=== PATIENT | female | born 1985 | race Caucasian/White ===

== ENCOUNTER → 2017-11-06 13:58 | Outpatient (CLI) | payer BC, MEDICAID, SELFPAY ==
[2017-11-06 15:58] LABS: Absolute Lymphocyte Count 1.76 X10^3/ul (0.83-4.51); Absolute Neutrophil Count 3.5 X10^3/uL (2.0-7.7); Basophil# 0.03 X10^3/uL; Basophil% 0.5 % (0-1); Eosinophil# 0.13 X10^3/uL; Eosinophils% 2.2 % (0-5); Hematocrit 41.2 % (37-47); Hemoglobin 13.6 g/dl (12.0-15.0); Lymphocyte # 1.76 X10^3/ul (4.0); Lymphocyte % 29.3 % (19-41); Mean Corpuscular Hgb 29.9 pg (27.0-32.0); Mean Corpuscular Volume 90.5 fL (81-99); Mean Platelet Vol. 10.9 fl (6.2-12.0); Monocyte# 0.58 X10^3/uL; Monocyte% 9.7 % (0-10); Neutrophil % 58.1 % (47-70); Platelet Count 212 K/mm3 (150-450); RBC Distribution Width CV 12.6 % (11.6-14.6); RBC Distribution Width SD 41.3 fl (35.1-43.9); Red Blood Count 4.55 M/mm3 (4.2-5.4)
[2017-11-06 15:59] LABS: POSITIVE COUNT NO; POSITIVE DIFFERENTIAL NO; POSITIVE MORPHOLOGY NO
[2017-11-06 16:35] LABS: Thyroid Stim Hormone (TSH) 4.53 uIU/mL (0.358-3.74)
== END ==
PROVIDERS: Family Provider Family Medicine; PCP Family Medicine; Visit Provider Nurse Practitioner Women's Health
DX: N92.0 Excessive and frequent menstruation with regular cycle (principal)
CPT/HCPCS: 36415; 84443; 85025

== ENCOUNTER → 2017-11-13 12:18 | Outpatient (CLI) | payer BC, MEDICAID, SELFPAY ==
--- NOTE | 2017-11-13 12:19 | US_ITS ---
STUDY: ULTRASOUND OF THE FEMALE PELVIS - COMPLETE REASON FOR EXAM: Female, 32 years old. Irregular bleeding LMP: 11/07/2017 TECHNIQUE: Transabdominal and Transvaginal TECHNICAL QUALITY: Adequate. COMPARISON: None. FINDINGS: The uterus is anteverted and is in a midline position. The uterus measures 10.4 x 6.9 x 5.6 cm. Normal uterine cervix. The endometrium measures 3 mm in thickness, and is hyperechoic. An indeterminate focus of increased echogenicity is noted in the lower uterine segment endometrium which could be related to some calcification or blood products. There is no demonstrated myometrial mass. I.U.D. - The patient does not have an I.U.D. The right ovary is visualized. The right ovary measures 2.7 x 2.7 x 1.8 cm. There is no right ovarian cyst or ovarian mass. There is no visualized right adnexal mass or complex lesion. There is normal arterial and normal venous vascularity. The left ovary is visualized. The left ovary measures 3.3 x 2.5 x 1.8 cm. There is no left ovarian cyst or ovarian mass. There is no visualized left adnexal mass or complex lesion. There is normal arterial and normal venous vascularity. There is no fluid in the cul-de-sac. The pre void volume of the bladder was 48.1 ml. The post void volume of the bladder was ml. Polycystic ovary disease: No. US/Transvaginal Non- IMPRESSION: Focus of indeterminate increased echogenicity is noted in the lower uterine segment endometrium which could represent some calcification or blood products. If there has been prior uterine surgery, suture material could also have this appearance. Otherwise, the uterus and ovaries have a normal ultrasound appearance. Electronically Signed: Joseph Nielsen MD at 8:25 EDT Tel , Service support ,
--- NOTE | 2017-11-13 12:19 | US_ITS ---
STUDY: ULTRASOUND OF THE FEMALE PELVIS - COMPLETE REASON FOR EXAM: Female, 32 years old. Irregular bleeding LMP: 11/07/2017 TECHNIQUE: Transabdominal and Transvaginal TECHNICAL QUALITY: Adequate. COMPARISON: None. FINDINGS: The uterus is anteverted and is in a midline position. The uterus measures 10.4 x 6.9 x 5.6 cm. Normal uterine cervix. The endometrium measures 3 mm in thickness, and is hyperechoic. An indeterminate focus of increased echogenicity is noted in the lower uterine segment endometrium which could be related to some calcification or blood products. There is no demonstrated myometrial mass. I.U.D. - The patient does not have an I.U.D. The right ovary is visualized. The right ovary measures 2.7 x 2.7 x 1.8 cm. There is no right ovarian cyst or ovarian mass. There is no visualized right adnexal mass or complex lesion. There is normal arterial and normal venous vascularity. The left ovary is visualized. The left ovary measures 3.3 x 2.5 x 1.8 cm. There is no left ovarian cyst or ovarian mass. There is no visualized left adnexal mass or complex lesion. There is normal arterial and normal venous vascularity. There is no fluid in the cul-de-sac. The pre void volume of the bladder was 48.1 ml. The post void volume of the bladder was ml. Polycystic ovary disease: No. US/Pelvic (Non ) IMPRESSION: Focus of indeterminate increased echogenicity is noted in the lower uterine segment endometrium which could represent some calcification or blood products. If there has been prior uterine surgery, suture material could also have this appearance. Otherwise, the uterus and ovaries have a normal ultrasound appearance. Electronically Signed: Joseph Nielsen MD at 8:25 EDT Tel , Service support ,
== END ==
PROVIDERS: Family Provider Family Medicine; PCP Family Medicine; Visit Provider Nurse Practitioner Women's Health
DX: N92.0 Excessive and frequent menstruation with regular cycle (principal)
CPT/HCPCS: 76830; 76856; 93976

== ENCOUNTER 2018-02-17 12:40 | Day surgery (SDC) | payer BC, SELFPAY ==
[2018-02-17] VITALS (7 sets, daily range): BP systolic 87–123; BP diastolic 51–100; PULSE 57–107; RESP 14–17; TEMP 36.3–36.9; O2SAT 96–100; BMI 22.8
--- NOTE | 2018-02-17 12:55 | CT_ITS ---
STUDY: CT ABDOMEN AND PELVIS WITHOUT CONTRAST REASON FOR EXAM: Female, 32 years old. Left flank pain. RADIATION DOSAGE (If Supplied By Facility): CTDIvol = ( 6.20 ) mGy, DLP = ( 309.67 ) mGycm TECHNIQUE: Transaxial images were obtained from the dome of the diaphragm to the symphysis pubis without oral contrast, and without intravenous contrast. Sagittal and coronal images were reconstructed. Individualized dose optimization techniques were used for this CT. COMPARISON: None. FINDINGS: The visualized lung bases are unremarkable. The visualized portions of the heart are within normal limits. Normal liver. Normal gallbladder and extrahepatic biliary system. Normal spleen. Normal pancreas. Normal bilateral adrenal glands. Multiple right nonobstructive intrarenal calculi. The largest measures 4 mm. Enlargement of the left kidney. Multiple small nonobstructive left intrarenal calculi. There is evidence of a 4.6 mm calculus at left ureteropelvic junction causing hydronephrosis. Normal visualized stomach. Normal small intestine. Normal colon. The appendix is visualized and appears normal. Normal abdominal aorta. Normal inferior vena cava. Normal retroperitoneum. Normal urinary bladder. Presents of bilateral tubal ligation. Normal abdominal wall. Normal osseous structures. CT/Abdomen/Pelvis without Cont IMPRESSION: 4.6 mm calculus at the left ureteropelvic junction causing obstruction. Nonobstructive bilateral intrarenal calculi. Electronically Signed: Jerrell Rangel MD at 13:38 EDT Tel [phone], Service support ,
[2018-02-17] MEDS: Ondansetron 4 MG/2 ML Vial IV ×2 (13:00→15:20)
[2018-02-17] MEDS: Ketorolac 30 MG/ML Syringe IV (13:00)
[2018-02-17] MEDS: 0.9% Normal Saline 1,000 ML 125 ML IV (13:00)
[2018-02-17 13:14] LABS: Absolute Lymphocyte Count 2.38 X10^3/ul (0.83-4.51); Absolute Neutrophil Count 3.9 X10^3/uL (2.0-7.7); Basophil# 0.04 X10^3/uL; Basophil% 0.6 % (0-1); Eosinophil# 0.18 X10^3/uL; Eosinophils% 2.6 % (0-5); Hematocrit 42.8 % (37-47); Hemoglobin 14.6 g/dl (12.0-15.0); Lymphocyte # 2.38 X10^3/ul (4.0); Mean Corp Hgb Conc 34.1 g/gl (32-36); Mean Corpuscular Volume 87.9 fL (81-99); Mean Platelet Vol. 10.4 fl (6.2-12.0); Monocyte# 0.54 X10^3/uL; Monocyte% 7.7 % (0-10); Neutrophil # 3.86 X10^3/uL (2.7-7.7); POSITIVE COUNT NO; POSITIVE DIFFERENTIAL NO; POSITIVE MORPHOLOGY NO; Platelet Count 211 K/mm3 (150-450); RBC Distribution Width CV 12.6 % (11.6-14.6); RBC Distribution Width SD 40.4 fl (35.1-43.9); Red Blood Count 4.87 M/mm3 (4.2-5.4)
[2018-02-17 13:25] LABS: Anion Gap 9 (5-15); BUN 16 mg/dL (7-18); BUN/Creat Ratio 16.9 RATIO (10-20); Calcium,Total 9.2 mg/dL (8.5-10.1); Chloride 106 mmol/L (98-107); Creatinine, Serum 0.95 mg/dL (0.55-1.02); EST Glomerular Filtration Rate 72 mL/min (>60); Est Glom Filt Rate - Afr Amer 87 mL/min (>60); Estimated Creatinine Clearance 81.14 ml/min; Glucose 86 mg/dL (74-106); Potassium 3.6 mmol/L (3.5-5.1); Sodium Level 138 mmol/L (136-145)
[2018-02-17 13:34] LABS: Pregnancy, Serum, hCG Quali. NEGATIVE Negative (0-9 Nonpreg)
--- NOTE | 2018-02-17 14:01 | ED.VISSUMM ---
- ER Visit Summary Date of Service: 02/17/18 Chief Complaint: [Left flank pain] History of Present Illness: The patient is a 32 F [presents to the emergency department complaint of left flank pain that started about an hour and a half ago. Patient states that she had some hematuria about 4 days ago. Patient describes the pain is severe and rates it an 8 out of 10. Patient's had nausea with it but no vomiting. She denies any fevers. Patient states that she dipped her own urine when she had a hematuria and there is no signs of infection. Patient is never had kidney stones. Patient has had a tubal ligation and does not believe she is .] Physical Examination: [HEENT-PERRLA, EOMI. Cranial nerves II through XII grossly intact. TMs clear. Mucous membranes moist. No adenopathy. Cardiovascular-regular rate and rhythm without murmur or ectopy Lungs-clear to auscultation, chest wall stable without crepitus or subcu emphysema Abdomen-normoactive bowel sounds, soft. Patient has some mild tenderness over left lower quadrant. Patient has CVA tenderness on the left. Extremities-intact ?4, normal range of motion, normal pulses, atraumatic] Test Results: [CBC with differential obtained was normal. Chemistries were normal. HCG was negative. CT flank showed a 4.6 mm left UVJ stone causing obstruction. Urinalysis ordered and pending] Emergency Department Course and Treatment: [Patient was medicated initially with Dilaudid, Zofran, and Toradol. Patient had good pain relief with that and is comfortable mostly pain-free at this time.] Treatment Plan: [Patient will be discharged home with urine strainers and referral to urology.] Disposition: [Discharged home in stable condition. Patient advised to return if worsening pain, fever, vomiting, or condition should worsen in any way.] Impression: [Kidney stone with colic] This note was generated with [employer] dictation software. It may contain incorrect words, spelling, and punctuation that were not noted in review of the chart prior to signing ED Disposition - Plan for ED Patient: Chief Complaint: Flank Pain Referrals: Milton Vargas III, MD [Primary Care Provider] -
[2018-02-17 14:18] LABS: Mucous, Urine 0 SEEN /hpf (<or=2+)
[2018-02-17 14:23] LABS: Color, Urine Yellow (Yellow); Glucose, Dipstick Normal (Normal); Ketone-Dipstick Negative (Negative); Leukocyte Esterase-Dipstick 100 /ul (Negative); Nitrite-Dipstick Negative (Negative); Occult Blood-Urine 250 /ul (Negative); Protein-Dipstick 30 mg/dl (Negative); Specific Gravity, Urine 1.015 (1.002-1.030); Urine Bilirubin Dipstick Negative (Negative); Urine Clarity Sl. Cloudy (Clear); Urine Urobilinogen Normal (Normal); Urine pH 6.5 (5.0 - 8.0)
[2018-02-17 14:38] LABS: Bacteria 1+ /hpf (None Seen); Red Blood Cells-Urine 25-50 SEEN /hpf (0-5); Squamous Epithelial Cells - UA 0-5 SEEN /hpf (5-10); White Blood Cells 10-25 SEEN /hpf (0-5)
--- NOTE | 2018-02-17 15:01 | ED.DCSUM_ITS ---
- ER Visit Summary Date of Service: 02/17/18 Chief Complaint: [Addendum to initial dictation] History of Present Illness: The patient is a 32 F [presented with left-sided flank pain and diagnosed with 4.6 mm kidney stone. Patient's pain initially had improved however prior to discharge it did return became significant once again. At this point I discussed case with who will admit patient] Physical Examination: [] Test Results: [] Emergency Department Course and Treatment: [] Treatment Plan: [] Disposition: [Admit] Impression: [Kidney stone with colic Intractable pain] This note was generated with [employer] dictation software. It may contain incorrect words, spelling, and punctuation that were not noted in review of the chart prior to signing ED Disposition - Plan for ED Patient: Chief Complaint: Flank Pain Referrals: Milton Vargas III, MD [Primary Care Provider] -
[2018-02-17] MEDS: Morphine 4 MG/ML Syringe IV (15:20)
[2018-02-17] MEDS: Ceftriaxone 1 GM/50 ML BAG IV (15:39)
--- NOTE | 2018-02-17 17:48 | HP.PCM_ITS ---
History of Present Illness Date of Admission: 02/17/18 Chief Complaint: 32-year-old female with a proximal left 4.6 mm stone with obstruction and severe pain The patient is a 32 year old female presented to the emergency room with a 5 mm stone in the proximal left ureter causing hydronephrosis and pain also some nonobstructing stone in the left kidney. She is admitted for pain control. Plan to take her surgery today for cystoscopy stent placement and then will plan for interval treatment of her stones this week. Past Medical History Medical History: Medical History (Last Updated 11/06/17 @ 13:35 by Lupe Meza) Anxiety and depression F41.9, F32.9 Allergies No Known Allergies Allergy (Verified 11/06/17 13:32) Home Medications: Ambulatory Orders Medication Instructions Recorded Escitalopram Oxalate [Lexapro] 20 mg PO DAILY 02/17/18 Levothyroxine Sodium [Synthroid] 25 mcg PO DAILY 02/17/18 Surgical History: Surgical History (Last Updated 11/06/17 @ 13:35 by Lupe Meza) H/O tubal ligation Z98.51 History of wisdom tooth extraction, class II edentulism K08.492 Surgical History: noncontributory Psychiatric History: No pertinent psych hx 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 Denies: Nausea, Vomiting Genitourinary: Reports: Hematuria. Denies: Dysuria Musculoskeletal: Denies: Joint Pain, Joint Tenderness Skin: Denies: Rash, Wounds Neurological: Denies: Numbness, Tingling, Focal weakness Psychiatric: Denies: Anxiety, Depression, Homicidal Ideations, Suicidal Ideations Hematologic/ Lymphatic: Denies: Easy Bruising, Easy Bleeding VTE Information - Inpt Only VTE Present on Admission: No VTE Mechan Device Prophylaxis: SCD's - Physical Exam General: Alert, Oriented x3, Cooperative HEENT: Atraumatic, PERRLA, EOMI, Normocephalic Neck: Supple, No JVD, Negative Carotid Bruits Lungs: Clear to auscultation, Normal air movement Cardiovascular: Regular rate, No murmurs Abdomen: Bowel Sounds Present, Soft, Non Tender Extremities: No edema, Capillary Refill Less than 3 Seconds Skin: No rashes, No breakdown Musculoskeletal: No Tenderness to Palpation of Joints or Extremities Neurological: Cranial nerves II-XII grossly intact Psych/Mental Status: Normal Affect, Appropriate Vital Signs Temp Pulse Resp BP Pulse Ox 97.6 F L 88 16 116/70 100 02/17/18 12:42 02/17/18 15:23 02/17/18 15:23 02/17/18 15:23 02/17/18 15:23 Oxygen Delivery Method Room Air Weight: 66.224 kg Body Mass Index (BMI) 22.8 Laboratory Tests Past 24 Hrs 02/17/18 02/17/18 02/17/18 13:05 13:05 13:05 WBC 7.0 RBC 4.87 Hgb 14.6 Hct 42.8 MCV 87.9 MCH 30.0 MCHC 34.1 RDW 12.6 RDW Differential 40.4 Plt Count 211 MPV 10.4 Immature Gran % (Auto) 0.100 Neut % (Auto) 55.0 Lymph % (Auto) 34.0 [place] % (Auto) 7.7 Eos % (Auto) 2.6 Baso % (Auto) 0.6 Absolute Neuts (auto) 3.9 Absolute Lymphs (auto) 2.38 Total Counted Not Reportable Sodium 138 Potassium 3.6 Chloride 106 Carbon Dioxide 23.0 Anion Gap 9 BUN 16 Creatinine 0.95 Estim Creat Clear Calc 81.14 Est GFR (MDRD) Af Amer 87 Est GFR (MDRD) Non-Af 72 BUN/Creatinine Ratio 16.9 Glucose 86 Calcium 9.2 Serum , Qual NEGATIVE Urine Color Urine Clarity Urine pH Ur Specific [place] Urine Protein Urine Glucose (UA) Urine Ketones Urine Occult Blood Urine Nitrite Urine Bilirubin Urine Urobilinogen Ur Leukocyte Esterase Urine RBC Urine WBC Ur Squamous Epith Cells Urine Bacteria Urine Mucus 02/17/18 14:10 WBC RBC Hgb Hct MCV MCH MCHC RDW RDW Differential Plt Count MPV Immature Gran % (Auto) Neut % (Auto) Lymph % (Auto) [place] % (Auto) Eos % (Auto) Baso % (Auto) Absolute Neuts (auto) Absolute Lymphs (auto) Total Counted Sodium Potassium Chloride Carbon Dioxide Anion Gap BUN Creatinine Estim Creat Clear Calc Est GFR (MDRD) Af Amer Est GFR (MDRD) Non-Af BUN/Creatinine Ratio Glucose Calcium Serum , Qual Urine Color Yellow Urine Clarity Sl. Cloudy Urine pH 6.5 Ur Specific [place] 1.015 Urine Protein 30 H Urine Glucose (UA) Normal Urine Ketones Negative Urine Occult Blood 250 H Urine Nitrite Negative Urine Bilirubin Negative Urine Urobilinogen Normal Ur Leukocyte Esterase 100 H Urine RBC 25-50 SEEN Urine WBC 10-25 SEEN Ur Squamous Epith Cells 0-5 SEEN Urine Bacteria 1+ Urine Mucus 0 SEEN Assessment/Plan 32-year-old female with a proximal left ureteral calculi plan for cystoscopy and stent placement today we will discharge home tonight with pain medicine and plan for interval treatment of her kidney stone this coming week.
--- NOTE | 2018-02-17 17:50 | PCM.DC.URO ---
Discharge Diet: Light diet - advance as tolerated Discharge Activity: Return to Normal Activity Call your doctor if you observe: Fever of 101 or Higher Allergies/Adverse Reactions: Allergies No Known Allergies Allergy (Verified 11/06/17 13:32) Medications to take at Discharge Escitalopram Oxalate [Lexapro] 20 mg PO DAILY 02/17/18 Hydrocodone/Acetaminophen [[place] 5-325 Tablet] 1 ea PO Q4H PRN PRN 7 Days #14 tab 02/17/18 Levothyroxine Sodium [Synthroid] 25 mcg PO DAILY 02/17/18 The following prescriptions were given: Hydrocodone/Acetaminophen [[place] 5-325 Tablet] 1 ea PO Q4H PRN PRN 7 Days #14 tab PRN Reason: Pain Primary Care Physician: Milton Vargas III, MD [Primary Care Provider] - Test Results: Please Follow Up With: Alexey Casper MD When: my office will call you to set up surgery this Saturday.
[2018-02-17] MEDS: Lidocaine Jelly 2% 20 ML Syringe (URO-JET) 20 APPLIC (18:13)
--- NOTE | 2018-02-17 18:25 | OP.PCM_ITS ---
Report of Operation Date of Procedure: 02/17/18 Pre-Operative Diagnosis: Left proximal ureteral calculi and multiple left renal calculi Post-Operative Diagnosis: Same Surgery/Procedure Performed:: Cystoscopy and left stent placement Description of Surgical Findings:: 32-year-old female came into the emergency room severe pain from a stone in the proximal left ureter patient was brought into the hospital today for pain control taken to surgery today to place a stent in the left side and then plan for shockwave lithotripsy in a few days. Patient was taken back to the operating room at the smooth induction of general anesthesia was placed supine on the table in the dorsolithotomy position. The urethra and vaginal area were prepped and draped in usual sterile fashion, the urethra is normal, the bladder was normal, I cannulated the left ureteral orifice with a Glidewire advanced a wire up into the kidney, and then over the wire a place a stent 6 [place] by 26 cm stent, left the string on the stent for easy extraction patient anesthesia was reversed and she is taken back to PACU in good condition plan to set her up in the near future for shockwave lithotripsy of the left kidney stones. Type of Anesthesia:: Local MAC Drains: stent left side, 6x26cm - Admit VTE Documentation VTE Present on Admission: No VTE Mechan Device Prophylaxis: SCD's
[2018-02-17] MEDS: Ketorolac 15 MG/ML Vial IV (18:43)
== END 2018-02-17 20:17 | disposition home or self-care (01) ==
LOC: ED 15:05 → SDC 15:08 → MS3 02-20 09:09
PROVIDERS: Emergency Provider Emergency Medicine; Family Provider Family Medicine; PCP Family Medicine; Visit Provider Urology
PROC: (CPT 52332; principal; 2018-02-17 17:15)
DX: N13.2 Hydronephrosis with renal and ureteral calculous obstruction (principal); F41.9 Anxiety disorder, unspecified; F32.9 Major depressive disorder, single episode, unspecified; Z79.899 Other long term (current) drug therapy
CPT/HCPCS: 00910; 52332; 74176; 76000; 80048; 81001; 84703; 85025; 99284; J7030; J7120; C1769; C2617; J2405

== ENCOUNTER → 2018-02-25 08:31 | Outpatient (CLI) | payer BC, SELFPAY ==
--- NOTE | 2018-02-25 08:39 | RAD_ITS ---
STUDY: X-RAY - ABDOMEN/PELVIS REASON FOR EXAM: Female, 32 years old. Kidney stones TECHNIQUE: Frontal view COMPARISON: None. FINDINGS: Normal visualized lung bases. There is an unremarkable bowel gas pattern. There is no demonstrated free abdominal air. There is a LEFT ureteral stent in proper position. NO stones are seen. There are bilateral tubal ligation clips. There are phleboliths in the pelvis. Normal soft tissue structures. Normal visualized osseous structures. RAD/Abdomen Single View IMPRESSION: There is an unremarkable bowel gas pattern. There is no demonstrated free abdominal air. There is a LEFT ureteral stent in proper position. NO stones are seen. Electronically Signed: Silas Webb MD at 1:55 EDT , Service support ,
== END ==
LOC: RAD 08:35
PROVIDERS: Family Provider Family Medicine; PCP Family Medicine; Visit Provider Urology
DX: N20.1 Calculus of ureter (principal)
CPT/HCPCS: 74018

== ENCOUNTER 2020-07-04 23:21 | Emergency (ER) | payer OTHER, BC, SELFPAY ==
[2020-07-04 23:22] VITALS: BP 152/72; PULSE 82; RESP 16; TEMP 36.3; O2SAT 100; BMI 21.2
--- NOTE | 2020-07-04 23:39 | ED.VIS.GEN ---
History of Present Illness Chief Complaint: Back Informant: Patient Onset: Today Current Severity: Moderate Maximum Severity: Moderate Narrative: Patient presents secondary to back pain. She was at work tonight. She states she picked up a box of parts and turned to sit down when she had sudden sharp pain through her back and toward her chest. She states she dropped to her knees and has had difficulty moving because of pain and spasm since that time. She does have a history of herniated disks in her lower back but states this is completely different. She denies pain radiating to her arms or legs. - Past Medical History (1) Anxiety and depression Status: Chronic (2) Hypothyroid Status: Chronic Past Medical History - Allergies and Home Meds Allergies/Adverse Reactions: Allergies hydrocodone [From Vicodin] Adverse Reaction (Verified 07/04/20 23:24) Nausea/Vom/Diarrhea Primary Care Physician: Manuel Pierre [GROUP OF PHYSICIANS] - 2 Days Surgical History: noncontributory Lives: With Family Smoking Status: Never smoker - Family History Maternal Family History: Family History (Last Updated 11/06/17 @ 13:35 by Lupe Meza) Grandfather Heart disease Family History: Reports: No pertinent history Review of Systems General: Denies: Chills, Fever Eyes: Denies: Visual changes - bilaterally ENT: Denies: Bilateral ear pain Cardiovascular: Denies: Chest pain Respiratory: Denies: Dyspnea, Cough Gastrointestinal: Denies: Abdominal pain Musculoskeletal: Reports: Back pain Skin: Denies: Rash Neurological: Denies: Headache, Weakness, Parasthesia Hematologic: Denies: Easy bruising, Easy bleeding Allergy: Denies: Uticaria Physical Exam Vital Signs/Narrative: Vital Signs Temp Pulse Resp BP Pulse Ox 07/04/20 23:22 97.3 F L 82 16 152/72 H 100 Inital Vital Signs reviewed: Yes General: Well nourished, Well developed Head: Normocephalic ENT: Moist mucous membranes Neck: Supple Cardiovascular: Regular rate, Regular rhythm Respiratory: No distress, CTA bilaterally Abdomen: Soft, Nontender Back: - - Tenderness in the lower thoracic midline and paraspinal regions. Extremities: Nontender Skin: Normal color Neurological: Alert, Oriented x3 Psychological: Normal affect Diagnostic/Tx/Re-eval - Medical Decision Making Patient will be given a Lidoderm patch along with Naprosyn, Tramadol, and Flexeril. With no direct trauma to her back I do not believe x-rays will be beneficial. [facility] ED Disposition - Plan for ED Patient: Disposition: Home or Assisted Living Diagnosis: Back pain Instructions: ED Back Pain Acute or Chronic, ED Spasm Back No Trauma Prescriptions: cycloBENZAPRine HCl [Flexeril] 10 mg PO TID PRN #20 tab PRN Reason: Muscle Spasm Transmission Status: Received by [id number] Lidocaine [Lidoderm Patch] 1 patch TOPICAL DAILY PRN #3 patch PRN Reason: Pain Score 4-10 Transmission Status: Sent to [id number] Naproxen [Naprosyn] 500 mg PO BID PRN PRN #20 tab PRN Reason: Pain Score 4-10 Transmission Status: Sent to [id number] traMADol [Ultram] 50 mg PO Q6H PRN PRN #10 tab PRN Reason: Pain Score 6-10 Transmission Status: Received by [id number] Referrals: [facility] [[facility]YSIC[facility]] - 2 Days
--- NOTE | 2020-07-04 23:41 | ED.RN ---
Rebecca from called in at 2340 regarding drug screen for pt.
[2020-07-04] MEDS: Naproxen 500 MG Tablet PO (23:43)
[2020-07-04] MEDS: cycloBENZAPRine HCl 10 MG Tablet PO (23:43)
[2020-07-04] MEDS: Lidocaine 5% Patch 1 PATCH TOPICAL (23:43)
[2020-07-05] MEDS: traMADol 50 MG Tablet PO (00:38)
[2020-07-05 00:39] VITALS: BP 133/75; PULSE 62; RESP 17; O2SAT 97
== END 2020-07-05 00:39 | disposition home or self-care (01) ==
PROVIDERS: Emergency Provider Emergency Medicine; PCP Family Medicine
DX: M54.9 Dorsalgia, unspecified (principal); E03.9 Hypothyroidism, unspecified; F41.9 Anxiety disorder, unspecified; F32.9 Major depressive disorder, single episode, unspecified; Z79.899 Other long term (current) drug therapy
CPT/HCPCS: 99283

== ENCOUNTER → 2020-07-20 17:02 | Outpatient (CLI) | payer BC, SELFPAY ==
[2020-07-06 17:37] VITALS: BMI 22.1
--- NOTE | 2020-07-20 17:05 | RAD_ITS ---
STUDY: X-RAY - THORACIC SPINE REASON FOR EXAM: Female, 34 years old. Neck pain TECHNIQUE: 3 view(s) of the thoracic spine were obtained. COMPARISON: None. FINDINGS: There is no evidence of fracture or dislocation in the thoracic spine. The vertebral body heights and disc spaces are well-maintained. There are no significant degenerative changes. RAD/Thoracic Spine 3 Views IMPRESSION: No fracture or dislocation in the thoracic spine. Electronically Signed: Obey Lou, at 17:52 EST Tel , Service support ,
--- NOTE | 2020-07-20 17:05 | RAD_ITS ---
STUDY: X-RAY - LUMBAR SPINE REASON FOR EXAM: Female, 34 years old. Back pain TECHNIQUE: 3 view(s) of the lumbar spine were obtained. COMPARISON: None FINDINGS: There is no evidence of fracture or dislocation in the lumbar spine. The vertebral body heights and disc spaces are well-maintained. There are no significant degenerative changes. RAD/Lumbar Spine 2 or 3 Views IMPRESSION: No fracture or dislocation in the lumbar spine. Electronically Signed: Obey Lou, at 17:52 EST Tel , Service support ,
== END ==
PROVIDERS: PCP Family Medicine; Referring Provider Physician Assistant; Visit Provider Physician Assistant
DX: M62.830 Muscle spasm of back (principal)
CPT/HCPCS: 72072; 72100

== ENCOUNTER 2020-09-26 17:00 | Outpatient (RCR) | payer OTHER, SELFPAY ==
[2020-07-06 17:37] VITALS: BMI 22.1
--- NOTE | 2020-08-25 13:04 | HP.PTEVAL_ITS ---
Patient's Visit Information VINCENT MATA is a 34 year old F referred to Physical Therapy by SAADIA Sifuentes with a diagnosis of Muscle spasm of back. Date of Evaluation: 08/24/20 Physical Therapist: Ish Smallwood DPT - Visit Plan Frequency: 2x /Week Duration: 5 weeks Plan: Start with slight progression of extension of lumbar spine. May use US to R SI region and Lumbar spine. Progress core stability exercise once tolerating. Progress back to work related exercises once symptoms have started to reduce. - Subjective Pt. is here today for her initial evaluation with diagnosis of muscle spasm of back. Pt. reports initial hurting her back when she was lifting some objects at work. Initial injury occured in the end of June. Pt. initially had a lot of mid back (thoracic pain) which is now significantly better, but is still having the lumbar spine pain mainly on the R side. Pt. does report pain that radiates into her R hip and leg to ~her knee. She denies weakness or sensation changes, but noticed increased pain with sitting, decreasred pain with standing/walking. Increased pain at the end of her work day. Mornings are okay. Pt. is hopeful to reduce symptoms in order to complete work day without limitations. - Pain lumbar spine Pain Intensity (Out of 10): 4 Pain Intensity Range: 2, 8 Comment: R side of Lumbar spine, SI region - Objective POSTURE: Pt. has decent posture in stance. Normal lumbar lordosis and normal thoracic kyphosis. pt. has slieght difference in appearant leg length R longer than L. PALPATION: Pt. has increased tenderness at L1-L3, increased soreness at L4-S1 and greatest pain at SI joint on the Rside. Hypomobility noted, but not severe. Pt. had no radicular symptoms. NEURO: normal DTR, normal sensation of B LEs. ROM: LUMBAR SPINE: flexion min loss mild increase NW, exten min loss increase NW, SB nil loss NE bilat, rotation min loss mild increase NW bilat. Normal HS length, normal IR motion without increase in symptoms. MMT: 5/5 throughout BLEs. Pt. has no marked myotomal loss. Core strength- fair. GAIT: Pt. has normal gait pattern without increase in symptoms. Slightly gaurded posture. - Special Tests L/S Slump test left side: Negative L/S Slump test right side: Positive L/S Left Straight Leg Raise: Negative L/S Right Straight Leg Raise: Negative Lumbar Standing: Flexion - Mechanical Response: No effect Lumbar Standing: Flexion - Symptoms During Testing: Increases Lumbar Standing: Flexion - Symptoms After Testing: No worse Comments:: slightly Lumbar Standing: Extension - Mechanical Response: No effect Lumbar Standing: Extension - Symptoms During Testing: Increases Lumbar Standing: Extension - Symptoms After Testing: No worse Lumbar Lying: Flexion - Mechanical Response: No effect Lumbar Lying: Flexion - Symptoms During Testing: No effect Lumbar Lying: Flexion - Symptoms After Testing: No effect Lumbar Lying: Extension - Mechanical Response: No effect Lumbar Lying: Extension - Symptoms During Testing: Increases Lumbar Lying: Extension - Symptoms After Testing: No worse Lumbar Static: Slouched Sit - Mechanical Response: No effect Lumbar Static: Slouched Sit - Symptoms During Testing: Increases Lumbar Static: Slouched Sit - Symptoms After Testing: Worse Comments:: Greatest increase in symptoms Lumbar Static: Sitting Erect - Mechanical Response: No effect Lumbar Static: Sitting Erect - Symptoms During Testing: Decreases Lumbar Static: Sitting Erect - Symptoms After Testing: Better Lumbar Static:Lying Prone in Extension - Mechanical Response: No effect Lumbar Static: Lying Prone in Extension - Sx During Testing: Increases Lumbar Static: Lying Prone in Extension - Sx After Testing: Worse Comments:: Better initially, worsened as she was in prone on elbows - Goals Goal 1:: LTG: Pt. to be I with HEP. Goal Time Frame: 4-6 Weeks Goal 2:: STG: Pt. to sleep throughout the night without increase in symptoms. Goal Time Frame: 2-4 Weeks Goal 3:: STG: Pt. to sit in a comfortable chair without increase in symptoms for 1 hour. Goal Time Frame: 2-4 Weeks Goal 4:: STG: pt. to walk unlimited distances without increase in symptoms Goal Time Frame: 2-4 Weeks Goal 5:: STG: pt. to have full lumbar ROM without increase insymptoms. Goal Time Frame: 2-4 Weeks Goal 6:: LTG: Pt. to resume all work related activities without increase in symptoms or restrictions. Goal Time Frame: 4-6 Weeks - Rehabilitation Potential Physical Therapy Diagnosis: Pt. has signs and symptoms consistent with muscle spasms of lumbar spine. Pt. does have some radicular symptoms into her R leg. with prolonged sitting. Pt. does have + slump test on the R side. Pt. had no myotomal weakness or sensation loss. Pt. would benefit from PT to work on extension ROM, progressing to core stability. Rehabilitation Potential: Excellent - Anticipated Interventions Patient/Client Instruction: Educate patient on: Condition, Plan of Care, Risk Factors, Benefits of Fitness Program For the Purpose of:: To facilitate caregiver knowledge, To improve self management, To prevent re-injury, To improve ability to perform tasks related to life management, To improve tolerance to ADL's Therapeutic Exercise to Include: Strength training, Coordination, Postural training, Flexibilty training, Passive ROM, Active ROM, Dynamic Lumbar Stabilization, [place] Exercises For the Purpose of:: To decrease pain, To increase ROM, To improve nutrient delivery to tissue, To increase oxygenation perfusion, To improve muscle performance and motor function, To improve ability to perform ADL's, To improve health of tissue, To decrease soft tissue restriction, To increase flexibility/ROM Manual Therapy Techniques to Include: Mobilization, Manipulation, Passive ROM, Functional dry needling, Soft tissue mobilization For the Purpose of:: To decrease pain, To decrease swelling/inflammation, To increase ROM, To improve nutrient delivery to tissue, To increase oxygenation perfusion, To improve muscle performance and motor function Ultrasound (thermal/non thermal): Yes For the Purpose of:: To decrease pain, To decrease swelling/inflammation, To increase ROM, To improve nutrient delivery to tissue Thank you for the opportunity to evaluate your patient. For Medicare and Medicare HMO plans, please review the plan of care and approve it. It will need to be FAXED BACK to us at [phone] for Medicare purposes. For Medicare only, by signing this I certify the plan of care. Please let me know if there are questions or concerns regarding this plan of care. Physician Signature: Date:
--- NOTE | 2020-10-06 11:46 | HP.PTDCNRP_ITS ---
VINCENT MATA was seen in my office for initial evaluation on 08/24/20. The following Plan of Care was established for this patient: Initial Frequency: 2x /Week Initial Duration: 5 weeks Patient/Client Instruction: Educate patient on: Condition, Plan of Care, Risk Factors, Benefits of Fitness Program For the Purpose of:: To facilitate caregiver knowledge, To improve self management, To prevent re-injury, To improve ability to perform tasks related to life management, To improve tolerance to ADL's Therapeutic Exercise to Include: Strength training, Coordination, Postural training, Flexibilty training, Passive ROM, Active ROM, Dynamic Lumbar Stabil ization, [place] Exercises For the Purpose of:: To decrease pain, To increase ROM, To improve nutrient delivery to tissue, To increase oxygenation perfusion, To improve muscle performance and motor function, To improve ability to perform ADL's, To improve health of tissue, To decrease soft tissue restriction, To increase flexibility/ROM Manual Therapy Techniques to Include: Mobilization, Manipulation, Passive ROM, Functional dry needling, Soft tissue mobilization For the Purpose of:: To decrease pain, To decrease swelling/inflammation, To increase ROM, To improve nutrient delivery to tissue, To increase oxygenation perfusion, To improve muscle performance and motor function Ultrasound (thermal/non thermal): Yes For the Purpose of:: To decrease pain, To decrease swelling/inflammation, To increase ROM, To improve nutrient delivery to tissue This patient was last seen in our office 09/26/20. Pertinent comments regarding their Physical therapy will appear below: Pt. will be DC from PT this date. At her last visit she was doing well and had no pain. She dropped on a letter from her physician saying she is asymptomatic and no longer is requiring PT. Pt. will be DC back to physician at this point in time. At this point I will be discontinuing this patient from physical therapy. I would be happy to see this patient again in the future if found appropriate by the physician. Thank you! Ish Smallwood, CALI
== END 2020-09-26 19:00 | disposition home or self-care (01) ==
LOC: PT 17:00
PROVIDERS: PCP Family Medicine; Referring Provider Physician Assistant; Visit Provider Physician Assistant
DX: M62.830 Muscle spasm of back (principal)
CPT/HCPCS: 97035; 97110; 97161

== ENCOUNTER 2021-04-17 10:13 | Emergency (ER) | payer BC, SELFPAY ==
[2021-04-17 10:14] VITALS: BP 117/59; PULSE 106; RESP 18; TEMP 36.9; O2SAT 100; BMI 22.2
--- NOTE | 2021-04-17 11:03 | EX.ED.DYSGE1 ---
HPI History of Present Illness Chief Complaint: Flank Pain Informant: patient Narrative Narrative: Patient is a 35-year-old female who presents to the emergency department for left-sided flank pain. She states that this started last night around 11:30 PM. She tried taking ibuprofen and using heating pad which only helped for 90 minutes. She does have a history of kidney stones. She has had this pain on and off for the past week or 2. She was seen as an outpatient and had an ultrasound done. She had basic lab work drawn. They did not find any acute abnormality to explain her current pain. She currently rates the pain as severe. No known aggravating or relieving factors. It does not radiate to her abdomen. She denies any urinary symptoms. No change in bowel movements. No nausea or vomiting. She denies any fevers or chills. [facility] Medical History (Updated 04/17/21 @ 13:[address] Doni Gloria DO) Anxiety and depression Home Medications escitalopram oxalate 20 mg PO DAILY 02/17/18 [History Last Taken 02/17/18 12:00] levothyroxine 25 mcg PO DAILY 02/17/18 [History Last Taken 02/17/18 08:30] cyclobenzaprine 10 mg PO TID PRN #20 tab 07/04/20 [Rx Last Taken Unknown] lidocaine 1 patch TOPICAL DAILY PRN #3 patch 07/04/20 [Rx Last Taken Unknown] naproxen 500 mg PO BID PRN PRN #20 tab 07/04/20 [Rx Last Taken Unknown] tramadol 50 mg PO Q6H PRN PRN #10 tab 07/04/20 [Rx Last Taken Unknown] prednisone 10 mg tablet 10 mg PO BID #14 tab 07/20/20 [Rx Last Taken Unknown] Allergy/AdvReac Type Severity Reaction Status Date / Time hydrocodone [From Vicodin] AdvReac Nausea/Vom/ Verified 04/17/21 10:14 Diarrhea Family History Grandfather Heart disease Surgical History H/O tubal ligation History of wisdom tooth extraction, class II edentulism Social History Smoking Status: Never smoker alcohol intake: never substance use type: does not use caffeine: No frequency: 3-4 times per week seatbelt use: always do you feel safe at home: Yes additional social history: 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 [employer] 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 unemployed ROS ROS ED Constitutional Constitutional ED: Denies chills or fever(s) Eyes Eyes: Denies change in vision ENT ENT ED: Denies epistaxis or rhinorrhea Cardiovascular Cardiovascular: Denies chest pain or palpitations Respiratory/Chest Respiratory/Chest: Denies cough, dyspnea or dyspnea on exertion Gastrointestinal Gastrointestinal: Denies abdominal pain, diarrhea, nausea or vomiting Genitourinary Genitourinary ED: Denies dysuria, hematuria or urinary frequency Musculoskeletal Musculoskeletal: Reports back pain; Denies neck pain Integumentary Denies rash Neurologic Neurologic: Denies dizziness, headache(s) or weakness EXAM Physical Exam Const Vital Signs: 04/17/21 10:14 04/17/21 13:04 04/17/21 13:55 Temperature 98.5 F Temperature Source Temporal Pulse Rate 106 H 91 88 Respiratory Rate 18 15 14 Blood Pressure 117/59 L 100/62 106/72 Blood Pressure Mean 78 74 Pulse Ox 100 99 99 Oxygen Delivery Method Room Air Room Air Positive well nourished and well developed General Appearance ED: well developed and NAD HEENT Reports normocephalic, head/scalp atraumatic and moist mucous membranes Eyes PERRL and EOMs intact bilaterally Neck supple Chest Wall inspection of chest normal Resp normal respiratory effort and clear to auscultation bilaterally Auscultation: Negative for rales, rhonchi or wheezes Cardio regular rate, regular rhythm and no murmurs GI normal to inspection, nondistended, normoactive bowel sounds and non-tender Palpation: soft; Negative for guarding or rebound tenderness present Back/Spine Back/Spine Narrative: CVA tenderness on the left. Extremity normal to inspection General Extremety ED: Negative for edema or tenderness General Extremity: Negative for edema Neuro Sensorium / Orientation: alert Motor Exam: strength 5/5 throughout Psych mental status grossly normal Skin no rashes or lesions noted MDM MDM MDM Narrative Medical decision making narrative: Patient presents to the emergency department for flank pain starting last night. She has had on and off pain over the past 2 weeks. On arrival to the emergency department patient is tearful and does appear in discomfort. We will treat her as a kidney stone with Toradol and check urinalysis and CT scan abdomen/pelvis. Patient's urine had 1+ bacteria but no white blood cells, leukocyte esterase or nitrites. We will send this for culture. There was [address] scan did show bilateral renal stones but no obvious obstructing pathology. There was a fibroid uterus which she was not aware of previously. She is denying any abdominal pain. I did offer basic lab work but she states that she just had this done so we decided against this. She is feeling better at this time. She is concerned that the pain will come back. If she develops any significant repeat pain she come back for evaluation at any time. She otherwise is to follow-up with her PCP. Return precautions are reviewed with her. All questions were answered. Lab Data Labs: Laboratory Results - last 24 hr 04/17/21 10:40 Urine Color Yellow Urine Clarity Clear Urine pH 6.0 Ur Specific [place] 1.025 Urine Protein 15 H Urine Glucose (UA) Normal Urine Ketones Negative Urine Occult Blood 150 H Urine Nitrite Negative Urine Bilirubin Negative Urine Urobilinogen Normal Ur Leukocyte Esterase Negative Urine RBC 0-5 SEEN Urine WBC 0 SEEN Ur Squamous Epith Cells 0-5 SEEN Urine Bacteria 1+ Urine Mucus 0 SEEN Urine Test Negative Radiography Diagnostic Testing: Radiology Impression Abdomen/Pelvis CT 04/17/21 12:02 IMPRESSION: Bilateral renal stones, no evidence of obstructive uropathy. Enlarged uterus suggests fibroid uterus demonstrates no change. Electronically Signed: Marcus Gibson MD at 12:41 EDT Tel , Service support , Discharge Plan Triage Chief Complaint: Flank Pain ED Provider: Doni Gloria Dx/Rx/DC Orders Clinical Impression: Acute flank pain Instructions: ED Flank Pain, Uncertain Cause Prescriptions: No Action prednisone 10 mg tablet 10 mg PO BID Qty: 14 RF: 0 levothyroxine 25 MCG tablet 25 mcg PO DAILY RF: 0 escitalopram oxalate 20 MG tablet 20 mg PO DAILY RF: 0 naproxen 500 MG tablet 500 mg PO BID PRN PRN (Reason: Pain Score 4-10) Qty: 20 RF: 0 cyclobenzaprine 10 MG tablet 10 mg PO TID PRN (Reason: Muscle Spasm) Qty: 20 RF: 0 lidocaine 1 PATCH patch 1 patch TOPICAL DAILY PRN (Reason: Pain Score 4-10) Qty: 3 RF: 0 tramadol 50 MG tablet 50 mg PO Q6H PRN PRN (Reason: Pain Score 6-10) Qty: 10 RF: 0 Primary Care Provider: Edith Pitts NP Referrals: Edith Pitts NP, CARRY OUT CLERK AND SHELF STOCKER[employer] [Primary Care Provider] - 2 Days Disposition Disposition: Home, Self Care Discharge Date/Time: 04/17/21 13:56
[2021-04-17] MEDS: Ketorolac 30 MG/ML Syringe IV (11:14)
[2021-04-17 11:32] LABS: Mucous, Urine 0 SEEN /hpf (<or=2+); White Blood Cells 0 SEEN /hpf (0-5)
[2021-04-17 11:33] LABS: Color, Urine Yellow (Yellow); Glucose, Dipstick Normal (Normal); Ketone-Dipstick Negative (Negative); Leukocyte Esterase-Dipstick Negative /ul (Negative); Nitrite-Dipstick Negative (Negative); Occult Blood-Urine 150 /ul (Negative); Protein-Dipstick 15 mg/dl (Negative); Specific Gravity, Urine 1.025 (1.002-1.030); Urine Bilirubin Dipstick Negative (Negative); Urine Clarity Clear (Clear); Urine Urobilinogen Normal (Normal)
[2021-04-17 11:35] LABS: Internal QC Validated? YES +Cl - CLEAR BKGD; Pregnancy, Urine Negative Negative
[2021-04-17 11:41] LABS: Red Blood Cells-Urine 0-5 SEEN /hpf (0-5); Squamous Epithelial Cells - UA 0-5 SEEN /hpf (5-10)
[2021-04-17 11:42] LABS: Bacteria 1+ /hpf (None Seen)
--- NOTE | 2021-04-17 12:02 | CT_ITS ---
INDICATION: Left flank pain, eval for stone EXAMINATION: CT ABDOMEN AND PELVIS WITHOUT CONTRAST - CT Abdomen And Pelvis W/O Contrast Injection TECHNIQUE: Helically acquired images were obtained of the abdomen and pelvis without oral or IV contrast. A radiation dose optimization technique was used for this scan. IV Contrast dosage and agent: None. Oral contrast: None. COMPARISON: 02/17/2018. FINDINGS: LOWER CHEST: Lung bases are clear. No cardiomegaly or pericardial effusion. LIVER: Homogeneous. No focal mass. GALLBLADDER AND BILIARY TREE: No calcified gallstones. No gallbladder distension or wall edema. No intra- or extrahepatic biliary ductal dilation. PANCREAS: No focal cystic or solid mass. SPLEEN: Normal size without focal cystic or solid mass. ADRENAL GLANDS: No nodules. KIDNEYS AND URETERS: Normal renal size and position. Bilateral renal calcifications visualized, the largest seen in the midpole the right kidney measuring 0.6 cm. No evidence of hydronephrosis or hydroureter. PERITONEUM: No ascites or free air. No other fluid collection. BOWEL: Abundance of stool in the large bowel. No evidence of acute appendicitis. No stomach or bowel distension. No focal inflammatory change. LYMPH NODES: No enlarged mesenteric or retroperitoneal lymph nodes. VESSELS: Aorta is non-dilated. URINARY BLADDER: Unremarkable. REPRODUCTIVE ORGANS: No radiopaque foreign bodies visualized along the lateral aspect of the uterus consistent with fallopian tube clips. Enlarged uterus demonstrating irregular contours and heterogeneous attenuation suggestive of fibroid uterus demonstrates no significant change in comparison to the prior study. ABDOMINAL WALL: No discrete abdominal or pelvic wall hernia. BONES: No lytic or blastic abnormality. CT/Abdomen/Pelvis without Cont IMPRESSION: Bilateral renal stones, no evidence of obstructive uropathy. Enlarged uterus suggests fibroid uterus demonstrates no change. Electronically Signed: Marcus Gibson MD at 12:41 EDT Tel , Service support ,
[2021-04-17] MEDS: Morphine 4 MG/ML Syringe IM (12:59)
[2021-04-17 13:04] VITALS: BP 100/62; PULSE 91; RESP 15; O2SAT 99
[2021-04-17 13:55] VITALS: BP 106/72; PULSE 88; RESP 14; O2SAT 99
== END 2021-04-17 13:56 | disposition home or self-care (01) ==
PROVIDERS: Emergency Provider Emergency Medicine; PCP Nurse Practitioner Family
DX: R10.9 Unspecified abdominal pain (principal); F32.9 Major depressive disorder, single episode, unspecified; F41.9 Anxiety disorder, unspecified; Z87.442 Personal history of urinary calculi; Z79.899 Other long term (current) drug therapy
CPT/HCPCS: 74176; 81001; 81025; 96372; 96374; 99283

== ENCOUNTER → 2022-04-03 | Outpatient (CLI) | payer BC, SELFPAY ==
[2022-04-03 09:53] LABS: Erythrocyte Sedimentation Rate 10 mm/hr (0-30)
[2022-04-03 10:21] LABS: International Normalized Ratio 0.9; Prothrombin Time (Protime)PT. 12.3 SECONDS (11.7-14.9)
[2022-04-03 12:16] LABS: CRP < 2.90 mg/L (0.0-3.0); Ferritin 10 ng/mL (8-252); Free T3 2.2 pg/mL (2.18-3.98); LDH 167 U/L (84-246); T4 Free Direct 0.99 ng/dL (0.76-1.46); Thyroid Stim Hormone (TSH) 3.08 uIU/mL (0.358-3.74)
[2022-04-04 13:08] LABS: Anti-Centromere B Ab <0.2 AI (0.0-0.9); Anti-Chromatin <0.2 AI (0.0-0.9); Anti-Jo <0.2 AI (0.0-0.9); Anti-Scleroderma-70 AB 1.6 AI (0.0-0.9); RNP Ab 0.2 AI (0.0-0.9); SJOGREN'S Anti-SS-A test < 0.2 AI (0.0-0.9); SJOGREN'S Anti-SS-B test < 0.2 AI (0.0-0.9); Smith Ab <0.2 AI (0.0-0.9)
[2022-04-04 13:19] LABS: Anti-dsDNA Ab <1 IU/mL (0-9)
[2022-04-04 14:09] LABS: Endomysial Antibody IgA Negative (Negative)
[2022-04-05 07:37] LABS: Immunoglobulin A 237 mg/dL (87-352); t-Transglutaminase IgA <2 U/mL (0-3)
[2022-04-09 10:07] LABS: Albumin 4.1 g/dL (2.9-4.4); Alpha-1-Globulins 0.2 g/dL (0.0-0.4); Alpha-2-Globulins 0.7 g/dL (0.4-1.0); Cytoplasmic Ab (C-ANCA) <1:20 titer (Neg:<1:20); Gamma Globulin 1.5 g/dL (0.4-1.8); Immunoglobulin A 239 mg/dL (87-352); Immunoglobulin G 1355 mg/dL (586-1602); Immunoglobulin M 124 mg/dL (26-217); PROEL- TOTAL PROTEIN 7.6 g/dL (6.0-8.5)
[2022-04-09 10:19] LABS: Immunoglobulin E 8 IU/mL (6-495); Perinuclear Ab (P-ANCA) <1:20 titer (Neg:<1:20)
== END | disposition home or self-care (01) ==
LOC: LAB 08:31
PROVIDERS: PCP Nurse Practitioner Family; Referring Provider Internal Medicine Gastroenterology; Visit Provider Internal Medicine Gastroenterology
DX: R10.13 Epigastric pain (principal)
CPT/HCPCS: 36415; 82728; 82784; 82785; 83516; 83615; 84165; 84439; 84443; 84481; 85610; 85652; 86140; 86225; 86235; 86255; 86256; 86334

== ENCOUNTER 2022-05-03 08:48 | Day surgery (SDC) | payer OTHER, SELFPAY ==
[2022-05-03 09:13] VITALS: BP 124/71; PULSE 81; RESP 16; TEMP 36.9; O2SAT 100; BMI 22.3
--- NOTE | 2022-05-03 09:34 | PCM.HP.BLA ---
History and Physical Date of Admission: 05/03/22 PATY MATA, is a 36 F who presents to the office today for Initial consult. Paty established with this clinic 04.03.22. Intermittent epigastric pain is an issue since 2019. Zantac and Mylanta ineffective; mild relief with omeprazole. Notes that prior to this onset she had increased stressed; symptoms spontaneously. Symptoms returned earlier this year with worse symptoms including nausea and periodic emesis and foul gas. She has been cycling between protonix and omeprazole each for two weeks. She does note that earlier this year she began having increased stress prior to symptoms onset. Menstrual cycles are very strong and painful; underwent ablation in August of this year. She is taking ibuprofen 600-800mg BID for the last couple years. She would like to discuss hysterectomy with her senior web applications developer in the future (one year after ablation). Denies cigarette use. PMH anemia during ; postpardum depression; anxiety; hypothyroid. EGD 08.31.2019 at [facility] with Dr. Chacon for epigastric pain with pathology reporting chronic gastritis. H.Pylori negative. ROS Const Constitutional: No other Exam Const General: cooperative and healthy appearing [facility] Head: normocephalic and atraumatic Ears: hearing grossly normal bilaterally Nose: external nose normal Face and sinus: face symmetric Resp Auscultation: Bilateral: Clear to Auscultation Skin Other: Periorbital dermatitis centered around the right inferior chin Neuro General: patient alert Psych Appearance: grossly normal Mental Status: mental status grossly normal Quality Reporting Tobacco Screening ([facility] 138) Smoking Status: Never smoker Assessment and Plan Assessment and Plan (1) Epigastric abdominal pain: ?Status:?Chronic ?Plan: The differential diagnosis for abdominal pain does include disease, gastritis, duodenitis, exocrine pancreatic insufficiency, gastroparesis, possible small bowel inflammation secondary to celiac disease less likely inflammatory bowel disease.? She will undergo stool testing for any inflammatory process, SANJEEV comprehensive, ANCA immunoglobulins, protein electrophoresis, pancreatic fecal elastase and gastric emptying study. ? ? ? Orders: Orders OP w/Giardia EIA [id number] Today R10.13 - Epigastric pain ? CRP Today R10.13 - Epigastric pain ? Ferritin Today R10.13 - Epigastric pain ? LDH Today R10.13 - Epigastric pain ? Prothrombin Time w/INR Today R10.13 - Epigastric pain ? Erythrocyte Sed Rate Today R10.13 - Epigastric pain ? SANJEEV Comprehensive Panel Today R10.13 - Epigastric pain ? Calprotectin, Stool Today R10.13 - Epigastric pain ? Stool Lactoferrin/WBC Today K58.9 - Irritable bowel syndrome without diarrhea, R10.13 - Epigastric pain ? ANCA Today R10.13 - Epigastric pain ? Celiac Disease Profile Today R10.13 - Epigastric pain ? Immunoglobulins G/A/M/E Today R10.13 - Epigastric pain ? Immunoglobulin A Today R10.13 - Epigastric pain ? Immunoglobulin E Today R10.13 - Epigastric pain ? BENY + Protein Elect, Serum Today R10.13 - Epigastric pain ? Immunoglobulin G Today R10.13 - Epigastric pain ? Immunoglobulin M Today R10.13 - Epigastric pain ? Ova and Parasites [id number] Today K58.9 - Irritable bowel syndrome without diarrhea, R10.13 - Epigastric pain ? ENTERIC PATHOGEN PANEL STOOL Today K58.9 - Irritable bowel syndrome without diarrhea, R10.13 - Epigastric pain ? Stool Occult Blood iFOB Today R10.13 - Epigastric pain ? Gastric Emptying Study Today R10.13 - Epigastric pain ? Pancreatic Elastase, Fecal Today R10.13 - Epigastric pain ? Free T3 Today R10.13 - Epigastric pain ? T4 Free Direct Today R10.13 - Epigastric pain ? Thyroid Stim Hormone (TSH) Today R10.13 - Epigastric pain ? I have re-examined the patient. There are no clinical changes since date of exam.
--- NOTE | 2022-05-03 10:00 | EGD_PTH ---
PATIENT: VINCENT MATA LOC: EN U#:[id number] AGE/SX: 36/F ROOM: RE05/03/[address]: Dr. Joel Millard DO : 1985 BED: DIS: 05/03/2022 SPEC #: [id number] RECD: 05/03/22 10:50 STATUS: VALENTINE NETO #: [id number] MYLENE: 05/03/22 10:[address]: Joel Millard DEPT: SURGICAL PATHOLOGY RECD BY: Ana Morgan ENTERED: 05/03/22 11:19 SP TYPE: EGD BIOPSY OT DR: Haroon Bird, COMPUTER HARDWARE DEVELOPER-C Tissues: A - Duodenum, NOS B - Esophagus, NOS Procedures: Special Stain Group II Surgery Specimen Level IV Alcian Blue/PAS (control) HEADER OPERATION: EGD ([facility] [place]), biopsy PRE-OP DIAGNOSIS: Epigastric abdominal pain TISSUE SUBMITTED: A ? Duodenum biopsy, B ? Distal esophagus biopsy MICROSCOPIC DIAGNOSIS A. Duodenum, biopsy: Fragments of duodenal mucosa, no pathologic diagnosis. B. Distal esophagus, biopsy: Gastroesophageal junctional mucosa with chronic inflammation. Intestinal metaplasia (goblet cell metaplasia) not identified. See comment. JOSE:mario 05/04/2022 COMMENT B. Alcian blue/PAS stain with matched control is used in the evaluation of the specimen. MICROSCOPIC DESCRIPTION Slides are reviewed. GROSS DESCRIPTION A - Received in fixative is one container labeled with the patient's name and designated duodenum biopsy. The specimen consists of multiple irregular fragments of light mackey soft tissue that in aggregate measure 1 x 0.3 x 0.1 cm. The specimen is totally submitted in one cassette. B - Received in fixative is one container labeled with the patient's name and designated distal esophagus biopsy. The specimen consists of two irregular fragments of light mackey soft tissue that in aggregate measure 0.7 x 0.3 x 0.1 cm. The specimen is totally submitted in one cassette. / JOSE:mario 05/03/2022 TC:3 CPT: 00652 x2, 68670
--- NOTE | 2022-05-03 10:44 | OP.CCLET_ITS ---
05/03/2022 Tammy Ramos Re : Upper GI endoscopy procedure for Paty Hopkins Dear Marge This procedure was performed on April. My impressions and recommendations are as follows: Impressions : - Z-line irregular, 38 cm from the incisors. Biopsied. - Small hiatal hernia. - Erythematous mucosa in the gastric body. Biopsied. - Erythematous duodenopathy. Biopsied. Recommendations : - Discharge patient to home. - Resume previous diet. - Continue present medications. - Await pathology results. My findings are described in the full procedure note, which is enclosed. If I can be of further assistance, please feel free to contact me at . Sincerely, Joel Millard, 05/03/2022 10:43:42 AM This report has been signed electronically.
--- NOTE | 2022-05-03 10:44 | OP.EGD_ITS ---
Patient Name: Paty Hopkins Procedure Date: 05/03/2022 10:26 AM Date of : 1985 Age: 36 Procedure: Upper GI endoscopy Indications: Epigastric abdominal pain, Functional Dyspepsia, Failure to respond to medical treatment Providers: Joel Millard DO Referring MD: Joel Millard DO Medicines: Monitored Anesthesia Care Patient Profile: This is a 36 year old female. Refer to note in patient chart for documentation of history and physical. Patient has symptoms of chronic abdominal cramping, chronic epigastric abdominal pain and chronic nausea. Complications: No immediate complications. Procedure: Pre-Anesthesia Assessment: - Prior to the procedure, a History and Physical was performed, and patient medications and allergies were reviewed. The risks and benefits of the procedure and the sedation options and risks were discussed with the patient. All questions were answered and informed consent was obtained. Patient identification and proposed procedure were verified by the physician in the pre-procedure area. Mental Status Examination: alert and oriented. Airway Examination: normal oropharyngeal airway and neck mobility. Respiratory Examination: clear to auscultation. CV Examination: normal. Prophylactic Antibiotics: The patient does not require prophylactic antibiotics. Prior Anticoagulants: The patient has taken no previous anticoagulant or antiplatelet agents. ASA Grade Assessment: II - A patient with mild systemic disease. After reviewing the risks and benefits, the patient was deemed in satisfactory condition to undergo the procedure. The anesthesia plan was to use monitored anesthesia care (MAC). Immediately prior to administration of medications, the patient was re-assessed for adequacy to receive sedatives. The heart rate, respiratory rate, oxygen saturations, blood pressure, adequacy of pulmonary ventilation, and response to care were monitored throughout the procedure. The physical status of the patient was re-assessed after the procedure. After obtaining informed consent, the endoscope was passed under direct vision. Throughout the procedure, the patient's blood pressure, pulse, and oxygen saturations were monitored continuously. The gastroscope was introduced through the mouth, and advanced to the second part of duodenum. The upper GI endoscopy was accomplished without difficulty. The patient tolerated the procedure well. Scope In: 10:30:51 AM Scope Out: 10:36:09 AM Total Procedure Duration Time 0 hours 5 minutes 18 seconds Findings: The Z-line was irregular and was found 38 cm from the incisors. Biopsies were taken with a cold forceps for histology. Verification of patient identification for the specimen was done. Estimated blood loss was minimal. A small hiatal hernia was present. Patchy mildly erythematous mucosa without bleeding was found in the gastric body. Biopsies were taken with a cold forceps for histology. Verification of patient identification for the specimen was done. Estimated blood loss was minimal. Patchy mildly erythematous mucosa without active bleeding and with no stigmata of bleeding was found in the second portion of the duodenum. Biopsies were taken with a cold forceps for histology. Verification of patient identification for the specimen was done. Estimated blood loss was minimal. Impression: - Z-line irregular, 38 cm from the incisors. Biopsied. - Small hiatal hernia. - Erythematous mucosa in the gastric body. Biopsied. - Erythematous duodenopathy. Biopsied. Recommendation: - Discharge patient to home. - Resume previous diet. - Continue present medications. - Await pathology results. Procedure Code(s): --- Professional --- 24322, Esophagogastroduodenoscopy, flexible, transoral; with biopsy, single or multiple CPT copyright 2017 [employer]. All rights reserved. The codes documented in this report are preliminary and upon sound designer review may be revised to meet current compliance requirements. Joel Millard DO 05/03/2022 10:43:42 AM This report has been signed electronically. Number of Addenda: 0 Note Initiated On: 05/03/2022 10:26 AM
[2022-05-03 10:45] VITALS: BP 103/66; BP 124/71; PULSE 76; RESP 16; TEMP 36.5; O2SAT 99
[2022-05-03 10:50] VITALS: BP 124/71; BP 98/61; PULSE 76; RESP 16; O2SAT 100
[2022-05-03 10:55] VITALS: BP 102/69; BP 124/71; PULSE 74; RESP 16; O2SAT 100
[2022-05-03 11:00] VITALS: BP 101/61; BP 124/71; PULSE 71; RESP 16; TEMP 36.6; O2SAT 100
== END 2022-05-03 11:40 | disposition home or self-care (01) ==
LOC: EN 08:51 → AC 08:52
PROVIDERS: PCP Nurse Practitioner Family; Referring Provider Nurse Practitioner Family; Visit Provider Internal Medicine Gastroenterology
PROC: 0DJ08ZZ Inspection of Upper Intestinal Tract, Via Natural or Artificial Opening Endoscopic (ICD-10-PCS; CPT 43235; principal; 2022-05-03 09:55)
DX: K21.00 Gastro-esophageal reflux disease with esophagitis, without bleeding (principal); K44.9 Diaphragmatic hernia without obstruction or gangrene; F32.A Depression, unspecified; F41.9 Anxiety disorder, unspecified; Z87.442 Personal history of urinary calculi; E03.9 Hypothyroidism, unspecified; Z79.899 Other long term (current) drug therapy
CPT/HCPCS: 43239; 88305; 88313; J7120; J2405

== ENCOUNTER → 2022-05-29 | Outpatient (CLI) | payer OTHER, SELFPAY ==
--- NOTE | 2022-05-29 10:59 | NM_ITS ---
CLINICAL: 36-year-old female with history of clinical gastroparesis. SEMI-SOLID PHASE 99m Tc SULFUR COLLOID GASTRIC EMPTYING STUDY COMPARISON: None available FINDINGS: The patient was administered 1.1 mCi of 99m Tc sulfur colloid mixed with oatmeal and consumed per os. Image acquisitions in the anterior-posterior projections were obtained for 60 minutes. There is prompt visualization of the stomach. There is no gastroesophageal reflux identified. The T ? emptying was calculated to be 42.11 minutes, (Normal: 12-56 minutes). NM/Gastric Emptying Study IMPRESSION: 1. NORMAL 99m Tc sulfur colloid semi-solid phase (oatmeal) gastric emptying imaging examination. A. There is normal and preserved semi-solid phase gastric emptying compared to normal controls.. (Mary et al, J Nucl Med Tech 38: 186, 2010). Electronically Signed: Lucius Tee, at 23:03 EDT ,
== END | disposition home or self-care (01) ==
PROVIDERS: PCP Nurse Practitioner Family; Referring Provider Internal Medicine Gastroenterology; Visit Provider Internal Medicine Gastroenterology
DX: R10.13 Epigastric pain (principal)
CPT/HCPCS: 78264; A9541

== ENCOUNTER → 2022-06-15 | Outpatient (CLI) | payer OTHER, SELFPAY ==
[2022-06-15 13:00] LABS: CPK Total, Creatine Kinase 185 U/L (26-192)
[2022-06-19 18:11] LABS: Aldolase 4.6 U/L (3.3-10.3)
== END | disposition home or self-care (01) ==
LOC: LAB 11:09
PROVIDERS: PCP Nurse Practitioner Family; Visit Provider Internal Medicine Gastroenterology
DX: M34.9 Systemic sclerosis, unspecified (principal)
CPT/HCPCS: 36415; 82085; 82550

== ENCOUNTER → 2023-09-02 | Outpatient (CLI) | payer OTHER, SELFPAY ==
--- OUTSIDE RECORDS SUMMARY | 2023-09-02 07:16 | XMS RPT_ITS | CCD ---
Author Name Unknown Address [facility] access hospital[facility] [address] [facility] [address] [place] [address] Organization [facility] Care Team Providers Care Land Law Examiner Name Role Phone Nancy Petersen MD Unavailable [phone] MITESH Matute RN, Veronika Strong Unavailable Unavaillizet e Marge COPY LATHE OPERATOR.QUALITY ASSURANCE QA LAB TECHNICIAN, DNP, Haroon Primary Care Provider Unavailable Primary Care Provider Unavailabl e SHREE PASTORRE Referring Unavail able FAWN PASTOR Attending Unavail able CEBUL III, MILTON A Primary Care Unavailable SHREE PASTORRE Attending Unavail able CEBUL III, MILTON A Primary Care Unavailable TONYA THOMASON Attending Unavailable CEBUL III, MILTON A Primary Care Unavailable ESDRAS WOODS Attending Unavailable CEBUL III, MILTON A Primary Care Unavailable HAROON BIRD Attending Unavailable HAROON BIRD Attending Unavailable CEBUL III, MILTON A Primary Care Unavailable Unavailable Primary Care Provider Unavailabl e Allergies Allergy Classification Reported Allergen(s) Allergy Type Date of Onset Reaction(s) Facility (5 sources) buPROPion; Translations: [BUPROPION HCL] Drug Allergy 0 Other: See Comments [facility] (5 sources) NITROFURANTOIN, MACROCRYSTALS / Nitrofurantoin, Monohydrate; Translations: [NITROFURANTOIN MONOHYD/M-CRYST] Drug Allergy 9 Other: See Comments [facility] Medications Current Medications Medication Drug Class(es) Dates Sig (Normalized) Sig (Original) DULoxetine 30 mg delayed release oral capsule (4 sources) Serotonin and Norepinephrine Reuptake Inhibitor Start: 09-07-2021 End: 09-07-2022 take 1 capsule by mouth once daily DULoxetine (CYMBALTA) 30 mg capsule Indications: Anxiety and depression Take 1 capsule by mouth once daily. 90 capsule 3 09/07/2021 09/07/2022 Active Completed/Discontinued Medications Medication Drug Class(es) Dates Sig (Normalized) Sig (Original) escitalopram 10 mg oral tablet (5 sources) Serotonin Reuptake Inhibitor Start: 05-19-2021 End: 06-20-2022 take 1 tablet by mouth once daily escitalopram oxalate (LEXAPRO) 10 mg tablet Indications: Anxiety and depression Take 1 tablet by mouth once daily. 30 tablet 0 05/21/2022 Active Problems Active Problems Problem Classification Problem Date Documented Date Episodic/Chronic Anxiety disorders (14 sources) Panic attack; Translations: [Panic disorder [episodic paroxysmal anxiety]] Onset: 09-07-2011 09-07-2011 Chronic Mood disorders (4 sources) Premenstrual dysphoric disorder; Translations: [Premenstrual dysphoric disorder] Onset: 01-12-2020 01-12-2020 Chronic Thyroid disorders (5 sources) Acquired hypothyroidism; Translations: [Hypothyroidism, unspecified] Onset: 01-23-2018 Chronic Unclassified (1 source) Sterilization procedure done; Translations: [Encounter for sterilization] Onset: 04-16-2017 04-16-2017 Past or Other Problems Problem Classification Problem Date Documented Da te Episodic/Chronic Contraceptive and procreative management (3 sources) Encounter for sterilization; Translations: [Encounter for sterilization] Onset: 04-16-2017 04-16-2017 Episodic Other gastrointestinal disorders (4 sources) Chronic constipation; Translations: [Other constipation] Onset: 10-31-2020 10-31-2020 Episodic Results Test Name Value Interpretation Reference Range Facil ity Vital Signs Date Time Vital Sign Value Performing Clinician Faci lity 04-16-2017 15:26-0400 BMI (Body Mass Index) 22.77 kg/m2 Nancy Petersen MD [facility] 04-16-2017 15:26-0400 Body Temperature 97.8 [degF] Nancy Petersen MD [facility] 04-16-2017 15:26-0400 Body Temperature 97.81 [degF] Nancy Petersen MD [facility] 04-16-2017 15:26-0400 BP Diastolic 66 mm[Hg] Nancy Petersen MD [facility] 04-16-2017 15:26-0400 BP Systolic 109 mm[Hg] Nancy Petersen MD [facility] 04-16-2017 15:-0400 Height 170.18 cm Nancy Petersen MD [facility] 04-16-2017 15:26-0400 Pulse (Heart Rate) 64 /min Nancy Petersen MD [facility] 04-16-2017 15:-040 Respiratory Rate 16 /min Nancy Petersen MD [facility] 04-16-2017 15:-0400 Weight 65.95 kg Nancy Petersen MD [facility] Encounters Encounter Date Encounter Type Care Provider Facility Start: 09-03-2022 Refill Haroon PETERS RN.JORGE, TU Work Phone: [facility] Plan of Treatment Date Care Activity Detail Author Start: 05-18-2026 HPV TESTING HPV TESTING [facility] Start: 05-18-2026 PAP TESTING PAP TESTING [facility] Start: 12-21-2025 Urine microalbumin profile DTAP,TDAP,TD (9 - Td or Tdap) [facility] Start: 09-29-2022 ANNUAL PCP TEAM CHRONIC DISEASE VISIT ANNUAL PCP TEAM CHRONIC DISEASE VISIT [facility] Start: 04-19-2022 Influenza vaccination INFLUENZA (#1) [facility] Start: 01-05-2022 COVID-19 VACCINE (3 - Booster for Pfizer series) COVID-19 VACCINE (3 - Booster for Pfizer series) [facility] Start: 10-02-2021 COVID-19 VACCINE (3 - Booster for Pfizer series) COVID-19 VACCINE (3 - Booster for Pfizer series) [facility] Start: 05-23-2017 End: 05-23-2017 Appointment Appointment [facility] Work Phone: Start: 04-16-2017 End: 04-16-2017 Appointment Appointment [facility] Start: 2001 HEPATITIS C SCREENING HEPATITIS C SCREENING [facility] Immunizations Immunization Date Immunization Notes Care Provider Fa cility 05-31-2021 influenza, seasonal, injectable, preservative free Haroon Bird APRN.JORGE, DNP Work Phone: [facility] Work Phone: 12-22-2015 tetanus toxoid, redu cristiane diphtheria toxoid, and acellular pertussis vaccine, adsorbed Haroon Bird APRN.[facility] Work Phone: [facility] Work Phone: 08-05-2015 influenza, injectabl e, quadrivalent, contains preservative Haroon Bird APRN.[facility] Work Phone: [facility] 05-29-2013 influenza virus vaccine, unspecified formulation Haroon Bird APRN.[facility] Work Phone: [facility] 05-19-2013 influenza, seasonal, injectable, preservative free Haroon Bird APRN.[facility] Work Phone: [facility] Work Phone: 05-08-2013 tetanus toxoid, redu cristiane diphtheria toxoid, and acellular pertussis vaccine, adsorbed aHroon Bird APRN.[facility] Work Phone: [facility] 09-10-2011 hepatitis B vaccine, adult dosage Haroon Blaarianne KILLIAN.[facility] Work Phone: [facility] 03-09-2011 hepatitis B vaccine, adult dosage Haroon Blaarianne KILLIAN.[facility] Work Phone: [facility] 04-17-2010 hepatitis B vaccine, adult dosage Haroon Blaarianne COPY LATHE OPERATOR.[facility] Work Phone: [facility] 08-19-2006 tetanus toxoid, redu cristiane diphtheria toxoid, and acellular pertussis vaccine, adsorbed Haroon Bird APRN.[facility] Work Phone: [facility] 04-13-1996 measles, mumps and rubella virus vaccine Haroon Bird APRN.[facility] Work Phone: [facility] Work Phone: 03-28-1989 DTP-Haemophilus influenzae type b conjugate vaccine Haroon Bird APRN.[facility] Work Phone: [facility] Work Phone: 03-28-1989 haemophilus influenz ae type b vaccine, PRP-T conjugate Haroon Bird APRN.[facility] Work Phone: [facility] Work Phone: 03-28-1989 poliovirus vaccine, inactivated Haroon Bird APRN.[facility] Work Phone: [facility] Work Phone: 05-30-1988 haemophilus influenz ae type b vaccine, PRP-D conjugate Haroon Bird APRN.[facility] Work Phone: [facility] Work Phone: 05-30-1988 hepatitis B vaccine, pediatric or pediatric/adolescent dosage Haroon Bird APRN.[facility] Work Phone: [facility] Work Phone: 03-13-1985 DTP-Haemophilus influenzae type b conjugate vaccine Haroon Bird APRN.[facility] Work Phone: [facility] Work Phone: 03-13-1985 haemophilus influenz ae type b vaccine, PRP-T conjugate Haroon Bird APRN.[facility] Work Phone: [facility] Work Phone: 12-17-1984 measles, mumps and rubella virus vaccine Haroon Bird APRN.[facility] Work Phone: [facility] Work Phone: 03-24-1984 DTP-Haemophilus influenzae type b conjugate vaccine Haroon Bird APRN.[facility] Work Phone: [facility] Work Phone: 03-24-1984 haemophilus influenz ae type b vaccine, PRP-T conjugate Haroon iBrd APRN.[facility] Work Phone: [facility] Work Phone: 03-24-1984 poliovirus vaccine, inactivated Haroon Bird APRN.[facility] Work Phone: [facility] Work Phone: 01-21-1984 DTP-Haemophilus influenzae type b conjugate vaccine Haroon Bird APRN.[facility] Work Phone: [facility] Work Phone: 01-21-1984 haemophilus influenz ae type b vaccine, PRP-T conjugate Haroon Marge KILLIAN.[facility] Work Phone: [facility] Work Phone: 01-21-1984 poliovirus vaccine, inactivated Haroon Blaarianne COPY LATHE OPERATOR.[facility] Work Phone: [facility] Work Phone: 1983 DTP-Haemophilus influenzae type b conjugate vaccine Haroon Marge KILLIAN.[facility] Work Phone: [facility] Work Phone: 1985 haemophilus influenz ae type b vaccine, PRP-T conjugate Haroon Bird APRN.[facility] Work Phone: [facility] Work Phone: 1985 poliovirus vaccine, inactivated Haroon Blaz COPY LATHE OPERATOR.[facility] Work Phone: [facility] Work Phone: Payers Date Payer Category Payer Unknown [employer] PPO OOS [id number] 2020-Present [phone] [id number] [place] [address] PPO [id number] 2020 Unknown [employer] CARD PPO OOS [id number] 2020-Present [phone] [address] [place] [address] PPO [id number] 2018 Unknown [id number] Social History Date Type Detail Facility Start: 11-02-2011 Tobacco smoking stat [facility] Never smoked tobacco [facility] Start: 09-29-2021 Alcohol intake Current non-dr biomedical service engineer of alcohol (finding) [facility] Start: 01-12-2020 History SDOH Alcohol Frequency 3 [facility] Start: 01-12-2020 History SDOH Alcohol Std Drinks 1 [facility] Start: 01-12-2020 History SDOH Social Connections Phone 4 [facility] Start: 01-12-2020 End: 09-03-2021 History SDOH Social Connections Get Together 2 [facility] Start: 01-12-2020 History SDOH Financial 5 [facility] Start: 01-11-2020 Education 15 [facility] Start: 1985 Sex Assigned At Female [facility] Start: 11-02-2011 Tobacco use and exposure Smoke less tobacco non-user [facility] Start: 05-11-2022 End: 05-21-2022 Exposure to SARS-CoV-2 (event) Not sure [facility] Clinical Notes 08-05-2015 to 09-03-2022 Telephone Encounter - Michi Thayer LPN - 09/03/2022 9:31 AM ESTTelephone Encounter - Nathaly Nolasco LPN - 06/04/2022 2:07 PM EDTTelephone Encounter - Nathaly Nolasco LPN - 06/01/2022 2:02 PM EDT Note Date & Type Note Facility 09-03-2022 Miscellaneous Notes Patient phones requesting refills as follows: Requested Prescriptions Pending Prescriptions Disp Refills DULoxetine (CYMBALTA) 30 mg capsule [Pharmacy Med Name: DULOXETINE HCL DR 30 MG CAP] 90 capsule 3 Sig: TAKE 1 CAPSULE BY MOUTH ONCE DAILY *PT CANCELLED LAST 4 APPT'S TO ESTABLISH CARE WITH [facility]. NO UPCOMING APPT. Pt needs to schedule appt to establish care in order to continue receiving medication refills. MC message to pt advising of the same. Please review and advise. Michi Thayer LPN documented in this encounter [facility] 06-04-2022 Miscellaneous Notes Appointment slot open after patients appointment now. Patients appointment changed to 40 minutes for 06/05/2022 appointment since an establish care visit. Nathaly Nolasco LPN Patient scheduled for an appointment to establish care on 06/05/22 with Melissa Lantigua. The appointment is currently scheduled as 20 minutes but needs to be 40 minutes. Patient telephoned and message left to call office back. Please help assist with rescheduling when she calls back. Nathaly Nolasco LPN documented in this encounter [facility] 05-21-2022 Miscellaneous Notes Pt notified, transferred to PSS to set up est care appt. Eli Haas Ma Team - Please see my note from Sep 2021: Please contact the patient and have her establish with a new provider. I did go ahead and provider her a 30 day courtesy refill of the Lexapro. Reports: Here to establish care with me as a provider. Presents for medication refill of her Cymbalta. Recently her GUARD LIEUTENANT added Lexapro to the Cymbalta regimen. She has a history of depression and anxiety. The addition of the Lexapro has helped with her anxiety. Depression is well controlled on Cymbalta. Denies side effects. Compliant with medication. Overall feeling well. The following approved medication requests have been transmitted electronically. Requested Prescriptions Signed Prescriptions Disp Refills escitalopram oxalate (LEXAPRO) 10 mg tablet 30 tablet 0 Sig: Take 1 tablet by mouth once daily. Authorizing Provider: HAROON BIRD Refused Prescriptions Disp Refills escitalopram oxalate (LEXAPRO) 10 mg tablet [Pharmacy Med Name: ESCITALOPRAM 10 MG TABLET] 90 tablet 0 Sig: TAKE 1 TABLET BY MOUTH EVERY DAY Refused By: ESDRAS WOODS Reason for Refusal: Patient should contact Prescriber first Haroon Bird APRN.TU PATEL Please send to her PCP. Our system has her on cymbalta as well. I would think PCP would manage this. Thanks. Esdras Woods MD PSS- Please contact patient and assist with scheduling annual exam. Thank you. Requested Prescriptions Pending Prescriptions Disp Refills escitalopram oxalate (LEXAPRO) 10 mg tablet [Pharmacy Med Name: ESCITALOPRAM 10 MG TABLET] 90 tablet 0 Sig: TAKE 1 TABLET BY MOUTH EVERY DAY Last annual exam: 05/18/21 Please approve the above prescription(s) to electronically send to pharmacy. Mary Perea RN documented in this encounter [facility] 02-20-2022 Miscellaneous Notes Last office visit: 09/29/21 F/u scheduled: none Eli Haas Ma documented in this encounter [facility] 09-29-2021 Note HNO ID: [id number] Author: Haroon Bird APRN.QUALITY ASSURANCE QA LAB TECHNICIAN, DNP Service: ? Author Type: Nurse Practitioner Type: Progress Notes Filed: 09/29/2021 1:49 PM Note Text: Chief Complaint Patient presents with: Establish Care DEBBIE Paty Hopkins is a 36 year old female who is contacted today for a follow up visit This is an established patient of Dr. Vargas who retired last year. Seen patient previously for virtual visit. Past medical history: Anxiety, depression, panic attacks Reports: Here to establish care with me as a provider. Presents for medication refill of her Cymbalta. Recently her GUARD LIEUTENANT added Lexapro to the Cymbalta regimen. She has a history of depression and anxiety. The addition of the Lexapro has helped with her anxiety. Depression is well controlled on Cymbalta. Denies side effects. Compliant with medication. Overall feeling well. Previous ER visit in March for an episode of Covid that she has recovered from. She sees a therapist once a month Feng Shetty for her anxiety and depression. Requesting a refill of Xanax. Typically will use for panic attacks. 21 tablets typically lasts the entire year. Past medical history, appointments, medications, allergies reviewed 09/29/2021 Previous Medical History PAST MEDICAL HISTORY Diagnosis Date - Anemia During - Complication of anesthesia BLOOD PRESSURE WENT LOW WITH EPIDURAL - Dysthymic disorder Depression (non-psychotic), - Generalized anxiety disorder - Genital herpes, unspecified - Panic attacks 09/07/2011 - Placental abruption - depression - Subclinical hypothyroidism 01/23/2018 Previous Surgical History PAST SURGICAL HISTORY Procedure Laterality Date - ESOPHAGOGASTRODUODENOSCOPY TRANSORAL DIAGNOSTIC 08/31/2019 EGD - LITHROTRIPSY 02/2018 - PAST SURGICAL HISTORY OF WISDOM TEETH EXTRACTION - PAST SURGICAL HISTORY OF 03/27/10 Paragard insertion AND REMOVAL - TUBAL LIGATION Bilateral 05/23/2017 Family History FAMILY HISTORY Problem Relation Age of Onset - other (Hypothyroidism) Mother - Arthritis Father - No Known Problems Brother - Chronic Kidney Disease Maternal Grandmother - COPD Maternal Grandfather - Coronary Artery Disease Maternal Grandfather - Alzheimer's Disease Paternal Grandmother - Heart Paternal Grandfather - No Known Problems Daughter - No Known Problems Son - No Known Problems Son - No Known Problems Son - No Known Problems Son Patient Allergies ALLERGIES Allergen Reactions - Macrobid [Nitrofura* Other: See Comments Nausea - Wellbutrin [Bupropi* Other: See Comments increase anxiety Current Medications Current Outpatient Medications on File Prior to Visit Medication Sig - DULoxetine (CYMBALTA) 30 mg capsule Take 1 capsule by mouth once daily. - levonorgestrel (MIRENA) 20 mcg/24 hours (7 yrs) 52 mg IUD 1 Each by INTRAUTERINE route as directed. (Patient not taking: Reported on 07/28/2021 ) - escitalopram oxalate (LEXAPRO) 10 mg tablet Take 1 tablet by mouth once daily. - miSOPROStol (CYTOTEC) 200 mcg tablet Use 2 tablets vaginally as directed. The night before the procedure and the morning of the procedure. (Patient not taking: Reported on 05/29/2021 ) - levothyroxine (LEVOXYL) 25 mcg tablet Take 1 tablet by mouth once daily. Take on empty stomach. For Thyroid No current facility-administered medications on file prior to visit. Social History Social History Tobacco Use - Smoking status: Never Smoker - Smokeless tobacco: Never Used Vaping Use - Vaping Use: Never used Substance Use Topics - Alcohol use: No - Drug use: No Review of Symptoms PAIN ASSESSMENT: CURRENTLY HAVING NO PAIN GENERAL: No weight loss, malaise or fevers HEENT: Negative for frequent or significant headaches No change in vision. No blurry vision, double vision or loss of vision. No nasal discharge or nose bleeds No sore throat No earaches NECK: Negative for lumps, pain and significant neck swelling RESPIRATORY: Negative for cough, wheezing, dyspnea or shortness of breath CARDIOVASCULAR: Negative for chest pain GI: No nausea, vomiting, or diarrhea MUSCULOSKELETAL: Negative for generalized joint pain, swelling, back pain or muscle aches SKIN: Negative for lesions HEMATOLOGY/LYMPHOLOGY: Negative for prolonged bleeding, bruising easily or swollen nodes EXAM: BP 110/68 Pulse 80 Resp 14 Wt 65.8 kg (145 lb) LMP 05/20/2021 SpO2 100% BMI 22.71 kg/m? General Appearance: Well appearing, alert, in no acute distress, well-hydrated, well nourished. Skin: Skin color, texture, turgor normal Head: Normocephalic, no masses, lesions Eyes: Anicteric sclera. No redness or drainage. Ears: External ears normal, TM's clear bilaterally, adequate light reflex Nose/Sinuses: Nares normal, septum midline, mucosa normal, no drainage or sinus tenderness. Oropharynx: Lips, mucosa, and tongue normal, teeth and gums normal, (more content not included)... [facility] 09-07-2021 Note HNO ID: [id number] Author: Haroon Bird APRN.QUALITY ASSURANCE QA LAB TECHNICIAN, DNP Service: ? Author Type: Nurse Practitioner Type: Progress Notes Filed: 09/07/2021 6:55 AM Note Text: Chief Complaint Patient presents with: Refill Request This Team Access Model encounter involved medical decision making outside of a scheduled office visit. Patient was offered a virtual/telemedicine appointment in lieu of an office visit due to recommendations to reduce patient exposure to COVID-19. Patient agrees to the visit: Yes Patient Location: [facility] Paty Hopkins is a 35 year old female who is contacted today for a virtual visit This is an established patient of Dr. Vargas who retired last year. New patient to me. Reports: Presents for medication refill of her Cymbalta. Recently her GUARD LIEUTENANT added Lexapro to the Cymbalta regimen. She has a history of depression and anxiety. The addition of the Lexapro has helped with her anxiety. Depression is well controlled on Cymbalta. Denies side effects. Compliant with medication. Overall feeling well. Past medical history, appointments, medications, allergies reviewed 09/07/2021 Previous Medical History PAST MEDICAL HISTORY Diagnosis Date - Anemia During - Complication of anesthesia BLOOD PRESSURE WENT LOW WITH EPIDURAL - Dysthymic disorder Depression (non-psychotic), - Generalized anxiety disorder - Genital herpes, unspecified - Panic attacks 09/07/2011 - Placental abruption - depression - Subclinical hypothyroidism 01/23/2018 Previous Surgical History PAST SURGICAL HISTORY Procedure Laterality Date - ESOPHAGOGASTRODUODENOSCOPY TRANSORAL DIAGNOSTIC 08/31/2019 EGD - LITHROTRIPSY 02/2018 - PAST SURGICAL HISTORY OF WISDOM TEETH EXTRACTION - PAST SURGICAL HISTORY OF 03/27/10 Paragard insertion AND REMOVAL - TUBAL LIGATION Bilateral 05/23/2017 Family History FAMILY HISTORY Problem Relation Age of Onset - other (Hypothyroidism) Mother - Arthritis Father - COPD Maternal Grandfather - Heart Paternal Grandfather Patient Allergies ALLERGIES Allergen Reactions - Macrobid [Nitrofura* Other: See Comments Nausea - Wellbutrin [Bupropi* Other: See Comments increase anxiety Current Medications Current Outpatient Medications on File Prior to Visit Medication Sig - DULoxetine (CYMBALTA) 30 mg capsule Take 1 capsule by mouth once daily. - levonorgestrel (MIRENA) 20 mcg/24 hours (7 yrs) 52 mg IUD 1 Each by INTRAUTERINE route as directed. (Patient not taking: Reported on 07/28/2021 ) - escitalopram oxalate (LEXAPRO) 10 mg tablet Take 1 tablet by mouth once daily. - miSOPROStol (CYTOTEC) 200 mcg tablet Use 2 tablets vaginally as directed. The night before the procedure and the morning of the procedure. (Patient not taking: Reported on 05/29/2021 ) - levothyroxine (LEVOXYL) 25 mcg tablet Take 1 tablet by mouth once daily. Take on empty stomach. For Thyroid No current facility-administered medications on file prior to visit. Social History Social History Tobacco Use - Smoking status: Never Smoker - Smokeless tobacco: Never Used Vaping Use - Vaping Use: Never used Substance Use Topics - Alcohol use: No - Drug use: No Review of Symptoms GENERAL: No malaise or fatigue. No fevers. CARDIOVASCULAR: Negative for chest pain EXAM: LMP 05/20/2021 Virtual visit completed using video, limited exam completed. Patient sounds or appears ill: Yes General Appearance: Well appearing, alert, in no acute distress, well-hydrated, well nourished. Skin: Skin color normal Head: Normocephalic. No facial swelling or redness. EENT: Eyes nonreddened. No discharge. Neck: No mass or lesions. No swelling. FROM Patient is not able to speak in complete sentences: Yes Patient has labored breathing: Yes. Patient is audibly coughing: Yes Psych: Attitude - cooperative, easily engaged in conversation Affect - Euthymic, normal mood Mental status: Alert. Speech is clear and fluent with good repetition, comprehension Appearance - Normal hygiene and grooming appropriate Coordination: No abnormal or extraneous movements. Gait/Stance: Posture is normal. Health Maintenance List ANNUAL PCP TEAM CHRONIC DISEASE VISIT Never done HEPATITIS C SCREENING Never done COVID-19 VACCINE(3 - Booster for Pfizer series) due on 01/05/2022 DTAP,TDAP,TD(9 - Td or Tdap) due on 12/21/2025 PAP TESTING due on 05/18/2026 HPV TESTING due on 05/18/2026 INFLUENZA Completed HIV SCREENING Completed MENINGOCOCCAL CONJUGATE Aged Out Data reviewed Last 5 Encounter BP Readings: Date: BP: 08/25/2021 112/68 08/04/2021 110/62 07/28/2021 104/64 07/07/2021 110/60 05/29/2021 90/60 BMI Readings from Last 5 Encounters: 08/25/21 : 22.87 kg/m? 08/04/21 : 23.65 kg/m? 07/28/21 : 23.65 kg/m? 07/07/21 : 24.09 kg/m? 05/29/21 : 22.77 kg/m? Last 5 Encounter Wt Readings: Date: Wt: 08/25/2021 66.2 kg (146 lb) 08/04 (more content not included)... [facility] 08-25-2021 Note HNO ID: [id number] Author: Esdras Woods MD Service: ? Author Type: Physician Type: Progress Notes Filed: 08/25/2021 1:15 PM Note Text: DATE OF SERVICE: 08/25/2021 PROCEDURE: In-Office Ablation DIAGNOSIS: Menorrhagia PRE-EVALUATION: Ultrasound done on 05/18/21 EMB done on 08/04/21. Pathology: secretory endometrium INFORMED CONSENT Procedure: In-Office Ablation Service: GUARD LIEUTENANT The risks, benefits and anticipated outcomes of the procedure, the risks and benefits of the alternatives to the procedure and the roles and tasks of the personnel to be involved were discussed with the patient who consents to the procedure and agrees to proceed. I verify that I personally obtained the consent. Esdras Woods MD UNIVERSAL PROTOCOL / SAFETY CHECKLIST Procedure to be performed: In-office ablation Sign in Communication: Completed Time Out: Team Confirms the Correct Patient, Correct Procedure, Correct Site and Site Marking, Correct Position (if applicable). Time: 1219 Affirmation of Time Out: YES Sign Out Discussion: Completed Physician: Esdras Woods MD Instrument And Controls Technician: none We provide toradol: Yes Permit signed prior to medication administered: Yes PRE-MEDS:Toradol 60 mg IM at 1050 Xanax 0.5 mg PO VITAL SIGNS: 112/68 Urine HCG: Negative PROCEDURE: Betadine applied to cervix. Hurricaine spray applied Uterine sound measurement: 8 cm, cervix 3.5 cm. Local to cervix done with 1% lidocaine 1:100,000 epi. Amount given 10 mL. Uterus dilated to 5 without difficulty. Hysteroscopy done: Yes- normal endocervix, normal uterine cavity without focal abnormalities. both tubal ostia identified. Frida ablation done. Endometrial cavity length set to 4.5 cm. The device seated in the uterus in the usual sterile fashion. The safety tests were passed, the device readied and the ablation cycle completed without interruption. The device was removed. The vaginal instruments were removed. A vaginal sweep was completed by me. Sponge and needle counts were correct. Patient tolerated procedure well. FINDINGS:normal endometrial cavity POST PROCEDURE VITALS: Time: 1230 VS: 114/78 Pain rate 1-2 Time: 1243 VS: 116/74 Pain rate none Tolerated sitting: Driven home by designated school bus driver/teacher assistant: Yes, Discharge date: 08/25/2021 Discharge time: 1255 Nurse: Mary Perea RN FOLLOW UP PLAN: 1) Post-procedure instructions reviewed and written information given to patient. 2) Follow up in 3-4 weeks. Call sooner if any problems or questions. [facility] 08-04-2021 Note HNO ID: [id number] Author: Fawn Grajeda MD Service: ? Author Type: Physician Type: Progress Notes Filed: 08/04/2021 2:30 PM Note Text: Paty is a 35 year old who presents today for an endometrial biopsy for abnormal uterine bleeding. test: negative UNIVERSAL PROTOCOL / SAFETY CHECKLIST Procedure to be Performed: EMB Sign In: A Moment of CARE was completed. Personnel directly involved with the procedure wore the appropriate PPE (Personal Protective Equipment). Patient/Surrogate Stated/Verified: PATIENT VERIFIED(optional for EMERGENT procedures): Patient name, Date of , Relevant allergies and The intended procedure Time Out Communication: Intended patient and procedure match the source documents. Consent documented and matches the intended procedure. Sign Out: SIGN OUT (optional for EMERGENT procedures): All specimen containers correctly labeled. PROCEDURE: EXTERNAL GENITALIA: Normal in appearance without lesions VAGINA: Normal in appearance without lesions BIOPSY: Speculum placed into the vagina with excellent visualization of the cervix. Cervix cleaned with betadine.Uterus sounded to 8 cm. Pipelle inserted into the uterus without difficulty and endometrial biopsy obtained. Specimen labeled and sent to pathology. Hemostasis achieved. Procedure Summary: Patient tolerated procedure well. ASSESSMENT: abnormal uterine bleeding PLAN: Specimens labeled and sent to Pathology. Will notify patient of results in 1-2 weeks. PRE OP CONSENT OBTAINED FOR IN OFFICE HYSTEROSCOPY, FRIDA ABLATION. Fawn Jackson MD [facility] 07-28-2021 Note HNO ID: [id number] Author: Fawn Grajeda MD Service: ? Author Type: Physician Type: Progress Notes Filed: 07/28/2021 12:03 PM Note Text: Paty Hopkins is a 35 year old female who presents for discussion regarding heavy menses. Pt reports tried MIRENA IUD - but did not do well with hormones and mood. Pt is interested in endometrial ablation. Patient had a pelvic ultrasound which showed likely adenomyosis. But no well distinguished fibroids. Patient uses tubal occlusion for control method. Patient states that menses are regular every 28 to 30 days with 2 to 3 days of heavy bleeding where she passes golf ball size clots. Patient states she uses ultra tampons and pads and bleeds through that during those days. Patient states that she changes her protection approximately every hour during those heavy days. Patient states that the pain is so severe that Motrin does not even help anymore. Patient would like to stay conservative possible. Patient declines any further hormonal therapies at this time. OB History T5 L5 SAB1 IAB0 Ectopic0 Multiple0 Live Births5 Neckties Painter History LMP: 05/20/2021, Having periods Age at Menarche: Age at First : Age at Menopause: Neckties Painter History Comments: Sexual Activity: Yes; Male Contraception: None PAST MEDICAL HISTORY Diagnosis Date - Anemia During - Complication of anesthesia BLOOD PRESSURE WENT LOW WITH EPIDURAL - Dysthymic disorder Depression (non-psychotic), - Generalized anxiety disorder - Genital herpes, unspecified - Panic attacks 09/07/2011 - Placental abruption - depression - Subclinical hypothyroidism 01/23/2018 PAST SURGICAL HISTORY Procedure Laterality Date - EGD W/O OR W/BRUSH/WASH 08/31/2019 EGD - LITHROTRIPSY 02/2018 - PAST SURGICAL HISTORY OF WISDOM TEETH EXTRACTION - PAST SURGICAL HISTORY OF 03/27/10 Paragard insertion AND REMOVAL - TUBAL LIGATION Bilateral 05/23/2017 FAMILY HISTORY Problem Relation Age of Onset - other (Hypothyroidism) Mother - Arthritis Father - COPD Maternal Grandfather - Heart Paternal Grandfather Social History Tobacco Use - Smoking status: Never Smoker - Smokeless tobacco: Never Used Vaping Use - Vaping Use: Never used Substance Use Topics - Alcohol use: No - Drug use: No Current Outpatient Medications Medication Sig - levonorgestrel (MIRENA) 20 mcg/24 hours (7 yrs) 52 mg IUD 1 Each by INTRAUTERINE route as directed. - escitalopram oxalate (LEXAPRO) 10 mg tablet Take 1 tablet by mouth once daily. - miSOPROStol (CYTOTEC) 200 mcg tablet Use 2 tablets vaginally as directed. The night before the procedure and the morning of the procedure. (Patient not taking: Reported on 05/29/2021 ) - levothyroxine (LEVOXYL) 25 mcg tablet Take 1 tablet by mouth once daily. Take on empty stomach. For Thyroid - DULoxetine (CYMBALTA) 30 mg capsule Take 1 capsule by mouth once daily. No current facility-administered medications for this visit. Allergies As of Date: 07/28/2021 Allergen Noted Reaction MACROBID [NITROFURANTOIN MONOHYD/*07/23/2019 Other: See Comments WELLBUTRIN [BUPROPION HCL] 01/27/2020 Other: See Comments Fully Assessed 07/07/2021 REVIEW OF SYSTEMS Expanded ROS: GENERAL: Negative for fever Allergies and current medication updated:Yes EXAM: BP 104/64 Wt 151 lb (68.5kg) LMP 05/20/2021 GENERAL: pleasant, female in no apparent distress HEENT: Normocephalic and atraumatic NECK: full range of motion DERMATOLOGY: without lesions NEURO: alert and oriented x3,exam grossly non-focal ASSESSMENT AND PLAN: Encounter Diagnosis ICD-10-CM 1. Abnormal uterine bleeding (AUB) N93.9 ENDOMETRIAL BIOPSY 2. Dysmenorrhea N94.6 ENDOMETRIAL BIOPSY 3. Discussed Frida ablation in office versus hospital under anesthesia. Patient would like to proceed in the office at next available Saturday if possible. Patient understands she will need an endometrial biopsy prior to proceeding. Patient understands that patients with adenomyosis have a higher failure rate with the ablation at that point she may need a hysterectomy. Patient verbalized understanding and still wishes to proceed at this time. OR booking sheet was filled out we will call her with preoperative visit and at that time will perform endometrial biopsy. 4. Previous Ultrasound , CBC, TSH results reviewed I spent a total of 20 minutes on the date of the service which included preparing to see the patient, [id number] patient care, completing clinical documentation, obtaining and/or reviewing separately obtained history, performing a medically appropriate examination, counseling and educating the patient/family/caregiver and ordering medications, tests, or procedures Fawn Jackson MD [facility] 07-27-2021 Note Patient Outreach (DILAN CANCINOAV) ---- PATY HOPKINS ([id number]) 1985 F Date Time Provider Department 07/27/21 SUSANNA SCHERERNAV During your visit today, we recorded the following information about you: Susanna Scherer Population Health Navigator 07/27/2021 11:44 AM Signed POPULATION HEALTH NAVIGATION OUTREACH Action/FYI I left a voice message and a my chart message re: pcp No care everywhere Contact made with patient or family member? NO Pt identified by name and : NO Outreach Outcome/Action Unable to reach patient: Left message Ebook Gluehart message sent Reason for Outreach Attribution: Provider Off-boarding Payer: Payor: ANTHEM / Plan: BLUE CARD PPO OOS / Product Type: PPO / Care Gap Reviewed:: Reminder: Reminder note to check Health Maintenance for items below Health Maintenance items due: COVID-19 VACCINE(1) Never done HEPATITIS C SCREENING Never done INFLUENZA(1) due on 04/19/2021 Advanced Directives Completed: Have you ever planned for future healthcare decisions with a power of email designer, living will, or advance directives? No. Please bring a copy to your next appointment or email to [email or web address] Referrals: N/A Message Sent to Practice: NO Navigation Signature: Susanna Santamarialli Population Health Navigator July 27, 2021 11:43 AM Allergies As of Date: 07/27/2021 Noted Allergy Reaction MACROBID (NITROFURANTOIN MONOHYD/*07/23/2019 14 - Other: See Comments Comments: Nausea WELLBUTRIN (BUPROPION HCL) 01/27/2020 14 - Other: See Comments Comments: increase anxiety Date Reviewed: 07/07/2021 Reviewed by: Debra Mustafa LPN - Fully Assessed Reason for Visit: Population Health Navigation Outreach [3910] Cmt: offboarding Prescriptions as of 07/27/2021 - levonorgestrel (MIRENA) 20 mcg/24 hours (7 yrs) 52 mg IUD 1 Each by INTRAUTERINE route as directed. - escitalopram oxalate (LEXAPRO) 10 mg tablet Take 1 tablet by mouth once daily. - miSOPROStol (CYTOTEC) 200 mcg tablet Use 2 tablets vaginally as directed. The night before the procedure and the morning of the procedure. - levothyroxine (LEVOXYL) 25 mcg tablet Take 1 tablet by mouth once daily. Take on empty stomach. For Thyroid - DULoxetine (CYMBALTA) 30 mg capsule Take 1 capsule by mouth once daily. Meds Comments as of 07/25/2009: Problem List As Of Date 07/27/2021 Noted Resolved Generalized anxiety disorder [F41.1] 09/17/2013 SUPERVIS OTHER NORMAL PREG [Z34.80] 09/18/2007 01/23/2008 Surveillance of previously prescribed contracep*03/05/2008 12/23/2012 Supervision of other high-risk [O09.8*11/24/2009 11/02/2011 Threatened premature labor, antepartum [O47.00] 11/24/2009 11/02/2011 Breech presentation without mention of version,*11/30/2009 11/02/2011 Panic attacks [F41.0] 09/07/2011 Genital herpes, unspecified [A60.00] 09/17/2013 Threatened [O20.0] 12/23/2012 05/08/2013 First trimester bleeding [O20.9] 01/08/2013 07/17/2013 History of labor [Z87.51] 01/08/2013 09/17/2013 History of anesthesia complications [Z87.898] 01/08/2013 09/17/2013 Abnormal glucose complicating [O99.81*05/11/2013 09/17/2013 Lumbar disc herniation with radiculopathy [M51.*08/27/2014 03/25/2018 Herpes simplex virus (HSV) infection [B00.9] 08/05/2015 04/18/2016 Encounter for supervision of normal i*08/05/2015 04/18/2016 Anxiety [F41.9] 01/21/2018 Subclinical hypothyroidism [E03.8] 01/23/2018 PMDD (premenstrual dysphoric disorder) [F32.81] 01/12/2020 Anxiety and depression [F41.9, F32.A] 09/16/2020 Chronic constipation [K59.09] 10/31/2020 Encounter Status:Closed by [facility] SUSANNA PHILLIPS on 07/27/21 [facility] 07-27-2021 Note HNO ID: [id number] Author: Susanna [facility] Service: ? Author Type: ? Type: Progress Notes Filed: 07/27/2021 11:44 AM Note Text: POPULATION HEALTH NAVIGATION OUTREACH Action/FYI I left a voice message and a my chart message re: pcp No care everywhere Contact made with patient or family member? NO Pt identified by name and : NO Outreach Outcome/Action Unable to reach patient: Left message Ebook Gluehart message sent Reason for Outreach Attribution: Provider Off-boarding Payer: Payor: ANTHEM / Plan: BLUE CARD PPO OOS / Product Type: PPO / Care Gap Reviewed:: Reminder: Reminder note to check Health Maintenance for items below Health Maintenance items due: COVID-19 VACCINE(1) Never done HEPATITIS C SCREENING Never done INFLUENZA(1) due on 04/19/2021 Advanced Directives Completed: Have you ever planned for future healthcare decisions with a power of email designer, living will, or advance directives? No. Please bring a copy to your next appointment or email to [email or web address] Referrals: N/A Message Sent to Practice: NO Navigation Signature: Susanna Scherer Population Health Navigator July 27, 2021 11:43 AM [facility] 07-07-2021 Note HNO ID: [id number] Author: Tonya Thomason APRN.QUALITY ASSURANCE QA LAB TECHNICIAN Service: ? Author Type: Nurse Practitioner Type: Progress Notes Filed: 07/07/2021 4:33 PM Note Text: Paty Hopkins presents today for IUD check. She had a Mirena placed on 05/29/21. She has had breast pain, increase depression, anger, H/A and breast tenderness since placement. Pt would like the Mirena remove today. Paty presents for removal of IUD due to other complication depression, anger, H/A, breast tenderness. UNIVERSAL PROTOCOL / SAFETY CHECKLIST Procedure to be Performed: Mirena removal Sign In: A Moment of CARE was completed. Personnel directly involved with the procedure wore the appropriate PPE (Personal Protective Equipment). Patient/Surrogate Stated/Verified: PATIENT VERIFIED(optional for EMERGENT procedures): Patient name, Date of , Relevant allergies and The intended procedure Time Out Communication: Intended patient and procedure match the source documents. Consent documented and matches the intended procedure. Sign Out: SIGN OUT (optional for EMERGENT procedures): No specimen collected. All instruments, equipment, possible retained foreign bodies accounted for. Tonya Thomason APRN.JORGE PROCEDURE: Speculum placed in vagina, IUD string visualized and grasped with ring forceps. ASSESSMENT/PLAN: IUD removed without difficulty, intact, and patient tolerated procedure well. Contraception plans: none Pt is to see Dr Grajeda to discuss ablation Tonya Thomason APRN.QUALITY ASSURANCE QA LAB TECHNICIAN [facility] documented as of this encounter (statuses as of 02/20/2022) [facility]12-18-2015 History of Past illness Narrative* Problem Noted Date Resolved Date Herpes simplex virus (HSV) infection 08/05/2015 04/18/2016 Overview: Will need acyclovir at 36 wks Encounter for supervision of normal in multigravida in third trimester 08/05/2015 04/18/2016 Lumbar disc herniation with radiculopathy 201403/25/2018 Abnormal glucose complicating 05/11/20 13 09/17/2013 Overview: 3 hr GTT normal. First trimester bleeding 01/08/2013 013 Overview: 01/08/2013She saw Dr. Gerber on December 23 for vaginal spotting. An ultrasound was done that revealed an intrauterine at 9 weeks with positive cardiac activity. Patient denies any bleeding since then. Gerda MOLINA RN History of labor 01/08/2013 014 Overview: 01/08/2013 Pt has a history of labor that she was hospitalized in [place] for 4 days at 33 weeks with her last . She denies any labor with her other pregnancies. Signs and symptoms of PTL discussed and the importance of going to the hospital at onset of PTL should it occur. Gerda MOLINA RN History of anesthesia complications 01/08/2013 09/17/2013 Overview: 01/08/2013Patient states I had problems with my blood pressure getting too low because of my Epidural with my last delivery Gerda MOLINA RN May 08, 2013 Plans natural labor and to go without epidural. Esdras Woods MD Threatened 12/23/2012 05/08/2013 Breech presentation without mention of version, antepartum 11/30/2009 11/02/2011 Supervision of other high-risk (V23.89) 11/24/2009 11/02/2011 Threatened premature labor, antepartum(644.03) 0 11/24/2009 11/02/2011 Surveillance of previously prescribed contracept vicente pill 03/05/2008 12/23/2012 Supervision of other normal 09/18/2007 01/23/2008 Generalized anxiety disorder Overview: 01/08/2013She has a history of anxiety/depression treated by Dr. Milton Vargas with Zoloft. Pt has a history of depression with her first only. She feels she is doing well on medication. Discussed increased risks of depression during and and importance of reporting the development or worsening of symptoms should they occur. Pt denies ever having any suicidal thoughts or tendencies or thoughts of hurting others. Gerda MOLINA RN Genital herpes, unspecified 08/21 Overview: 01/08/2013Pt has a history of genital herpes. Discussed with pt. importance of reporting any outbreaks during should they occur.Gerda MOLINA RN documented as of this encounter (statuses as of 05/21/2022) [facility]12-18-2015 History of Past illness Narrative* Problem Noted Date Resolved Date Herpes simplex virus (HSV) infection 08/05/2015 04/18/2016 Overview: Will need acyclovir at 36 wks Encounter for supervision of normal in multigravida in third trimester 08/05/2015 04/18/2016 Lumbar disc herniation with radiculopathy 201403/25/2018 Abnormal glucose complicating 05/11/20 13 09/17/2013 Overview: 3 hr GTT normal. First trimester bleeding 01/08/2013 013 Overview: 01/08/2013Joan saw Dr. Gerber on December 23 for vaginal spotting. An ultrasound was done that revealed an intrauterine at 9 weeks with positive cardiac activity. Patient denies any bleeding since then. Gerda MOLINA RN History of labor 01/08/2013 014 Overview: 01/08/2013 Pt has a history of labor that she was hospitalized in [place] for 4 days at 33 weeks with her last . She denies any labor with her other pregnancies. Signs and symptoms of PTL discussed and the importance of going to the hospital at onset of PTL should it occur. Gerda MOLINA RN History of anesthesia complications 01/08/2013 09/17/2013 Overview: 01/08/2013Patient states I had problems with my blood pressure getting too low because of my Epidural with my last delivery Gerda MOLINA RN May 08, 2013 Plans natural labor and to go without epidural. Esdras Woods MD Threatened 12/23/2012 05/08/2013 Breech presentation without mention of version, antepartum 11/30/2009 11/02/2011 Supervision of other high-risk (V23.89) 11/24/2009 11/02/2011 Threatened premature labor, antepartum(644.03) 0 11/24/2009 11/02/2011 Surveillance of previously prescribed contracept vicente pill 03/05/2008 12/23/2012 Supervision of other normal 09/18/2007 01/23/2008 Generalized anxiety disorder Overview: 01/08/2013She has a history of anxiety/depression treated by Dr. Milton Vargas with Zoloft. Pt has a history of depression with her first only. She feels she is doing well on medication. Discussed increased risks of depression during and and importance of reporting the development or worsening of symptoms should they occur. Pt denies ever having any suicidal thoughts or tendencies or thoughts of hurting others. Gerda MOLINA RN Genital herpes, unspecified 08/21 Overview: 01/08/2013Pt has a history of genital herpes. Discussed with pt. importance of reporting any outbreaks during should they occur.Gerda MOLINA RN documented as of this encounter (statuses as of 06/04/2022) [facility]12-18-2015 History of Past illness Narrative* Problem Noted Date Resolved Date Herpes simplex virus (HSV) infection 08/05/2015 04/18/2016 Overview: Will need acyclovir at 36 wks Encounter for supervision of normal in multigravida in third trimester 08/05/2015 04/18/2016 Lumbar disc herniation with radiculopathy 201403/25/2018 Abnormal glucose complicating 05/11/20 13 09/17/2013 Overview: 3 hr GTT normal. First trimester bleeding 01/08/2013 013 Overview: 01/08/2013She saw Dr. Gerber on December 23 for vaginal spotting. An ultrasound was done that revealed an intrauterine at 9 weeks with positive cardiac activity. Patient denies any bleeding since then. Gerda MOLINA RN History of labor 01/08/2013 014 Overview: 01/08/2013 Pt has a history of labor that she was hospitalized in [place] for 4 days at 33 weeks with her last . She denies any labor with her other pregnancies. Signs and symptoms of PTL discussed and the importance of going to the hospital at onset of PTL should it occur. Gerda MOLINA RN History of anesthesia complications 01/08/2013 09/17/2013 Overview: 01/08/2013Patient states I had problems with my blood pressure getting too low because of my Epidural with my last delivery Gerda MOLINA RN May 08, 2013 Plans natural labor and to go without epidural. Esdras Woods MD Threatened 12/23/2012 05/08/2013 Breech presentation without mention of version, antepartum 11/30/2009 11/02/2011 Supervision of other high-risk (V23.89) 11/24/2009 11/02/2011 Threatened premature labor, antepartum(644.03) 0 11/24/2009 11/02/2011 Surveillance of previously prescribed contracept vicente pill 03/05/2008 12/23/2012 Supervision of other normal 09/18/2007 01/23/2008 Generalized anxiety disorder Overview: 01/08/2013She has a history of anxiety/depression treated by Dr. Milton Vargas with Zoloft. Pt has a history of depression with her first only. She feels she is doing well on medication. Discussed increased risks of depression during and and importance of reporting the development or worsening of symptoms should they occur. Pt denies ever having any suicidal thoughts or tendencies or thoughts of hurting others. Gerda MOLINA RN Genital herpes, unspecified 08/21 Overview: 01/08/2013Pt has a history of genital herpes. Discussed with pt. importance of reporting any outbreaks during should they occur.Gerda MOLINA RN documented as of this encounter (statuses as of 09/03/2022) [facility] Diagnosis Hypothyroidism, acquired Unspecified hypothyroidism [facility]* Diagnosis Anxiety and depression- Primary Dysthymic disorder [facility] Diagnosis Anxiety and depression Dysthymic disorder documented in this encounter [facility] Advance Directives Documents on File Type Date Recorded Patient Saw Cleaner Expl anation Advance Directive(s) 08/31/2019 1:56 PM Advance Directive(s) 08/24/2019 1:15 PM Summary Purpose Family History No Family History Records Found Additional Source Comments Source Comments (unrecognize d section and content) In the event this informatio n is protected by the Federal Confidentiality of Alcohol and Drug Abuse Patient Records regulations: The Federal rules restrict any use of the information to criminally investigate or prosecute any alcohol or drug abuse patient.[facility] the event this information is protected by the Federal Confidentiality of Alcohol and Drug Abuse Patient Records regulations: The Federal rules restrict any use of the information to criminally investigate or prosecute any alcohol or drug abuse patient.[facility] the event this information is protected by the Federal Confidentiality of Alcohol and Drug Abuse Patient Records regulations: The Federal rules restrict any use of the information to criminally investigate or prosecute any alcohol or drug abuse patient.[facility] the event this information is protected by the Federal Confidentiality of Alcohol and Drug Abuse Patient Records regulations: The Federal rules restrict any use of the information to criminally investigate or prosecute any alcohol or drug abuse patient.[facility] Reason for Visit (unrecogniz ed section and content) Reason Comments Appointment Care Teams (unrecognized sec tion and content) INFORMATION SOURCE (unrecogn ized section and content) FOR RECORDS PERTAINING TO PATIENTS WHO ARE OR HAVE BEEN ENROLLED IN A CHEMICAL DEPENDENCY/SUBSTANCEABUSE PROGRAM, SOME INFORMATION MAY BE OMITTED. This clinical summary was aggregated from multiple sources. Caution should be exercised in using it in the provision of clinical care. This summary normalizes information from multiple sources, and as a consequence, information in this document may materially change the coding, format and clinical context of patient data. In addition, data may be omitted in some cases. CLINICAL DECISIONS SHOULD BE BASED ON THE PRIMARY CLINICAL RECORDS. [facility] Center[facility], [employer] [facility]. provides no warranty or guarantee of the accuracy or completeness of information in this document.
[2023-09-02 09:50] LABS: Absolute Lymphocyte Count 1.45 X10^3/uL (0.83-4.51); Absolute Neutrophil Count 2.7 X10^3/uL (2.0-7.7); Basophil# 0.04 X10^3/uL; Basophil% 0.9 % (0-1); Eosinophil# 0.02 X10^3/uL; Eosinophils% 0.4 % (0-5); Hematocrit 41.1 % (37-47); Hemoglobin 13.2 g/dL (12.0-15.0); Lymphocyte # 1.45 X10^3/ul (0.83-4.51); Lymphocyte % 31.5 % (19-41); Mean Corp Hgb Conc 32.1 g/dL (32-36); Mean Corpuscular Hgb 27.8 pg (27.0-32.0); Mean Corpuscular Volume 86.7 fL (81-99); Mean Platelet Vol. 11.2 fl (6.2-12.0); Monocyte# 0.43 X10^3/uL; Monocyte% 9.3 % (0-10); NRBC Flagged by Analyzer 0 % (0-5); Neutrophil # 2.66 X10^3/uL (2.7-7.7); Neutrophil % 57.7 % (47-70); Platelet Count 207 K/mm3 (150-450); RBC Distribution Width CV 12.8 % (11.6-14.6); RBC Distribution Width SD 40.4 fl (35.1-43.9); Red Blood Count 4.74 M/mm3 (4.2-5.4); White Blood Count 4.6 K/mm3 (4.4-11.0)
[2023-09-02 10:11] LABS: Vitamin B12 512 pg/mL (211-911); Vitamin D,25 Hydroxy 33.5 ng/mL
[2023-09-02 10:19] LABS: AST(SGOT) 23 U/L (15-37); Alanine Aminotransfer ALT/SGPT 20 U/L (13-56); Albumin, Serum 4.3 g/dL (3.2-5.0); Alkaline Phosphatase 69 U/L (45-117); Anion Gap 7 (5-15); BUN 24 mg/dL (7-18); BUN/Creat Ratio 37.2 RATIO (10-20); Calcium,Total 8.8 mg/dL (8.5-10.1); Chloride 104 mmol/L (98-107); Cholesterol 180 mg/dL (200); Creatinine, Serum 0.65 mg/dL (0.55-1.02); EST Glomerular Filtration Rate 108 mL/min (>60); Est Glom Filt Rate - Afr Amer 131 mL/min (>60); Globulin 4.1 g/dL (2.2-4.2); Glucose 93 mg/dL (74-106); High Density Lipoprotein 54 mg/dL; Potassium 3.7 mmol/L (3.5-5.1); Protein, Total 8.4 g/dL (6.4-8.2); Sodium Level 136 mmol/L (136-145); T4 Free Direct 0.95 ng/dL (0.76-1.46); Thyroid Stim Hormone (TSH) 3.84 uIU/mL (0.358-3.74); Triglycerides 79 mg/dL; Very Low Density Lipoprotein 16 mg/dL (5-40)
[2023-09-04 20:09] LABS: T3 Reverse 17.4 ng/dL (9.2-24.1)
== END | disposition home or self-care (01) ==
PROVIDERS: PCP Nurse Practitioner; Referring Provider Nurse Practitioner; Visit Provider Nurse Practitioner
DX: Z00.00 Encounter for general adult medical examination without abnormal findings (principal); E03.9 Hypothyroidism, unspecified; R53.83 Other fatigue
CPT/HCPCS: 36415; 80053; 80061; 82306; 82607; 83036; 84439; 84443; 84482; 85025

== ENCOUNTER → 2023-09-25 | Outpatient (CLI) | payer OTHER, SELFPAY | END | disposition home or self-care (01) | LOC: LABSPEC 15:45 | PROVIDERS: PCP Nurse Practitioner; Referring Provider Nurse Practitioner Women's Health; Visit Provider Nurse Practitioner Women's Health | DX: N89.8 Other specified noninflammatory disorders of vagina (principal) | CPT/HCPCS: 87070; 87205 ==

== ENCOUNTER → 2023-10-09 | Outpatient (CLI) | payer OTHER, SELFPAY ==
--- NOTE | 2023-10-09 09:28 | US_ITS ---
STUDY: ULTRASOUND OF THE FEMALE PELVIS - COMPLETE REASON FOR EXAM: Female, 38 years old. Pain LMP: September 12, 2023. TECHNIQUE: Transabdominal and Transvaginal TECHNICAL QUALITY: Adequate. COMPARISON: Comparison is made with prior study dated November 13, 2017. FINDINGS: The uterus is anteverted and is in a midline position. The uterus measures 11.1 cm x 8.2 cm x 6 cm. There is a Nabothian cyst of the cervix. The endometrium measures 6 mm in thickness, and is hyperechoic. Small cystic changes seen in the endocervical canal. This measures 8.9 mm x 3.4 mm. There is no demonstrated endometrial mass. There is no demonstrated myometrial mass. Heterogeneous echotexture of the myometrium with no focal fibroids seen. I.U.D. - The patient does not have an I.U.D. The right ovary is visualized. The right ovary measures 4.2 cm x 2.1 cm x 2.5 cm. There is no right ovarian cyst or ovarian mass. There is no visualized right adnexal mass or complex lesion. There is normal arterial and normal venous vascularity. The left ovary is visualized. The left ovary measures 3.4 cm x 2.3 cm x 2.3 cm. There is no left ovarian cyst or ovarian mass. There is no visualized left adnexal mass or complex lesion. There is normal arterial and normal venous vascularity. There is no fluid in the cul-de-sac. The pre void volume of the bladder was 73 ml. US/Pelvic (Non ) IMPRESSION: Heterogeneous appearance of the myometrium although no focal fibroid is seen. 3.4 mm x 8.9 mm cyst seen in the endocervical canal. Electronically Signed: Jerrell Rangel MD at 13:42 EST ,
--- NOTE | 2023-10-09 09:28 | BI_ITS ---
MAMMOGRAPHY - BILATERAL DIAGNOSTIC REASON FOR EXAM: Female, 38 years old. Right axillary breast pain. PERTINENT HISTORY: Non-contributory. TECHNIQUE: Digital bilateral breast luca (3D mammographic acquisition) in the CC and MLO projections. 2-D mediolateral oblique (MLO) and craniocaudad (CC) views of both breasts were obtained. CAD: Full Field Digital Mammography with Computer Added Detection was performed. COMPARISON: None. Baseline examination. FINDINGS: Breast Composition: The breasts are heterogeneously dense, which may obscure small masses. There are no dominant masses or suspicious calcifications. No other significant abnormalities are identified. BI/DIAG MAMM W/CAD, BILAT IMPRESSION: Negative diagnostic mammogram. With the patient''s history of right axillary breast pain, targeted ultrasound correlation recommended. ASSESSMENT CATEGORY: BIRADS Category 0: Incomplete. Need additional imaging evaluation. A letter regarding these results will be sent to the patient by the facility within 30 days. Approximately 10% of breast cancers are not detected by mammography. A normal mammogram should not delay biopsy of a clinically suspicious abnormality. Electronically Signed: Jerrell Rangel MD at 10:21 EST ,
--- NOTE | 2023-10-09 09:28 | US_ITS ---
STUDY: ULTRASOUND BREAST - RIGHT REASON FOR EXAM: Female, 38 years old. Right axillary pain. TECHNIQUE: Axial and longitudinal images of the RIGHT breast were performed with a high resolution ultrasound transducer. # OF IMAGES: 19 COMPARISON: Comparison is made with prior mammogram done earlier in the day. FINDINGS: RIGHT Breast: The right axillary region was examined with ultrasound. There is a 5 mm x 2 mm x 4 mm benign-appearing lymph node at the 10:00 position of the breast at 5 cm from the nipple. US/Breast Limited Unilateral IMPRESSION: 5 mm x 3 mm x 4 mm benign-appearing lymph node at the 10:00 position of the breast at 5 cm from the nipple. ASSESSMENT CATEGORY: BIRADS Category 2: Benign. A letter regarding these results will be sent to the patient by the facility within 30 days. Electronically Signed: Jerrell Rangel MD at 11:20 EST ,
--- OUTSIDE RECORDS SUMMARY | 2023-10-09 10:09 | XMS RPT_ITS | CCD ---
Author Name Unknown Address [facility] [employer] - Recur[employer] Backoffice [facility] [address] [place] [address] Organization [facility] Care Team Providers Care Campus Recruiter Name Role Phone Nancy Petersen MD Unavailable [phone] MITESH Matute RN, Veronika Strong Unavailable Unavaillizet e Marge DIGITAL PUBLISHING SPECIALIST.REGIONAL ENGINEER, DNP, Haroon Primary Care Provider Unavailable Primary [...] HCL] Drug Allergy 0 Other: See Comments [facility] (5 sources) NITROFURANTOIN, MACROCRYSTALS / Nitrofurantoin, Monohydrate; Translations: [NITROFURANTOIN MONOHYD/M-CRYST] Drug Allergy 9 Other: See Comments [facility] Medications Current Medications Medication Drug Class(es) Dates [...] Mass Index) 22.77 kg/m2 Nancy Petersen MD [facility] 04-16-2017 15:26-0400 Body Temperature 97.8 [degF] Nancy Petersen MD [facility] 04-16-2017 15:26-0400 Body Temperature 97.81 [degF] Nancy Petersen MD [facility] 04-16-2017 15:26-0400 BP Diastolic 66 mm[Hg] Nancy Petersen MD [facility] 04-16-2017 15:26-0400 BP Systolic 109 mm[Hg] Nancy Petersen MD [facility] 04-16-2017 15:-0400 Height 170.18 cm Nancy Petersen MD [facility] 04-16-2017 15:26-0400 Pulse (Heart Rate) 64 /min Nancy Petersen MD [facility] 04-16-2017 15:-040 Respiratory Rate 16 /min Nancy Petersen MD [facility] 04-16-2017 15:-0400 Weight 65.95 kg Nancy Petersen MD [facility] Encounters Encounter Date Encounter Type Care Provider Facility Start: 09-03-2022 Refill Haroon PETERS RN.JORGE, TU Work Phone: [facility] Plan of Treatment Date Care Activity Detail Author Start: 05-18-2026 HPV TESTING HPV TESTING [facility] Start: 05-18-2026 PAP TESTING PAP TESTING [facility] Start: 12-21-2025 Urine microalbumin profile DTAP,TDAP,TD (9 - Td or Tdap) [facility] Start: 09-29-2022 ANNUAL PCP TEAM CHRONIC DISEASE VISIT ANNUAL PCP TEAM CHRONIC DISEASE VISIT [facility] Start: 04-19-2022 Influenza vaccination INFLUENZA (#1) [facility] Start: 01-05-2022 COVID-19 VACCINE (3 - Booster for Pfizer series) COVID-19 VACCINE (3 - Booster for Pfizer series) [facility] Start: 10-02-2021 COVID-19 VACCINE (3 - Booster for Pfizer series) COVID-19 VACCINE (3 - Booster for Pfizer series) [facility] Start: 05-23-2017 End: 05-23-2017 Appointment Appointment [facility] Work Phone: Start: 04-16-2017 End: 04-16-[address] [facility] Start: 2001 HEPATITIS C SCREENING HEPATITIS C SCREENING [facility] Immunizations Immunization Date Immunization Notes Care Provider Fa cility 05-31-2021 influenza, seasonal, injectable, preservative free Haroon Bird APRN.JORGE, DNP Work Phone: [facility] Work Phone: 12-22-2015 tetanus toxoid, redu cristiane diphtheria toxoid, and acellular pertussis vaccine, adsorbed Haroon Bird APRN.[facility] Work Phone: [facility] Work Phone: 08-05-2015 influenza, injectabl e, quadrivalent, contains preservative Haroon Bird APRN.JORGE [facility] Work Phone: [facility] 05-29-2013 influenza virus vaccine, unspecified formulation Haroon Bird APRN.[facility] Work Phone: [facility] 05-19-2013 influenza, seasonal, injectable, preservative free Haroon Bird APRN.[facility] Work Phone: [facility] Work Phone: 05-08-2013 tetanus toxoid, redu cristiane diphtheria toxoid, and acellular pertussis vaccine, adsorbed Haroon Bird APRN.JORGE [facility] Work Phone: [facility] 09-10-2011 hepatitis B vaccine, adult dosage Haroon Blaarianne KILLIAN.[facility] Work Phone: [facility] 03-09-2011 hepatitis B vaccine, adult dosage Haroon Blaarianne KILLIAN.[facility] Work Phone: [facility] 04-17-2010 hepatitis B vaccine, adult dosage Haroon Blaarianne DIGITAL PUBLISHING SPECIALIST.[facility] Work Phone: [facility] 08-19-2006 tetanus toxoid, redu cristiane diphtheria toxoid, and acellular pertussis vaccine, adsorbed Haroon Bird APRN.JORGE [facility] Work Phone: [facility] 04-13-1996 measles, mumps and rubella virus vaccine Haroon Bird APRN.[facility] Work Phone: [facility] Work Phone: 03-28-1989 DTP-Haemophilus influenzae type b conjugate vaccine Haroon Bird APRN.[facility] Work Phone: [facility] Work Phone: 03-28-1989 haemophilus influenz ae type b vaccine, PRP-T conjugate Haroon Bird APRN.[facility] Work Phone: [facility] Work Phone: 03-28-1989 poliovirus vaccine, inactivated Haroon Bird APRN.[facility] Work Phone: [facility] Work Phone: 05-30-1988 haemophilus influenz ae type b vaccine, PRP-D conjugate Haroon Bird APRN.[facility] Work Phone: [facility] Work Phone: 05-30-1988 hepatitis B vaccine, pediatric or pediatric/adolescent dosage Haroon Bird APRN.[facility] Work Phone: [facility] Work Phone: 03-13-1985 DTP-Haemophilus influenzae type b conjugate vaccine Haroon Bird APRN.[facility] Work Phone: [facility] Work Phone: 03-13-1985 haemophilus influenz ae type b vaccine, PRP-T conjugate Haroon Bird APRN.[facility] Work Phone: [facility] Work Phone: 12-17-1984 measles, mumps and rubella virus vaccine Haroon Bird APRN.[facility] Work Phone: [facility] Work Phone: 03-24-1984 DTP-Haemophilus influenzae type b conjugate vaccine Haroon Bird APRN.[facility] Work Phone: [facility] Work Phone: 03-24-1984 haemophilus influenz ae type b vaccine, PRP-T conjugate Haroon Bird APRN.[facility] Work Phone: [facility] Work Phone: 03-24-1984 poliovirus vaccine, inactivated Haroon Bird APRN.[facility] Work Phone: [facility] Work Phone: 01-21-1984 DTP-Haemophilus influenzae type b conjugate vaccine Haroon Bird APRN.[facility] Work Phone: [facility] Work Phone: 01-21-1984 haemophilus influenz ae type b vaccine, PRP-T conjugate Haroon Marge KILLIAN.[facility] Work Phone: [facility] Work Phone: 01-21-1984 poliovirus vaccine, inactivated Haroon Blaarianne DIGITAL PUBLISHING SPECIALIST.[facility] Work Phone: [facility] Work Phone: 1985 DTP-Haemophilus influenzae type b conjugate vaccine Haroon Marge KILLIAN.[facility] Work Phone: [facility] Work Phone: 1985 haemophilus influenz ae type b vaccine, PRP-T conjugate Haroon Bird APRN.[facility] Work Phone: [facility] Work Phone: 1985 poliovirus vaccine, inactivated Haroon Blaz DIGITAL PUBLISHING SPECIALIST.[facility] Work Phone: [facility] Work Phone: Payers Date Payer Category Payer Unknown [employer] PPO OOS [id number] 2020-Present [phone] [address] [place] [address] PPO [id number] 2020 Unknown [employer] PPO OOS [id number] 2020-Present [phone] [address] [place] [address] PPO [id number] 2018 Unknown [id number] Social History Date Type Detail Facility Start: 11-02-2011 Tobacco smoking stat [facility] Never smoked tobacco [facility] Start: 09-29-2021 Alcohol intake Current non-dr linker up of alcohol (finding) [facility] Start: 01-12-2020 History SDOH Alcohol Frequency 3 [facility] Start: 01-12-2020 History SDOH Alcohol Std Drinks 1 [facility] Start: 01-12-2020 History SDOH Social Connections Phone 4 [facility] Start: 01-12-2020 End: 09-03-2021 History SDOH Social Connections Get Together 2 [facility] Start: 01-12-2020 History SDOH Financial 5 [facility] Start: 01-11-2020 Education 15 [facility] Start: 1985 Sex Assigned At Female C [facility] Start: 11-02-2011 Tobacco use and exposure Smoke less tobacco non-user [facility] Start: 05-11-2022 End: 05-21-2022 Exposure to SARS-CoV-2 (event) Not sure [facility] Clinical Notes 08-05-2015 to 09-03-2022 Telephone Encounter [...] LAST 4 APPT'S TO ESTABLISH CARE WITH FURNACE PROCESS PLANT OPERATOR. NO UPCOMING APPT. Pt needs to schedule appt to establish care in order to continue receiving medication refills. MC message to pt advising of the same. Please review and advise. Michi Thayer LPN documented in this encounter [facility] 06-04-2022 Miscellaneous Notes Appointment slot open after [...] Nathaly Nolasco LPN documented in this encounter [facility] 05-21-2022 Miscellaneous Notes Pt notified, transferred to [...] medication refill of her Cymbalta. Recently her DICE MAKER added Lexapro to the Cymbalta regimen. She [...] Mary Perea RN documented in this encounter [facility] 02-20-2022 Miscellaneous Notes Last office visit: 09/29/21 F/u scheduled: none Eli Haas Ma documented in this encounter [facility] 09-29-2021 Note HNO ID: [id number] Author: Haroon Bird APRN.REGIONAL ENGINEER, DNP Service: ? Author Type: Nurse Practitioner [...] medication refill of her Cymbalta. Recently her DICE MAKER added Lexapro to the Cymbalta regimen. She [...] and gums normal, (more content not included)... [facility] 09-07-2021 Note HNO ID: [id number] Author: Haroon Bird APRN.REGIONAL ENGINEER, DNP Service: ? Author Type: Nurse Practitioner [...] agrees to the visit: Yes Patient Location: [facility] Paty Hopkins is a 35 year old female who is contacted today for a virtual visit This is an established patient of Dr. Vargas who retired last year. New patient to me. Reports: Presents for medication refill of her Cymbalta. Recently her DICE MAKER added Lexapro to the Cymbalta regimen. She [...] (146 lb) 08/04 (more content not included)... [facility] 08-25-2021 Note HNO ID: [id number] Author: Esdras Woods MD Service: ? Author Type: Physician Type: Progress Notes Filed: 08/25/2021 1:15 PM Note Text: DATE OF SERVICE: 08/25/2021 PROCEDURE: In-Office Ablation DIAGNOSIS: Menorrhagia PRE-EVALUATION: Ultrasound done on 05/18/21 EMB done on 08/04/21. Pathology: secretory endometrium INFORMED CONSENT Procedure: In-Office Ablation Service: DICE MAKER The risks, benefits and anticipated outcomes of [...] Out Discussion: Completed Physician: Esdras Woods MD Director Of Solutions Architecture: none We provide toradol: Yes Permit signed [...] none Tolerated sitting: Driven home by designated sweeper driver: Yes, Discharge date: 08/25/2021 Discharge time: 1255 Nurse: Mary Perea RN FOLLOW UP PLAN: 1) Post-procedure instructions reviewed and written information given to patient. 2) Follow up in 3-4 weeks. Call sooner if any problems or questions. [facility] 08-04-2021 Note HNO ID: [id number] Author: Fawn Grajeda MD Service: ? Author [...] OFFICE HYSTEROSCOPY, FRIDA ABLATION. Fawn Jackson MD [facility] 07-28-2021 Note HNO ID: [id number] Author: Fawn Grajeda MD Service: ? Author [...] L5 SAB1 IAB0 Ectopic0 Multiple0 Live Births5 Sericulture Teacher History LMP: 05/20/2021, Having periods Age at Menarche: Age at First : Age at Menopause: Sericulture Teacher History Comments: Sexual Activity: Yes; Male Contraception: [...] which included preparing to see the patient, [id number] patient care, completing clinical documentation, obtaining and/or reviewing separately obtained history, performing a medically appropriate examination, counseling and educating the patient/family/caregiver and ordering medications, tests, or procedures Fawn Jackson MD [facility] 07-27-2021 Note Patient Outreach (DILAN CANCINOAV) ---- PATY HOPKINS ([id number]) 1985 F Date Time Provider Department 07/27/21 [...] Outcome/Action Unable to reach patient: Left message [employer] message sent Reason for Outreach Attribution: Provider [...] future healthcare decisions with a power of regulatory attorney, living will, or advance directives? No. Please bring a copy to your next appointment or email to [email or web address] Referrals: N/A Message Sent to Practice: [...] [facility] on 07/27/21 [facility] 07-27-2021 Note HNO ID: [id number] Author: Susanna [facility] Service: ? Author Type: ? Type: Progress Notes Filed: 07/27/2021 11:44 AM Note Text: POPULATION HEALTH NAVIGATION OUTREACH Action/FYI I left a voice message and a my chart message re: pcp No care everywhere Contact made with patient or family member? NO Pt identified by name and : NO Outreach Outcome/Action Unable to reach patient: Left message [employer] message sent Reason for Outreach Attribution: Provider [...] future healthcare decisions with a power of regulatory attorney, living will, or advance directives? No. Please bring a copy to your next appointment or email to [email or web address] Referrals: N/A Message Sent to Practice: NO Navigation Signature: Susanna Scherer Population Health Navigator July 27, 2021 11:43 AM [facility] 07-07-2021 Note HNO ID: [id number] Author: Tonya Thomason APRN.REGIONAL ENGINEER Service: ? Author Type: Nurse Practitioner Type: [...] Dr Grajeda to discuss ablation Tonya Thomason APRN.REGIONAL ENGINEER [facility] documented as of this encounter (statuses as of 02/20/2022) [facility]12-18-2015 History of Past illness Narrative* Problem Noted [...] of labor that she was hospitalized in [place] for 4 days at 33 weeks with [...] of this encounter (statuses as of 05/21/2022) [facility]12-18-2015 History of Past illness Narrative* Problem Noted [...] of labor that she was hospitalized in [place] for 4 days at 33 weeks with [...] of this encounter (statuses as of 06/04/2022) [facility]12-18-[facility] History of Past illness Narrative* Problem Noted [...] of labor that she was hospitalized in [place] for 4 days at 33 weeks with [...] of this encounter (statuses as of 09/03/2022) [facility] Diagnosis Hypothyroidism, acquired Unspecified hypothyroidism documented [facility] this [facility] Diagnosis Anxiety and depression- Primary Dysthymic disorder documented in [facility] encounter [facility] Diagnosis Anxiety and depression Dysthymic disorder documented in this encounter [facility] Advance Directives Documents on File Type Date Recorded 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 Advance Directive(s) 08/31/2019 1:56 PM [...] or prosecute any alcohol or drug abuse patient.[facility] the event this information is protected by the Federal Confidentiality of Alcohol and Drug Abuse Patient Records regulations: The Federal rules restrict any use of the information to criminally investigate or prosecute any alcohol or drug abuse patient.[facility] the event this information is protected by the Federal Confidentiality of Alcohol and Drug Abuse Patient Records regulations: The Federal rules restrict any use of the information to criminally investigate or prosecute any alcohol or drug abuse patient.[facility] the event this information is protected by the Federal Confidentiality of Alcohol and Drug Abuse Patient Records regulations: The Federal rules restrict any use of the information to criminally investigate or prosecute any alcohol or drug abuse patient.[facility] Reason for Visit (unrecogniz ed section and [...] BE BASED ON THE PRIMARY CLINICAL RECORDS. [facility]. provides no warranty or guarantee of the accuracy or completeness of information in this document.
== END | disposition home or self-care (01) ==
LOC: OPBI 09:26
PROVIDERS: PCP Nurse Practitioner; Referring Provider Nurse Practitioner Women's Health; Visit Provider Nurse Practitioner Women's Health
DX: R10.2 Pelvic and perineal pain (principal); N94.6 Dysmenorrhea, unspecified; N64.4 Mastodynia
CPT/HCPCS: 76642; 76830; 76856; 77062; 77066; G0279

== ENCOUNTER → 2024-01-20 | Outpatient (CLI) | payer OTHER, SELFPAY ==
--- NOTE | 2024-01-20 12:15 | EMB_PTH ---
PATIENT: VINCENT MATA LOC: [facility] U#:[id number] AGE/SX: 38/F ROOM: RE01/20/[address]: Dr. Mary Avitia DO : 1985 BED: DIS: 01/20/2024 SPEC #: [id number] RECD: 01/20/24 13:40 STATUS: VALENTINE NETO #: [id number] MYLENE: 01/20/24 12:[address]: Mary Avitia DEPT: SURGICAL PATHOLOGY RECD BY: Ana Morgan ENTERED: 01/21/24 07:44 SP TYPE: ENDOM BX/C BOGDAN DR: ANNMARIE ArguetaC Tissues: Endometrium, NOS Procedures: Surgery Specimen Level IV HEADER OPERATION: Endometrial biopsy PRE-OP DIAGNOSIS: Menorrhagia TISSUE SUBMITTED: Endometrial lining MICROSCOPIC DIAGNOSIS Endometrium, biopsy: Secretory endometrium. AM/mr 01/22/2024 MICROSCOPIC DESCRIPTION Slides are reviewed. GROSS DESCRIPTION Received is one container labeled with the patient's name and not further designated. The specimen consists of multiple irregular fragments of pink soft tissue that in aggregate measure 2.5 x 1.0 x 0.1 cm. The specimen is totally submitted in one cassette. JOSE/ 01/21/2024 TC:5 CPT:17655
== END | disposition home or self-care (01) ==
LOC: LABSPEC 13:49
PROVIDERS: PCP Nurse Practitioner; Referring Provider Obstetrics & Gynecology; Visit Provider Obstetrics & Gynecology
DX: N92.0 Excessive and frequent menstruation with regular cycle (principal)
CPT/HCPCS: 88305

== ENCOUNTER 2024-03-13 05:27 | Day surgery (SDC) | payer OTHER, SELFPAY ==
[2024-03-05 16:21] LABS: Hematocrit 41.5 % (37-47); Mean Corp Hgb Conc 33.7 g/dL (32-36); Mean Corpuscular Hgb 30.4 pg (27.0-32.0); Mean Corpuscular Volume 90.2 fL (81-99); Platelet Count 227 K/mm3 (150-450); RBC Distribution Width CV 11.9 % (11.6-14.6); RBC Distribution Width SD 38.9 fl (35.1-43.9); White Blood Count 7.1 K/mm3 (4.4-11.0)
[2024-03-05 17:08] LABS: Thyroid Stim Hormone (TSH) 1.62 uIU/mL (0.358-3.74)
[2024-03-06 08:41] LABS: Magnesium 2.1 mg/dL (1.6-2.6)
[2024-03-13] VITALS (15 sets, daily range): BP systolic 104–121; BP diastolic 57–81; PULSE 71–97; RESP 12–18; TEMP 36–37.1; O2SAT 96–100; BMI 22.4
[2024-03-13 06:06] LABS: Internal QC Validated? YES +Cl - CLEAR BKGD; Pregnancy, Urine Negative Negative
[2024-03-13] MEDS: Lactated Ringers 1,000 ML 40 ML IV (06:11)
[2024-03-13] MEDS: Phenazopyridine 95 MG Tablet 190 MG PO (06:13)
[2024-03-13] MEDS: Celecoxib 200 MG Capsule 400 MG PO (06:13)
[2024-03-13] MEDS: Acetaminophen 500 MG Tablet 1000 MG PO (06:13)
[2024-03-13] MEDS: Magnesium 1 GM over 15 mins IV (06:13)
[2024-03-13] MEDS: Gabapentin 600 MG Tablet PO (06:13)
[2024-03-13] MEDS: dexAMETHasone 4 MG/ML Vial 8 MG IV (06:14)
[2024-03-13 06:43] LABS: Bedside Glucose 82 mg/dL (74-106)
--- NOTE | 2024-03-13 07:09 | PCM.HP.BLA ---
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 Is patient in pain?: No Allergies hydrocodone (From Vicodin) Adverse Reaction (Verified 03/05/24 15:00) Nausea/Vom/Diarrhea Medications ?Medication ?Instructions ?Recorded ?Confirmed ?Type alprazolam 0.5 mg tablet (Xanax) 0.5 mg PO DAILY PRN anxiety #15 08/28/23 03/05/24 Rx tabs omeprazole 20 mg capsule,delayed 20 mg PO QHS 08/30/23 03/05/24 History release levothyroxine 25 mcg tablet 25 mcg PO DAILY thyroid #90 tabs 12/31/23 03/05/24 Rx duloxetine 60 mg capsule,delayed 60 mg PO QHS 02/28/24 03/05/24 History release Post menopausal: No Patient : No : No PFSH Medical History Anxiety History of hiatal hernia Dysmenorrhea Specific phobia Depression Thyroid disease Kidney stones Back pain Gastric reflux Non-smoker Anxiety and depression Surgical History History of esophagogastroduodenoscopy (EGD) History of cystoscopy History of wisdom tooth extraction, class II edentulism H/O tubal ligation Family History Grandfather Heart diseaseGrandfather COPD (chronic obstructive pulmonary disease) Emphysema lungGrandmother Kidney disease Social History number of children: 5 current occupational status: employed current occupation: [employer] Smoking Status: Never smoker alcohol intake: current alcohol intake frequency: holidays/special occasions only substance use type: does not use caffeine: No frequency: 3-4 times per week seatbelt use: always do you feel safe at home: Yes 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 She is a 38 year old (vaginal deliveries) who presents for surgical consult. She tried and failed an ablation procedure at [facility] 4 years ago. she is now using ocps despite a prior tubal ligation. Ultrasound shows an 11 cm uterus. She c/o persistent pain on her left side. us does not indicate a problem there however. STUDY: ULTRASOUND OF THE FEMALE PELVIS - COMPLETE REASON FOR EXAM: Female, 38 years old. Pain LMP: September 12, 2023. TECHNIQUE: Transabdominal and Transvaginal TECHNICAL QUALITY: Adequate. COMPARISON: Comparison is made with prior study dated November 13, 2017. FINDINGS: The uterus is anteverted and is in a midline position. The uterus measures 11.1 cm x 8.2 cm x 6 cm. There is a Nabothian cyst of the cervix. The endometrium measures 6 mm in thickness, and is hyperechoic. Small cystic changes seen in the endocervical canal. This measures 8.9 mm x 3.4 mm. There is no demonstrated endometrial mass. There is no demonstrated myometrial mass. Heterogeneous echotexture of the myometrium with no focal fibroids seen. I.U.D. - The patient does not have an I.U.D. The right ovary is visualized. The right ovary measures 4.2 cm x 2.1 cm x 2.5 cm. There is no right ovarian cyst or ovarian mass. There is no visualized right adnexal mass or complex lesion. There is normal arterial and normal venous vascularity. The left ovary is visualized. The left ovary measures 3.4 cm x 2.3 cm x 2.3 cm. There is no left ovarian cyst or ovarian mass. There is no visualized left adnexal mass or complex lesion. There is normal arterial and normal venous vascularity. There is no fluid in the cul-de-sac. The pre void volume of the bladder was 73 ml. US/Pelvic (Non ) IMPRESSION: Heterogeneous appearance of the myometrium although no focal fibroid is seen. 3.4 mm x 8.9 mm cyst seen in the endocervical canal. History 7 Elective abortions Hx Para 5 Spontaneous abortions Hx # Term Pregnancies Ectopic pregnancies Hx # Pregnancies Multiple births # of living children Past Pregnancies Del. Date Name GA/Weeks Outcome Route Bth Weight Infant Gen Labor Lgth Anesthesia Del Locatn Provider FOB Unknown 2005 Douglas Unknown 2007 John Unknown 2009 Saba Unknown 2012 Osvaldo Unknown 2015 Heladio ROS Const ROS Unobtainable: All systems reviewed & are unremarkable except as noted in H Resp Resp: Reports system reviewed and no additional complaints, except as documented; Denies cough GI GI: Reports as per HPI Psych Psych: Reports system reviewed and no additional complaints, except as documented Exam Const General: cooperative, healthy appearing, comfortable and no acute distress Resp Effort & Inspection: normal respiratory effort Skin General: no rashes or lesions noted Psych Appearance: grossly normal Speech and Movement: speech and movement normal Coding Level of Care Code Off vis,est,level 4 Diagnoses Menorrhagia with regular cycle N92.0 Pelvic pain R10.2 Assessment and Plan Assessment and Plan (1) Menorrhagia with regular cycle: Status: Acute (2) Pelvic pain: Status: Acute Comment: LLQ Plan: After discussing the patient's diagnosis and treatment plan options, patient wishes to proceed with surgical management. I have discussed with the patient the risks, benefits, and alternatives of the procedure which include but are not limited to risks of anesthesia, bleeding, infection, possible damage to bowel, bladder, or surrounding vasculature which could lead to additional surgery to evaluate any complications. Patient agrees to procedure and wishes to proceed. ACOG/uptodate references given for additional information regarding procedure. plan is for total robotic hysterectomy, bs, possible LSO, cystoscopy.
--- NOTE | 2024-03-13 07:11 | PCM.DC ---
Discharge Instructions Diet Discharge Diet: No restrictions Activity May resume sexual activity in: 6 weeks Weight Bearing Status: Full weight bearing Dressing / Incision Call your doctor if your incision/area has: Continuous Slow Oozing, Sudden Increased Bleeding, Increased Pain/ Swelling, Increased Redness and Foul Smelling Discharge Call your doctor if you observe: Fever of 101 or Higher, Using more than 1 pad per hour, Shortness of breath, Chest pain and Uncontrolled pain Suture Line Care: Avoid Pulling/Pushing and Avoid Pinching/Bending Remove Dressing in: 1 week (if present) Cleanse incision/area with: Soap & Water and Keep Dressing Clean & Dry Follow Up Care Please Follow Up With: Mary Avitia DO When: Call to make an appointment with your doctor for a postop visit in 2 and 6 weeks Test Results: Test results from this visit will be discussed in further detail at your follow-up appointment, if applicable. Discharge Plan Admission Primary Reason for Your Visit: hysterectomy Attending Provider: Mary Avitia Primary Care Provider: Veronika Alexandre Instructions Print Language: Mauritanian Discharge Orders/Prescriptions Prescriptions: New ibuprofen 800 mg tablet 800 mg PO Q8H PRN (Reason: pain) Qty: 30 0RF oxycodone-acetaminophen [Percocet] 5-325 mg tablet 1 tab PO Q4H PRN (Reason: pain) 7 Days Qty: 20 0RF Rx Instructions: 1-2 tabs q 4 hrs as needed for pain Continued omeprazole 20 mg capsule,delayed release(DR/EC) 20 mg PO QHS duloxetine 60 mg capsule,delayed release(DR/EC) 60 mg PO QHS levothyroxine 25 mcg tablet 25 mcg PO DAILY Qty: 90 2RF alprazolam [Xanax] 0.5 mg tablet 0.5 mg PO DAILY PRN (Reason: anxiety) Qty: 15 0RF Referrals / Follow Up: Veronika Alexandre, SUSANNE-C [Primary Care Provider] - Disposition Disposition (needs filled in before D/C Order can be placed): Home, Self Care
--- NOTE | 2024-03-13 07:14 | PRE.ANES_ITS ---
ASA Classification* ASA Classification ASA Classification: 2 Assessment & Plan Anesthesia* Anesthesia Assessment Anesthesia Assessment: Discussed sedation and/or anesthesia options, risks, benefits, and alternatives with patient/parents/legal guardian/POA. Questions invited. The patient/parents/legal guardian/POA seems to understand and agrees to proceed with anesthesia plan. Reviewed the physical assessment, medical history, allergy history and patient home medications list prior to surgery/procedure/anesthetic and documented any changes. Performed airway and anesthesia risk assessments. Anesthesia Type Anesthesia Type: General Anesthesia Focused Assessment* Temperature: 98.8 F Pulse Rate: 97 Blood Pressure: 116/81 Respiratory Rate: 16 Pulse Ox: 100 Airway Assessment Mouth opens: >3 cm Mallampati Score: II Focused Labs Anesthesia Preop lab: CBC WBC 7.1 K/mm3 (4.4-11.0) 03/05/24 15:54 RBC 4.60 M/mm3 (4.2-5.4) 03/05/24 15:54 Hgb 14.0 g/dL (12.0-15.0) 03/05/24 15:54 Hct 41.5 % (37-47) 03/05/24 15:54 Plt Count 227 K/mm3 (150-450) 03/05/24 15:54 CHEMISTRY Potassium 3.7 mmol/L (3.5-5.1) 09/02/23 07:11 Sodium 136 mmol/L (136-145) 09/02/23 07:11 Magnesium 2.1 mg/dL (1.6-2.6) 03/05/24 15:54 BUN 24 mg/dL (7-18) H 09/02/23 07:11 Creatinine 0.65 mg/dL (0.55-1.02) 09/02/23 07:11 Glucose 93 mg/dL (74-106) 09/02/23 07:11 POC Glucose 82 mg/dL (74-106) 03/13/24 05:56 TSH 1.62 uIU/mL (0.358-3.74) 03/05/24 15:54 COAG PT 12.3 SECONDS (11.7-14.9) 04/03/22 08:34 HCG, Quant 00225 mIU/mL (<9 non-preg) H 12/23/12 11:36 Urine Test Negative Negative 03/13/24 05:37 Pre-Assessment Diagnosis/Proposed Procedure Planned Operative Procedure(s): Lap Robotic Hysterectomy Andrew Salping, possible Left Salpingo-oophorectomy Anesthesia History 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 When Was Last Pacemaker Check QUESTION #4 FULL TEXT: You/Your Family Experience fever (hyperthermia) with Anesthesia Last Oral Intake Last Oral intake: Last Oral Intake NPO since 02:30 03/13/24 06:06 Meds taken in AM with sips of Yes 03/13/24 06:06 water? 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 Female Yes 02/28/24 13:18 HX of Motion Sickness Yes 02/28/24 13:18 HX of N/V After Surgery No 02/28/24 13:18 Non-Smoker Yes 02/28/24 13:18 Duration of Surgery greater Yes 02/28/24 13:18 than 60 minutes Number of Risk Factors 4 02/28/24 13:18 PONV Score Severe Risk 02/28/24 13:18 Height & Weight Height & Weight: Anesthesia: Height & Weight Height 5 ft 7 in 03/13/24 06:06 Weight: 65 kg 03/13/24 06:06 Body Mass Index (BMI) 22.4 03/13/24 06:06 Respiratory Assessment Respiratory Assessment - plant operator: Respiratory Tract Infection Hx - plant operator Hx Respiratory Tract Infection No 02/28/24 13:18 STOP Sleep Apnea STOP Sleep Apnea - plant operator: STOP Sleep Apnea - plant operator Hx Hypertension No 02/28/24 13:18 Hx Sleep Apnea No 02/28/24 13:18 CPAP No 08/02/23 15:43 BIPAP Do you snore loudly (louder No 02/28/24 13:18 than talking or can be heard Do you often feel tired/ No 02/28/24 13:18 fatigued/ sleepy during daytime? Has anyone observed you stop No 02/28/24 13:18 breathing during sleep? STOP Results Negative 02/28/24 13:18 QUESTION #5 FULL TEXT : Do you snore loudly (louder than talking or can be heard through closed doors)? 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 Specify any problems Hx of Preganancy in last 3 No 02/28/24 13:18 Months Nurse Filling Out Transfusion SFRANTZ 02/28/24 13:18 & Questions: Date: 02/28/24 02/28/24 13:18 Time: 13:19 02/28/24 13:18 Patient unable to answer at this time (ie. confused, unrespo /Reproduction History /Reproductive History - plant operator: /Reproductive Hx- plant operator Hx Now No 02/28/24 13:18 Gestational Age (in weeks): EDC: Hx Hx Para Hx Section SAB No 03/05/24 15:03 Active Medications Active Medications: Current Medications Generic Name Dose Route Start Last Admin Trade Name Freq PRN Reason Stop Dose Admin Acetaminophen 1,000 mg 03/13/24 07:30 03/13/24 06:13 Acetaminophen 500 Mg Tablet PO 03/13/24 07:31 1,000 mg PREOP ONE Administration Celecoxib 400 mg 03/13/24 07:30 03/13/24 06:13 Celecoxib 200 Mg Capsule PO 03/13/24 07:31 400 mg X1 ONE Administration Dexamethasone Sodium Phosphate 8 mg 03/13/24 07:30 03/13/24 06:14 Dexamethasone 4 Mg/Ml Vial IV 03/13/24 07:31 8 mg X1 ONE Administration Gabapentin 600 mg 03/13/24 07:30 03/13/24 06:13 Gabapentin 600 Mg Tablet PO 03/13/24 07:31 600 mg PREOP ONE Administration Lactated Ringer's 1,000 mls @ 40 mls/hr 03/13/24 07:30 03/13/24 06:11 IV 40 mls/hr .Q25H BRY Administration Cefazolin Sodium 2 gm/ Sodium 110 mls @ 150 mls/hr 03/13/24 07:30 Chloride IV 03/13/24 08:13 PREOP ONE Lactated Ringer's 1,000 mls @ 70 mls/hr 03/13/24 07:30 IV .[id number] BRY Magnesium Sulfate 1 gm/ 102 mls @ 408 mls/hr 03/13/24 07:30 03/13/24 06:13 Dextrose IV 03/13/24 07:44 408 mls/hr X1 ONE Administration Insulin Human Lispro 0 unit 03/13/24 07:30 Insulin Lispro 100 Unit/Ml Insuln.Pen SC 03/13/24 18:00 Q4H PRN PRN BG >/= 180, SEE PROTOCOL Protocol Ondansetron HCl 4 mg 03/13/24 07:30 Ondansetron 4 Mg/2 Ml Vial IV 03/13/24 07:31 X1 ONE Phenazopyridine HCl 190 mg 03/13/24 07:30 03/13/24 06:13 Phenazopyridine 95 Mg Tablet PO 03/13/24 07:31 190 mg X1 ONE Administration PFSH Medical History Anxiety History of hiatal hernia Dysmenorrhea Specific phobia Depression Thyroid disease Kidney stones Back pain Gastric reflux Non-smoker Anxiety and depression Home Medications ?Medication ?Instructions ?Recorded ?Last Taken ?Type omeprazole 20 mg capsule,delayed 20 mg PO QHS 08/30/23 03/12/24 History release levothyroxine 25 mcg tablet 25 mcg PO DAILY thyroid #90 tabs 12/31/23 03/13/24 Rx duloxetine 60 mg capsule,delayed 60 mg PO QHS 02/28/24 Unknown History release alprazolam 0.5 mg tablet (Xanax) 0.5 mg PO DAILY PRN anxiety #15 03/10/24 Unknown Rx tabs ibuprofen 800 mg tablet 800 mg PO Q8H PRN pain #30 tabs 03/13/24 Unknown Rx oxycodone-acetaminophen 5 mg-325 1 tab PO Q4H PRN pain 7 days #20 03/13/24 Unknown Rx mg tablet (Percocet) tabs Allergy/AdvReac Type Severity Reaction Status Date / Time hydrocodone (From Vicodin) AdvReac Nausea/Vom/ Verified 03/13/24 06:06 Diarrhea Family History Grandfather Heart disease Grandfather COPD (chronic obstructive pulmonary disease) Emphysema lung Grandmother Kidney disease Surgical History History of esophagogastroduodenoscopy (EGD) History of cystoscopy History of wisdom tooth extraction, class II edentulism H/O tubal ligation Social History number of children: 5 current occupational status: employed current occupation: [employer] [facility] Smoking Status: Never smoker alcohol intake: current alcohol intake frequency: holidays/special occasions only substance use type: does not use caffeine: No frequency: 3-4 times per week seatbelt use: always do you feel safe at home: Yes 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
[2024-03-13] MEDS: Cefazolin 2 GM in 0.9% Normal Saline (100mL Bag) 100 ML IV (07:29)
--- NOTE | 2024-03-13 07:30 | HYST_PTH ---
PATIENT: VINCENT MATA LOC: [facility] U#:[id number] AGE/SX: 38/F ROOM: RE03/13/[address]: Dr. Mary Avitia DO : 1985 BED: DIS: 03/13/2024 SPEC #: [id number] RECD: 03/13/24 10:50 STATUS: VALENTINE LONGORIAMaury #: [id number] MYLENE: 03/13/24 07:[address]: Mary Avitia DEPT: SURGICAL PATHOLOGY RECD BY: Uriah Olsen ENTERED: 03/13/24 11:16 SP TYPE: HYSTERECT OTHR DR: Veronika Alexandre, [employer] Tissues: Uterus, NOS Procedures: Surgery Specimen Level V HEADER OPERATION: Laparoscopic robotic hysterectomy bilateral salpingectomy, left oopherectomy PRE-OP DIAGNOSIS: Menorrhagia with regular cycle, pelvic pain TISSUE SUBMITTED: Uterus, bilateral fallopian tubes, left ovary MICROSCOPIC DIAGNOSIS Uterus, bilateral fallopian tubes, left ovary, hysterectomy, bilateral salpingectomy, and left oophorectomy: Cervix - Chronic cystic cervicitis Endometrium - Secretory endometrium. Myometrium - Intramural leiomyoma (1.5cm in greatest dimension). - Focal adenomyosis. Right fallopian tube- Focal endometriosis. Left fallopian tube- no pathologic diagnosis. Left ovary- Physiologic follicular cysts. JOSE/ 03/16/2024 MICROSCOPIC DESCRIPTION Slides are reviewed. GROSS DESCRIPTION Received in fixative is one container labeled with the patient's name and designated uterus, cervix, bilateral fallopian tubes. The specimen consists of a hysterectomy specimen consisting of uterus with cervix and attached bilateral fallopian tubes and left ovary. The uterus with cervix weighs 208 gm and measures 10.0 x 9.0 x 6.5 cm. The serosal surface is mackey glistening. The ectocervical mucosa is unremarkable. The external os is circular in contour. The endocervical canal measures 3.5 cm in length and the endocervical mucosa is mackey glistening and unremarkable. The triangular endometrial cavity measures 5.5 cm in length and 3.0 cm in width. The endometrium is mackey glistening without any mass lesion and measures 0.2 cm in thickness. Sections of this uterine wall reveal a nodular mass measuring 1.5cm in greatest dimension. Sections of this mass reveal mackey whorled cut surfaces without areas of hemorrhage, necrosis or cystic degeneration. The uterine wall measures up to 3.0cm in thickness. The right fallopian tube measures 8.0cm in length and up to 1.0cm in diameter. A filshie clip is noted which appears to be intact. Proximal portion of the fallopian tube shows solid nodular cut surfaces. Left fallopian tube measures 8.0cm in length and up to 1.0cm in diameter. A filshie clip is noted in the proximal portion of the fallopian tube. Fimbrial end is identified. Sections reveal unremarkable cut surfaces. Soft to cystic left ovary measures 4.0 x 2.0 x 1.0cm. Sections reveal multiple cysts filled with clear to hemorrhagic fluid. The largest cyst measures 0.6cm in greatest dimension. Loss Prevention Coordinator sections are submitted in twelve cassettes as follows: 1 - anterior cervix, 2 - posterior cervix, 3 & 4 - anterior uterine wall, 5 & 6 - posterior uterine wall, 7- nodular mass, entirely submitted, 8- right fallopian tube, 9- proximal portion of the right fallopian tube with solid nodular cut surfaces, 10- left fallopian tube, 11 and 12- left ovary JOSE: 03/13/2024 TC:1 CPT: 63171
[2024-03-13] MEDS: Bupivacaine 0.25% 30 ML Vial (09:10)
--- NOTE | 2024-03-13 09:34 | PCM.OPRPT ---
Problems Associated Problem List Diagnoses (1) Menorrhagia with regular cycle: (2) Pelvic pain: Report of Operation Date of Procedure: 03/13/24 Pre-Operative Diagnosis: pelvic pain, enlarged uterus, menorrhagia Post-Operative Diagnosis: pelvic pain, enlarged uterus, menorrhagia Surgery/Procedure Performed:: total robotic hysterectomy, left oophorectomy, bilateral salpingectomy, cystoscopy Description of Surgical Findings:: Findings: 11cm size uterus, normal appearing ovaries and tubes. On exploration of the abdominal cavity the uterus, adnexa, bowel, and liver were found to be normal. With the exception of powder burn mendoza of endometriosis on the left adnexa and adhesions of the left adnexa to the left side wall. There are bilateral filshie clips in place. Cystoscopy showed no evidence of leaking at approximately 250 cc of normal saline, positive ureteral orifices and jet flow are seen and no suture material was appreciated in the bladder. Specimens removed: Uterus and cervix, Bilateral tubes and left ovary Reason for surgery: This is a 38-year-old G5, P5 who presented to my office with history of left sided pelvic pain and heavy periods. the planned procedure is for a robotic hysterectomy the risks benefits and alternatives were discussed with the patient the patient had a clear understanding of the procedure and a consent form was signed. Surgeon: Mary Avitia clerical coordinator: Rafa Ambrose Type of Anesthesia: General Specimen's removed: uterus, cervix, fallopian tubes, left ovary Estimated Blood Loss (mL): 100cc Fluids Replaced: 1500cc Description of Procedure: Procedure: The patient was placed in the dorsal low lithotomy position and prepped and draped in the normal sterile fashion both abdominally and in the perineum. Her legs were placed in stirrups a Meyers catheter was inserted into the urethra without difficulty. A weighted speculum was placed in the vagina and a single-tooth tenaculum was used to grasp the anterior lip of the cervix. An advincula uterine manipulator was inserted through the cervix without complication. It was then tied into place at the 2 and 10:00 locations on the cervix. Gloves were changed and attention was turned towards the abdomen. Approximately 23 cm above the pubic symphysis in the midline, and after Marcaine injection, a 8 mm incision was made. An 8 mm trocar was inserted through the laparoscope, then inserted into the abdomen under direct visualization using the laparoscope. Good abdominal placement was noted and no complications were appreciated. An air seal device was utilized to create pneumoperitoneum. At 12 cm lateral to the midline on the left and right sides 8 mm accessory ports were placed. Next a left upper quadrant 8 mm assistant professor of communication port site was placed. The patient was placed in steep Trendelenburg position. The robot was docked. The hysterectomy was initiated first by taking down the round ligament on each side using the vessel sealer device. The peritoneum between the left round ligament and the IP ligament was opened using electrocautery and extended the length of the IP ligament. The IP ligament was then taken down using the vessel sealer device. These areas were freed without complication the broad ligament was then and taken down using the vessel sealer device. Next the bladder flap was taken down without complication. This was done using monopolar cautery to the level of the cervical vaginal junction. After the bladder flap was created, uterine vessels were then isolated and cauterized using the vessel sealer device and EndoShears. At this point the uterine vessels were taken down further starting from the ascending branch, dissecting along the edges of the cervix to the level of the cervical vaginal junction with hemostasis appreciated. The cervical vaginal junction was then using monopolar cautery in a circumferential pattern across the superior aspect of the cervix. The specimen was delivered through the vagina and sent to pathology. The remaining vaginal cuff was then closed using a V lock suture. This was performed in a running technique. Excellent hemostasis was obtained and good closure was noted. Irrigation was then performed. All operative sites were noted to be hemostatic. A cystoscopy was performed with a 70 degree cystoscope through the urethra into the bladder without complication. The bladder was instilled with approximately 250 cc of normal saline. Intraoperative images were made. Ureteral orifices and jets were identified. No suture material was appreciated in the bladder. The bladder was then drained and cystoscope was removed. The abdominal cavity was again examined using the laparoscope after the robot was undocked. All operative sites were noted to be hemostatic. The trochars were removed under direct visualization without complication and pneumoperitoneum was reduced. At this point the skin was then closed using 4-0 Monocryl subcuticular stitch and sealed with surgical glue. The patient tolerated the procedure well sponge lap and needle counts were correct x2 the patient was taken to the recovery room in stable condition. Complications none Admit VTE Documentation VTE Present on Admission: Yes VTE Mechan Device Prophylaxis: SCD's VTE Pharm Prophylaxis ordered?: No Multi Select Codes Urinary/Genital Urinary/Genital CPT Codes: 95565 TLH+BS/O <250gr uterus
--- NOTE | 2024-03-13 09:48 | PCM.POST.ANE ---
Anesthesia: Postop Eval I Current Vital Signs Temperature: 96.8 F Pulse Rate: 81 Blood Pressure: 104/57 Respiratory Rate: 14 Pulse Ox: 98 Oxygen Delivery Method: Room Air Assessment Airway patent: Yes Spontaneous unlabored respirations: Yes Mental status: Awake and Calm nausea: No Vomiting: No Anesthesia Complication: No Fluid Hydration Crystalloid volume administer (ml): 1,500 Total IV fluid infused: 1,500 Progress Note Anesthesia document: Postop Eval 1 completed: Yes
[2024-03-13] MEDS: Lactated Ringers @ 70 MLS/HR 70 ML IV (10:17)
--- NOTE | 2024-03-13 13:02 | POSTOPAN2_ITS ---
Anesthesia Postop Eval I Sum Postop Eval Completion status Anesthesia document: Postop Eval 1 completed: Yes Anesthesia Postop Eval I Summary Anesthesia Postop Eval I Summary: Anesthesia Postop Eval I: Assessment Summary Airway patent Yes 03/13/24 09:49 APPLIED BIOLOGY [email or web address] Spontaneous unlabored Yes 03/13/24 09:49 APPLIED BIOLOGY [email or web address] respirations Mental status Awake,Calm 03/13/24 09:49 APPLIED BIOLOGY [email or web address] nausea No 03/13/24 09:49 APPLIED [email or web address] [email or web address] Vomiting No 03/13/24 09:49 APPLIED BIOLOGY [email or web address] Anesthesia Postop Eval I: Fluid Summary Crystalloid volume administer 1,500 03/13/24 09:49 APPLIED [email or web address] [email or web address] (ml) Colloids volume administered ( ml) Blood Product volume administered (ml) Total IV fluid infused 1,500 03/13/24 09:49 APPLIED BIOLOGY [email or web address] Anesthesia Postop Eval I: Summary Notes Anesthesia Complication No 03/13/24 09:49 APPLIED BIOLOGY [email or web address] Anesthesia Complication Comment: Post-operative progress note Anesthesia: Postop Eval II Evaluation Mental status: Awake and Calm Pain Level: 1 nausea: No Vomiting: No Complications Anesthesia Complication: No
--- NOTE | 2024-03-13 13:02 | PCM.POSTANE2 ---
Anesthesia Postop Eval I Sum Postop Eval Completion status Anesthesia document: Postop Eval 1 completed: Yes Anesthesia Postop Eval I Summary Anesthesia Postop Eval I Summary: Anesthesia Postop Eval I: Assessment Summary Airway patent Yes 03/13/24 09:49 ELECTRICAL ACCESSORIES I [email or web address] Spontaneous unlabored Yes 03/13/24 09:49 ELECTRICAL ACCESSORIES I [email or web address] respirations Mental status Awake,Calm 03/13/24 09:49 ELECTRICAL ACCESSORIES I [email or web address] nausea No 03/13/24 09:49 ELECTRICAL ACCESSORIES I [email or web address] Vomiting No 03/13/24 09:49 ELECTRICAL ACCESSORIES I [email or web address] Anesthesia Postop Eval I: Fluid Summary Crystalloid volume administer 1,500 03/13/24 09:49 ELECTRICAL ACCESSORIES I [email or web address] (ml) Colloids volume administered ( ml) Blood Product volume administered (ml) Total IV fluid infused 1,500 03/13/24 09:49 ELECTRICAL ACCESSORIES I [email or web address] Anesthesia Postop Eval I: Summary Notes Anesthesia Complication No 03/13/24 09:49 ELECTRICAL ACCESSORIES I [email or web address] Anesthesia Complication Comment: Post-operative progress note Anesthesia: Postop Eval II Evaluation Mental status: Awake and Calm Pain Level: 1 nausea: No Vomiting: No Complications Anesthesia Complication: No
== END 2024-03-13 14:34 | disposition home or self-care (01) ==
LOC: SDC 05:27 → AC 05:27
PROVIDERS: Anesthesiology; PCP Nurse Practitioner; Referring Provider Obstetrics & Gynecology; Visit Provider Obstetrics & Gynecology
PROC: 0UT90ZZ Resection of Uterus, Open Approach (ICD-10-PCS; CPT 58571; principal; 2024-03-13 07:10)
DX: N92.0 Excessive and frequent menstruation with regular cycle (principal); D25.1 Intramural leiomyoma of uterus; N83.02 Follicular cyst of left ovary; N72 Inflammatory disease of cervix uteri; E07.9 Disorder of thyroid, unspecified; K21.9 Gastro-esophageal reflux disease without esophagitis; F41.9 Anxiety disorder, unspecified; F32.A Depression, unspecified; Z79.899 Other long term (current) drug therapy
CPT/HCPCS: 58571; S2900; 00840; 36415; 81025; 82962; 83735; 84443; 85027; 86850; 86900; 86901; 88307; J7120; J2405; J3475

== ENCOUNTER 2025-02-05 22:19 | Inpatient (IN) | payer SELFPAY ==
[2025-02-05 22:20] VITALS: BP 125/48; PULSE 126; RESP 29; TEMP 36.2; O2SAT 100
[2025-02-05 22:34] VITALS: BMI 24.5
--- NOTE | 2025-02-05 22:53 | CT_ITS ---
EXAM: CT Abdomen and Pelvis Without Intravenous Contrast CLINICAL INDICATION: LEFT FLANK PAIN TECHNIQUE: Axial computed tomography images of the abdomen and pelvis without intravenous contrast. This CT exam was performed using one or more of the following dose reduction techniques: automated exposure control, adjustment of the mA and/or kV according to patient size, and/or use of iterative reconstruction technique. COMPARISON: CT Abdomen Pelvis dated 03/21/2021 FINDINGS: LUNG BASES: Unremarkable. No mass. No consolidation. ABDOMEN: LIVER: Hepatomegaly with fatty infiltration. GALLBLADDER AND BILE DUCTS: Unremarkable. No calcified stones. No ductal dilation. PANCREAS: Unremarkable. No ductal dilation. SPLEEN: Unremarkable. No splenomegaly. ADRENALS: Unremarkable. No mass. KIDNEYS AND URETERS: Bilateral punctate renal calculi, largest on the right measuring up to for mm without obstruction. STOMACH AND BOWEL: Fecal retention in the colon consistent with constipation. No obstruction. No mucosal thickening. PELVIS: APPENDIX: No findings to suggest acute appendicitis. BLADDER: Unremarkable. No stones. REPRODUCTIVE: Unremarkable as visualized. ABDOMEN and PELVIS: INTRAPERITONEAL SPACE: Unremarkable. No free air. No significant fluid collection. BONES/JOINTS: No acute fracture. No dislocation. SOFT TISSUES: Umbilical hernia containing fat. VASCULATURE: Unremarkable. No abdominal aortic aneurysm. LYMPH NODES: Unremarkable. No enlarged lymph nodes. CT/Abdomen/Pelvis without Cont IMPRESSION: 1. Bilateral nephrolithiasis without hydronephrosis. 2. Hepatomegaly with fatty infiltration. 3. Fecal retention in the colon consistent with constipation. 4. Umbilical hernia containing fat. Reading Location: [id number]
--- OUTSIDE RECORDS SUMMARY | 2025-02-05 22:59 | XMS RPT_ITS | CCD ---
Author Organization [facility] Care Team Providers Care Alemite Operator Name Role Phone Nicola HURST, Nancy Shelby Unavailable MITESH Matute RN, Veronika Strong Unavailable Unavaillizet Ugarte INCOME TAX ADVISOR.BATTERY CHECKER, DNP, Haroon Primary Care Provider Gisselle TRAFFIC AND TRANSPORT PLANNER, TRAFFIC AND TRANSPORT PLANNER-C Edith Primary Care Provider [facility] [employer] AND TRANSPORT PLANNER, TRAFFIC AND TRANSPORT PLANNER-C Edith Referring Provider SAADIA Cody Attending Provider Friend, Dr. Maldonado Attending Provider [phone] Marge TRAFF[employer] AND TRANSPORT PLANNER, TRAFFIC AND TRANSPORT PLANNER-C Haroon Primary Care Provider Marge TRAFFIC AND TRANSPORT PLANNER, TRAFFIC AND TRANSPORT PLANNER-C Haroon Referring Provider SAADIA Farrar Attending Provider Friend, Dr. Maldonado Other Provider Unavailable Primary Care Provider Unavailabl e FRANCESCA PASTOR Referring Unavail able FRANCESCA PASTOR Attending Unavail able CEBUL III, AMANDA A Primary Care Unavailable NEDIANET FRANCESCA MCFADDEN Attending Unavail able CEBUL III, AMANDA A Primary Care Unavailable TONYA DELUNA Attending Unavailable CEBUL III, AMANDA A Primary Care Unavailable ESDRAS WOODS Attending Unavailable CEBUL III, AMANDA A Primary Care Unavailable HAROON UGARTE Attending Unavailable HAROON UGARTE Attending Unavailable CEBUL III, AMANDA A Primary Care Unavailable Unavailable Primary Care Provider UnavailVeronika Veliz Referring Unavailable Obey Farrar Attending Unavailable Ferullo, Veronika Primary Care Unavailable Ferullo, Veronika Primary Care Unavailable Ferullo, Veronika Referring Unavailable Vande Velde, Mary Attending Unavailabl e Ferullo, Veronika Primary Care Unavailable Obey Wang Attending Unavailable Ferullo, Veronika Primary Care Unavailable Obey Wang Attending Unavailable Ferullo, Veronika Primary Care Unavailable Ferullo, Veronika Referring Unavailable Elvira Ramey NP Attending Unavailable Ferullo, Veronika Primary Care Unavailable Vande Velde, Mary Referring Unavailabl e Vande Velde, Mary Attending Unavailabl e Ferullo, Veronika Primary Care Unavailable Vande Velde, Mary Referring Unavailabl e Vande Velde, Mary Attending Unavailabl e Ferullo, Veronika Primary Care Unavailable Ferullo, Veronika Referring Unavailable Vande Velde, Mary Attending Unavailabl e Ferullo, Veronika Attending Unavailable Ferullo, Veronika Primary Care Unavailable Haroon Ugarte NP Referring Unavailable Ferullo, Veronika Primary Care Unavailable Obey Wang Attending Unavailable Ferullo, Veronika Primary Care Unavailable Vande Velde, Mary Attending Unavailabl e Vande Velde, Mary Consulting Unavailabl e Vande Velde, Mary Referring Unavailabl e Ferullo, Veronika Primary Care Unavailable Ferullo, Veronika Referring Unavailable Vande Velde, Mary Attending Unavailabl e Ed Cody Attending Unavailable Ferullo, Veronika Primary Care Unavailable Ferullo, Veronika Referring Unavailable Obey Wang Attending Unavailable Ferullo, Veronika Primary Care Unavailable Ferullo, Veronika Referring Unavailable Vande Velde, Mary Attending Unavailabl e Ferullo, Veronika Referring Unavailable Ferullo, Veronika Primary Care Unavailable Obey Farrar Attending Unavailable Allergies Allergy Classification Reported Allergen(s) Allergy Type Date of Onset Reaction(s) Facility (5 sources) buPROPion; Translations: [BUPROPION HCL] Drug Allergy 0 Other: See Comments [facility] (5 sources) NITROFURANTOIN, MACROCRYSTALS / Nitrofurantoin, Monohydrate; Translations: [NITROFURANTOIN MONOHYD/M-CRYST] Drug Allergy 9 Other: See Comments [facility] (1 source) HYDROcodone Drug Allergy 2 Nausea/Vom/Diar chaitanya [facility] Work Phone: (1 source) HYDROcodone Drug Allergy 5 [facility] Repository Medications Current Medications Medication Drug Class(es) Dates Sig (Normalized) Sig (Original) DULoxetine 30 mg delayed release oral capsule (5 sources) Serotonin and Norepinephrine Reuptake Inhibitor Start: 09-07-2021 End: 09-07-2022 take 1 capsule by mouth once daily DULoxetine (CYMBALTA) 30 mg capsule Indications: Anxiety and depression Take 1 capsule by mouth once daily. 90 capsule 3 09/07/2021 09/07/2022 Active Comment on above: Take 1 capsule by [facility] once daily. mupirocin 0.02 mg/mg topical ointment (2 sources) RNA Synthetase Inhibitor Antibacterial Start: 04-30-2022 Mupirocin Active 1 APPLIC TOPICAL NEEDED April 30, 2022 2:29pm Start: 04-02-2022 End: 04-30-2022 Mupirocin Discontinued 1 REZA LIC TOPICAL TWICE A DAY April 02, 2022 12:00am April 30, 2022 2:29pm omeprazole 20 mg delayed release oral capsule (1 source) Proton Pump Inhibitor Start: 04-30-2022 take 1 capsule by mouth twice daily Omeprazole (Prilosec) 20 mg Capsule,Delayed Release(Dr/Ec) Active 20 MG PO TWICE A DAY April 30, 2022 12:00am Completed/Discontinued Medications Medication Drug Class(es) Dates Sig (Normalized) Sig (Original) cyclobenzaprine hydrochloride 10 mg oral tablet (1 source) Muscle Relaxant Start: 07-04-2020 End: 10-30-2021 take 10 mg by mouth three times daily Cyclobenzaprine Discontinued 10 MG PO THREE TIMES A DAY July 04, 2020 1:00am October 30, 2021 10:04am doxycycline hyclate 50 mg oral capsule (2 sources) Tetracycline-cl ass Drug Start: 04-02-2022 End: 05-02-2022 take 50 mg by mouth twice daily Doxycycline Hyclate Discontinued 50 MG PO TWICE A DAY 60 April 02, 2022 12:00am May 02, 2022 12:03am Start: 10-30-2021 End: 04-02-2022 take 100 mg by mouth twice daily Doxycycline Monohydrate Discontinued 100 MG PO TWICE A DAY October 30, 2021 12:00am April 02, 2022 6:20am escitalopram 10 mg oral tablet (6 sources) Serotonin Reuptake Inhibitor Start: 05-19-2021 End: 06-20-2022 take 1 tablet by mouth once daily escitalopram oxalate (LEXAPRO) 10 mg tablet Indications: Anxiety and depression Take 1 tablet by mouth once daily. 30 tablet 0 05/21/2022 Active Start: 02-17-2018 take 10 mg by mouth once daily Escitalopram Oxalate (Lexapro) 20 MG tablet Active 10 MG PO DAILY February 17, 2018 12:00am Comment on above: Take 1 tablet by chandana once daily. ibuprofen 600 mg oral tablet (1 source) Nonsteroidal Anti-inflammatory Drug Start: End: take 600 mg by mouth every six hours as needed Ibuprofen Discontinued 600 MG PO EVERY 6 HOURS NEEDED May 23, 2017 12:00am November 06, 2017 1:32pm levothyroxine sodium 0.025 mg oral tablet (6 sources) l-Thyroxine Start: End: take 1 tablet by mouth once daily for thyroid dysfunction levothyroxine (SYNTHROID) 25 mcg tablet Indications: Hypothyroidism, acquired TAKE 1 TABLET BY MOUTH ONCE DAILY. TAKE ON EMPTY STOMACH. FOR THYROID 90 tablet 3 02/20/2022 Active Comment on above: TAKE 1 TABLET BY CHANDANA ONCE DAILY. TAKE ON EMPTY STOMACH. FOR THYROID lidocaine 0.05 mg/mg medicated patch (1 source) Antiarrhythmic, Amide Local Anesthetic Start: End: apply 1 dose topically once daily Lidocaine Discontinued 1 PATCH TOPICAL DAILY July 05, 2020 12:43am October 30, 2021 10:04am naproxen 500 mg oral tablet (1 source) Nonsteroidal Anti-inflammatory Drug Start: End: take 500 mg by mouth twice daily as needed Naproxen Discontinued 500 MG PO TWICE DAILY NEEDED July 05, 2020 12:42am October 30, 2021 10:04am predniSONE 10 mg oral tablet (1 source) Start: End: take 10 mg by mouth twice daily Prednisone Discontinued 10 MG PO TWICE A DAY July 20, 2020 1:00am October 30, 2021 10:04am sertraline 100 mg oral tablet (6 sources) Serotonin Reuptake Inhibitor Start: ZOLOFT 100 MG TABS SERTRALINE HCL [id number] Nancy Petersen MD traMADol hydrochloride 50 mg oral tablet (1 source) Opioid Agonist Start: End: take 50 mg by mouth every six hours as needed Tramadol Discontinued 50 MG PO EVERY 6 HOURS NEEDED July 04, 2020 1:00am October 30, 2021 10:04am Problems Active Problems Problem Classification Problem Date Documented Date Episodic/Chronic Acute bronchitis (1 source) Acute bronchitis; Translations: [Acute bronchitis, unspecified] Episodic Allergic reactions (2 sources) Inflammatory dermatosis; Translations: [Dermatitis, unspecified] Episodic Anxiety disorders (16 sources) Panic attack; Translations: [Panic disorder [episodic paroxysmal anxiety]] Onset: 09-07-2011 09-07-2011 Chronic Menstrual disorders (2 sources) Excessive and frequent menstruation with regular cycle; Translations: [Dysmenorrhea, unspecified] Onset: 01-20-2024 Chronic Mood disorders (5 sources) Premenstrual dysphoric disorder; Translations: [Premenstrual dysphoric disorder] Onset: 01-12-2020 01-12-2020 Chronic Mycoses (2 sources) Candidiasis of vagina; Translations: [Candidiasis of vulva and vagina] Episodic Other upper respiratory infections (1 source) Acute frontal sinusitis; Translations: [Acute frontal sinusitis, unspecified] Episodic Residual codes; unclassified (1 source) Insomnia, unspecified; Translations: [Insomnia, unspecified] Onset: 10-07-2024 Episodic Spondylosis; intervertebral disc disorders; other back problems (3 sources) Spasm of back muscles; Translations: [Muscle spasm of back] Episodic Thyroid disorders (7 sources) Acquired hypothyroidism; Translations: [Hypothyroidism, unspecified] Onset: 01-23-2018 Chronic Unclassified (1 source) Sterilization procedure done; Translations: [Encounter for sterilization] Onset: 04-16-2017 04-16-2017 Past or Other Problems Problem Classification Problem Date Documented Da te Episodic/Chronic Abdominal pain (4 sources) Flank pain; Translations: [Unspecified abdominal pain] Onset: 03-06-2024 Episodic Administrative/social admission (1 source) Encounter for pre-employment examination; Translations: [Encounter for pre-employment examination] Onset: 05-11-2024 Episodic Contraceptive and procreative management (3 sources) Encounter for sterilization; Translations: [Encounter for sterilization] Onset: 04-16-2017 04-16-2017 Episodic Other gastrointestinal disorders (4 sources) Chronic constipation; Translations: [Other constipation] Onset: 10-31-2020 10-31-2020 Episodic Residual codes; unclassified (1 source) Acquired absence of both cervix and uterus; Translations: [Acquired absence of both cervix and uterus] Onset: 03-26-2024 Episodic Residual codes; unclassified (1 source) Acquired absence of ovaries, unilateral; Translations: [Acquired absence of ovaries, unilateral] Onset: 03-26-2024 Episodic Results Test Name Value Interpretation Reference Range Facility MR/BMS. 10-07-2024 [place] [address] OFFICE VISIT Date of Service: 10/07/24 MR#: [id number] Acct: [id number] Name: PATY HOPKINS Rep #: [id number] : 1985 Provider: Dr. Obey Pascual se, DO Age/Sex: 39/F Location: [facility] Status: Signed Intake Vital Signs 05/14/24 11:12 10/07/24 16:03 Height 5 ft 7 in 5 ft 7 in Weight: 149 lb BMI 23.3 BP 112/75 Blood Pressure Location Lt brachial Position Sitting Respiration 16 Pulse 88 Pulse Source Monitor BP Intake Visit Reasons: follow up Accompanied by: Self Allergies hydrocodone (From Vicodin) Adverse Reaction (Verified 10/07/24 16:06) Nausea/Vom/Diarrhea Medications ???Medication ???Instructions ???Recorded ???Confirmed ???Type omeprazole 20 mg capsule,delayed 20 mg PO QHS 08/30/23 10/07/24 His tory release levothyroxine 25 mcg tablet 25 mcg PO DAILY thyroid #90 tabs 0 12/31/23 10/07/24 Rx alprazolam 0.5 mg tablet (Xanax) 0.5 mg PO DAILY PRN anxiety #15 10/07/24 Rx tabs doxepin 10 mg capsule 10 mg PO QHS #30 caps 10/07/24 Rx duloxetine 60 mg capsule,delayed 60 mg PO QHS #90 caps 10/07/24 Rx release PFSH Medical History (Updated 10/07/24 @ 16:[address] 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 Patient reports that she was fired from the [employer]. Is currently working 3rd shift at [employer], but does enjoy but the shift is tough. 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 has been struggling with alcohol and PTSD again. Has been sleeping very poorly secondary to work schedule.Does find that she is much more irritable in recent and her fuse has been much shorter. Denies SI/HI or AVH. Review of Systems Constitutional Denies: fever(s), chills, change in weight or fatigue Eyes Denies: change in vision or blurry vision Ears, Nose, Mouth, Throat Denies: throat pain, neck pain or change in hearing Cardiovascular Denies: chest pain, palpitations or dyspnea Respiratory Denies: dyspnea, cough or wheezing Gastrointestinal Denies: abdominal pain, nausea, vomiting, diarrhea or constipation Genitourinary Denies: dysuria or urinary frequency Musculoskeletal Denies: back pain, neck pain, joint pain or muscle weakness Integumentary/Breast Denies: rash or new lesions Neurological Denies: headache(s), dizziness or confusion Endocrine Denies: fatigue or excessive sweating Hematologic/Lymphatic Denies: easy bruising or easy bleeding Allergic/Immunologic Denies: wheezing Exam Mental Status Exam - Psych Appearance casually dressed and no apparent distress Attitude cooperative Activity/Motor Behavior MSE activity/motor behavior finding no adventitious movements Speech regular rate, regular volume and regular prosody Mood other (Irritable) Affect congruent Thought Process linear, logical and coherent Thought Content no delusions and no hallucinations Suicidal Ideation none Homicidal Ideation none Attention intact Concentration intact Sensorium/Orientation awake, alert and oriented x3 Memory/Cognition other (appropriate for stated age) Insight good Judgement good Assessment Plan Assessment Plan (1) Major depressive disorder: Qualifiers: Major depression recurrence: recurrent Active/Remission status: in partial remission Qualified Code(s): F33.41 - Major depressive disorder, recurrent, in partial remission Plan: - Continue cymbalta at 60 mg every day - things are largely stable despite ongoing life stressors -We will (more content not included)... Normal [facility] Urgent Care Visit Reporton 1 09-29-2023 Ur[address] Report [facility] [address], [address] [place] [address] OFFICE VISIT Date of Service: 07/29/24 MR#: [id number] Acct: [id number] Name: PATY HOPKINS Rep #: [id number] : 1985 Provider: SAADIA Sifuentes Age/Sex: 38/F Location: [facility] Status: Signed Intake Vital Signs 05/14/24 11:12 Height 5 ft 7 in Intake Visit Reasons: PRE EMP/NON DOT/PHYSICAL/[place] Chief Complaint: 2w incision check Allergies hydrocodone (From Vicodin) Adverse Reaction (Verified 05/06/24 15:58) Nausea/Vom/Diarrhea PFS Medical History (Updated 05/11/24 @ 12:13 by SAADIA Mccrary) Physical exam, pre-employment Anxiety History of hiatal hernia Dysmenorrhea Specific phobia Depression Thyroid disease Kidney stones Back pain Gastric reflux Non-smoker Anxiety and depression Surgical History History of esophagogastroduodenoscopy (EGD) History of cystoscopy History of wisdom tooth extraction, class II edentulism H/O tubal ligation Family History Grandfather Heart disease Grandfather COPD (chronic obstructive pulmonary disease) Emphysema lung Grandmother Kidney disease Social History number of children: 5 current occupational status: employed 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[employer] Smoking Status: Never smoker alcohol intake: current alcohol intake frequency: holidays/special occasions only substance use type: does not use caffeine: No frequency: 3-4 times per week seatbelt use: always do you feel safe at home: Yes additional social history: [employer]ainer at [employer] Chief Complaint: 2w incision check Details: PATY HOPKINS, is a 38 F who presents to the office today for Office Procedures Physical Exam Coding PE Coding Pre-employment PE: Yes Coding Level of Care Code No Charge Diagnoses Physical exam, pre-employment Z02.1 Assessment and Plan Assessment and Plan (1) Physical exam, pre-employment: Status: Acute 07/29/24 1412 Date Obey Trent Signature: Date (if applicable) CC: Normal [facility] Office Visit Reporton 2023 Office Visit Report [facility] [address] [place] [address] OFFICE VISIT Date of Service: 05/11/24 MR#: [id number] Acct: [id number] Patient: PATY HOPKINS Rep #: [id number] : 1985 Provider: SAADIA Sifuentes Age/Sex: 38/F Location: [facility] Status: Signed Intake Vital Signs 05/06/24 16:00 Height 5 ft 7 in Intake Visit Reasons: TB TEST/SELF PAY Chief Complaint: 2w incision check Allergies hydrocodone (From Vicodin) Adverse Reaction (Verified 05/06/24 15:58) Nausea/Vom/Diarrhea Office Procedures [facility] Billing Sheet Testing TB Test: Yes 07/22/24 1345 Date Obey ZEE Cosignclaritza Signature: Date (if applicable) CC: Normal [facility] Office Visit Report [facility] [address] [address] OFFICE VISIT Date of Service: 05/14/24 MR#: [id number] Acct: [id number] Patient: PATY HOPKINS Rep #: [id number] : 1985 Provider: SAADIA Woods Age/Sex: 38/F Location: [facility] Status: Signed Intake Vital Signs 05/06/24 16:00 05/14/24 11:12 Height 5 ft 7 in 5 ft 7 in Intake Visit Reasons: TB READ Chief Complaint: 2w incision check Allergies hydrocodone (From Vicodin) Adverse Reaction (Verified 05/06/24 15:58) Nausea/Vom/Diarrhea 07/23/24 0645 Date Ed ZEE Cosigner Signature: Date (if applicable) CC: Normal [facility] Urgent Care Visit Reporton 0 05-11-2024 Urgent Care Visit Report [facility] [address], [address] [place] [address] OFFICE VISIT Date of Service: 05/11/24 MR#: [id number] Acct: [id number] Name: PATY HOPKINS Rep #: [id number] : 1985 Provider: SAADIA Sifuentes Age/Sex: 38/F Location: [facility] Status: Signed Intake Vital Signs 05/06/24 16:00 Height 5 ft 7 in Intake Visit Reasons: PHYSICAL/SELF PAY Chief Complaint: 2w incision check Allergies hydrocodone (From Vicodin) Adverse Reaction (Verified 05/06/24 15:58) Nausea/Vom/Diarrhea [facility] Medical History (Updated 05/11/24 @ 12:13 by Obey ZEE, PA) Physical exam, pre-employment Anxiety History of hiatal hernia Dysmenorrhea Specific phobia Depression Thyroid disease Kidney stones Back pain Gastric reflux Non-smoker Anxiety and depression Surgical History History of esophagogastroduodenoscopy (EGD) History of cystoscopy History of wisdom tooth extraction, class II edentulism H/O tubal ligation Family History Grandfather Heart disease Grandfather COPD (chronic obstructive pulmonary disease) Emphysema lung Grandmother Kidney disease Social History number of children: 5 current occupational status: employed 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[employer] Smoking Status: Never smoker alcohol intake: current alcohol intake frequency: holidays/special occasions only substance use type: does not use caffeine: No frequency: 3-4 times per week seatbelt use: always do you feel safe at home: Yes additional social history: G[employer]ainer at [employer] HPI Chief Complaint: 2w incision check Details: PATY HOPKINS, is a 38 F who presents to the office today for Office Procedures Physical Exam Coding PE Coding Pre-employment PE: Yes Coding Level of Care Code No Charge Diagnoses Physical exam, pre-employment Z02.1 Assessment and Plan Assessment and Plan (1) Physical exam, pre-employment: Status: Acute 05/11/24 1213 Date Obey Trent Signature: Date (if applicable) CC: Normal [facility] MR/BMS.BPon 05-06-2024 MR/BMS.BP [address], [address] [place] [address] OFFICE VISIT Date of Service: 05/06/24 MR#: [id number] Acct: [id number] Name: PATY HOPKINS Rep #: [id number] : 1985 Provider: Dr. Obey Pascual se, Age/Sex: 38/F Location: [facility] Status: Signed Intake Vital Signs 02/26/24 14:25 03/26/24 13:47 04/24/24 13:17 05/06/24 15:59 05/06/24 16:00 Height 5 ft 7 in 5 ft 7 in 5 ft 7 in 5 ft 7 in 5 ft 7 in Weight: 147 lb BMI 23.0 BP 111/75 Pulse 75 Pulse Oximetry (%) 98 BP Intake Visit Reasons: 2 M FU Accompanied by: Self Allergies hydrocodone (From Vicodin) Adverse Reaction (Verified 05/06/24 15:58) Nausea/Vom/Diarrhea Medications ???Medication ???Instructions ???Recorded ???Confirmed ???Type omeprazole 20 mg capsule,delayed 20 mg PO QHS 08/30/23 05/06/24 History release levothyroxine 25 mcg tablet 25 mcg PO DAILY thyroid #90 tabs 12/31/23 05/06/24 Rx alprazolam 0.5 mg tablet (Xanax) 0.5 mg PO DAILY PRN anxiety #15 03/10/24 05/06/24 Rx tabs duloxetine 60 mg capsule,delayed 60 mg PO QHS #90 caps 05/06/24 05/06/24 Rx release PFSH Medical History Anxiety History of hiatal hernia Dysmenorrhea Specific phobia Depression Thyroid disease Kidney stones Back pain Gastric reflux Non-smoker Anxiety and depression Surgical History History of esophagogastroduodenoscopy (EGD) History of cystoscopy History of wisdom tooth extraction, class II edentulism H/O tubal ligation Family History Grandfather Heart disease Grandfather COPD (chronic obstructive pulmonary disease) Emphysema lung Grandmother Kidney disease Social History number of children: 5 current occupational status: employed 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 Patient reports that surgery went largely well. Has been working at [employer] but has had way less stress there. Also has been picking up some shifts at [facility] living [facility]. Home life has remained very stressful. Sleep has been largely good. Medications are largely working well. Relationship with mother is doing largely well. 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 Denies SI/HI or AVH. Review of Systems Constitutional Denies: fever(s), chills, change in weight or fatigue Eyes Denies: change in vision or blurry vision Ears, Nose, Mouth, Throat Denies: throat pain, neck pain or change in hearing Cardiovascular Denies: chest pain, palpitations or dyspnea Respiratory Denies: dyspnea, cough or wheezing Gastrointestinal Denies: abdominal pain, nausea, vomiting, diarrhea or constipation Genitourinary Denies: dysuria or urinary frequency Musculoskeletal Denies: back pain, neck pain, joint pain or muscle weakness Integumentary/Breast Denies: rash or new lesions Neurological Denies: headache(s), dizziness or confusion Endocrine Denies: fatigue or excessive sweating Hematologic/Lymphatic Denies: easy bruising or easy bleeding Allergic/Immunologic Denies: wheezing Exam Mental Status Exam - Psych Appearance casually dressed and no apparent distress Attitude cooperative Activity/Motor Behavior MSE activity/motor behavior finding no adventitious movements Speech regular rate, regular volume and regular prosody Mood anxious Affect congruent Thought Process linear, logical and coherent Thought Content no delusions and no hallucinations Suicidal Ideation none Homicidal Ideation none Attention intact Concentration intact Sensorium/Orientation awake, alert and oriented x3 Memory/Cognition other (appropriate for stated age) Insight good Judgement good Assessment Plan Assessment Plan (1) Major depressive disorder: Qualifiers: Active/Remission status: in partial remission Major depression recurrence: recurrent Qualified Code(s): F33.41 - Major depressive disorder, recurrent, in partial remission Plan: - Continue cymbalta at 60 mg every day - things are largely stable despite ongoing life stressors (2) Specific phobia: Plan: - Utilized small amount of xanax for situational anxiety, however again karuna (more content not included)... Normal [facility] Brake Shoe Rebuilder Office Visit Reporton 04-24-2024 Brake Shoe Rebuilder Office Visit Report [facility]'s [address], [address] [place] [address] OFFICE VISIT Date of Service: 04/24/24 MR#: [id number] Acct: [id number] Name: PATY HOPKINS Rep #: [id number] : 1985 Provider: Dr. Mary Boucher DO Age/Sex: 38/F Location[place] [facility] [place] Status: Signed Intake Vital Signs 01/20/24 11:50 03/26/24 13:47 04/24/24 13:16 04/24/24 13:17 Height 5 ft 7 in 5 ft 7 in 5 ft 7 in 5 ft 7 in Weight: 143 lb 4 oz BMI 22.4 BP 106/68 Intake Visit Reasons: 6 wk 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 Room Operator Required: No Is patient in pain?: No Allergies hydrocodone (From Vicodin) Adverse Reaction (Verified 04/24/24 13:15) Nausea/Vom/Diarrhea Medications ???Medication ???Instructions ???Recorded ???Confirmed ???Type omeprazole 20 mg capsule,delayed 20 mg PO QHS 08/30/23 04/24/24 History release levothyroxine 25 mcg tablet 25 mcg PO DAILY thyroid #90 tabs 12/31/23 04/24/24 Rx duloxetine 60 mg capsule,delayed 60 mg PO QHS 02/28/24 04/24/24 History release alprazolam 0.5 mg tablet (Xanax) 0.5 mg PO DAILY PRN anxiety #15 03/10/24 04/24/24 Rx tabs Post menopausal: No Patient : No : No PFSH Medical History Anxiety History of hiatal hernia Dysmenorrhea Specific phobia Depression Thyroid disease Kidney stones Back pain Gastric reflux Non-smoker Anxiety and depression Surgical History History of esophagogastroduodenoscopy (EGD) History of cystoscopy History of wisdom tooth extraction, class II edentulism H/O tubal ligation Family History Grandfather Heart disease Grandfather COPD (chronic obstructive pulmonary disease) Emphysema lung Grandmother Kidney disease Social History number of children: 5 current occupational status: employed 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 She is status post robotic hysterectomy without complaints. She wants to start exercising. History 7 Elective abortions Hx Para 5 Spontaneous abortions Hx # Term Pregnancies Ectopic pregnancies Hx # Pregnancies Multiple births # of living children Past Pregnancies Del. Date Name GA/Weeks Outcome Route Bth Weight Infant Gen Labor Lgth Anesthesia Del Locatn Provider FOB Unknown 2005 Douglas Unknown 2007 John Unknown 2009 Saba Unknown 2012 Osvaldo Unknown 2015 Heladio ROS ENT ENT: Reports system reviewed and no additional complaints, except as documented Cardio Card: Reports system reviewed and no additional complaints, except as documented Resp Resp: Denies cough, dyspnea or dyspnea on exertion GI GI: Denies abdominal pain, bloating or change in bowel habits : Denies vaginal odor or vaginal pruritus Details: lochia is mild Musc Musc: Reports system reviewed and no additional complaints, except as documented Exam Const General: cooperative, healthy appearing and comfortable Resp Effort Inspection: normal respiratory effort GI Palpation: soft and nontender Rectal Exam: other Other: cuff is intact and suture is dissolving. no bleeding or signs of infection Extrem General: no edema Coding Level of Care Code No Charge Diagnoses Status post hysterectomy with oophorectomy Z90.710; Z90.721 Assessment and Plan Assessment and Plan (1) Status post hysterectomy with oophorectomy: Status: Acute Plan: plan to start re-introducing exercise and intercourse return to office in one year. 04/24/24 1337 Date Mary Ruggiero Signature: Date (if applicable) CC: Normal [facility] Brake Shoe Rebuilder Office Visit Reporton 03-26-2024 Brake Shoe Rebuilder Office Visit Report [facility] [address] [place] [address] OFFICE VISIT Date of Service: 03/26/24 MR#: [id number] Acct: [id number] Name: PATY HOPKINS Rep #: [id number] : 1985 Provider: Dr. Mary Boucher DO Age/Sex: 38/F Location: [facility] Status: Signed Intake Vital Signs 01/20/24 11:50 03/13/24 06:06 03/26/24 13:46 03/26/24 13:47 Height 5 ft 7 in 5 ft 7 in 5 ft 7 in 5 ft 7 in Weight: 141 lb 6 oz BMI 22.1 BP 106/69 Intake Visit Reasons: 2 wk TRH BS possible LSO Chief Complaint: 2w incision check Cistern Room Operator Required: No Is patient in pain?: No Allergies hydrocodone (From Vicodin) Adverse Reaction (Verified 03/26/24 13:45) Nausea/Vom/Diarrhea Medications ???Medication ???Instructions ???Recorded ???Confirmed ???Type omeprazole 20 mg capsule,delayed 20 mg PO QHS 08/30/23 03/26/24 History release levothyroxine 25 mcg tablet 25 mcg PO DAILY thyroid #90 tabs 12/31/23 03/26/24 Rx duloxetine 60 mg capsule,delayed 60 mg PO QHS 02/28/24 03/26/24 History release alprazolam 0.5 mg tablet (Xanax) 0.5 mg PO DAILY PRN anxiety #15 03/10/24 03/26/24 Rx tabs Post menopausal: No Patient : No : No PFSH Medical History Anxiety History of hiatal hernia Dysmenorrhea Specific phobia Depression Thyroid disease Kidney stones Back pain Gastric reflux Non-smoker Anxiety and depression Surgical History History of esophagogastroduodenoscopy (EGD) History of cystoscopy History of wisdom tooth extraction, class II edentulism H/O tubal ligation Family History Grandfather Heart disease Grandfather COPD (chronic obstructive pulmonary disease) Emphysema lung Grandmother Kidney disease Social History number of children: 5 current occupational status: employed 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 She is status post total robotic hyst with rSO. She states that she is feeling well and has no complaints. pathology reviewed. History 7 Elective abortions Hx Para 5 Spontaneous abortions Hx # Term Pregnancies Ectopic pregnancies Hx # Pregnancies Multiple births # of living children Past Pregnancies Del. Date Name GA/Weeks Outcome Route Bth Weight Gen Labor Lgth Anesthesia Del Locatn Provider FOB Unknown 2005 Douglas Unknown 2007 John Unknown 2009 Saba Unknown 2012 Osvaldo Unknown 2015 Heladio VAZQUEZ ENT ENT: Reports system reviewed and no additional complaints, except as documented Cardio Card: Reports system reviewed and no additional complaints, except as documented Resp Resp: Denies cough, dyspnea or dyspnea on exertion GI GI: Denies abdominal pain, bloating or change in bowel habits : Denies vaginal odor or vaginal pruritus Musc Musc: Reports system reviewed and no additional complaints, except as documented Exam Const General: cooperative, healthy appearing and comfortable Resp Effort Inspection: normal respiratory effort GI Palpation: soft and nontender Rectal Exam: other Extrem General: no edema Coding Level of Care Code No Charge Diagnoses Status post hysterectomy with oophorectomy Z90.710; Z90.721 Assessment and Plan Assessment and Plan (1) Status post hysterectomy with oophorectomy: Status: Acute Plan: recovering well without complications. rto in 4 weeks for vaginal exam. 03/26/24 1419 Date Mary Ruggiero Signature: Date (if applicable) CC: Normal [facility] Bedside Glucoseon 03-13-2024 FINGERSTICK GLU 82 mg/dL Normal 74-106 [facility] Comment on above: Result Comment: FLAVIO QUACH OF PATIENT CARE PER NURSING PROTOCOL Performed By: #### L 501.080 #### [facility] [address] [place], [address] Discharge Instructionon 02-[address] [facility] Medical Records Department [address] [place] [address] Instructions for Home/Discharge Instructions 03/13/24 0711 MR#: [id number] Acct: [id number] Name: PATY HOPKINS Rep #: [id number] : 1985 38 From: Mary Avitia DO PCP: JASE Argueta Status:REG [facility] Discharge Instructions Diet Discharge Diet: No restrictions Activity May resume sexual activity in: 6 weeks Weight Bearing Status: Full weight bearing Dressing / Incision Call your doctor if your incision/area has: Continuous Slow Oozing, Sudden Increased Bleeding, Increased Pain/ Swelling, Increased Redness and Foul Smelling Discharge Call your doctor if you observe: Fever of 101 or Higher, Using more than 1 pad per hour, Shortness of breath, Chest pain and Uncontrolled pain Suture Line Care: Avoid Pulling/Pushing and Avoid Pinching/Bending Remove Dressing in: 1 week (if present) Cleanse incision/area with: Soap Water and Keep Dressing Clean Dry Follow Up Care Please Follow Up With: Mary Avitia DO When: Call to make an appointment with your doctor for a postop visit in 2 and 6 weeks Test Results: Test results from this visit will be discussed in further detail at your follow-up appointment, if applicable. Discharge Plan Admission Primary Reason for Your Visit: hysterectomy Attending Provider: Mary Avitia Primary Care Provider: Veronika Alexandre Print Language: Citizen Of [place] Discharge Orders/Prescriptions Prescriptions: New ibuprofen 800 mg tablet 800 mg PO Q8H PRN (Reason: pain) Qty: 30 0RF oxycodone-acetaminophen [Percocet] 5-325 mg tablet 1 tab PO Q4H PRN (Reason: pain) 7 Days Qty: 20 0RF Rx Instructions: 1-2 tabs q 4 hrs as needed for pain Continued omeprazole 20 mg capsule,delayed release(DR/EC) 20 mg PO QHS duloxetine 60 mg capsule,delayed release(DR/EC) 60 mg PO QHS levothyroxine 25 mcg tablet 25 mcg PO DAILY Qty: 90 2RF alprazolam [Xanax] 0.5 mg tablet 0.5 mg PO DAILY PRN (Reason: anxiety) Qty: 15 0RF Referrals / Follow Up: Veronika Alexandre NP-C [Primary Care Provider] - Disposition Disposition (needs filled in before D/C Order can be placed): Home, Self Care 03/13/24 0716 Mary Bill Cuello DO CC: TRAFFIC AND TRANSPORT PLANNER-C Veronika Alexandre Signed [facility] MR/POSTOP.[facility] 03-13-2024 MR/POSTOP.[facility] Medical Records Department [address] [place] [address] Anesthesia Postop Eval I 03/13/24 0948 MR#: [id number] Acct: [id number] Name: PATY HOPKINS Rep #: [id number] : 1985 38 From: Devon Wilson CRNA PCP: JASE Argueta Status:REG SDC Y Race: C Location: [place] [address] Anesthesia: Postop Eval I Current Vital Signs Temperature: 96.8 F Pulse Rate: 81 Blood Pressure: 104/57 Respiratory Rate: 14 Pulse Ox: 98 Oxygen Delivery Method: Room Air Assessment Airway patent: Yes Spontaneous unlabored respirations: Yes Mental status: Awake and Calm nausea: No Vomiting: No Anesthesia Complication: No Fluid Hydration Crystalloid volume administer (ml): 1,500 Total IV fluid infused: 1,500 Progress Note Anesthesia document: Postop Eval 1 completed: Yes 03/13/24 0949 Date Devon Wilson CRNA Cosigner Signature: Date CC: Signed Normal [facility] MR/[id number] 03-13-2024 MR/POSTOPAN2 [facility] Medical Records Department [address] [place] [address] Anesthesia Postop Eval II 03/13/24 1302 MR#: [id number] Acct: [id number] Name: PATY HOPKINS Rep #: [id number] : 1985 38 From: Willis Briseno MD PCP: Veronika Alexandre TRAFFIC AND TRANSPORT PLANNER-C Status:REG SDC Y Race: C Location: [place] [address]- Anesthesia Postop Eval I Sum Postop Eval Completion status Anesthesia document: Postop Eval 1 completed: Yes Anesthesia Postop Eval I Summary Anesthesia Postop Eval I Summary: Anesthesia Postop Eval I: Assessment Summary Airway patent Yes 03/13/24 09:49 [email or web address] [email or web address] Spontaneous unlabored Yes 03/13/24 09:49 VEHICLE [email or web address] respirations Mental status Awake,Calm 03/13/24 09:49 VEHICLE [email or web address] nausea No 03/13/24 09:49 VEHICLE [email or web address] Vomiting No 03/13/24 09:49 VEHICLE [email or web address] Anesthesia Postop Eval I: Fluid Summary Crystalloid volume administer 1,500 03/13/24 09:49 [email or web address] [email or web address] (ml) Colloids volume administered ( ml) Blood Product volume administered (ml) Total IV fluid infused 1,500 03/13/24 09:49 [email or web address] [email or web address] Anesthesia Postop Eval I: Summary Notes Anesthesia Complication No 03/13/24 09:49 VEHICLE [email or web address] Anesthesia Complication Comment: Post-operative progress note Anesthesia: Postop Eval II Evaluation Mental status: Awake and Calm Pain Level: 1 nausea: No Vomiting: No Complications Anesthesia Complication: No 03/13/24 1302 Date Willis Briseno MD Cosigner Signature: Date CC: Signed Normal [facility] Operative Reporton 4 Operative Report [facility] Medical Records Department [address] [place] [address] Operative Report 03/13/24 0934 MR#: [id number] Acct: [id number] Name: PATY HOPKINS Rep #: [id number] : 1985 38 From: Mary Avitia DO PCP: ANNMARIE ArguetaC Status:REG [facility] Location: [place] [address] Problems Associated Problem List Diagnoses (1) Menorrhagia with regular cycle: (2) Pelvic pain: Report of Operation Date of Procedure: 03/13/24 Pre-Operative Diagnosis: pelvic pain, enlarged uterus, menorrhagia Post-Operative Diagnosis: pelvic pain, enlarged uterus, menorrhagia Surgery/Procedure Performed:: total robotic hysterectomy, left oophorectomy, bilateral salpingectomy, cystoscopy Description of Surgical Findings:: Findings: 11cm size uterus, normal appearing ovaries and tubes. On exploration of the abdominal cavity the uterus, adnexa, bowel, and liver were found to be normal. With the exception of powder burn mendoza of endometriosis on the left adnexa and adhesions of the left adnexa to the left side wall. There are bilateral filshie clips in place. Cystoscopy showed no evidence of leaking at approximately 250 cc of normal saline, positive ureteral orifices and jet flow are seen and no suture material was appreciated in the bladder. Specimens removed: Uterus and cervix, Bilateral tubes and left ovary Reason for surgery: This is a 38-year-old G5, P5 who presented to my office with history of left sided pelvic pain and heavy periods. the planned procedure is for a robotic hysterectomy the risks benefits and alternatives were discussed with the patient the patient had a clear understanding of the procedure and a consent form was signed. Surgeon: Mary Avitia terminal computer operator: Rafa Ambrose Type of Anesthesia: General Specimen's removed: uterus, cervix, fallopian tubes, left ovary Estimated Blood Loss (mL): 100cc Fluids Replaced: 1500cc Description of Procedure: Procedure: The patient was placed in the dorsal low lithotomy position and prepped and draped in the normal sterile fashion both abdominally and in the perineum. Her legs were placed in stirrups a Meyers catheter was inserted into the urethra without difficulty. A weighted speculum was placed in the vagina and a single-tooth tenaculum was used to grasp the anterior lip of the cervix. An advincula uterine manipulator was inserted through the cervix without complication. It was then tied into place at the 2 and 10:00 locations on the cervix. Gloves were changed and attention was turned towards the abdomen. Approximately 23 cm above the pubic symphysis in the midline, and after Marcaine injection, a 8 mm incision was made. An 8 mm trocar was inserted through the laparoscope, then inserted into the abdomen under direct visualization using the laparoscope. Good abdominal placement was noted and no complications were appreciated. An air seal device was utilized to create pneumoperitoneum. At 12 cm lateral to the midline on the left and right sides 8 mm accessory ports were placed. Next a left upper quadrant 8 mm staff physical therapy assistant port site was placed. The patient was placed in steep Trendelenburg position. The robot was docked. The hysterectomy was initiated first by taking down the round ligament on each side using the vessel sealer device. The peritoneum between the left round ligament and the IP ligament was opened using electrocautery and extended the length of the IP ligament. The IP ligament was then taken down using the vessel sealer device. These areas were freed without complication the broad ligament was then and taken down using the vessel sealer device. Next the bladder flap was taken down without complication. This was done using monopolar cautery to the level of the cervical vaginal junction. After the bladder flap was created, uterine vessels were then isolated and cauterized using the vessel sealer device and EndoShears. At this point the uterine vessels were taken down further starting from the ascending branch, dissecting along the edges of the cervix to the level of the cervical vaginal junction with hemostasis appreciated. The cervical vaginal junction was then using monopolar cautery in a circumferential pattern across the superior aspect of the cervix. The specimen was delivered through the vagina and sent to pathology. The remaining vaginal cuff was then closed using a V lock suture. This was performed in a running technique. Excellent hemostasis was obtained and good closure was noted. Irrigation was then performed. All operative sites were noted to be hemostatic. A cystoscopy was performed with a 70 degree cystoscope through the urethra into the bladder without complication. The bladder was instilled with approximately 250 cc of normal saline. Intraoperative images were made. Ureteral orifices and jets were identified. No sutu (more content not included)... Normal [facility] ,Urineon 03-13-2024 Beta HCG ( test) Ql (U) Negative Normal [facility] Comment on above: Result Comment: Very dilute urine specimens, as indicated by a low specific gravity, may not contain representative phlebotomy services levels of hCG. If is still suspected, a first morning urine specimen should be collected 48 hours later and tested. Performed By: #### L 400.7600 ####[facility] [id number] [place], [address] Surgery Specimen Level Von 0 03-13-2024 Surgery Specimen Level V Patient Age/Sex Location Account Attending Physician PATY HOPKINS 38/F [facility] [id number] Maikel Fowler Specimen: [id number] Received: 03/13/24 Status: VALENTINE Antoine Num: [id number] Spec Type: HYSTERECT Subm Dr: Dr. Mary Avitia DO HEADER OPERATION: Laparoscopic robotic hysterectomy bilateral salpingectomy, left oopherectomy PRE-OP DIAGNOSIS: Menorrhagia with regular cycle, pelvic pain TISSUE SUBMITTED: Uterus, bilateral fallopian tubes, left ovary MICROSCOPIC DIAGNOSIS Uterus, bilateral fallopian tubes, left ovary, hysterectomy, bilateral salpingectomy, and left oophorectomy: Cervix - Chronic cystic cervicitis Endometrium - Secretory endometrium. Myometrium - Intramural leiomyoma (1.5cm in greatest dimension). - Focal adenomyosis. Right fallopian tube- Focal endometriosis. Left fallopian tube- no pathologic diagnosis. Left ovary- Physiologic follicular cysts. / 03/16/2024 MICROSCOPIC DESCRIPTION Slides are reviewed. GROSS DESCRIPTION Received in fixative is one container labeled with the patient's name and designated uterus, cervix, bilateral fallopian tubes. The specimen consists of a hysterectomy specimen consisting of uterus with cervix and attached bilateral fallopian tubes and left ovary. The uterus with cervix weighs 208 gm and measures 10.0 x 9.0 x 6.5 cm. The serosal surface is mackey glistening. The ectocervical mucosa is unremarkable. The external os is circular in contour. The endocervical canal measures 3.5 cm in length and the endocervical mucosa is mackey glistening and unremarkable. The triangular endometrial cavity measures 5.5 cm in length and 3.0 cm in width. The endometrium is mackey glistening without any mass lesion and measures 0.2 cm in thickness. Sections of this uterine wall reveal a nodular mass measuring 1.5cm in greatest dimension. Sections of this mass reveal mackey whorled cut surfaces without areas of hemorrhage, necrosis or cystic degeneration. The uterine wall measures up to 3.0cm in thickness. The right fallopian tube measures 8.0cm in length and up to 1.0cm in diameter. A filshie clip is noted which appears to be intact. Proximal portion of the fallopian tube shows solid nodular cut surfaces. Left fallopian tube measures 8.0cm in length and up to 1.0cm in diameter. A filshie clip is noted in the proximal portion of the fallopian tube. Fimbrial end is identified. Sections reveal unremarkable cut surfaces. Soft to cystic left ovary measures 4.0 x 2.0 x 1.0cm. Sections reveal multiple cysts filled with clear to hemorrhagic fluid. The largest cyst measures 0.6cm in greatest dimension. Scene Painter sections are submitted in twelve cassettes as follows: 1 - anterior cervix, 2 - posterior cervix, 3 4 - anterior uterine wall, 5 6 - posterior uterine wall, 7- nodular mass, entirely submitted, 8- right fallopian tube, 9- proximal portion of the right Patient Age/Sex Location Account Attending Physician PATY HOPKINS 38/F [facility] [id number] Maikel Fowler fallopian tube with solid nodular cut surfaces, 10- left fallopian tube, 11 and 12- left ovary SJ: 03/13/2024 TC:1 CPT: 61392 Patient Age/Sex Location Account Attending Physician PATY HOPKINS 38/F [facility] [id number] Maikel Fowler Signed (signature on file) Dr. Eyad Henson MD 03/16/24 1052 Normal [facility] Comment on above: Performed By: #### P SUV #### [facility] [place], [address] Internal Medicine Office Vis iton 03-06-2024 Internal Medicine Office Visit [facility] [address] [place] [place] [address] OFFICE VISIT Date of Service: 03/06/24 MR#: [id number] Acct: [id number] Name: PATY HOPKINS Rep #: [id number] : 1985 Provider: JASE bain Age/Sex: 38/F Location: [facility] Status: Signed Intake Vital Signs 08/30/23 10:58 03/05/24 15:03 03/06/24 13:02 Height 5 ft 7 in 5 ft 7 in 5 ft 7 in Weight: 142 lb BMI 22.2 BP 118/72 Blood Pressure Location Lt brachial Position Sitting Respiration 16 Pulse 66 Pulse Source Monitor Temp 98.0 F Temp Source Temporal Pulse Oximetry (%) 99 Oxygen Delivery Method room air Intake Visit Reasons: 6 M FU Chief Complaint: 6 M FU Is patient in pain?: Yes (UTERINE) Pain scale (1-10): 2 Allergies hydrocodone (From Vicodin) Adverse Reaction (Verified 03/06/24 13:02) Nausea/Vom/Diarrhea Medications ???Medication ???Instructions ???Recorded ???Confirmed ???Type alprazolam 0.5 mg tablet (Xanax) 0.5 mg PO DAILY PRN anxiety #15 08/28/23 03/06/24 Rx tabs omeprazole 20 mg capsule,delayed 20 mg PO QHS 08/30/23 03/06/24 History release levothyroxine 25 mcg tablet 25 mcg PO DAILY thyroid #90 tabs 12/31/23 03/06/24 Rx duloxetine 60 mg capsule,delayed 60 mg PO QHS 02/28/24 03/06/24 History release PFSH Medical History Anxiety History of hiatal hernia Dysmenorrhea Specific phobia Depression Thyroid disease Kidney stones Back pain Gastric reflux Non-smoker Anxiety and depression Surgical History History of esophagogastroduodenoscopy (EGD) History of cystoscopy History of wisdom tooth extraction, class II edentulism H/O tubal ligation Family History Grandfather Heart disease Grandfather COPD (chronic obstructive pulmonary disease) Emphysema lung Grandmother Kidney disease Social History number of children: 5 current occupational status: employed 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 She has not had any hospitalizations or ER visits during the interim. GERD: Recent increase in sx occuring 1x/per week despite omeprazole 20 mg. Not related to meals, has had increased stress recently with third shift work. Does respond to TUMS/OTC pepcid. Patient had previously Reported right breast pain. She was evaluated by [employer] services and underwent mammogram and ultrasound. Right breast ultrasound demonstrated a 5 mm x 3 mm x 4 mm benign-appearing lymph node at 10 o'clock position. Patient reports right breast pain has resolved. No additional findings noted. She has a past medical history of hypothyroidism, currently on Synthroid 25 mcg/day. Recent TSH demonstrates euthyroid. No signs or symptoms of hyper or hypothyroidism. Patient is scheduled to undergo laparoscopic hysterectomy by Dr. Cr next week for menorrhagia. She is very hopeful that this will help with ongoing pelvic pain. She follows with Dr. Wang with psychiatry and remains on cymbalta 60 mg daily. She states it does help with depression/anxiety however she has had increased amount of stress and is working third s hift. She denies SI/HI. ROS Const Constitutional: No body ache, chills, excessive sweating, fatigue, fever(s), frequent falls, headache(s), snoring, weakness, sleep problems or change in appetite Eyes Eyes: No blurry vision, change in vision or Light sensitivity ENT ENT: No abnormal hearing, ear or mastoid pain, tinnitus, nasal congestion, nasal discharge, headache(s), neck pain or sore throat Resp Respiratory: No cough, shortness of breath, snoring or wheezing Cardio Cardiology: No chest pain at rest, chest pain with exertion, excessive sweating, shortness of breath, dyspnea on exertion, lightheadedness, orthopnea or palpitations Gastro GI: No abdominal pain, change in bowel habits, constipation, cramping, diarrhea or nausea/dyspepsia Genitourinary-Female: No burning urination, painful urination, urinary incontinence or urinary frequency Musc Musculoskeletal: No abnormal gait, joint pain, back pain, limited range of motion, muscle weakness, neck pain or numbness Skin Skin: No dry skin, redness, lesions, itchy eyes, rash or wounds Neuro Neurology: No abnormal gait, abnor (more content not included)... Normal [facility] Magnesiumon 03-06-2024 Magnesium [Mass/Vol] 2.1 mg/dL Normal 1.6-2.6 [facility] Comment on above: Performed By: #### L 501.5200 ####[facility] [address] [place], [address] CBC-Complete Blood Cnt No Di ffon 03-05-2024 Erythrocyte distribution width (RBC) [Ratio] 11.9 % Normal 11.6-14.6 [facility] Comment on above: Performed By: #### L 501.9520, L100.0500 #### [facility] [address] [place], [address] Hematocrit (Bld) [Volume fraction] 41.5 % Normal 37-47 [facility] Comment on above: Performed By: #### L 501.9520, L100.0500 #### [facility] [address] [place], [address] Hemoglobin (Bld) [Mass/Vol] 14.0 g/dL Normal 12.0-15.0 [facility] Comment on above: Performed By: #### L 501.9520, L100.0500 #### [facility] [address] [place], [address] MCH (RBC) [Entitic mass] 30.4 pg Normal 27.0-32.0 [facility] Comment on above: Performed By: #### L 501.9520, L100.0500 #### [facility] [address] [place], [address] MCHC (RBC) [Mass/Vol] 33.7 g/dL Normal 32-36 [facility] Comment on above: Performed By: #### L 501.9520, L100.0500 #### [facility] [address] [place], [address] MCV (RBC) [Entitic vol] 90.2 fL Normal 81-99 [facility] Comment on above: Performed By: #### L 501.9520, L100.0500 #### [facility] [address] [place], [address] Platelet mean volume (Bld) [Entitic vol] 10.0 fL Normal 6.2-12.0 [facility] Comment on above: Performed By: #### L 501.9520, L100.0500 #### [facility] [address] [place], [address] Platelets (Bld) [#/Vol] 227 10*3/uL Normal 150-450 [facility] Comment on above: Performed By: #### L 501.9520, L100.0500 #### [facility] [address] [place], [address] RBC (Bld) [#/Vol] 4.60 10*6/uL Normal 4.2-5.4 [facility] Comment on above: Performed By: #### L 501.9520, L100.0500 #### [facility] [address] [place], [address] RDW SD 38.9 fl Normal 35.1-43.9 [facility] Comment on above: Performed By: #### L 501.9520, L100.0500 #### [facility] [address] [place], [address] WBC (Bld) [#/Vol] 7.1 10*3/uL Normal 4.4-11.0 [facility] Comment on above: Performed By: #### L 501.9520, L100.0500 #### [facility] [address] [place], [address] [employer] Office Visit Reporton 03-05-2024 [employer] Office Visit Report [facility] [address] [place] [address] OFFICE VISIT Date of Service: 03/05/24 MR#: [id number] Acct: [id number] Name: PATY HOPKINS Tae Rep #: [id number] : 1985 Provider: Dr. Mary Boucher DO Age/Sex: 38/F [place] [facility] [place]: Signed Intake Vital Signs 01/20/24 11:50 02/26/24 14:25 03/05/24 15:01 03/05/24 15:03 Height 5 ft 7 in 5 ft 7 in 5 ft 7 in 5 ft 7 in Weight: 141 lb 6 oz BMI 22.1 BP 116/74 107/69 Blood Pressure Location Rt brachial Position Sitting Pulse 80 Pulse Source Monitor Intake Visit Reasons: 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 Room Operator Required: No Is patient in pain?: No Allergies hydrocodone (From Vicodin) Adverse Reaction (Verified 03/05/24 15:00) Nausea/Vom/Diarrhea Medications ???Medication ???Instructions ???Recorded ???Confirmed ???Type alprazolam 0.5 mg tablet (Xanax) 0.5 mg PO DAILY PRN anxiety #15 08/28/23 03/05/24 Rx tabs omeprazole 20 mg capsule,delayed 20 mg PO QHS 08/30/23 03/05/24 History release levothyroxine 25 mcg tablet 25 mcg PO DAILY thyroid #90 tabs 12/31/23 03/05/24 Rx duloxetine 60 mg capsule,delayed 60 mg PO QHS 02/28/24 03/05/24 History release Post menopausal: No Patient : No : [facility] History Anxiety History of hiatal hernia Dysmenorrhea Specific phobia Depression Thyroid disease Kidney stones Back pain Gastric reflux Non-smoker Anxiety and depression Surgical History History of esophagogastroduodenoscopy (EGD) History of cystoscopy History of wisdom tooth extraction, class II edentulism H/O tubal ligation Family History Grandfather Heart disease Grandfather COPD (chronic obstructive pulmonary disease) Emphysema lung Grandmother Kidney disease Social History number of children: 5 current occupational status: employed 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 She is a 38 year old (vaginal deliveries) who presents for surgical consult. She tried and failed an ablation procedure at [facility] 4 years ago. she is now using ocps despite a prior tubal ligation. Ultrasound shows an 11 cm uterus. She c/o persistent pain on her left side. us does not indicate a problem there however. [id number] STUDY: ULTRASOUND OF THE FEMALE PELVIS - COMPLETE REASON FOR EXAM: Female, 38 years old. Pain LMP: September 12, 2023. TECHNIQUE: Transabdominal and Transvaginal TECHNICAL QUALITY: Adequate. COMPARISON: Comparison is made with prior study dated November 13, 2017. FINDINGS: The uterus is anteverted and is in a midline position. The uterus measures 11.1 cm x 8.2 cm x 6 cm. There is a Nabothian cyst of the cervix. The endometrium measures 6 mm in thickness, and is hyperechoic. Small cystic changes seen in the endocervical canal. This measures 8.9 mm x 3.4 mm. There is no demonstrated endometrial mass. There is no demonstrated myometrial mass. Heterogeneous echotexture of the myometrium with no focal fibroids seen. I.U.D. - The patient does not have an I.U.D. The right ovary is visualized. The right ovary measures 4.2 cm x 2.1 cm x 2.5 cm. There is no right ovarian cyst or ovarian mass. There is no visualized right adnexal mass or complex lesion. There is normal arterial and normal venous vascularity. The left ovary is visualized. The left ovary measures 3.4 cm x 2.3 cm x 2.3 cm. There is no left ovarian cyst or ovarian mass. There is no visualized left adnexal mass or complex lesion. There is normal arterial and normal venous vascularity. There is no fluid in the cul-de-sac. The pre void volume of the bladder was 73 ml. US/Pelvic (Non ) IMPRESSION: Heterogeneous appearance of the myometrium although no focal fibroid is seen. 3.4 mm x 8.9 mm cyst seen in the endocervical canal. History 7 Elective abortions Hx Para 5 Spontaneous abortions Hx # Term Pregnancies Ectopic pregnancies Hx # Pregnancies Multiple births # of l (more content not included)... Normal [facility] Thyroid Stim Hormone (TSH)on 03-05-2024 TSH 1.62 uIU/mL Normal 0.358-3.74 [facility] Comment on above: Performed By: #### L 294.8059, L100.0500 #### [facility] [place], [address] Type AND Screen - PAT ONLYon 03-05-2024 ABO and Rh group Nom (Bld) Blood group O Rh(D) positive Normal [facility] Comment on above: Order Comment: Surge ry Date: 03/13/24Reason for Laboratory Test [id number] Performed By: #### B TSPAT ####[facility] [address] [place], [place], [id number] MR/BMS.BPon 02-26-2024 MR/BMS.BP [facility] ry [address], [address] [place], [place] [address] OFFICE VISIT Date of Service: 02/26/24 MR#: [id number] Acct: [id number] Name: PATY HOPKINS Rep #: [id number] : 1985 Provider: Dr. Obey Pascual se, DO Age/Sex: 38/F Location: [facility] Status: Signed Intake Vital Signs 11/27/23 14:22 01/20/24 11:50 02/26/24 14:06 02/26/24 14:25 Height 5 ft 7 in 5 ft 7 in 5 ft 7 in 5 ft 7 in BP 116/74 Blood Pressure Location Rt brachial Position Sitting Pulse 80 Pulse Source Monitor BP Intake Visit Reasons: 3 M FU Cistern Room Operator Required: No Accompanied by: Self Is patient in pain?: No Allergies hydrocodone (From Vicodin) Adverse Reaction (Verified 02/26/24 14:25) Nausea/Vom/Diarrhea Medications ???Medication ???Instructions ???Recorded ???Confirmed ???Type alprazolam 0.5 mg tablet (Xanax) 0.5 mg PO DAILY PRN anxiety #15 08/28/23 02/26/24 Rx tabs omeprazole 20 mg capsule,delayed 20 mg PO DAILY 08/30/23 02/26/24 History release levothyroxine 25 mcg tablet 25 mcg PO DAILY thyroid #90 tabs 12/31/23 02/26/24 Rx duloxetine 60 mg capsule,delayed 60 mg PO DAILY 90 days #90 caps 02/26/24 02/26/24 Rx release Current gender identity: female Nurse's Note: Presents to the office today for follow up. PFSH Medical History Dysmenorrhea Specific phobia Depression Thyroid disease Kidney stones Back pain Gastric reflux Non-smoker Anxiety and depression Surgical History History of esophagogastroduodenoscopy (EGD) History of cystoscopy History of wisdom tooth extraction, class II edentulism H/O tubal ligation Family History Grandfather Heart disease Grandfather COPD (chronic obstructive pulmonary disease) Emphysema lung Grandmother Kidney disease Social History number of children: 5 current occupational status: employed current occupation: [employer] Smoking Status: Never smoker alcohol intake: current alcohol intake frequency: holidays/special occasions only substance use type: does not use caffeine: No frequency: 3-4 times per week seatbelt use: always do you feel safe at home: Yes additional social history: Garth- Chainer at [employer] HPI History of Present Illness History provided by: patient HPI: Paty Hopkins is a 38 year old female who presents today for follow up evaluation. Patient reports that she has been a mess. Relationship remains somewhat difficult secondary to significant others drinking. Has been working 3rd shift which has been very difficult. Also has upcoming surgery to have a hysterectomy. Will have to take likely 6 weeks off of work or work very PRN at the [employer]. Has been very anxious secondary to these multiple stressors. Has not been sleeping well. Has gotten about 10 hours in the last 2 days. Denies SI/HI or AVH. Review of Systems Constitutional Denies: fever(s), chills, change in weight or fatigue Eyes Denies: change in vision or blurry vision Ears, Nose, Mouth, Throat Denies: throat pain, neck pain or change in hearing Cardiovascular Denies: chest pain, palpitations or dyspnea Respiratory Denies: dyspnea, cough or wheezing Gastrointestinal Denies: abdominal pain, nausea, vomiting, diarrhea or constipation Genitourinary Denies: dysuria or urinary frequency Musculoskeletal Denies: back pain, neck pain, joint pain or muscle weakness Integumentary/Breast Denies: rash or new lesions Neurological Denies: headache(s), dizziness or confusion Endocrine Denies: fatigue or excessive sweating Hematologic/Lymphatic Denies: easy bruising or easy bleeding Allergic/Immunologic Denies: wheezing Exam Mental Status Exam - Psych Appearance casually dressed and no apparent distress Attitude cooperative Activity/Motor Behavior MSE activity/motor behavior finding no adventitious movements Speech regular rate, regular volume and regular prosody Mood anxious and other (fluctuates depending on life stress) Affect congruent Thought Process linear, logical and coherent Thought Content no delusions and no hallucinations Suicidal Ideation none Homicidal Ideation none Attention intact Concentration intact Sensorium/Orientation awake, alert and oriented x3 Memory/Cognition other (appropriate for stated age) Insight good Judgement good Assessment Plan Assessment Plan (1) Major depressive disorder: Qualifiers: Major depression recurrence: recurrent Active/Remission status: in partial remission Qualified Code(s): F33.41 - Major depressive disorder, recurrent, in partial remission Plan: - Continue cymbalt (more content not included)... 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 Mary Boucher DO Age/Sex: 38/F [place] [facility] [place]: Signed Intake Vital Signs 12/18/23 13:10 01/20/24 11:49 01/20/24 11:50 Height 5 ft 7 in 5 ft 7 in 5 ft 7 in Weight: 141 lb 6 oz BMI 22.1 BP 113/67 Intake Visit Reasons: SURGICAL CONSULT Cistern Room Operator Required: No Is patient in pain?: No Allergies hydrocodone (From Vicodin) Adverse Reaction (Verified 01/20/24 11:48) Nausea/Vom/Diarrhea Medications ???Medication ???Instructions ???Recorded ???Confirmed ???Type alprazolam 0.5 mg tablet (Xanax) 0.5 mg PO DAILY PRN anxiety #15 08/28/23 01/20/24 Rx tabs omeprazole 20 mg capsule,delayed 20 mg PO DAILY 08/30/23 01/20/24 History release duloxetine 60 mg capsule,delayed 60 mg PO DAILY 90 days #90 caps 10/14/23 01/20/24 Rx release levothyroxine 25 mcg tablet 25 mcg PO DAILY thyroid #90 tabs 12/31/23 01/20/24 Rx Post menopausal: No Patient : No : No PFSH Medical History Dysmenorrhea Specific phobia Depression Thyroid disease Kidney stones Back pain Gastric reflux Non-smoker Anxiety and depression Surgical History History of esophagogastroduodenoscopy (EGD) History of cystoscopy History of wisdom tooth extraction, class II edentulism H/O tubal ligation Family History Grandfather Heart disease Grandfather COPD (chronic obstructive pulmonary disease) Emphysema lung Grandmother Kidney disease Social History number of children: 5 current occupational status: employed 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 She tried and failed an ablation procedure at [facility] 4 years ago. she is now using ocps despite a prior tubal ligation. Ultrasound shows an 11 cm uterus. She c/o persistent pain on her left side. us does not indicate a problem there however. History 7 Elective abortions Hx Para 5 Spontaneous abortions Hx # Term Pregnancies Ectopic pregnancies Hx # Pregnancies Multiple births # of living children Past Pregnancies Del. Date Name GA/Weeks Outcome Route Bth Weight Infant Gen Labor Lgth Anesthesia Del Locatn Provider FOB Unknown 2005 Douglas Unknown 2007 John Unknown 2009 Saba Unknown 2012 Osvaldo Unknown 2015 Heladio ROS Const ROS Unobtainable: All systems reviewed are unremarkable except as noted in H Resp Resp: Reports system reviewed and no additional complaints, except as documented; Denies cough GI GI: Reports as per HPI Psych Psych: Reports system reviewed and no additional complaints, except as documented Exam Const General: cooperative, healthy appearing, comfortable and no acute distress Resp Effort Inspection: normal respiratory effort General: bimanual renal exam normal bilaterally External Female Exam: normal appearance of the urethra Urethra: normal appearance of the urethra Speculum Exam - Vagina: normal appearance of the vagina Speculum Exam - Cervix: normal appearance of the cervix Bimanual Exam- Adnexa, other: normal adnexae and normal Pelvic Support: normal Skin General: no rashes or lesions noted Psych Appearance: grossly normal Speech and Movement: speech and movement normal Office Procedures Endometrial Biopsy Endometrial Biopsy Test: Yes declined tenaculum used: Yes dilator used: No Details: Cervix prepped with betadine and pipelle inserted into uterus without complication. Specimen obtained and sent to lab for analysis. All instruments removed from vagina without complications. Excellent hemostasis noted. Coding Level of Care Code Off vis,new,level 4 Diagnoses Menorrhagia with regular cycle N92.0 Dysmenorrhea N94.6 Pelvic pain R10.2 Hypothyroidism, unspecified type E03.9 Hypothyroidism type: unspecified CPT Codes Endometrial Biopsy (09816) Assessment and Plan Assessment and Plan (1) Menorrhagia with regular cycle: Status: Acute (2) Dysmenorrhea: Status: (more content not included)... Normal [facility] Surgery Specimen Level Rojelio 01-20-2024 Surgery Specimen Level IV Patient Age/Sex Location Account Attending Phys[facility] 38[id number] Mary Avitia, D Specimen: [id number] Received: 01/20/24 Status: VALENTINE Antoine Num: [id number] Spec Type: ENDOM BX/C Subm Dr: Dr. Mary Avitia, DO HEAD OPERATION: Endometrial biopsy PRE-OP DIAGNOSIS: Menorrhagia TISSUE SUBMITTED: Endometrial lining MICROSCOPIC DIAGNOSIS Endometrium, biopsy: Secretory endometrium. [facility] 01/22/2024 MICROSCOPIC DESCRIPTION Slides are reviewed. GROSS DESCRIPTION Received is one container labeled with the patient's name and not further designated. The specimen consists of multiple irregular fragments of pink soft tissue that in aggregate measure 2.5 x 1.0 x 0.1 cm. The specimen is totally submitted in one cassette. [facility] 01/21/2024 TC:5 CPT:56944 Patient Age/Sex Location Account Attending Physician PATY HOPKINS 38/F [facility] [id number] Maikel Fowler Signed (signature on file) Dr. Hector Chau, 01/22/24 1047 Normal [facility] Comment on above: Performed By: #### P SUIV ####[facility] [address] [place], [place], [id number] Brake Shoe Rebuilder Office Visit Reporton 12-18-2023 Brake Shoe Rebuilder Office Visit Report [facility] [address] [place] [address] OFFICE VISIT Date of Service: 12/18/23 MR#: [id number] Acct: [id number] Name: PATY HOPKINS Rep #: [id number] : 1985 Provider: JASE aggarwal Age/Sex: 38/F [place] [facility] [place]: Signed Intake Vital Signs 09/25/23 11:33 11/27/23 14:22 12/18/23 13:05 12/18/23 13:10 Height 5 ft 7 in 5 ft 7 in 5 ft 7 in 5 ft 7 in Weight: 142 lb BMI 22.2 BP 110/72 126/72 H Blood Pressure Location Rt brachial Position Sitting Pulse 77 Pulse Source Monitor Intake Visit Reasons: 3 M FU Chief Complaint: 3 mo f/u Cistern Room Operator Required: No Is patient in pain?: No Allergies hydrocodone [From Vicodin] Adverse Reaction (Verified 12/18/23 13:04) Nausea/Vom/Diarrhea Medications alprazolam 0.5 mg tablet (Xanax) 0.5 mg PO DAILY PRN anxiety #15 tabs 08/28/23 [Rx Confirmed 12/18/23] omeprazole 20 mg capsule,delayed release 20 mg PO DAILY 08/30/23 [History Confirmed 12/18/23] levothyroxine 25 mcg tablet 25 mcg PO DAILY thyroid #60 tabs 09/03/23 [Rx Confirmed 12/18/23] duloxetine 60 mg capsule,delayed release 60 mg PO DAILY 90 days #90 caps 10/14/23 [Rx Confirmed 12/18/23] tranexamic acid 650 mg tablet 1,300 mg (2 x 650 mg) PO TID #60 tabs 12/18/23 [Rx Confirmed 12/18/23] Is last menstrual period known: Yes Last Menstrual Period: 11/28/23 Post menopausal: No Patient : No : No PFSH Medical History Anxiety and depression Back pain Depression Dysmenorrhea Gastric reflux Kidney stones Non-smoker Specific phobia Thyroid disease Surgical History H/O tubal ligation History of cystoscopy History of esophagogastroduodenoscopy (EGD) History of wisdom tooth extraction, class II edentulism Family History Grandfather Heart disease Grandfather COPD (chronic obstructive pulmonary disease) Emphysema lung Grandmother Kidney disease Social History number of children: 5 current occupational status: employed 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 States she has not had any improvement in symptoms and feels more sad on these oral contraceptives. She has had an ablation at [facility] 2021. She is wanting to proceed with definitive surgical intervention. Female Reproductive History Last Menstrual Period: 11/28/23 Bleeding Duration: 5 History 7 Elective abortions Hx Para 5 Spontaneous abortions Hx # Term Pregnancies Ectopic pregnancies Hx # Pregnancies Multiple births # of living children Past Pregnancies Del. Date Name GA/Weeks Outcome Route Bth Weight Gen Labor Lgth Anesthesia Del Locatn Provider FOB Unknown 2006 Douglas Unknown 2007 John Unknown 2009 Saba Unknown 2012 Osvaldo Unknown 2016 Heladio ROS Const Constitutional: Reports system reviewed and no additional complaints, except as documented Eyes Eyes: Reports system reviewed and no additional complaints, except as documented GI GI: Denies abdominal pain or change in bowel habits : Reports as per HPI Exam Const General: cooperative and no acute distress Orientation: oriented x3 HENMT Head: normal to inspection and normocephalic Eyes General: appearance normal, both eyes and all related structures Neck Neck: normal visual inspection Resp Effort Inspection: normal respiratory effort Neuro Cognition: normal cognition Speech: speech normal Psych Appearance: grossly normal Mood: congruent mood Affect: normal affect Speech and Movement: speech and movement normal Attitude: cooperative Judgment: judgment good Coding Level of Care Code Off vis,est,level 3 Diagnoses Dysmenorrhea N94.6 Pelvic pain R10.2 Menorrhagia with regular cycle N92.0 Assessment and Plan Assessment and Plan (1) Dysmenorrhea: Status: Acute Comment: Hx adenomyosis, uterine ablation (2) Pelvic pain: Status: Acute Comment: LLQ (3) Menorrhagia with regular cycle: Status: Acute Medications: New tranexamic acid 1,300 mg (2 x 650 mg) PO TID 60 tabs 2RF Discontinued (more content not included)... Normal [facility] MR/BMS.BPon 11-27-2023 MR/BMS.BP [facility] [address], [address] [place] [address] OFFICE VISIT Date of Service: 11/27/23 MR#: [id number] Acct: [id number] Name: PATY HOPKINS Rep #: [id number] : 1985 Provider: Dr. Obey Pascual se, DO Age/Sex: 38/F Location: [facility].BP Status: Signed Intake Vital Signs 08/28/23 14:38 09/25/23 11:33 11/27/23 14:10 11/27/23 14:22 Height 5 ft 7 in 5 ft 7 in 5 ft 7 in 5 ft 7 in BP 110/72 Blood Pressure Location Rt brachial Position Sitting Pulse 77 Pulse Source Monitor BP Intake Visit Reasons: 3 M FU Cistern Room Operator Required: No Accompanied by: Self Is patient in pain?: No Allergies hydrocodone [From Vicodin] Adverse Reaction (Verified 11/27/23 14:22) Nausea/Vom/Diarrhea Medications alprazolam 0.5 mg tablet (Xanax) 0.5 mg PO DAILY PRN anxiety #15 tabs 08/28/23 [Rx Confirmed 11/27/23] omeprazole 20 mg capsule,delayed release 20 mg PO DAILY 08/30/23 [History Confirmed 11/27/23] levothyroxine 25 mcg tablet 25 mcg PO DAILY thyroid #60 tabs 09/03/23 [Rx Confirmed 11/27/23] levonorgestrel-ethinyl estradiol 0.1 mg-20 mcg tablet (Aviane) 1 tab PO QDAY #28 tabs 09/25/23 [Rx Confirmed 11/27/23] duloxetine 60 mg capsule,delayed release 60 mg PO DAILY 90 days #90 caps 10/14/23 [Rx Confirmed 11/27/23] Current gender identity: female Nurse's Note: Presents to the office today for follow up. 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 Patient reports that there has been a hiccup with relationship. had been drinking much more frequently and had been hiding how much he was drinking. Had first couples counseling appointment last night and it went very well. Next appointment will be in 3 weeks. Feeling somewhat optimistic about the future. 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 Still has for the most part cut mom out of life. Has recently started a low dose estrogen containing birthday control. Does feel like her premenstrual symptoms might be improving to some degree. Has not taken much xanax, maybe only utilizing about 2 times since last appointment. Has been taking levothyroxine in recent past after being started by her primary care doctor.. Sleep have been going well. Denies any SI HI or AVH. Review of Systems Constitutional Denies: fever(s), chills, change in weight or fatigue Eyes Denies: change in vision or blurry vision Ears, Nose, Mouth, Throat Denies: throat pain, neck pain or change in hearing Cardiovascular Denies: chest pain, palpitations or dyspnea Respiratory Denies: dyspnea, cough or wheezing Gastrointestinal Denies: abdominal pain, nausea, vomiting, diarrhea or constipation Genitourinary Denies: dysuria or urinary frequency Musculoskeletal Denies: back pain, neck pain, joint pain or muscle weakness Integumentary/Breast Denies: rash or new lesions Neurological Denies: headache(s), dizziness or confusion Endocrine Denies: fatigue or excessive sweating Hematologic/Lymphatic Denies: easy bruising or easy bleeding Allergic/Immunologic Denies: wheezing Exam Mental Status Exam - Psych Appearance casually dressed and no apparent distress Attitude cooperative Activity/Motor Behavior MSE activity/motor behavior finding no adventitious movements Speech regular rate, regular volume and regular prosody Mood anxious and other (Had been down prior to recent but now optimistic) Affect full range Thought Process linear, logical and coherent Thought Content no delusions and no hallucinations Suicidal Ideation none Homicidal Ideation none Attention intact (more content not included)... [facility] 06-01-2022 PRABHAKAR Telephone (CHELSEY) -- PATY HOPKINS ([id number]) 1985 F Date Time Provider Department 06/01/22 MELISSA LANTIGUA During your visit today, we recorded the following information about you: Kelly Nolasco LPN 06/01/2022 2:04 PM Signed Patient scheduled for an appointment to establish care on 06/05/22 with Melissa Lantigua. The appointment is currently scheduled as 20 minutes but needs to be 40 minutes. Patient telephoned and message left to call office back. Please help assist with rescheduling when she calls back. YIN Licea LPN 06/04/2022 2:08 PM Signed Appointment slot open after patients appointment now. Patients appointment changed to 40 minutes for 06/05/2022 appointment since an establish care visit. Kelly Nolasco LPN Allergies As of Date: 06/01/2022 Noted Allergy Reaction MACROBID (NITROFURANTOIN MONOHYD/*07/23/2019 14 - Other: See Comments Comments: Nausea WELLBUTRIN (BUPROPION HCL) 01/27/2020 14 - Other: See Comments Comments: increase anxiety Date Reviewed: 09/29/2021 Reviewed by: Brianna Saeed Used Car Manager - Fully Assessed Reason for Visit: Appointment [186] Prescriptions as of 06/04/2022 - escitalopram oxalate (LEXAPRO) 10 mg tablet Take 1 tablet by mouth once daily. - levothyroxine (SYNTHROID) 25 mcg tablet TAKE 1 TABLET BY MOUTH ONCE DAILY. TAKE ON EMPTY STOMACH. FOR THYROID - DULoxetine (CYMBALTA) 30 mg capsule Take 1 capsule by mouth once daily. Meds Comments as of 07/25/2009: Problem List As Of Date 06/01/2022 Noted Resolved Generalized anxiety disorder [F41.1] 09/17/2013 [...] Chronic constipation [K59.09] 10/31/2020 Encounter Status:Closed by NOLASCOKELLY on 06/04/22 [facility] Barbara 05-21-2022 JORGEN Telephone (OBGYWM) -- PATY HOPKINS ([id number]) 1985 F Date Time Provider Department 05/21/22 TONYA DELUNA OBGYWM During your visit today, we recorded the following information about you: Mary Perea RN 05/21/2022 8:23 AM Signed PSS- Please contact patient and assist with scheduling annual exam. Thank you. Requested Prescriptions Pending Prescriptions Disp Refills escitalopram oxalate (LEXAPRO) 10 mg tablet [Pharmacy Med Name: ESCITALOPRAM 10 MG TABLET] 90 tablet 0 Sig: TAKE 1 TABLET BY MOUTH EVERY DAY Last annual exam: 05/18/21 Please approve the above prescription(s) to electronically send to pharmacy. Mary Woods MD 05/21/2022 11:17 AM Signed Please send to her PCP. Our system has her on cymbalta as well. I would think PCP would manage this. Thanks. MD Haroon Adler, MARIA D.JORGE, TU 05/21/2022 12:40 PM Signed Team - Please see my note from Sep 2021: Please contact the patient and have her establish with a new provider. I did go ahead and provider her a 30 day courtesy refill of the Lexapro. Reports: Here to establish care with me as a provider. Presents for medication refill of her Cymbalta. 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 She [...] by mouth once daily. Authorizing Provider: HAROON UGARTE Refused Prescriptions Disp Refills escitalopram oxalate (LEXAPRO) 10 mg tablet [Pharmacy Med Name: ESCITALOPRAM 10 MG TABLET] 90 tablet 0 Sig: TAKE 1 TABLET BY MOUTH EVERY DAY Refused By: ESDRAS WOODS Reason for Refusal: Patient should contact Prescriber first Harono Ugarte APRN.BATTERY CHECKER, DNP Eli Haas Ma 05/21/2022 3:06 PM Signed Pt notified, transferred to [facility] to set up [facility] care appt. Eli Haas Ma Allergies As of Date: 05/21/2022 Noted Allergy Reaction MACROBID (NITROFURANTOIN MONOHYD/*07/23/2019 14 - Other: See Comments Comments: Nausea WELLBUTRIN (BUPROPION HCL) 01/27/2020 14 - Other: See Comments Comments: increase anxiety Date Reviewed: 09/29/2021 Reviewed by: Brianna Saeed Used Car Manager - Fully Assessed Reason for Visit: Refill Request [94] Primary Visit Diagnosis:Anxiety and depression [F41.9, F32.A] Order(s):escitalopram oxalate (LEXAPRO) 10 mg tabletTake 1 tablet by mouth once daily.Disp: 30 tabletRfl: 0 Prescriptions as of 05/21/2022 - escitalopram oxalate (LEXAPRO) 10 mg tablet Take 1 tablet by mouth once daily. - levothyroxine (SYNTHROID) 25 mcg tablet TAKE 1 TABLET BY MOUTH ONCE DAILY. TAKE ON EMPTY STOMACH. FOR THYROID - DULoxetine (CYMBALTA) 30 mg capsule Take 1 capsule by mouth once daily. Meds Comments as of 07/25/2009: Problem List As Of Date 05/21/2022 Noted Resolved Generalized anxiety disorder [F41.1] 09/17/2013 [...] [F41.9, F32.A] 09/16/2020 Chronic constipation [K59.09] 10/31/2020 Prescriptions ordered this encounter Disp Refills Start End ESCITALOPRAM 10 MG TABLET 30 t* 0 05/21/2022 06/20/2022 Route: ORAL Sig: Take 1 tablet by mouth once daily. Medications Discontinued During This Encounter Prescriptions - escitalopram oxalate (LEXAPRO) 10 mg tablet (Discontinued) Take 1 tablet by mouth once daily. Encounter Status:Closed by ELI HAAS MA on 05/21/22 Normal [facility] Albumin Elph [Mass/Vol]on Albumin [Mass/Vol] 4.1 g/dL 2.9-4.4 [facility] Work Phone: Atypical perinuclear antineu trophil cytoplasmic antibodies measurementon 04-03-2022 Neutrophil cytoplasmic Ab.perinuclear.atypica l IF (S) [Titer] <1:20 titer Neg:<1:20 [facility] Work Phone: Comment on above: The atypical pANCA p attern has been observed in asignificant percentage of patients with ulcerative colitis,primary sclerosing cholangitis and autoimmune hepatitis. Basophil percentageon 2021 Basophil percentage < 0.2 AI 0.0-0.9 [facility] Work Phone: [phone] Erythrocyte sedimentation ra neno 04-03-2022 ESR (Bld) [Velocity] 10 mm/h 0-30 [facility] Work Phone: [phone] INR in Blood by Coagulation assayon 04-03-2022 INR Coag (Bld) [Relative time] 0.9 {INR} [facility] Work Phone: [phone] Interpretation of serum or p lasma protein pattern by immunofixation (narrative resulton 04-03-2022 Protein Fractions Immunofixation Pavel [Interp] See comment [facility] Work Phone: [phone] Comment on above: Not Observed Laboratory - Chemistry and C hemistry - challengeon 04-03-2022 Free T4 [Mass/Vol] 0.99 ng/dL 0.76-1.46 [facility] Work Phone: Laboratory - Coagulationon 0 04-03-2022 PT Coag (PPP) [Time] 12.3 s 11.7-14.9 [facility] Work Phone: No Panel Informationon 04-03 Addendum Document Comment . [facility] Work Phone: [phone] Comment on above: Protein electrophore sis scan will follow via computer,mail, or commanding officer garage delivery. Centromere B Antibody <0.2 AI 0.0-0.9 [facility] Work Phone: [phone] Endomysial IgA Antibody Negative Negative [facility] Work Phone: [phone] Free Triiodothyronine (T3) pg/dL 2.2 pg/mL 2.18-3.98 [facility] Work Phone: [phone] Immunoglobulin E 8 IU/mL 6-495 [facility] Work Phone: Comment on above: Performed at: - [facility] [address] [id number] Director: Kirk Foster PhD, Phone: [phone] at: - [facility] [address] [id number] Director: Clay Epps MD, Phone: [phone] SLUDGE CONTROL ATTENDANT Antibody 0.2 AI 0.0-0.9 [facility] Work Phone: [phone] Thyroid Stimulating Hormone (TSH) 3.08 uIU/mL 0.358-3.74 [facility] Work Phone: [phone] Serum DNA double strand anti body assay (units/volume)on 04-03-2022 DNA double strand Ab Qn (S) [IU]/mL 0-9 [facility] Work Phone: Comment on above: Negative <5 Equivoca l 5 - 9 Positive >9 Serum Lorie-1 antibody assay (u nits/volume)on 04-03-2022 Lorie-1 extractable nuclear Ab Qn (S) <0.2 AI 0.0-0.9 [facility] Work Phone: [phone] Serum Scl-70 extractable nuc lear antibody assay (units/volume)on 04-03-2022 SCL-70 extractable nuclear Ab Qn (S) 1.6 AI 0.0-0.9 [facility] Work Phone: [phone] Serum Cabrera extractable nucl ear antibody detectionon 04-03-2022 Cabrera extractable nuclear Ab Ql (S) <0.2 AI 0.0-0.9 [facility] Work Phone: [phone] Serum azcdh-5-jagnmbcc measu rement by electrophoresison 04-03-2022 Alpha 1 globulin Elph [Mass/Vol] 0.2 g/dL 0.0-0.4 [facility] Work Phone: [phone] Alpha 1 globulin Elph [Mass/Vol] 0.7 g/dL 0.4-1.0 [facility] Work Phone: [phone] Serum classic neutrophil cyt oplasmic antibody assay (units/volume)on 04-03-2022 Neutrophil cytoplasmic Ab.classic Qn (S) <1:20 titer Neg:<1:20 [facility] Work Phone: [phone] Serum globulin measurement ( mass/volume)on 04-03-2022 Globulin (S) [Mass/Vol] 3.5 g/dL 2.2-3.9 [facility] Work Phone: [phone] Serum or plasma C reactive p rotein measurement (mass/volume)on 04-03-2022 CRP [Mass/Vol] mg/L 0.0-3.0 [facility] Work Phone: [phone] Comment on above: C-Reactive Protein ( CRP) provides useful information for thediagnosis, therapy and monitoring of inflammatory processesand associated diseases. For the evaluation of Relative Riskfor Cardiovascular Disease, a High Sensitivity CRP (HSCRP)should be ordered. Serum or plasma IgA measurem ent (mass/volume)on 04-03-2022 IgA [Mass/Vol] 239 mg/dL 87-352 [facility] Work Phone: [phone] Serum or plasma IgG measurem ent (mass/volume)on 04-03-2022 IgG [Mass/Vol] 1355 mg/dL [phone] [facility] Work Phone: [phone] Serum or plasma IgM measurem ent (mass/volume)on 04-03-2022 IgM [Mass/Vol] 124 mg/dL 26-217 [facility] Work Phone: [phone] Serum or plasma beta globuli n measurement by electrophoresis (mass/volume)on 04-03-2022 Beta globulin Elph [Mass/Vol] 1.1 g/dL 0.7-1.3 [facility] Work Phone: [phone] Serum or plasma ferritin makayla surement (mass/volume)on 04-03-2022 Ferritin [Mass/Vol] 10 ng/mL 8-252 [facility] Work Phone: [phone] Serum or plasma gamma globul in measurement by electrophoresis (mass/volume)on 04-03-2022 Gamma globulin Elph [Mass/Vol] 1.5 g/dL 0.4-1.8 [facility] Work Phone: Serum or plasma immunoelectr ophoresis interpretation (nominal result)on 04-03-2022 Interpretation IEP [Interp] Comment . [facility] Work Phone: Comment on above: No monoclonality det ected. Serum perinuclear neutrophil cytoplasmic antibody titer by immunofluorescenceon 04-03-2022 Neutrophil cytoplasmic Ab.perinuclear IF (S) [Titer] <1:20 titer Neg:<1:20 [facility] Work Phone: Comment on above: The presence of posi tive fluorescence exhibiting P-ANCA orC-ANCA patterns alone is not specific for the diagnosis ofWegener's Granulomatosis (WG) or microscopic polyangiitis.Decisions about treatment should not be based solely onANCA IFA results. The International ANCA Group Consensusrecommends follow up testing of positive sera with both VA-3 and MPO-ANCA enzyme immunoassays. As many as 5% serumsamples are positive only by EIA. Ref. AM J Clin Cbdirt5670;111:507-513. Serum tissue transglutaminas e IgA antibody assay (units/volume)on 04-03-2022 tTG IgA Qn (S) <2 U/mL 0-3 [facility] Work Phone: Comment on above: Negative 0 - 3 Weak Positive 4 - 10 Positive >10 Tissue Transglutaminase (tTG) has been identified as the endomysial antigen. Studies have demonstr- ated that endomysial IgA antibodies have over 99% specificity for gluten sensitive enteropathy. Thin prep Papanicolaou smear with manual screeningon 04-03-2022 Thin prep Papanicolaou smear with manual screening 167 U/L 84-246 [facility] Work Phone: Thin prep Papanicolaou smear with manual screening 1.2 0.7-1.7 [facility] Work Phone: Total protein bloodon 2021 Protein [Mass/Vol] 7.6 g/dL 6.0-8.5 [facility] Work Phone: [phone] CNOVon 09-29-2021 CNOV Office Visit (FAMPWS ) -- PATY HOPKINS ([id number]) 1985 F Date Time Provider Department 09/29/21 1:00 PM HAROON UGARTE During your visit today, we recorded the following information about you: Pulse Respiration Blood pressure Weight 80/minute 14/minute 110/68 65.8 kg Haroon Ugarte APRN.JORGE, TU 09/29/2021 1:49 PM Signed Chief Complaint Patient presents with: Establish Care HPI Paty Hopkins is a 36 year old female who is contacted today for a follow up visit This is an established patient of Dr. Izquierdo who retired last year. Seen patient previously for virtual visit. Past medical history: Anxiety, depression, panic attacks Reports: Here to establish care with me as a provider. Presents for medication refill of her Cymbalta. 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 She [...] masses, lesions Eyes: Anicteric sclera. No redness o (more content not included)... [facility] -- PATY HOPKINS ([id number]) 1985 F Date Time Provider Department 09/05/21 AMANDA IZQUIERDO III [facility] During your visit today, we recorded the following information about you: Craig See Pss 09/05/2021 11:02 AM Signed Pt called in to cancel med refill appt for today w/Haroon Ugarte. I told her what the options were and she didn't like those, I searched other providers and still she declined all offers. Pt stated she will run out of Via6 soon, and is upset that we cannot help her. Her last OV in [facility] was 10/31/20. Pt still has not established with any provider since Dr. Izquierdo retired. She asked to speak with a nurse, so I got a nurse and before we could connect to the pt, she either hung up or was disconnected. Craig See Patient Outreach Allergies As of Date: 09/05/2021 Noted Allergy Reaction MACROBID (NITROFURANTOIN MONOHYD/*07/23/2019 14 - Other: See Comments Comments: Nausea WELLBUTRIN (BUPROPION HCL) 01/27/2020 14 - Other: See Comments Comments: increase anxiety Date Reviewed: 08/25/2021 Reviewed by: Mary Perea RN - Fully Assessed Reason for Visit: Patient Question [7318] Prescriptions as of 09/05/2021 - DULoxetine (CYMBALTA) 30 mg capsule Take [...] daily. Take on empty stomach. For Thyroid Meds Comments as of 07/25/2009: Problem List As Of Date 09/05/2021 Noted Resolved Generalized anxiety disorder [F41.1] 09/17/2013 [...] Chronic constipation [K59.09] 10/31/2020 Encounter Status:Closed by CRAIG SAUER on 09/05/21 [facility] CNOVon 08-25-2021 CNOV Office Visit (OBGYWM ) -- PATY HOPKINS ([id number]) 1985 F Date Time Provider Department 08/25/21 10:20 AM ESDRAS WOODS OBGIOVANAWEnrique During your visit today, we recorded the following information about you: Blood pressure Weight 112/68 66.2 kg Esdras Woods MD 08/25/2021 1:15 PM Signed DATE OF SERVICE: 08/25/2021 PROCEDURE: In-Office Ablation DIAGNOSIS: Menorrhagia PRE-EVALUATION: Ultrasound done on 05/18/21 EMB done on 08/04/21. Pathology: secretory endometrium INFORMED CONSENT Procedure: In-Office Ablation Service: AIRCRAFT ENGINE ASSEMBLER The risks, benefits and anticipated outcomes of [...] Out Discussion: Completed Physician: Esdras Woods MD Product Support Representative: none We provide toradol: Yes Permit signed [...] none Tolerated sitting: Driven home by designated tower truck driver: Yes, Discharge date: 08/25/2021 Discharge time: 1255 Nurse: Mary Perea RN FOLLOW UP PLAN: 1) Post-procedure instructions reviewed and written information given to patient. 2) Follow up in 3-4 weeks. Call sooner if any problems or questions. Mary Perea RN 08/25/2021 11:13 AM Addendum POST OP ABLATION INSTRUCTIONS 1. Please take the Ibuprofen, Motrin or Advil 800mg every 6-8 hrs. with food for the first 24 -48 hours after the ablation. Take the pain medication such as Vicodin or Darvocet if you feel the Ibuprofen is not completely covering your discomfort. Yes, you may mix these two medications but just make sure to keep track of how often you are taking them. Please remember that pain medication may make you drowsy so do not drive while taking this medication. Please use your heating pad as needed. 2. It is common to have a watery, bloody vaginal discharge for two to six weeks after the procedure. Use pads, not tampons, until your follow-up appointment. It can take up to three months before your periods get volleyball commentator. Don't panic if your first few periods are still heavy. 3. You may resume all normal activities the next day . Please refrain from intercourse until your post-op visit. Most patients feel fine and return to work the following day . 4. Make a post-op appointment 3-4 weeks after the procedure date or as instructed by your physician. 5. Call the office immediately if you have: - excessive bleeding or heavy bleeding longer than two days - foul smelling drainage from the vagina - chills or fever greater than 100.5 - severe abdominal cramping even after taking your medication - if you have any other concerns or questions REMEMBER THAT THE ABLATION DOES NOT PREVENT . IT IS VERY IMPORTANT TO USE EFFECTIVE CONTROL AFTER AN ENDOMETRIAL ABLATION PROCEDURE. Referring Provider: SELF [200] Allergies As of Date: 08/25/2021 Noted Allergy Reaction MACROBID (NITROFURANTOIN MONOHYD/*07/23/2019 14 - Other: See Comments Comments: Nausea WELLBUTRIN (BUPROPION HCL) 01/27/2020 14 - Other: See Comments Comments: increase anxiety Date Reviewed: 08/25/2021 Reviewed by: Mary Perea RN - Fully Assessed Primary Visit Diagnosis:Abnormal uterine bleeding (AUB) [N93.9] Order(s):HCG QUAL UR B/O [6060190] Order #: [id number] [] keTORolac 60 mg injection (TORADOL)Disp: Rfl: [] NaCl 0.9% irrigation solutionDisp: (more content not included)... Normal [facility] -- PATY HOPKINS ([id number]) 1985 F Date Time Provider Department 08/23/21 [facility]ES[facility] PASTOR OBGYWM During your visit today, we recorded the following information about you: Mary Perea RN 08/23/2021 12:05 PM Signed Left message for patient to call office. Patient is scheduled for an in office Frida with DM on Saturday. Provider out this week. RR is willing to do the procedure that day if patient would like or we can reschedule with DM. Mary Ariza RN 08/23/2021 1:34 PM Signed Patient is fine with RR doing procedure. Appointment changed to RR. Anum Ariza RN Allergies As of Date: 08/23/2021 Noted Allergy Reaction MACROBID (NITROFURANTOIN MONOHYD/*07/23/2019 14 - Other: See Comments Comments: Nausea WELLBUTRIN (BUPROPION HCL) 01/27/2020 14 - Other: See Comments Comments: increase anxiety Date Reviewed: 08/04/2021 Reviewed by: Janie Lopez Ma - Fully Assessed Reason for Visit: Appointment [186] Prescriptions as of 08/23/2021 - DULoxetine (CYMBALTA) 30 mg capsule Take [...] daily. Take on empty stomach. For Thyroid Meds Comments as of 07/25/2009: Problem List As Of Date 08/23/2021 Noted Resolved Generalized anxiety disorder [F41.1] 09/17/2013 [...] Chronic constipation [K59.09] 10/31/2020 Encounter Status:Closed by ANUM ARIZA RN on 08/23/21 [facility] 08-08-2021 CNPN Telephone (OBGYWM) -- PATY HOPKINS ([id number]) 1985 F Date Time Provider Department 08/08/21 FRANCESCA PASTOR OBGIOVANAWEnrique During your visit today, we recorded the following information about you: Anum Ariza RN 08/08/2021 8:31 AM Signed ----- Message from Francesca Mcfadden MD sent at 08/08/2021 8:10 AM EST ----- Notify patient of negative EMB- will continue with planned surgical intervention. Anum Ariza RN 08/08/2021 8:34 AM Signed Left message for patient to call office or check mychart. Mychart result note sent. Anum Ariza RN 08/08/2021 4:45 PM Signed Patient viewed on [facility] Anum Ariza RN Allergies As of Date: 08/08/2021 Noted Allergy Reaction MACROBID (NITROFURANTOIN MONOHYD/*07/23/2019 14 - Other: See Comments Comments: Nausea WELLBUTRIN (BUPROPION HCL) 01/27/2020 14 - Other: See Comments Comments: increase anxiety Date Reviewed: 08/04/2021 Reviewed by: Janie Lopez Ma - Fully Assessed Reason for Visit: Results [95] Prescriptions as of 08/08/2021 - levonorgestrel (MIRENA) 20 mcg/24 hours (7 [...] of 07/25/2009: Problem List As Of Date 08/08/2021 Noted Resolved Generalized anxiety disorder [F41.1] 09/17/2013 [...] Chronic constipation [K59.09] 10/31/2020 Encounter Status:Closed by ANUM ARIZA RN on 08/08/21 [facility] CNOVon 08-04-2021 CNOV Office Visit (OBGYWM ) -- PATY HOPKINS ([id number]) 1985 F Date Time Provider Department 08/04/21 2:00 PM FRANCESCA PASTOR During your visit today, we recorded the following information about you: Blood pressure Weight 110/62 68.5 kg Francesca Gayle MD 08/04/2021 2:30 PM Signed Paty is a 35 year old who [...] OBTAINED FOR IN OFFICE HYSTEROSCOPY, FRIDA ABLATION. MD Janie King Ma 08/04/2021 2:02 PM Signed YOUR RECOVERY After your biopsy you may have: ? Vaginal bleeding (less than a normal menstrual period) ? Mild cramping Do NOT put anything in the vagina for 1 week after your endometrial biopsy. This includes: ? tampons ? douches ? and refraining from having sexual intercourse If you have any discomfort, you may take an over the counter pain medication (motrin, advil, ibuprofen, tylenol, etc). If this does not relieve your discomfort, contact the office. It is okay to wear a sanitary pad until the discharge and spotting stops. RISKS Although problems seldom occur with endometrial biopsies, there can be some complications. You may feel faint during and shortly after the procedure as well as have some bleeding after the procedure. There is also a risk of infection after the procedure. These complications are rare and can be easily treated. You should contact you doctor is you have any of the following: ? Heavy bleeding (more than your normal period) ? Bleeding with clots ? Severe abdominal pain ? Fever (more than 100.4F) ? Foul smelling vaginal discharge RESULTS We will have the results of your biopsy in 1-2 weeks. If you do not hear the results of your biopsy after 2 weeks, please contact the office for the results. If you have any additional questions or concerns please do not hesitate to contact the office. Francesca Gayle MD 08/04/2021 2:30 PM Signed Pre-Op History and Physical HPI: The patient is a 35 year old female presenting for pre-operative visit. She is scheduled for Hysteroscopy, Frida ablation, for AUB on 08/25/21. Procedure discussed along with risks, benefits and complications. Other alternatives discussed for management. Consent form signed? Yes. PAST MEDICAL HISTORY Diagnosis Date - Anemia [...] AND REMOVAL - TUBAL LIGATION Bilateral 05/23/2017 Current Outpatient Medications Medication Sig Dispense Refill - ALPRAZolam (XANAX) 0.5 mg tablet Take 1 tablet by mouth one time only for 1 dose. 1 tablet 0 - oxyCODONE-acetaminophen (PERCOCET) 5-325 mg tablet Take 1 tablet by mouth one time only for 1 dose. FOR PAIN. 2 tablet 0 - levonorgestrel (MIRENA) 20 mcg/24 hours (7 yrs) 52 mg IUD 1 Each by INTRAUTERINE route as directed. (Patient not taking: Reported on 07/28/2021 ) 1 Each 0 - escitalopram oxalate (LEXAPRO) 10 mg tablet Take 1 tablet by mouth once daily. 90 tablet 3 - miSOPROStol (CYTOTEC) 200 mcg tablet Use 2 tablets vaginally (more content not included)... Normal [facility] HISTORY PHYSICALon 1 HISTORY PHYSICAL HNO ID: [id number] Author: Francesca Mcfadden MD Service: ? Author Type: Physician Type: HANDP Filed: 08/04/2021 2:30 PM Note Text: Pre-Op History and Physical HPI: The patient is a 35 year old female presenting for pre-operative visit. She is scheduled for Hysteroscopy, Frida ablation, for AUB on 08/25/21. Procedure discussed along with risks, benefits and complications. Other alternatives discussed for management. Consent form signed? Yes. PAST MEDICAL HISTORY Diagnosis Date - Anemia [...] AND REMOVAL - TUBAL LIGATION Bilateral 05/23/2017 Current Outpatient Medications Medication Sig Dispense Refill - ALPRAZolam (XANAX) 0.5 mg tablet Take 1 tablet by mouth one time only for 1 dose. 1 tablet 0 - oxyCODONE-acetaminophen (PERCOCET) 5-325 mg tablet Take 1 tablet by mouth one time only for 1 dose. FOR PAIN. 2 tablet 0 - levonorgestrel (MIRENA) 20 mcg/24 hours (7 yrs) 52 mg IUD 1 Each by INTRAUTERINE route as directed. (Patient not taking: Reported on 07/28/2021 ) 1 Each 0 - escitalopram oxalate (LEXAPRO) 10 mg tablet Take 1 tablet by mouth once daily. 90 tablet 3 - miSOPROStol (CYTOTEC) 200 mcg tablet Use 2 tablets vaginally as directed. The night before the procedure and the morning of the procedure. (Patient not taking: Reported on 05/29/2021 ) 4 tablet 0 - levothyroxine (LEVOXYL) 25 mcg tablet Take 1 tablet by mouth once daily. Take on empty stomach. For Thyroid 90 tablet 3 - DULoxetine (CYMBALTA) 30 mg capsule Take 1 capsule by mouth once daily. 30 capsule 11 No current facility-administered medications for this visit. ALLERGIES: Macrobid [Nitrofurantoin Monohyd/M-Cryst] and Wellbutrin [Bupropion Hcl] PERSONAL HISTORY: Social History Tobacco Use - Smoking status: Never Smoker - Smokeless tobacco: Never Used Vaping Use - Vaping Use: Never used Substance Use Topics - Alcohol use: No - Drug use: No FAMILY HISTORY: FAMILY HISTORY Problem Relation Age of Onset - other (Hypothyroidism) Mother - Arthritis Father - COPD Maternal Grandfather - Heart Paternal Grandfather REVIEW OF SYMPTOMS: PHYSICAL EXAMINATION: VITALS: Blood pressure 110/62, weight 151 lb (68.5 kg), last menstrual period 05/20/2021. GENERAL: The patient is well nourished, well hydrated in no acute distress. , The patient is oriented to time, place, and person. NECK: full range of motion GENITALIA: Normal external genitalia, Urethral meatus normal, Bladder nontender, normal vagina and normal vaginal tone, normal cervix, normal IMPRESSION: AUB PLAN: Hysteroscopy, Frida Ablation Pt has been counseled on risks/benefits and alternatives of surgery including but not limited to anesthesia, bleeding, infection, uterine perforation with subsequent injury to pelvic structures including bowel, bladder, ureters and vessels. Pt wishes to proceed with surgery at this time. Pt understands could fail Ablation - would need hormonal treatment or further surgical intervention may be warranted. Pre op reviewed- meds given. I have reviewed and updated past medical and surgical history, medications and allergies Francesca Mcfadden MD [facility] SURGICAL PATHOLOGYon 021 SURGICAL PATHOLOGY Specimen originated from [facility] Specimen #: [id number] Submitting Physician: FRANCESCA GAYLE MD FINAL DIAGNOSIS Endometrium, biopsy: - Secretory endometrium. Joe Bruno M.D. (Electronic Signature) SPECIMEN SUBMITTED A: ENDOMETRIAL, BIOPSY CLINICAL DATA ABNORMAL UTERINE BLEEDING GROSS DESCRIPTION A. Received in formalin are multiple mackey-pink, soft segments of tissue aggregating to 2.7 x 2.1 x 0.2 cm. Totally submitted in one cassette. Gross examination performed at [facility], [address] [place] [address] J 08/05/2021 12:14:42 AM Date of Report: 08/07/2021 Date of Procedure: 08/04/2021 Date of Receipt: 08/04/2021 Submitted by: FRANCESCA GAYLE MD Location: [facility] Diagnostic interpretation performed at [facility], [address] [place] [address]. CLIA Number: [id number] Normal [facility] CNOVon 07-28-2021 CNOV Office Visit (OBGYWM ) -- PATY HOPKINS ([id number]) 1985 F Date Time Provider Department 07/28/21 11:40 AM FRANCESCA PASTOR OBGYWM During your visit today, we recorded the following information about you: Blood pressure Weight Last Period 104/64 68.5 kg 05/20/21 Francesca Gayle MD 07/28/2021 12:03 PM Signed Paty Hopkins is a 35 year old [...] L5 SAB1 IAB0 Ectopic0 Multiple0 Live Births5 Pca History LMP: 05/20/2021, Having periods Age at Menarche: Age at First : Age at Menopause: Pca History Comments: Sexual Activity: Yes; Male Contraception: [...] which included preparing to see the patient, tyag-sz-[id number] patient care, completing clinical documentation, obtaining and/or reviewing separately obtained history, performing a medically appropriate examination, counse (more content not included)... Normal [facility] Barbara 07-28-2021 CNPN Telephone (OBGYWM) -- PATY HOPKINS ([id number]) 1985 F Date Time Provider Department 07/28/21 FRANCESCA PASTOR OBGYWM During your visit today, we recorded the following information about you: Emperatriz Mendez LPN 07/28/2021 2:22 PM Signed Left message to call office. Patient is scheduled for an in-office frida on 08/25/21-arrival time 10:20 am. Patient needs to schedule a pre-op/EMB at least a week before the procedure. Yris Cramer RN 07/28/2021 4:13 PM Signed Patient notified and voiced understanding. Pre Op/EMB appointment scheduled. Yris Cramer RN Allergies As of Date: 07/28/2021 Noted Allergy Reaction MACROBID (NITROFURANTOIN MONOHYD/*07/23/2019 14 - Other: See Comments Comments: Nausea WELLBUTRIN (BUPROPION HCL) 01/27/2020 14 - Other: See Comments Comments: increase anxiety Date Reviewed: 07/28/2021 Reviewed by: Janie Lopez Ma - Fully Assessed Reason for Visit: Schedule Surgery [1330] Prescriptions as of 07/28/2021 - levonorgestrel (MIRENA) 20 mcg/24 hours (7 [...] of 07/25/2009: Problem List As Of Date 07/28/2021 Noted Resolved Generalized anxiety disorder [F41.1] 09/17/2013 [...] Chronic constipation [K59.09] 10/31/2020 Encounter Status:Closed by YRIS CRAMER RN on 07/28/21 [facility] CNOVon 07-07-2021 CNOV Office Visit (OBGYWM ) -- PATY HOPKINS ([id number]) 1985 F Date Time Provider Department 07/07/21 4:00 PM TONYA DELUNA OBGYWM During your visit today, we recorded the following information about you: Blood pressure Weight 110/60 69.8 kg Tonya Deluna APRN.CNP 07/07/2021 4:33 PM Signed Paty Hopkins presents today for IUD check. [...] possible retained foreign bodies accounted for. Tonya Deluna APRN.JORGE PROCEDURE: Speculum placed in vagina, IUD string visualized and grasped with ring forceps. ASSESSMENT/PLAN: IUD removed without difficulty, intact, and patient tolerated procedure well. Contraception plans: none Pt is to see Dr Mcfadden to discuss ablation Tonya Deluna APRN.BATTERY CHECKER Referring Provider: SELF [200] Allergies As of Date: 07/07/2021 Noted Allergy Reaction MACROBID (NITROFURANTOIN MONOHYD/*07/23/2019 14 - Other: See Comments Comments: Nausea WELLBUTRIN (BUPROPION HCL) 01/27/2020 14 - Other: See Comments Comments: increase anxiety Date Reviewed: 07/07/2021 Reviewed by: Debra Mustafa LPN - Fully Assessed Reason for Visit: IUD follow up [Other] Primary Visit Diagnosis:IUD check up [Z30.431] Other Visit Diagnosis:Encounter for IUD removal [Z30.432] Order(s):REMOVE INTRAUTERINE DEVICE [2502281] Order #: [id number] Prescriptions as of 07/07/2021 - levonorgestrel (MIRENA) 20 mcg/24 hours (7 [...] of 07/25/2009: Problem List As Of Date 07/07/2021 Noted Resolved Generalized anxiety disorder [F41.1] 09/17/2013 [...] Chronic constipation [K59.09] 10/31/2020 Encounter Status:Closed by TONYA DELUNA on 07/07/21 Normal [facility] Lab Report: ,Urineo n 05-23-2017 HCG.beta subunit ( test) Ql (U) Negative Invalid Interpretation Code [facility] Office Visit: Tubal Ligation Consulton 04-16-2017 Documentation of current medications (procedure) Done Invalid Interpretation Code [facility] Fall risk assessment No Invalid Interpretation Code [facility] Protein mass conc Done Invalid Interpretation Code [facility] Tobacco smoking status NHIS Never Invalid Interpretation Code [facility] Tobacco smoking status IDIS Never smoker Invalid Interpretation Code [facility] Tobacco use HS Never smoker Invalid Interpretation Code [facility] Vital Signs Date Time Vital Sign Value Performing Clinician Shayy tellez 05-03-2022 11:00-0400 Body temperature 97.9 [degF] [employer]NER-C Edith Anguloman [employer] AND [employer] PL[employer]NER Work Phone: [facility] Work Phone: 05-03-2022 11:00-0400 Diastolic blood pressure 61 mm[Hg] [employer] AND [employer]SPORT PLANNER-C Edith Gisselle [employer] AND [employer]SPORT PLANNER Work Phone: [facility] Work Phone: 05-03-2022 11:00-0400 Heart rate 71 /min [employer]NER-C Edith Gisselle [employer]FF[employer] AND [employer]SPORT PLANNER Work Phone: [facility] Work Phone: 05-03-2022 11:00-0400 Respiratory rate 16 /min [employer] PL[employer]NER-C Edith Gisselle [employer]FF[employer] AND [employer]SPORT PLANNER Work Phone: [facility] Work Phone: 05-03-2022 11:00-0400 SaO2% (BldA) [Mass fraction] 100 % [employer]SP[employer] PLANNER-C Edith Anguloman [employer]FF[employer] AND [employer]SPORT PLANNER Work Phone: [facility] Work Phone: 05-03-2022 11:00-0400 Systolic blood pressure 101 mm[Hg] [employer] AND [employer]SPORT PLANNER-C Edith Anguloman [employer]FF[employer] AND [employer]SPORT PLANNER Work Phone: [facility] Work Phone: 05-03-2022 09:13-0400 Body height 170.18 cm [employer] PL[employer]NER-C Edith Gisselle [employer]FF[employer] AND [employer]SPORT PLANNER Work Phone: [facility] Work Phone: 05-03-2022 09:13-0400 Body mass index (BMI) [Ratio] 22.3 kg/m2 [employer]SP[employer] PL[employer]NER-C Edith Gisselle [employer] AND [employer]SPORT PLANNER Work Phone: [facility] Work Phone: 05-03-2022 09:13-0400 Body weight 64.6 kg [employer]SP[employer] PLANNER-C Edith Gisselle [employer]FF[employer] AND [employer]SPORT PLANNER Work Phone: [facility] Work Phone: 04-11-2022 07:00-0400 Body temperature 98 [degF] [employer] AND [employer]SP[employer] PLANNER-C Edith Anguloman [employer]FF[employer] AND [employer]SPORT PLANNER Work Phone: [facility] Work Phone: 04-11-2022 07:00-0400 Diastolic blood pressure 60 mm[Hg] [employer] AND [employer]SPORT PLANNER-C Edith Zunigautzman [employer] AND [employer]SPORT PLANNER Work Phone: [facility] Work Phone: 04-11-2022 07:00-0400 Heart rate 64 /min [employer] PLANNER-C Edith Zunigautzman TRAFF[employer] AND [employer]SPORT PLANNER Work Phone: [facility] Work Phone: 04-11-2022 07:00-0400 Respiratory rate 14 /min [employer]SP[employer] PLANNER-C Edith Zunigautzman [employer]FF[employer] AND [employer]SPORT PLANNER Work Phone: [facility] Work Phone: 04-11-2022 07:00-0400 Systolic blood pressure 104 mm[Hg] [employer] AND [employer]SPORT PLANNER-C Edith Anguloman [employer]FF[employer] AND [employer]SPORT PLANNER Work Phone: [facility] Work Phone: 04-16-2017 15:26-0400 BMI (Body Mass Index) 22.77 kg/m2 Nancy Petersen MD [facility] 04-16-2017 15:0400 Body Temperature 97.8 [degF] Nancy Petersen MD [facility] 04-16-2017 15:26-0400 Body Temperature 97.81 [degF] Nancy Petersen MD [facility] 04-16-2017 15:26-0400 BP Diastolic 66 mm[Hg] Nancy Petersen MD [facility] 04-16-2017 15:26-0400 BP Systolic 109 mm[Hg] Nancy Petersen MD [facility] 04-16-2017 15:26-0400 Height 170.18 cm Nancy Petersen MD [facility] 04-16-2017 15:26-0400 Pulse (Heart Rate) 64 /min Nancy Petersen MD [facility] 04-16-2017 15: Respiratory Rate 16 /min Nancy Petersen MD [facility] 04-16-2017 15: Weight 65.95 kg Nancy Petersen MD [facility] Encounters Encounter Date Encounter Type Care Provider Facility Start: 10-07-2024 End: 10-07-2024 ambulatory Obey Deric Pascual Facility:[facility] Start: 07-29-2024 End: 07-29-2024 ambulatory Veronika Ferullo Facility:[facility] Start: 05-14-2024 End: 05-14-2024 ambulatory Ed ZEE Facility:[facility] Start: 05-11-2024 End: 05-11-2024 ambulatory Veronika Ferullo Facility:[facility] Start: 05-06-2024 End: 05-06-2024 ambulatory Veronika Ferullo Facility[facility] Start: 04-24-2024 End: 04-24-2024 ambulatory Veronika Ferullo Facility:[facility] Start: 04-03-2024 Encounter for other preprocedural examination Mary Avitia [facility] Start: 03-26-2024 End: 03-26-2024 ambulatory Veronika Ferullo Facility[facility] Start: 03-13-2024 ambulatory Veronika Ferullo Facility: [facility] Start: 03-13-2024 End: 03-13-2024 ambulatory Veronika Ferullo Facility:[facility] Start: 03-06-2024 End: 03-06-2024 ambulatory Veronika Ferullo Facility:[facility] Start: 03-05-2024 End: 03-05-2024 ambulatory Veronika Ferullo Facility:[facility] Start: 02-26-2024 End: 02-26-2024 ambulatory Veronika Ferullo Facility:[facility] Start: 01-20-2024 End: 01-20-2024 ambulatory Veronika Ferullo Facility:[facility] Start: 01-20-2024 End: 01-20-2024 ambulatory Veronika Ferullo Facility:[facility] Start: 12-18-2023 End: 12-18-2023 ambulatory Veronika Ferullo Facility:[facility] Start: 11-27-2023 End: 11-27-2023 ambulatory Veronika Ferullo Facility:[facility] Start: 09-03-2022 Refill Haroon Ugarte INCOME TAX ADVISOR.BATTERY CHECKER, DNP Work Phone: [facility] Comment on above: Refill Request Start: 06-01-2022 Telephone encounter Melissa Crespo denise INCOME TAX ADVISOR.BATTERY CHECKER Work Phone: [facility] Comment on above: Appointment Start: 05-21-2022 Telephone encounter Tonya estrada INCOME TAX ADVISOR.BATTERY CHECKER Work Phone: OB/Gynecology Comment on above: Refill Request Start: 05-03-2022 Non-patient / Non-visit [employer]SP[employer] PLANNER-C Igor Pitts TRAFFIC AND TRANSPORT PLANNER Work Phone: [facility] Start: 05-03-2022 End: 05-03-2022 Admission to same day surgery center TRAFFIC AND TRANSPORT PLANNER-C Edith Pitts TRAFFIC AND TRANSPORT PLANNER Work Phone: [facility] Start: 05-03-2022 End: 05-03-2022 ambulatory TRAFF[employer] AND TRANSPORT PLANNER-C Edith Pitts TRAFFIC AND TRANSPORT PLANNER Work Phone: [facility] Work Phone: Start: 04-11-2022 End: 04-11-2022 Patient encounter procedure TRAFFIC AND TRANSPORT PLANNER-C Edith Pitts TRAFFIC AND TRANSPORT PLANNER Work Phone: [facility] Start: 04-03-2022 End: 04-03-2022 Patient encounter procedure TRAFFIC AND TRANSPORT PLANNER-C Edith Pitts TRAFFIC AND TRANSPORT PLANNER Work Phone: [facility] Start: 04-02-2022 End: 04-02-2022 Patient encounter procedure TRAFFIC AND TRANSPORT PLANNER-C Edith Pitts TRAFFIC AND TRANSPORT PLANNER Work Phone: [facility] Start: 02-18-2022 Refill Haroon Ugarte INCOME TAX ADVISOR.BATTERY CHECKER, DNP Work Phone: [facility] Comment on above: Refill Request Start: 09-29-2021 End: 09-29-2021 ambulatory HAROON UGARTE Facility:[facility] Start: 09-07-2021 End: 09-07-2021 ambulatory HAROON UGARTE Facility:[facility] Start: 08-25-2021 End: 08-25-2021 ambulatory ESDRAS Deric WOODS [facility] Start: 08-04-2021 End: 08-04-2021 ambulatory FRANCESCA MCFADDEN [facility] Start: 07-28-2021 End: 07-28-2021 ambulatory FRANCESCA DILANHUMBLE CARNESNTOSH [facility] Start: 07-07-2021 End: 07-07-2021 ambulatory TONYA DELUNA [facility] Procedures Date Procedure Procedure Detail Performing Clinician Start: 05-03-2022 Esophagogastroduodenoscopy [employer] AND [employer]SPORT PLANNER-C Edith Pitts NP Work Phone: Plan of Treatment Date Care Activity Detail Author Start: 05-18-2026 HPV TESTING HPV TESTING [facility] Start: 05-18-2026 PAP TESTING PAP TESTING [facility] Start: 12-21-2025 Urine microalbumin profile DTAP,TDAP,TD (9 - Td or Tdap) [facility] Start: 09-29-2022 ANNUAL PCP TEAM CHRONIC DISEASE VISIT ANNUAL PCP TEAM CHRONIC DISEASE VISIT [facility] Start: 05-03-2022 Patient discharge [facility] Work Phone: Start: 04-19-2022 Influenza vaccination INFLUENZA (#1) [facility] Start: 01-05-2022 COVID-19 VACCINE (3 - Booster for Pfizer series) COVID-19 VACCINE (3 - Booster for Pfizer series) [facility] Start: 10-02-2021 COVID-19 VACCINE (3 - Booster for Pfizer series) COVID-19 VACCINE (3 - Booster for Pfizer series) [facility] Start: 05-23-2017 End: 05-23-2017 Appointment [facility] Work Phone: Start: 04-16-2017 End: 04-16-[address] [facility] Start: 2001 HEPATITIS C SCREENING HEPATITIS C SCREENING [facility] Elastase, pancreatic (el-1), fecal; quantitative [facility] Work Phone: Gastrointestinal pat hogens panel - Stool by VALE with probe detection [facility] Work Phone: Lactoferrin [Presenc e] in Stool by Immunoassay [facility] Work Phone: Measurement of occul t blood in stool specimen using immunoassay [facility] Work Phone: Ova and parasites identified in Unspecified specimen by Light microscopy [facility] Work Phone: Patient referral [facility] Work Phone: Protein measurement [facility] Work Phone: Radionuclide gastric emptying study [facility] Work Phone: [facility] Immunizations Immunization Date Immunization Notes Care Provider Fa richar 08-07-2021 Covid (Pfizer) TRAFF[employer] AND TRANSPORT PLANNER-C Edith Pitts TRAFFIC AND TRANSPORT PLANNER Work Phone: [facility] Work Phone: 07-17-2021 Covid (Pfizer) TRAFFIC AND TRANSPORT PLANNER-C Edith Pitts TRAFFIC AND TRANSPORT PLANNER Work Phone: [facility] Work Phone: 05-31-2021 influenza, seasonal, injectable [employer] AND TRANSPORT PLANNER-C Edith Pitts TRAFFIC AND TRANSPORT PLANNER Work Phone: [facility] Work Phone: 05-31-2021 influenza, seasonal, injectable, preservative free Haroon Ugarte APRN.[facility] Work Phone: [facility] Work Phone: 12-22-2015 tetanus toxoid, redu cristiane diphtheria toxoid, and acellular pertussis vaccine, adsorbed Haroon Ugarte APRN.[facility] Work Phone: [facility] Work Phone: 08-05-2015 influenza, injectabl e, quadrivalent, contains preservative Haroon Ugarte APRN.TU PATEL Work Phone: [facility] 05-29-2013 influenza virus vaccine, unspecified formulation Haroon Ugarte APRN.TU PATEL Work Phone: [facility] 05-19-2013 Influenza virus vaccine TRAFFIC AND TRANSPORT PLANNER-C Edith Pitts TRAFFIC AND TRANSPORT PLANNER Work Phone: [facility] Work Phone: 05-19-2013 influenza, seasonal, injectable, preservative free Haroon Ugarte APRN.[facility] Work Phone: [facility] Work Phone: 05-19-2013 tetanus toxoid, redu cristiane diphtheria toxoid, and acellular pertussis vaccine, adsorbed TRAFFIC AND TRANSPORT PLANNER-C Edith Pitts TRAFFIC AND TRANSPORT PLANNER Work Phone: [facility] Work Phone: 05-08-2013 tetanus toxoid, redu cristiane diphtheria toxoid, and acellular pertussis vaccine, adsorbed Haroon Ugarte APRN.[facility] Work Phone: [facility] 09-10-2011 hepatitis B vaccine, adult dosage Haroon Ugarte APRN.[facility] Work Phone: [facility] 03-09-2011 hepatitis B vaccine, adult dosage Haroon Ugarte APRN.[facility] Work Phone: [facility] 04-17-2010 hepatitis B vaccine, adult dosage Haroon Ugarte APRN.[facility] Work Phone: [facility] 08-19-2006 tetanus toxoid, redu cristiane diphtheria toxoid, and acellular pertussis vaccine, adsorbed Haroon Ugarte APRN.[facility] Work Phone: [facility] 04-13-1996 measles, mumps and rubella virus vaccine Haroon Ugarte APRN.[facility] Work Phone: [facility] Work Phone: 03-28-1989 DTP-Haemophilus influenzae type b conjugate vaccine Haroon Ugarte APRN.[facility] Work Phone: [facility] Work Phone: 03-28-1989 haemophilus influenz ae type b vaccine, PRP-T conjugate Haroon Ugarte APRN.[facility] Work Phone: [facility] Work Phone: 03-28-1989 poliovirus vaccine, inactivated Haroon Ugarte APRN.[facility] Work Phone: [facility] Work Phone: 05-30-1988 haemophilus influenz ae type b vaccine, PRP-D conjugate Haroon Ugarte APRN.[facility] Work Phone: [facility] Work Phone: 05-30-1988 hepatitis B vaccine, pediatric or pediatric/adolescent dosage Haroon Ugarte APRN.[facility] Work Phone: [facility] Work Phone: 03-13-1985 DTP-Haemophilus influenzae type b conjugate vaccine Haroon Ugarte APRN.[facility] Work Phone: [facility] Work Phone: 03-13-1985 haemophilus influenz ae type b vaccine, PRP-T conjugate Haroon Ugarte APRN.[facility] Work Phone: [facility] Work Phone: 12-17-1984 measles, mumps and rubella virus vaccine Haroon Ugarte APRN.[facility] Work Phone: [facility] Work Phone: 03-24-1984 DTP-Haemophilus influenzae type b conjugate vaccine Haroon Ugarte APRN.[facility] Work Phone: [facility] Work Phone: 03-24-1984 haemophilus influenz ae type b vaccine, PRP-T conjugate Haroon Ugarte APRN.[facility] Work Phone: [facility] Work Phone: 03-24-1984 poliovirus vaccine, inactivated Haroon Ugarte APRN.[facility] Work Phone: [facility] Work Phone: 01-21-1984 DTP-Haemophilus influenzae type b conjugate vaccine Haroon Ugarte APRN.[facility] Work Phone: [facility] Work Phone: 01-21-1984 haemophilus influenz ae type b vaccine, PRP-T conjugate Haroon Marge KILLIAN.[facility] Work Phone: [facility] Work Phone: 01-21-1984 poliovirus vaccine, inactivated Haroon Blaz INCOME TAX ADVISOR.[facility] Work Phone: [facility] Work Phone: 1985 DTP-Haemophilus influenzae type b conjugate vaccine Haroon Rodriguezarianne KILLIAN.[facility], [facility] Work Phone: [facility] Work Phone: 1985 haemophilus influenz ae type b vaccine, PRP-T conjugate Haroon Marge KILLIAN.[facility], [facility] Work Phone: [facility] Work Phone: 1985 poliovirus vaccine, inactivated Haroon Blaz INCOME TAX ADVISOR.[facility] Work Phone: [facility] Work Phone: Payers Date Payer Category Payer Self-pay [id number] 2023 Unknown [id number] 2020 Unknown [employer] BLUE CARD PPO OOS [id number] 2020-Present [phone] [address] [place] [address] PPO [id number] 2020 Unknown [employer] BLUE CARD PPO OOS [id number] 2020-Present [phone] [address] [place] [address] PPO [id number] 2018 Unknown [id number] 2016 Unknown [facility] [id number] Private Health Insurance [employer] [id number] Unknown [facility] [id number] Unknown [id number] Unknown [id number]. 462 Unknown [id number] 2.16.840.1.151621.3.579.2. 462 Unknown [id number] 2.16.840.1.015003.3.579.2. 462 Unknown [id number] 2.16.840.1.100199.3.579.2. 462 Unknown [id number] 2.16.840.1.960232.3.579.2. 462 Unknown [id number] 2.16.840.1.028193.3.579.2. 462 Unknown [id number] 2.16.840.1.669864.3.579.2. 462 Unknown [id number] 2.16.840.1.285824.3.579.2. 462 Unknown [id number] 2.16.840.1.512292.3.579.2. 462 Unknown [id number] 2.16.840.1.402541.3.579.2. 462 Unknown [id number] 2.16.840.1.571582.3.579.2. 462 Unknown [id number] 2.16.840.1.398110.3.579.2. 462 Unknown [id number] 2.16.840.1.253382.3.579.2. 462 Unknown [id number] 2.16.840.1.354069.3.579.2. 462 Unknown [id number] 2.16.840.1.856824.3.579.2. 462 Unknown [id number] 2.16.840.1.170665.3.579.2. 462 Unknown [id number] 2.16.840.1.052737.3.579.2. 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 Start: 04-30-2022 [facility] if ever smoked [facility] Work Phone: Start: 02-17-2018 None [facility] Work Phone: Start: 07-04-2020 With Family [facility] Work Phone: Start: 02-17-2018 Non-smoker [facility] Work Phone: Start: 11-02-2011 Tobacco use and exposure Smoke less tobacco non-user [facility] Start: 05-11-2022 End: 05-21-2022 Exposure to SARS-CoV-2 (event) Not sure [facility] Medical Equipment Procedure Code Equipment Code Equipment Origin al Text Equipment Identifier Dates STENT,URETERAL 6 FR PIG [id number] FDA Start: 02-17-2018 Goals Date Patient Goal Desired Activity /State Mental Status Date Assessment Result Facility 05-03-2022 Cognitive function Level Of Cons ciousness Awake;Alert;Appropriate [facility] Work Phone: 05-03-2022 Cognitive function Voice/Name [facility] Work Phone: Clinical Notes 08-05-2015 to 03-13-2024 Telephone Encounter - Michi Thayer LPN - 09/03/2022 9:31 AM ESTTelephone Encounter - Kelly Nolasco LPN - 06/04/2022 2:07 PM EDTTelephone Encounter - Kelly Nolasco LPN - 06/01/2022 2:02 PM EDT Note Date & Type Note Facility 03-13-2024 Note [facility] Medical Records Department [address] [place] [address] History Physical Exam 03/13/24 0709 MR#: [id number] Acct: [id number] Name: PATY HOPKINS Rep #: [id number] : 1985 38 From: Mary Avitia DO PCP: JASE Argueta Status:[facility] Location: [place] [address] History and Physical Date of Admission: 03/13/24 Intake Vital Signs 01/19/2411:50 02/25/2414:25 03/05/2415:01 03/05/2415:03 Height 5 ft 7 in 5 ft 7 in 5 ft 7 in 5 ft 7 in Weight: 141 lb 6 oz BMI 22.1 BP 116/74 107/69 Blood Pressure Location Rt brachial Position Sitting Pulse 80 Pulse Source Monitor Intake Visit Reasons: 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 Room Operator Required: No Is patient in pain?: No Allergies hydrocodone (From Vicodin) Adverse Reaction (Verified 03/05/24 15:00) Nausea/Vom/Diarrhea Medications ???Medication ???Instructions ???Recorded ???Confirmed ???Type alprazolam 0.5 mg tablet (Xanax) 0.5 mg PO DAILY PRN anxiety #15 08/28/23 03/05/24 Rx tabs omeprazole 20 mg capsule,delayed 20 mg PO QHS 08/30/23 03/05/24 History release levothyroxine 25 mcg tablet 25 mcg PO DAILY thyroid #90 tabs 12/31/23 03/05/24 Rx duloxetine 60 mg capsule,delayed 60 mg PO QHS 02/28/24 03/05/24 History release Post menopausal: No Patient : No : No PFSH Medical History Anxiety History of hiatal hernia Dysmenorrhea Specific phobia Depression Thyroid disease Kidney stones Back pain Gastric reflux Non-smoker Anxiety and depression Surgical History History of esophagogastroduodenoscopy (EGD) History of cystoscopy History of wisdom tooth extraction, class II edentulism H/O tubal ligation Family History Grandfather Heart diseaseGrandfather COPD (chronic obstructive pulmonary disease) Emphysema lungGrandmother Kidney disease Social History number of children: 5 current occupational status: employed 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 She is a 38 year old (vaginal deliveries) who presents for surgical consult. She tried and failed an ablation procedure at [facility] 4 years ago. she is now using ocps despite a prior tubal ligation. Ultrasound shows an 11 cm uterus. She c/o persistent pain on her left side. us does not indicate a problem there however. 7 STUDY: ULTRASOUND OF THE FEMALE PELVIS - COMPLETE REASON FOR EXAM: Female, 38 years old. Pain LMP: September 12, 2023. TECHNIQUE: Transabdominal and Transvaginal TECHNICAL QUALITY: Adequate. COMPARISON: Comparison is made with prior study dated November 13, 2017. FINDINGS: The uterus is anteverted and is in a midline position. The uterus measures 11.1 cm x 8.2 cm x 6 cm. There is a Nabothian cyst of the cervix. The endometrium measures 6 mm in thickness, and is hyperechoic. Small cystic changes seen in the endocervical canal. This measures 8.9 mm x 3.4 mm. There is no demonstrated endometrial mass. There is no demonstrated myometrial mass. Heterogeneous echotexture of the myometrium with no focal fibroids seen. I.U.D. - The patient does not have an I.U.D. The right ovary is visualized. The right ovary measures 4.2 cm x 2.1 cm x 2.5 cm. There is no right ovarian cyst or ovarian mass. There is no visualized right adnexal mass or complex lesion. There is normal arterial and normal venous vascularity. The left ovary is visualized. The left ovary measures 3.4 cm x 2.3 cm x 2.3 cm. There is no left ovarian cyst or ovarian mass. There is no visualized left adnexal mass or complex lesion. There is normal arterial and normal venous vascularity. There is no fluid in the cul-de-sac. The pre void volume of the bladder was 73 ml. US/Pelvic (Non ) IMPRESSION: Heterogeneous appearance of the myometrium although no focal fibroid is seen. 3.4 mm x 8.9 mm cyst seen in the endocervical canal. History 7 Elective abortions Hx Para 5 Spontaneous abortions Hx # Term Pregnancies Ectopic pregnancies Hx # Pregnancies Multiple (more content not included)... [facility] 09-03-2022 Miscellaneous Notes Patient phones requesting refills as follows: Requested Prescriptions Pending Prescriptions Disp Refills DULoxetine (CYMBALTA) 30 mg capsule [Pharmacy Med Name: DULOXETINE HCL DR 30 MG CAP] 90 capsule 3 Sig: TAKE 1 CAPSULE BY MOUTH ONCE DAILY *PT CANCELLED LAST 4 APPT'S TO ESTABLISH CARE WITH TRAFFIC AND TRANSPORT PLANNER. NO UPCOMING APPT. Pt needs to schedule appt to establish care in order to continue receiving medication refills. message to pt advising of the same. Please review and advise. Michi Thayer LPN documented in this encounter [facility] 06-04-2022 Miscellaneous Notes Appointment slot open after patients appointment now. Patients appointment changed to 40 minutes for 06/05/2022 appointment since an establish care visit. Kelly Nolasco LPN Patient scheduled for an appointment to establish care on 06/05/22 with Melissa Lantigua. The appointment is currently scheduled as 20 minutes but needs to be 40 minutes. Patient telephoned and message left to call office back. Please help assist with rescheduling when she calls back. Kelly Nolasco LPN documented in this encounter [facility] 05-21-2022 Miscellaneous Notes Pt notified, transferred to [...] medication refill of her Cymbalta. 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 She [...] by mouth once daily. Authorizing Provider: HAROON UGARTE Refused Prescriptions Disp Refills escitalopram oxalate (LEXAPRO) 10 mg tablet [Pharmacy Med Name: ESCITALOPRAM 10 MG TABLET] 90 tablet 0 Sig: TAKE 1 TABLET BY MOUTH EVERY DAY Refused By: ESDRAS WOODS Reason for Refusal: Patient should contact Prescriber first Haroon Ugarte APRN.TU PATEL Please send to her PCP. [...] Mary Perea RN documented in this encounter [facility] 02-20-2022 Miscellaneous Notes Last office visit: 09/29/21 F/u scheduled: none Eli Haas Ma documented in this encounter [facility] 09-29-2021 Note HNO ID: [id number] Author: Haroon Ugarte APRN.TU PATEL Service: ? Author Type: Nurse Practitioner Type: Progress Notes Filed: 09/29/2021 1:49 PM Note Text: Chief Complaint Patient presents with: Establish Care HPI Paty Hopkins is a 36 year old female who is contacted today for a follow up visit This is an established patient of Dr. Izquierdo who retired last year. Seen patient previously for virtual visit. Past medical history: Anxiety, depression, panic attacks Reports: Here to establish care with me as a provider. Presents for medication refill of her Cymbalta. 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 She [...] and gums normal, (more content not included)... [facility] 09-07-2021 Note HNO ID: [id number] Author: Haroon Ugarte APRN.BATTERY CHECKER, DNP Service: ? Author Type: Nurse Practitioner [...] agrees to the visit: Yes Patient Location: [facility] Paty Hopkins is a 35 year old female who is contacted today for a virtual visit This is an established patient of Dr. Izquierdo who retired last year. New patient to me. Reports: Presents for medication refill of her Cymbalta. 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 She [...] (146 lb) 08/04 (more content not included)... [facility] 08-25-2021 Note HNO ID: [id number] Author: Esdras Woods MD Service: ? Author Type: Physician Type: Progress Notes Filed: 08/25/2021 1:15 PM Note Text: DATE OF SERVICE: 08/25/2021 PROCEDURE: In-Office Ablation DIAGNOSIS: Menorrhagia PRE-EVALUATION: Ultrasound done on 05/18/21 EMB done on 08/04/21. Pathology: secretory endometrium INFORMED CONSENT Procedure: In-Office Ablation Service: AIRCRAFT ENGINE ASSEMBLER The risks, benefits and anticipated outcomes of [...] Out Discussion: Completed Physician: Esdras Woods MD Product Support Representative: none We provide toradol: Yes Permit signed [...] none Tolerated sitting: Driven home by designated tower truck driver: Yes, Discharge date: 08/25/2021 Discharge time: 1255 Nurse: Mary Perea RN FOLLOW UP PLAN: 1) Post-procedure instructions reviewed and written information given to patient. 2) Follow up in 3-4 weeks. Call sooner if any problems or questions. [facility] 08-04-2021 Note HNO ID: [id number] Author: Francesca Mcfadden MD Service: ? Author Type: Physician Type: [...] OBTAINED FOR IN OFFICE HYSTEROSCOPY, FRIDA ABLATION. Francesca Gayle MD [facility] 07-28-2021 Note HNO ID: [id number] Author: Francesca Mcfadden MD Service: ? Author Type: Physician Type: [...] L5 SAB1 IAB0 Ectopic0 Multiple0 Live Births5 Pca History LMP: 05/20/2021, Having periods Age at Menarche: Age at First : Age at Menopause: Pca History Comments: Sexual Activity: Yes; Male Contraception: [...] which included preparing to see the patient, taxg-es-uvau patient care, completing clinical documentation, obtaining and/or reviewing separately obtained history, performing a medically appropriate examination, counseling and educating the patient/family/caregiver and ordering medications, tests, or procedures Francesca Gayle MD [facility] 07-27-2021 Note Patient Outreach (NE TNAV) ---- ESPERANZAPATY ([id number]) 1985 F Date Time Provider Department 07/27/21 SUSANNA RODRÍGUEZ During your visit today, we recorded the following information about you: Susanna Rodríguez Population Health Navigator 07/27/2021 11:44 AM Signed POPULATION HEALTH NAVIGATION OUTREACH Action/FYI I left a voice message and a my chart message re: pcp No care everywhere Contact made with patient or family member? NO Pt identified by name and : NO Outreach Outcome/Action Unable to reach patient: Left message [employer] message sent Reason for Outreach Attribution: Provider Off-boarding Payer: Payor: JATINDER / Plan: BLUE CARD PPO OOS / Product Type: PPO / Care Gap Reviewed:: Reminder: Reminder note to check Health Maintenance for items below Health Maintenance items due: COVID-19 VACCINE(1) Never done HEPATITIS C SCREENING Never done INFLUENZA(1) due on 04/19/2021 Advanced Directives Completed: Have you ever planned for future healthcare decisions with a power of deputy commonwealth's attorney, living will, or advance directives? No. Please bring a copy to your next appointment or email to [email or web address] Referrals: N/A Message Sent to Practice: NO Navigation Signature: Susanna Rodríguez Population Health Navigator July 27, 2021 11:43 [...] constipation [K59.09] 10/31/2020 Encounter Status:Closed by [facility] EMERGENCY DEPARTMENT HEALTH NAVIGATOR, SUSANNA Leos on 07/27/21 [facility] 07-27-2021 Note HNO ID: [id number] Author: Susanna [facility] Navigdebra Service: ? Author Type: ? Type: Progress Notes Filed: 07/27/2021 11:44 AM Note Text: POPULATION HEALTH NAVIGATION OUTREACH Action/FYI I left a voice message and a my chart message re: pcp No care everywhere Contact made with patient or family member? NO Pt identified by name and : NO Outreach Outcome/Action Unable to reach patient: Left message [employer] message sent Reason for Outreach Attribution: Provider Off-boarding Payer: Payor: JATINDER / Plan: BLUE CARD PPO OOS / Product Type: PPO / Care Gap Reviewed:: Reminder: Reminder note to check Health Maintenance for items below Health Maintenance items due: COVID-19 VACCINE(1) Never done HEPATITIS C SCREENING Never done INFLUENZA(1) due on 04/19/2021 Advanced Directives Completed: Have you ever planned for future healthcare decisions with a power of deputy commonwealth's attorney, living will, or advance directives? No. Please bring a copy to your next appointment or email to Referrals: N/A Message Sent to Practice: NO Navigation Signature: Susanna Rodríguez [facility] Health Navigator July 27, 2021 11:43 AM [facility] 07-07-2021 Note HNO ID: [id number] Author: Tonya Deluna APRN.CNP Service: ? Author Type: Nurse Practitioner Type: [...] possible retained foreign bodies accounted for. Tonya Deluna APRN.BATTERY CHECKER PROCEDURE: Speculum placed in vagina, IUD string visualized and grasped with ring forceps. ASSESSMENT/PLAN: IUD removed without difficulty, intact, and patient tolerated procedure well. Contraception plans: none Pt is to see Dr Mcfadden to discuss ablation Tonya Deluna APRN.BATTERY CHECKER [facility] 08-05-2015 History of Past i llness Narrative Problem Noted Date Resolved Date Herpes simplex [...] of labor that she was hospitalized in [place] for 4 days at 33 weeks with her last . She denies any labor with her other pregnancies. Signs and symptoms of PTL discussed and the importance of going to the hospital at onset of PTL should it occur. Gerda Holman BSN RN History of anesthesia complications 01/08/2013 09/17/2013 [...] a history of anxiety/depression treated by Dr. Amanda Izquierdo with Zoloft. Pt has a history of [...] of this encounter (statuses as of 02/20/2022) [facility]12-[facility]2015 History of Past illness Narrative* Problem Noted [...] of labor that she was hospitalized in [place] for 4 days at 33 weeks with [...] a history of anxiety/depression treated by Dr. Aamnda Izquierdo with Zoloft. Pt has a history of [...] of this encounter (statuses as of 05/21/2022) [facility] History of Past illness Narrative* Problem Noted [...] of labor that she was hospitalized in [place] for 4 days at 33 weeks with [...] a history of anxiety/depression treated by Dr. Amanda Izquierdo with Zoloft. Pt has a history of [...] of this encounter (statuses as of 06/04/2022) [facility] History of Past illness Narrative* Problem Noted Date Resolved Date Herpes simplex virus (HSV) infection 08/05/2015 04/18/2016 Overview: Will need acyclovir at 36 wks Encounter for supervision of normal in multigravida in third trimester 08/05/2015 04/18/2016 Lumbar disc herniation with radiculopathy 201403/25/2018 Abnormal glucose complicating 05/11/20 13 09/17/2013 Overview: 3 hr GTT normal. First trimester bleeding 01/08/201307/17/ 013 Overview: 01/08/2013Joan saw Dr. Gerber on December 23 for vaginal spotting. An ultrasound was done that revealed an intrauterine at 9 weeks with positive cardiac activity. Patient denies any bleeding since then. Gerda MOLINA RN History of labor 01/08/2013 014 Overview: 01/08/2013 Pt has a history of labor that she was hospitalized in [place] for 4 days at 33 weeks with [...] a history of anxiety/depression treated by Dr. Amanda Izquierdo with Zoloft. Pt has a history of [...] of this encounter (statuses as of 09/03/2022) [facility] Diagnosis Hypothyroidism, acquired Unspecified hypothyroidism documented in this encounter [facility] note* Diagnosis Onset Date Resolution Status Periorbital dermatitis acute Epigastric abdominal pain ch ronic Vaginal christian acute [facility] Work Phone: Evaluation note* Diagnosis Anxiety and depression- Primary Dysthymic disorder documented in this encounter [facility] note* Diagnosis Anxiety and depression Dysthymic disorder documented in this encounter [facility] Advance Directives No Advanced Directives Records FoundDocuments on File Type Date Recorded Patient Scene Painter Expl anation Advance Directive(s) 08/31/2019 1:56 PM Advance Directive(s) 08/24/2019 1:15 PM Advance Directive Response Recorded Date/ Time Living Will No April 30, 2022 2:35pm Power of Technology Officer No April 2:35pm Chief Complaint and Reason for Visit Chief Complaint rash on chin Consult INT LABS CONCERN FOR YEAST INFECTION Reason for Visit Periorbital dermatit is Epigastric abdominal pain Vaginal christian Summary Purpose Family History No Family History Records Found Additional Source Comments Source Comments (unrecognize d section and content) In the event this informatio n is protected by the Federal Confidentiality of Alcohol and Drug Abuse Patient Records regulations: The Federal rules restrict any use of the information to criminally investigate or prosecute any alcohol or drug abuse patient.[facility] the event this information is protected by the Federal Confidentiality of Alcohol and Drug Abuse Patient Records regulations: The Federal rules restrict any use of the information to criminally investigate or prosecute any alcohol or drug abuse patient.[facility] the event this information is protected by the Federal Confidentiality of Alcohol and Drug Abuse Patient Records regulations: The Federal rules restrict any use of the information to criminally investigate or prosecute any alcohol or drug abuse patient.[facility] the event this information is protected by the Federal Confidentiality of Alcohol and Drug Abuse Patient Records regulations: The Federal rules restrict any use of the information to criminally investigate or prosecute any alcohol or drug abuse patient.[facility] Reason for Visit (unrecogniz ed section and content) Reason Comments Refill Request Reason Comments Appointment Care Teams (unrecognized sec tion and content) Alemite Operator Relationship Specialty Start Date End Date Haroon Ugarte APRN.BATTERY CHECKER, DNP [address] [place] [address] PCP - General Family Practice 09/29/21 INFORMATION SOURCE (unrecogn ized section and content) DATE CREATED AUTHOR 06/09/2022 [facility] DATE CREATED AUTHOR AUTHOR'S ORGANIZ ATION 10/12/2024 [facility] FOR RECORDS PERTAINING TO PATIENTS WHO ARE [...] BE BASED ON THE PRIMARY CLINICAL RECORDS. [facility] [employer] [facility]. provides no warranty or guarantee of the accuracy or completeness of information in this document.
[2025-02-05 23:00] VITALS: BP 115/61; PULSE 112; RESP 20; O2SAT 99
[2025-02-05 23:08] LABS: Mucous, Urine 0 SEEN /hpf (<or=2+)
[2025-02-05] MEDS: Ondansetron 4 MG/2 ML Vial IV (23:10)
[2025-02-05] MEDS: Morphine 4 MG/ML Syringe IV (23:10)
[2025-02-05] MEDS: Lorazepam 2 MG/ML WCH Syringe 0.5 MG IV (23:10)
[2025-02-05] MEDS: 0.9% Normal Saline (1000mL) 1,000 ML 999 ML IV (23:10)
[2025-02-05 23:12] LABS: Absolute Lymphocyte Count 0.15 X10^3/uL (0.83-4.51); Basophil# 0.02 X10^3/uL; Basophil% 0.4 % (0-1); Color, Urine Yellow (Yellow); Glucose, Dipstick Normal (Normal); Hematocrit 37.5 % (37-47); Hemoglobin 13.1 g/dL (12.0-15.0); Ketone-Dipstick Negative (Negative); Leukocyte Esterase-Dipstick 25 /ul (Negative); Lymphocyte # 0.15 X10^3/ul (0.83-4.51); Lymphocyte % 2.9 % (19-41); Mean Corp Hgb Conc 34.9 g/dL (32-36); Mean Corpuscular Hgb 30.6 pg (27.0-32.0); Mean Corpuscular Volume 87.6 fL (81-99); Mean Platelet Vol. 10.1 fl (6.2-12.0); Monocyte# 0.05 X10^3/uL; NRBC Flagged by Analyzer 0 % (0-5); Neutrophil # 5.01 X10^3/uL (2.7-7.7); Neutrophil % 95.3 % (47-70); Nitrite-Dipstick Negative (Negative); Occult Blood-Urine 25 /ul (Negative); POSITIVE DIFFERENTIAL YES; POSITIVE MORPHOLOGY YES; Platelet Count 126 K/mm3 (150-450); Protein-Dipstick 30 mg/dl (Negative); RBC Distribution Width CV 11.9 % (11.6-14.6); RBC Distribution Width SD 37.9 fl (35.1-43.9); Red Blood Count 4.28 M/mm3 (4.2-5.4); Urine Bilirubin Dipstick Negative (Negative); Urine Clarity Clear (Clear); Urine Urobilinogen 1 mg/dl (Normal); White Blood Count 5.3 K/mm3 (4.4-11.0)
[2025-02-05 23:17] LABS: Differential Indicated SCAN CRITERIA MET
[2025-02-05 23:23] LABS: D-Dimer Quantitative (DVT/PE) 2.07 FEU/ug/m (0.27-0.49)
--- NOTE | 2025-02-05 23:33 | CT_ITS ---
PROCEDURE: CTA CHEST W/WO CONTRAST 02/05/2025 REASON FOR EXAM: ELEVATED D-DIMER TECHNIQUE: CTA CHEST W/WO CONTRAST Multiplanar Sagittal and Coronal images were obtained. CONTRAST: Isovue-370 VOLUME: 75 mL One or more dose reduction techniques were used (e.g., Automated exposure control, adjustment of the mA and/or kV according to patient size, use of iterative reconstruction technique). RADIATION DOSE SUMMARY: CTDlvol: 8.99 mGy DLP: 253.64 mGycm COMPARISON: None FINDINGS: Normal enhancement of the main pulmonary artery and right and left pulmonary arteries. Normal enhancement of the bilateral peripheral pulmonary arteries. There is no demonstrated pulmonary embolism. Normal thoracic aorta and visualized great vessels. There is no demonstrated aortic dissection. Normal heart and pericardium. Normal mediastinum. Normal hilar regions. Normal visualized trachea and bronchi. The lungs are well expanded. Normal pulmonary parenchyma. Normal pleura. Normal chest wall structures. Normal osseous structures. Normal visualized upper abdomen. CT/CTA Chest W/WO Contrast IMPRESSION: Normal CTA chest examination, without a demonstrated pulmonary embolism or dwaine rial dissection. Reading Location: [place] [address]
[2025-02-05 23:42] LABS: Anion Gap 15 (5-15); BUN 16 mg/dL (4-19); Calcium,Total 9.2 mg/dL (7.6-11.0); Carbon Dioxide 17.8 mmol/L (21.0-32.0); Chloride 102 mmol/L (98-108); Creatinine, Serum 0.89 mg/dL (0.70-1.20); EST Glomerular Filtration Rate 83 (>60); Estimated Creatinine Clearance 80.89 ml/min (50-250); Glucose 146 mg/dL (70-99); Magnesium 1.9 mg/dL (1.5-2.2); Potassium 3.5 mmol/L (3.3-5.1); Sodium Level 135 mmol/L (133-145)
[2025-02-05 23:44] LABS: Lactic Acid 2.7 mmol/L (0.0-2.0)
[2025-02-05 23:45] LABS: Bacteria 3+ /hpf (None Seen); Red Blood Cells-Urine 25-50 SEEN /hpf (0-5); Squamous Epithelial Cells - UA 50-100 SEEN /hpf (5-10); White Blood Cells 25-50 SEEN /hpf (0-5)
[2025-02-05 23:51] LABS: Differential Comment SCANNED
[2025-02-05 23:51] LABS: International Normalized Ratio 1.1; Prothrombin Time (Protime)PT. 14.7 SECONDS (11.7-14.9)
[2025-02-05 23:52] LABS: Partial Thromboplast Time 35.8 Seconds (24.1-36.2)
[2025-02-06] VITALS (12 sets, daily range): BP systolic 95–115; BP diastolic 50–71; PULSE 83–112; RESP 16–18; TEMP 36.5–37.2; O2SAT 95–100; BMI 23.5
[2025-02-06] MEDS: 0.9% Normal Saline (1000mL) 1,000 ML 999 ML IV ×2 (00:08→01:51)
[2025-02-06] MEDS: Ceftriaxone 1 GM/50 ML BAG IV ×2 (00:08→13:54)
--- NOTE | 2025-02-06 00:38 | HP.PCM.HOS_ITS ---
[facility] - General General Date of Admission: 02/06/25 Date of Service: 02/06/25 Chief Complaint: Left Flank/Back Pain and Dizziness. HPI Narrative VINCENT HOPKINS, is a 39 F with a past medical history of hypothyroidism; on levothyroxine, history of dysmenorrhea with adenomyosis; s/p failed ablation, history of renal calculi, depression with anxiety; on duloxetine and doxepin, GERD; with small hiatal hernia followed by Dr. barker of gastroenterology on omeprazole, history of tubal ligation, history of cystoscopy (2017) and OA; with chronic back pain who presents to [facility] ER complaining of Left flank/back pain and dizziness. Ms. Hopkins reports her symptoms began approximately five days prior to admission on January 31, 2025 with the abrupt- onset of dysuria consistent with her previous UTI's. However, when her symptoms only [id number]-irt-[id number] she decided to try to tough it out and hydrate in addition to drinking cranberry juice. Unfortunately, her symptoms worsened with fever, chills, malaise and LLQ abdominal pain that radiated in into her Left flank so she finally decided to go to Urgent Care and was started on oral Bactrim for her UTI - but without improvement after two oral doses so she then decided to come to the ER for further evaluation and treatment. She states she has never been so sick in her life - except when she had COVID-19. She denies related chest pain, SOB, LE edema, palpitations, headache or rash. In the ER she was noted to have a UA positive for Acute cystitis; with microscopic hematuria complicated by signs suspicious for possible early Sepsis with Lactic Acidosis of 2.7 mmol/L and elevated Procalcitonin of 13.2 ng/mL both present on admission with a corresponding CT scan of the abdomen and pelvis this admission positive for bilateral nephrolithiasis without hydronephrosis, hepatomegaly with fatty infiltration, fecal retention in the colon consistent with constipation and umbilical hernia containing fat compounded by elevated d-dimer of 2.07 present on admission and she was then admitted to the PCU for ongoing care under the Sepsis protocol for a stay that is expected to extend beyond 2 midnights. [facility] Medical History Insomnia Physical exam, pre-employment Anxiety History of hiatal hernia Dysmenorrhea Specific phobia Depression Thyroid disease Kidney stones Back pain Gastric reflux Non-smoker Anxiety and depression Home Medications ?Medication ?Instructions ?Recorded ?Last Taken ?Type omeprazole 20 mg capsule,delayed 20 mg PO QHS acid ref lux 08/30/23 02/05/25 21:00 History release levothyroxine 25 mcg tablet 25 mcg PO DAILY thyroid #9 0 tabs 12/31/23 02/05/25 07:00 Rx duloxetine 60 mg capsule,delayed 60 mg PO QHS #90 caps 10/07/24 02/05/25 17:00 Rx release doxepin 10 mg capsule 10 mg PO QHS #30 caps Unknown Rx Allergy/AdvReac Type Severity Reaction Status Date / Time hydrocodone (From Vicodin) AdvReac Nausea/Vom/ Verified 02/05/25 22:20 Diarrhea nitrofurantoin (From AdvReac Nausea Verified 02/05/25 22:20 Macrobid) Family History Grandfather Heart disease Grandfather COPD (chronic obstructive pulmonary disease) Emphysema lung Grandmother Kidney disease Surgical History History of esophagogastroduodenoscopy (EGD) History of cystoscopy History of wisdom tooth extraction, class II edentulism H/O tubal ligation Social History number of children: 5 current occupational status: employed 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 Narrative Review of Systems: Contitutional: Patient Vital Signs Vital Signs Vital Signs: 02/05/25 22:20 02/05/25 23:00 02/06/25 00:09 Temperature 97.2 F L 98 F Temperature Source Temporal Oral Pulse Rate 126 H 112 H 108 H Respiratory Rate 29 H 20 H 18 Blood Pressure 125/48 H 115/61 115/55 L Blood Pressure Mean 73 76 75 Pulse Ox 100 99 97 Oxygen Delivery Method Room Air Room Air Weight Weight: 156 lb 11.979 oz Body Mass Index (BMI) 24.5 Physical Exam Const alert, oriented x3 and average body habitus General Appearance: cooperative HEENT normocephalic, head/scalp atraumatic, hearing grossly normal bilaterally and moist oral mucous membranes Eyes PERRL and EOMs intact bilaterally Neck no lymphadenopathy and supple Resp normal respiratory effort, no retractions, no use of accessory muscles and clear to auscultation bilaterally Cardio regular rate and regular rhythm Cardio Narrative: Mild sinus tachycardia of ~115 bpm noted. GI non-distended GI Narrative: Mild Left-sided abdominal pain radiating into Left flank. Extremity normal to inspection, full ROM and no clubbing, cyanosis or edema Skin Skin Narrative: Patient has no evidence of rash, abscess, wounds or jaundice. Neuro oriented x3, CN's II-XII intact bilaterally, moves all extremities and no focal motor deficits Sensorium / Orientation: awake, alert, oriented to person, oriented to place and oriented to time Speech: speech normal Psych affect normal Results Medical Records Data Attestation: I reviewed the patient's medical records Lab / Micro Data Attestation: I reviewed the patient's lab results. 02/05/25 22:55 02/05/25 22:55 Labs: Laboratory Results - last 24 hr 02/05/25 22:50: PT 14.7, INR 1.1, APTT 35.8 02/05/25 22:55: WBC 5.3, RBC 4.28, Hgb 13.1, Hct 37.5, MCV 87.6, MCH 30.6, MCHC 34.9, RDW Std Deviation 37.9, RDW Coeff of Jamilah 11.9, Plt Count 126 L, MPV 10.1, Immature Gran % (Auto) 0.400, Neut % (Auto) 95.3 H, Lymph % (Auto) 2.9 L, Door % (Auto) 1.0, Eos % (Auto) 0.0, Baso % (Auto) 0.4, Absolute Neuts (auto) 5.0, A bsolute Lymphs (auto) 0.15 L, Nucleated RBC % 0, Differential Comment SCANNED, D -Dimer Quant (PE/DVT) 2.07 H*, Sodium 135, Potassium 3.5, Chloride 102, Carbon Dioxide 17.8 L, Anion Gap 15, BUN 16, Creatinine 0.89, Estim Creat Clear Calc 80.89, Est GFR (MDRD) Non-Af 83, BUN/Creatinine Ratio 18.0, Glucose 146 H, Calcium 9.2, Magnesium 1.9, Procalcitonin 13.20 H, Urine Color Yellow, Urine Clarity Clear, Urine pH 7.0, Ur Specific [place] 1.010, Urine Protein 30 H, Urine Glucose (UA) Normal, Urine Ketones Negative, Urine Occult Blood 25 H, Urine Nitrite Negative, Urine Bilirubin Negative, Urine Urobilinogen 1 H, Ur Leukocyte Esterase 25 H, Urine RBC 25-50 SEEN, Urine WBC 25-50 SEEN, Ur Squamous Epith Cells 50-100 SEEN, Urine Bacteria 3+, Urine Mucus 0 SEEN 02/05/25 23:04: Lactic Acid 2.7 H* Imaging Radiology Impression Abdomen/Pelvis CT 02/05/25 22:53 IMPRESSION: 1. Bilateral nephrolithiasis without hydronephrosis. 2. Hepatomegaly with fatty infiltration. 3. Fecal retention in the colon consistent with constipation. 4. Umbilical hernia containing fat. Reading Location: [facility] Chest CTA 02/05/25 23:33 IMPRESSION: Normal CTA chest examination, without a demonstrated pulmonary embolism or arterial dissection. Reading Location: [place] [address] Assessment & Plan Assessment/Plan (1) Acute cystitis with hematuria: (2) Sepsis: QUALIFIERS: Sepsis acute organ dysfunction status: without acute organ dysfunction Sepsis type: sepsis due to unspecified organism Qualified Code(s): A41.9 - Sepsis, unspecified organism (3) Lactic acidosis: (4) Elevated procalcitonin: (5) Elevated d-dimer: (6) Constipation: QUALIFIERS: Constipation type: unspecified constipation type Q ualified Code(s): K59.00 - Constipation, unspecified PLAN: Plan 1. UA positive for Acute cystitis; with microscopic hematuria complicated by signs suspicious for possible early Sepsis with Lactic Acidosis of 2.7 mmol/L and elevated Procalcitonin of 13.2 ng/mL both present on admission - Admit to PCU for treatment under the Sepsis protocol. Continue empiric IV ceftriaxone begun in the ER and await culture and sensitivity data. Give promethazine prn for nausea and vomiting. Give acetaminophen prn for [id number] (level 1- 5/10) pain or fever. Give morphine IV prn for severe (level 6-10/10) pain. 2. CT scan of the abdomen and pelvis this admission positive for bilateral nephrolithiasis without hydronephrosis, hepatomegaly with fatty infiltration, fecal retention in the colon consistent with constipation and umbilical hernia containing fat complicating #1 - We will give MiraLax and lactulose to stimulate BM. 3. Elevated d-dimer of 2.07 present on admission compounding #1 & #2 - Doubt VTE. Check bilateral LE Doppler plus CTA of chest with IV contrast to confirm suspicion. 4. GERD; with small hiatal hernia followed by Dr. barker of gastroenterology on omeprazole - Maintain PPI. 5. Depression with anxiety; on duloxetine and doxepin - Resume home regimen. 6. Hypothyroidism; on levothyroxine - Check TSH and continue levothyroxine. 7. History of dysmenorrhea with adenomyosis; s/p failed ablation - Noted. 8. History of renal calculi - Noted. 9. History of tubal ligation - Noted for the sake of completeness. 10. History of cystoscopy (2018) - Noted. 11. OA; with chronic back pain - We will follow pain regimen and scales outlined in #1. 12. DVT prophylaxis - Enoxaparin 40 mg sq daily plus SCD's. Total time: Approximately (but not less than) 55 minutes. Sepsis Attestation Sepsis Alert: Yes Sepsis Attestation: Sepsis Ruled Out Date exam was performed: 02/06/25 Time exam was performed: 01:05 Possible Source of Sepsis: Genitourinary Sepsis Organ Dysfunction Criteria Present: Lactic Acid > 2 mmol/L Fluid Resuscitation Fluid resuscitation indicated?: Yes Fluid Resuscitation ordered: 30 ml/kg fluid bolus ordered Amount of fluid ordered: 2 Sepsis Note Date exam was performed: 02/06/25 Time exam was performed: 05:05 Sepsis Attestation: Sepsis re-evaluation was performed Response to fluids: Fluid responsive hypotension Charges/Coding Visit Charges Inpatient E&M: 91001 Init Hosp L2
--- NOTE | 2025-02-06 00:41 | EDS_ITS ---
HPI History of Present Illness Chief Complaint: Flank Pain Informant: patient and spouse/S.O. Narrative Narrative: Patient is a 39-year-old female with past medical history of hypothyroidism anxiety and depression and scleroderma. She states that over the last few days she has had left-sided back/flank pain. She states that there has been no recent trauma or excessive activity. She states that she went to an urgent care today and reportedly had a urine sample that was positive for infection and was placed on Bactrim. She states she took 2 doses today but this evening she was feeling lightheaded like she was going to pass out. Therefore with the worsen ing symptoms she presents for evaluation. [facility] Medical History Insomnia Physical exam, pre-employment Anxiety History of hiatal hernia Dysmenorrhea Specific phobia Depression Thyroid disease Kidney stones Back pain Gastric reflux Non-smoker Anxiety and depression Home Medications ?Medication ?Instructions ?Recorded ?Last Taken ?Type omeprazole 20 mg capsule,delayed 20 mg PO QHS 08/30/23 03/12/24 History release levothyroxine 25 mcg tablet 25 mcg PO DAILY thyroid #9 0 tabs 12/31/23 03/13/24 Rx duloxetine 60 mg capsule,delayed 60 mg PO QHS #90 caps 10/07/24 Unknown Rx release doxepin 10 mg capsule 10 mg PO QHS #30 caps Unknown Rx Allergy/AdvReac Type Severity Reaction Status Date / Time hydrocodone (From Vicodin) AdvReac Nausea/Vom/ Verified 02/05/25 22:20 Diarrhea nitrofurantoin (From AdvReac Nausea Verified 02/05/25 22:20 Macrobid) Family History Grandfather Heart disease Grandfather COPD (chronic obstructive pulmonary disease) Emphysema lung Grandmother Kidney disease Surgical History History of esophagogastroduodenoscopy (EGD) History of cystoscopy History of wisdom tooth extraction, class II edentulism H/O tubal ligation Social History number of children: 5 current occupational status: employed current occupation: [employer] Smoking Status: Never smoker alcohol intake: current alcohol intake frequency: holidays/special occasions only substance use type: does not use caffeine: No frequency: 3-4 times per week seatbelt use: always do you feel safe at home: Yes 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 [employer] ROS ED Constitutional Constitutional ED: Denies chills or fever(s) ENT ENT ED: Denies sore throat Cardiovascular Cardiovascular: Reports racing heartbeat and other Details: Positive lightheadedness ; Denies chest pain or palpitations Respiratory/Chest Respiratory/Chest: Denies cough or dyspnea Gastrointestinal Gastrointestinal: Reports nausea; Denies abdominal pain, diarrhea or vomiting Genitourinary Genitourinary ED: Reports urinary frequency; Denies dysuria or hematuria Musculoskeletal Musculoskeletal: Reports back pain Integumentary Denies rash Neurologic Neurologic: Denies headache(s) Psychiatric Psychiatric: Reports anxiety Hematologic/Lymphatic Hematologic/Lymphatic: Denies easy bleeding or easy bruising EXAM Physical Exam Const Vital Signs: 02/05/25 22:20 02/05/25 23:00 02/06/25 00:09 Temperature 97.2 F L 98 F Temperature Source Temporal Oral Pulse Rate 126 H 112 H 108 H Respiratory Rate 29 H 20 H 18 Blood Pressure 125/48 H 115/61 115/55 L Blood Pressure Mean 73 76 75 Pulse Ox 100 99 97 Oxygen Delivery Method Room Air Room Air 02/06/25 00:40 Temperature 98.1 F Temperature Source Pulse Rate 112 H Respiratory Rate 16 Blood Pressure 113/59 L Blood Pressure Mean 77 Pulse Ox 99 Oxygen Delivery Method Positive well nourished and well developed General Appearance ED: well developed; Negative for pallor HEENT Reports moist mucous membranes HEENT Narrative: No tongue or lip swelling no lesions no airway edema or compromise Eyes PERRL and EOMs intact bilaterally General Eye ED: Negative for pale conjunctiva or scleral icterus Neck supple and no JVD Neck Narrative: No nuchal rigidity or meningeal signs Resp clear to auscultation bilaterally Resp Narrative: Patient is tachypneic but otherwise no nasal flaring retractions or accessory muscle use Breath sounds are clear throughout without rales wheezes or rhonchi Cardio regular rhythm Rate: tachycardic and other Other Details: Tachycardic rate with regular rhythm Radial and carotid pulses are equal and symmetric No murmurs rubs or gallops GI normal to inspection, nondistended, normoactive bowel sounds, non-tender, non- distended and no masses GI Narrative: No organomegaly or suprapubic tenderness noted Auscultation: normoactive bowel sounds Palpation: soft Back/Spine Back/Spine Narrative: Left CVA pain present Extremity normal to inspection Extremity Narrative: No asymmetric edema no pitting edema negative Homans' sign bilaterally Neuro oriented x3, CN's II-XII intact bilaterally and no sensory deficits noted Sensorium / Orientation: alert Motor Exam: strength 5/5 throughout Psych Mood & Affect: anxious Skin no rashes or lesions noted, no wounds and skin turgor normal Skin Narrative: Capillary refill is less than 3 seconds No overlying soft tissue changes to suggest trauma or infection General Skin Exam: Negative for jaundice or pallor MDM MDM MDM Narrative Medical decision making narrative: Patient arrived to the ER afebrile. However she was tachycardic and tachypneic. She denied bouts of vomiting or diarrhea to suggest dehydration as a cause. She states that there has been no spontaneous or excessive bleeding going against acute blood loss anemia. She denies any history of DVT or PE but does states she recently travel to and from [place] by car. With h er unilateral flank pain and reported UTI from urgent care she also could have pyelonephritis and potentially developing sepsis. Patient has a remote history of kidney stones as well and this could be potentially a obstructed stone or septic stone. Secondary to this basic blood work was obtained with a D-dimer and urine sample. Urine sample showed +3 bacteria as well as multiple white blood cells but there is librado contamination with 50-100 epithelial cells. The patient's white blood cell count and neutrophil count are normal going against an infectious process but her lactic acid is elevated as well as her procalcitonin is greatly increased at 13. These findings are concerning for developing infection. Therefore a urine culture and blood cultures were obtained and patient was started on Rocephin as UTI/pyelonephritis is the most likely cause of her symptoms. Based on her tachycardia and lactic acidosis she was also given 3 L of normal saline. With IV fluids and pain control her heart rate and respiratory rate began to normalize. She remained afebrile in the ER. However based on her tachycardia tachypnea lactic acidosis and elevated procalcitonin value there is concern that she is approaching sepsis. Therefore I feel her safest option is to be admitted to the hospital where she can receive IV antibiotics and we can monitor her cultures to ensure she is on the proper medication. The case was discussed with the hospitalist secondary to this and he agrees with this plan of care and therefore the patient will be admitted to his service for continued observation and treatment. I did perform a CTA of the chest as her D-dimer was elevated and she was tachycardic with recent travel. This revealed no sign of PE or dissection or atypical pneumonia. History & Record Review Discussion w/independent historian: Patient and Significant other Lab Data Attestation: I reviewed the patient's lab results. Labs: Laboratory Results - last 24 hr 02/05/25 02/05/25 02/05/25 22:50 22:55 23:04 WBC 5.3 RBC 4.28 Hgb 13.1 Hct 37.5 MCV 87.6 MCH 30.6 MCHC 34.9 RDW Std Deviation 37.9 RDW Coeff of Jamilah 11.9 Plt Count 126 L MPV 10.1 Immature Gran % (Auto) 0.400 Neut % (Auto) 95.3 H Lymph % (Auto) 2.9 L [place] % (Auto) 1.0 Eos % (Auto) 0.0 Baso % (Auto) 0.4 Absolute Neuts (auto) 5.0 Absolute Lymphs (auto) 0.15 L Nucleated RBC % 0 Differential Comment SCANNED PT 14.7 INR 1.1 APTT 35.8 D-Dimer Quant (PE/DVT) 2.07 H* Sodium 135 Potassium 3.5 Chloride 102 Carbon Dioxide 17.8 L Anion Gap 15 BUN 16 Creatinine 0.89 Estim Creat Clear Calc 80.89 Est GFR (MDRD) Non-Af 83 BUN/Creatinine Ratio 18.0 Glucose 146 H Lactic Acid 2.7 H* Calcium 9.2 Magnesium 1.9 Procalcitonin 13.20 H Urine Color Yellow Urine Clarity Clear Urine pH 7.0 Ur Specific [place] 1.010 Urine Protein 30 H Urine Glucose (UA) Normal Urine Ketones Negative Urine Occult Blood 25 H Urine Nitrite Negative Urine Bilirubin Negative Urine Urobilinogen 1 H Ur Leukocyte Esterase 25 H Urine RBC 25-50 SEEN Urine WBC 25-50 SEEN Ur Squamous Epith Cells 50-100 SEEN Urine Bacteria 3+ Urine Mucus 0 SEEN Radiography Diagnostic Testing: Clinical Impression(s) from Imaging Studies Abdomen/Pelvis CT 02/05/25 22:53 IMPRESSION: 1. Bilateral nephrolithiasis without hydronephrosis. 2. Hepatomegaly with fatty infiltration. 3. Fecal retention in the colon consistent with constipation. 4. Umbilical hernia containing fat. Reading Location: [facility] Chest CTA 02/05/25 23:33 IMPRESSION: Normal CTA chest examination, without a demonstrated pulmonary embolism or arterial dissection. Reading Location: [place] [address] Management Discussion w/another healthcare provider: Hospitalist Discharge Plan Dx/Rx/DC Orders Clinical Impression: Pyelonephritis, Lactic acidosis, Elevated procalcitonin, Hypothyroidism Disposition Disposition: Acute Care Hospital [facility] Discharge Date/Time: 02/06/25 01:15
--- OUTSIDE RECORDS SUMMARY | 2025-02-06 01:13 | XMS RPT_ITS | CCD ---
Author Organization [facility] Care Team Providers Care Gis Mapping Technician Name Role Phone Nicola HURST, Nancy Shelby Unavailable MITESH Matute RN, Veronika Strong Unavailable Unavaillizet Ugarte ELECTRO OPTICAL ENGINEER.TOBACCO BUYER, DNP, Haroon Primary Care Provider Gisselle CURING ROOM SUPERVISOR, CURING ROOM SUPERVISOR-C Edith Primary Care Provider [facility] CURING ROOM SUPERVISOR, CURING ROOM SUPERVISOR-C Edith Referring Provider SAADIA Cody Attending Provider [phone] Friend, Dr. Maldonado Attending Provider Marge CURING ROOM SUPERVISOR, CURING ROOM SUPERVISOR-C Haroon Primary Care Provider Marge CURING ROOM SUPERVISOR, CURING ROOM SUPERVISOR-C Haroon Referring Provider SAADIA Farrar Attending Provider [...] HCL] Drug Allergy 0 Other: See Comments [facility] (5 sources) NITROFURANTOIN, MACROCRYSTALS / Nitrofurantoin, Monohydrate; Translations: [NITROFURANTOIN MONOHYD/M-CRYST] Drug Allergy 9 Other: See Comments [facility] (1 source) HYDROcodone Drug Allergy 2 Nausea/Vom/Diar chaitanya [facility] Work Phone: (1 source) HYDROcodone Drug Allergy 5 [facility] Repository Medications Current Medications Medication Drug [...] Comment on above: Take 1 capsule by [facility] once daily. mupirocin 0.02 mg/mg topical [...] Start: ZOLOFT 100 MG TABS SERTRALINE HCL [id number] Nancy Petersen MD traMADol hydrochloride 50 mg [...] Value Interpretation Reference Range Facility MR/BMS. 10-07-2024 [place] [address] OFFICE VISIT Date of Service: 10/07/24 MR#: [id number] Acct: [id number] Name: PATY HOPKINS Rep #: [id number] : 1985 Provider: Dr. 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 Patient reports that she was fired from the [employer]. Is currently working 3rd shift at [place], but does enjoy but the shift is [...] -We will (more content not included)... 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[facility] Smoking Status: Never smoker alcohol intake: current alcohol intake frequency: holidays/special occasions only substance use type: does not use caffeine: No frequency: 3-4 times per week seatbelt use: always do you feel safe at home: Yes additional social history: 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- 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 [employer] Chief Complaint: 2w incision check Details: PATY [...] Trent Signature: Date (if applicable) CC: Normal [facility] Office Visit Reporton 2023 Office Visit Report [facility] [address] [place] [address] OFFICE VISIT Date of Service: 05/11/24 MR#: [id number] Acct: [id number] Patient: PATY HOPKINS Rep #: [id number] : 1985 Provider: SAADIA Sifuentes Age/Sex: 38/F Location: [facility] Status: Signed Intake Vital Signs 05/06/24 16:00 Height 5 ft 7 in Intake Visit Reasons: TB TEST/SELF PAY Chief Complaint: 2w incision check Allergies hydrocodone (From Vicodin) Adverse Reaction (Verified 05/06/24 15:58) Nausea/Vom/Diarrhea Office Procedures [facility] Billing Sheet Testing TB Test: Yes 07/22/24 1345 Date Obey ZEE Cosignclaritza Signature: Date (if applicable) CC: Normal [facility] Office Visit Report [facility] [address] [place] [address] OFFICE VISIT Date of Service: 05/14/24 MR#: [id number] Acct: [id number] Patient: PATY HOPKINS Rep #: [id number] : 1985 Provider: SAADIA Woods Age/Sex: 38/F Location: [facility] Status: Signed Intake Vital Signs 05/06/24 16:00 05/14/24 11:12 Height 5 ft 7 in 5 ft 7 in Intake Visit Reasons: TB READ Chief Complaint: 2w incision check Allergies hydrocodone (From Vicodin) Adverse Reaction (Verified 05/06/24 15:58) Nausea/Vom/Diarrhea 07/23/24 0645 Date Ed ZEE Cosigner Signature: Date (if applicable) CC: Normal [facility] Urgent Care Visit Reporton 0 05-11-2024 Urgent Care Visit Report [facility] [address], [address] [place] [address] OFFICE VISIT Date of Service: 05/11/24 MR#: [id number] Acct: [id number] Name: PATY HOPKINS Rep #: [id number] : 1985 Provider: SAADIA Sifuentes Age/Sex: 38/F Location: [facility] Status: Signed Intake Vital Signs 05/06/24 16:00 Height 5 ft 7 in Intake Visit Reasons: PHYSICAL/SELF PAY Chief Complaint: 2w incision check Allergies hydrocodone (From Vicodin) Adverse Reaction (Verified 05/06/24 15:58) Nausea/Vom/Diarrhea [facility] Medical History (Updated 05/11/24 @ 12:13 by [...] 5 current occupational status: employed 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[facility] [employer] Smoking Status: Never smoker alcohol intake: current alcohol intake frequency: holidays/special occasions only substance use type: does not use caffeine: No frequency: 3-4 times per week seatbelt use: always do you feel safe at home: Yes additional social history: 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 Patient reports that surgery went largely well. Has been working at [employer] but has had way less stress there. Also has been picking up some shifts at [employer] [facility]. Home life has remained very stressful. Sleep has been largely good. Medications are largely working well. Relationship with mother is doing largely well. 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 Denies SI/HI or AVH. [...] again karuna (more content not included)... Normal [facility] Family Centered Specialist Office Visit Reporton 04-24-2024 Family Centered Specialist Office Visit Report [facility] [address], [address] [place] [address] OFFICE VISIT Date of Service: 04/24/24 MR#: [id number] Acct: [id number] Name: PATY HOPKINS Rep #: [id number] : 1985 Provider: Dr. 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[facility] [employer] Smoking Status: Never smoker alcohol intake: current alcohol intake frequency: holidays/special occasions only substance use type: does not use caffeine: No frequency: 3-4 times per week seatbelt use: always do you feel safe at home: Yes additional social history: Garth- 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[facility] [employer] Smoking Status: Never smoker alcohol intake: current alcohol intake frequency: holidays/special occasions only substance use type: does not use caffeine: No frequency: 3-4 times per week seatbelt use: always do you feel safe at home: Yes additional social history: 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- 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 [employer] HPI 2 wk TRH BS possible LSO [...] Ruggiero Signature: Date (if applicable) CC: Normal [facility] Bedside Glucoseon 03-13-2024 FINGERSTICK GLU 82 mg/dL Normal 74-106 [facility] Comment on above: Result Comment: FLAVIO QUACH OF PATIENT CARE PER NURSING PROTOCOL Performed By: #### L 501.080 #### [facility] [address] [place], [address] Discharge Instructionon 02-17 Discharge Instruction [facility] Medical Records Department [address] [place] [address] Instructions for Home/Discharge Instructions 03/13/24 0711 MR#: [id number] Acct: [id number] Name: PATY HOPKINS Rep #: [id number] : 1985 38 From: Mray Avitia DO PCP: JASE Argueta Status:REG [facility] Discharge Instructions Diet Discharge Diet: No restrictions [...] Primary Care Provider: Veronika Alexandre Print Language: Cambodian Discharge Orders/Prescriptions Prescriptions: New ibuprofen 800 mg [...] 03/13/24 0716 Mary Bill Cuello DO CC: CURING ROOM SUPERVISOR-C Veronika Alexandre Signed [facility] MR/POSTOP.[facility] 03-13-2024 MR/POSTOP.[facility] Medical Records Department [address] [place] [address] Anesthesia Postop Eval I 03/13/24 0948 MR#: [id number] Acct: [id number] Name: PATY HOPKINS Rep #: [id number] : 1985 38 From: Devon Wilson CRNA PCP: JASE Argueta Status:REG SDC Y Race: C Location: [place] [address] Anesthesia: Postop Eval I Current Vital Signs [...] CRNA Cosigner Signature: Date CC: Signed Normal [facility] MR/AWMAGQED9om 03-13-2024 MR/POSTOPAN2 [facility] Medical Records Department [address] [place] [address] Anesthesia Postop Eval II 03/13/24 1302 MR#: [id number] Acct: [id number] Name: PATY HOPKINS Rep #: [id number] : 1985 38 From: Willis Briseno MD PCP: Veronika Alexandre CURING ROOM SUPERVISOR-C Status:REG SDC Y Race: C Location: [place] [address]- Anesthesia Postop Eval I Sum Postop Eval Completion status Anesthesia document: Postop Eval 1 completed: Yes Anesthesia Postop Eval I Summary Anesthesia Postop Eval I Summary: Anesthesia Postop Eval I: Assessment Summary Airway patent Yes 03/13/24 09:49 TELLER VAULT.JBLOU Spontaneous unlabored Yes 03/13/24 09:49 TELLER VAULT.JBLOU respirations Mental status Awake,Calm 03/13/24 09:49 TELLER VAULT.JBLOU nausea No 03/13/24 09:49 TELLER VAULT.JBLOU Vomiting No 03/13/24 09:49 TELLER VAULT.JBLOU Anesthesia Postop Eval I: Fluid Summary Crystalloid volume administer 1,500 03/13/24 09:49 TELLER VAULT.JBLOU (ml) Colloids volume administered ( ml) Blood Product volume administered (ml) Total IV fluid infused 1,500 03/13/24 09:49 TELLER VAULT.JBLOU Anesthesia Postop Eval I: Summary Notes Anesthesia Complication No 03/13/24 09:49 TELLER VAULT.JBLOU Anesthesia Complication Comment: Post-operative progress note Anesthesia: Postop Eval II Evaluation Mental status: Awake and Calm Pain Level: 1 nausea: No Vomiting: No Complications Anesthesia Complication: No 03/13/24 1302 Date Willis Briseno MD Cosigner Signature: Date CC: Signed Normal [facility] Operative Reporton 4 Operative Report [facility] Medical Records Department [address] [place] [address] Operative Report 03/13/24 0934 MR#: [id number] Acct: [id number] Name: PATY HOPKINS Rep #: [id number] : 1985 38 From: Mary Avitia DO PCP: ANNMARIE ArguetaC Status:REG [facility] Location: [place] [address] Problems Associated Problem List Diagnoses (1) Menorrhagia [...] consent form was signed. Surgeon: Mary Avitia fermentation operator: Rafa Ambrose Type of Anesthesia: General [...] Next a left upper quadrant 8 mm assistant branch manager port site was placed. The patient was [...] No sutu (more content not included)... Normal [facility] ,Urineon 03-13-2024 Beta HCG ( test) Ql (U) Negative Normal [facility] Comment on above: Result Comment: Very dilute urine specimens, as indicated by a low specific gravity, may not contain signs and displays sales representative levels of hCG. If is still suspected, a first morning urine specimen should be collected 48 hours later and tested. Performed By: #### L 400.7600 ####[facility] [address] [place], [address] Surgery Specimen Level Von 0 03-13-2024 Surgery Specimen Level V Patient Age/Sex Location Account Attending Physician PATY HOPKINS 38/F [facility] [id number] Maikel Fowler Specimen: [id number] Received: 03/13/24 Status: VALENTINE Antoine Num: [id number] Spec Type: HYSTERECT Subm Dr: Dr. Mary [...] largest cyst measures 0.6cm in greatest dimension. Erection Shop Supervisor sections are submitted in twelve cassettes as follows: 1 - anterior cervix, 2 - posterior cervix, 3 4 - anterior uterine wall, 5 6 - posterior uterine wall, 7- nodular mass, entirely submitted, 8- right fallopian tube, 9- proximal portion of the right Patient Age/Sex Location Account Attending Physician PATY HOPKINS 38/F [facility] [id number] Maikel Fowler fallopian tube with solid nodular cut surfaces, 10- left fallopian tube, 11 and 12- left ovary SJ: 03/13/2024 TC:1 CPT: 86384 Patient Age/Sex Location Account Attending Physician PATY HOPKINS 38/F [facility] [id number] Maikel Fowler Signed (signature on file) Dr. Eyad Henson MD 03/16/24 1052 Normal [facility] Comment on above: Performed By: #### P SUV #### [facility] 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 She was evaluated by [facility] services and underwent mammogram and ultrasound. Right [...] gait, abnor (more content not included)... Normal [facility] Magnesiumon 03-06-2024 Magnesium [Mass/Vol] 2.1 mg/dL Normal 1.6-2.6 [facility] Comment on above: Performed By: #### L 501.5200 ####[facility] [address] [place], [address] CBC-Complete Blood Cnt No Di ffon 03-05-2024 Erythrocyte distribution width (RBC) [Ratio] 11.9 % Normal 11.6-14.6 [facility] Comment on above: Performed By: #### L 501.9520, L100.0500 #### [facility] [address] [place], [address] Hematocrit (Bld) [Volume fraction] 41.5 % Normal 37-47 [facility] Comment on above: Performed By: #### L 501.9520, L100.0500 #### [facility] [address] [place], [address] Hemoglobin (Bld) [Mass/Vol] 14.0 g/dL Normal 12.0-15.0 [facility] Comment on above: Performed By: #### L 501.9520, L100.0500 #### [facility] [address] [place], [address] MCH (RBC) [Entitic mass] 30.4 pg Normal 27.0-32.0 [facility] Comment on above: Performed By: #### L 501.9520, L100.0500 #### [facility] [address] [place], [address] MCHC (RBC) [Mass/Vol] 33.7 g/dL Normal 32-36 [facility] Comment on above: Performed By: #### L 501.9520, L100.0500 #### [facility] [address] [place], [address] MCV (RBC) [Entitic vol] 90.2 fL Normal 81-99 [facility] Comment on above: Performed By: #### L 501.9520, L100.0500 #### [facility] [address] [place], [address] Platelet mean volume (Bld) [Entitic vol] 10.0 fL Normal 6.2-12.0 [facility] Comment on above: Performed By: #### L 501.9520, L100.0500 #### [facility] [address] [place], [address] Platelets (Bld) [#/Vol] 227 10*3/uL Normal 150-450 [facility] Comment on above: Performed By: #### L 501.9520, L100.0500 #### [facility] [address] [place], [address] RBC (Bld) [#/Vol] 4.60 10*6/uL Normal 4.2-5.4 [facility] Comment on above: Performed By: #### L 501.9520, L100.0500 #### [facility] [address] [place], [address] RDW SD 38.9 fl Normal 35.1-43.9 [facility] Comment on above: Performed By: #### L 501.9520, L100.0500 #### [facility] [address] [place], [address] WBC (Bld) [#/Vol] 7.1 10*3/uL Normal 4.4-11.0 [facility] Comment on above: Performed By: #### L 501.9520, L100.0500 #### [facility] [address] [place], [address] Family Centered Specialist Office Visit Reporton 03-05-2024 Family Centered Specialist Office Visit Report [facility] Department [address] [place] [address] OFFICE VISIT Date of Service: 03/05/24 MR#: [id number] Acct: [id number] Name: PATY HOPKINS Tae Rep #: [id number] : 1985 Provider: Dr. Mary Boucher DO Age/Sex: 38/F Location: [facility] Status: Signed Intake Vital Signs 01/20/24 11:50 02/26/24 14:25 03/05/24 15:01 03/05/24 15:03 Height 5 ft 7 in 5 ft 7 in 5 ft 7 in 5 ft 7 in Weight: 141 lb 6 oz BMI 22.1 BP 116/74 107/69 Blood Pressure Location Rt brachial Position Sitting Pulse 80 Pulse Source Monitor Intake Visit Reasons: TRH BS possible LSO Pressure Sealer And Tester Required: No Is patient in pain?: No [...] menopausal: No Patient : No : [facility] History Anxiety History of hiatal hernia [...] 5 current occupational status: employed 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 She is a 38 year old (vaginal deliveries) who presents for surgical consult. She tried and failed an ablation procedure at [facility] 4 years ago. she is now using ocps despite a prior tubal ligation. Ultrasound shows an 11 cm uterus. She c/o persistent pain on her left side. us does not indicate a problem there however. [id number] STUDY: ULTRASOUND OF THE FEMALE PELVIS - [...] of l (more content not included)... Normal [facility] Thyroid Stim Hormone (TSH)on 03-05-2024 TSH 1.62 uIU/mL Normal 0.358-3.74 [facility] Comment on above: Performed By: #### L 345.8340, L100.0500 #### [facility] [place], [address] Type AND Screen - PAT ONLYon 03-05-2024 ABO and Rh group Nom (Bld) Blood group O Rh(D) positive Normal [facility] Comment on above: Order Comment: Surge ry Date: 03/13/24Reason for Laboratory Test [id number] Performed By: #### B TSPAT ####[facility] [address] [place], [place], [id number] MR/BMS.BPon 02-26-2024 MR/BMS.BP [facility] ry [address] [place], [place] [address] OFFICE VISIT Date of Service: 02/26/24 MR#: [id number] Acct: [id number] Name: PATY HOPKINS Rep #: [id number] : 1985 Provider: Dr. Obey Pascual se, DO Age/Sex: 38/F Location: [facility] Status: Signed Intake Vital Signs 11/27/23 14:22 01/20/24 11:50 02/26/24 14:06 02/26/24 14:25 Height 5 ft 7 in 5 ft 7 in 5 ft 7 in 5 ft 7 in BP 116/74 Blood Pressure Location Rt brachial Position Sitting Pulse 80 Pulse Source Monitor BP Intake Visit Reasons: 3 M FU Pressure Sealer And Tester Required: No Accompanied by: Self Is patient [...] 5 current occupational status: employed current occupation: [employer] [facility] [employer] Smoking Status: Never smoker alcohol intake: current alcohol intake frequency: holidays/special occasions only substance use type: does not use caffeine: No frequency: 3-4 times per week seatbelt use: always do you feel safe at home: Yes additional social history: 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 Has been very anxious secondary [...] Continue cymbalt (more content not included)... Normal [facility] Family Centered Specialist Office Visit Reporton 01-20-2024 Family Centered Specialist Office Visit Report [facility] [address] [place] [address] OFFICE VISIT Date of Service: 01/20/24 MR#: [id number] Acct: [id number] Name: PATY HOPKINS Rep #: [id number] : 1985 Provider: Dr. 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 She tried and failed an ablation procedure at [facility] 4 years ago. she is now [...] Hypothyroidism type: unspecified CPT Codes Endometrial Biopsy (64687) Assessment and Plan Assessment and Plan (1) Menorrhagia with regular cycle: Status: Acute (2) Dysmenorrhea: Status: (more content not included)... Normal [facility] Surgery Specimen Level Rojelio 01-20-2024 Surgery Specimen Level IV Patient Age/Sex Location Account Attending Physician [facility]INS 38[id number] Dr. Mary Avitia, D Specimen: [id number] Received: 01/20/24 Status: VALENTINE Antoine Num: [id number] Spec Type: ENDOM BX/C Subm Dr: Dr. Mary Avitia, DO HEAD OPERATION: Endometrial biopsy PRE-OP DIAGNOSIS: Menorrhagia TISSUE SUBMITTED: Endometrial lining MICROSCOPIC DIAGNOSIS Endometrium, biopsy: Secretory endometrium. [facility] 01/22/2024 MICROSCOPIC DESCRIPTION Slides are reviewed. GROSS DESCRIPTION Received is one container labeled with the patient's name and not further designated. The specimen consists of multiple irregular fragments of pink soft tissue that in aggregate measure 2.5 x 1.0 x 0.1 cm. The specimen is totally submitted in one cassette. [facility] 01/21/2024 TC:5 CPT:65054 Patient Age/Sex Location Account Attending Physician PATY HOPKINS 38/F [facility] [id number] Maikel Fowler Signed (signature on file) Dr. Hector Chau, 01/22/24 1047 Normal [facility] Comment on above: Performed By: #### P SUIV ####[facility] [id number] [place], [place], [id number] Family Centered Specialist Office Visit Reporton 12-18-2023 Family Centered Specialist Office Visit Report [facility] Emergency Department [address] [place] [address] OFFICE VISIT Date of Service: 12/18/23 MR#: [id number] Acct: [id number] Name: PATY HOPKINS Rep #: [id number] : 1985 Provider: JASE aggarwal Age/Sex: 38/F Location: [facility] Status: Signed Intake Vital Signs 09/25/23 11:33 11/27/23 14:22 12/18/23 13:05 12/18/23 13:10 Height 5 ft 7 in 5 ft 7 in 5 ft 7 in 5 ft 7 in Weight: 142 lb BMI 22.2 BP 110/72 126/72 H Blood Pressure Location Rt brachial Position Sitting Pulse 77 Pulse Source Monitor Intake Visit Reasons: 3 M FU Chief Complaint: 3 mo f/u Pressure Sealer And Tester Required: No Is patient in pain?: No [...] 5 current occupational status: employed 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 States she has not had any improvement in symptoms and feels more sad on these oral contraceptives. She has had an ablation at [facility] 2021. She is wanting to proceed [...] 2RF Discontinued (more content not included)... Normal [facility] MR/BMS.BPon 11-27-2023 MR/BMS.BP [facility] [address], [address] [place] [address] OFFICE VISIT Date of Service: 11/27/23 MR#: [id number] Acct: [id number] Name: PATY HOPKINS Rep #: [id number] : 1985 Provider: Dr. Obey Pascual se, DO Age/Sex: 38/F Location[place] [facility] Status: Signed Intake Vital Signs 08/28/23 14:38 09/25/23 11:33 11/27/23 14:10 11/27/23 14:22 Height 5 ft 7 in 5 ft 7 in 5 ft 7 in 5 ft 7 in BP 110/72 Blood Pressure Location Rt brachial Position Sitting Pulse 77 Pulse Source Monitor BP Intake Visit Reasons: 3 M FU Pressure Sealer And Tester Required: No Accompanied by: Self Is patient [...] to the office today for follow up. 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 [facility] 06-01-2022 PRABHAKAR Telephone (CHELSEY) -- PATY HOPKINS ([id number]) 1985 F Date Time Provider Department 06/01/22 [...] Date Reviewed: 09/29/2021 Reviewed by: Brianna Saeed Stopping Builder - Fully Assessed Reason for Visit: Appointment [...] 10/31/2020 Encounter Status:Closed by NOLASCOKELLY on 06/04/22 [facility] Barbara 05-21-2022 JORGEN Telephone (OBGYWM) -- PATY HOPKINS ([id number]) 1985 F Date Time Provider Department 05/21/22 [...] medication refill of her Cymbalta. Recently her PROMOTIONAL MARKETING ANALYST added Lexapro to the Cymbalta regimen. She [...] Patient should contact Prescriber first Haroon Ugarte APRN.TOBACCO BUYER, DNP Eli Haas Ma 05/21/2022 3:06 PM Signed Pt notified, transferred to [facility] to set up [facility] care appt. Eli Haas Ma Allergies As of Date: 05/21/2022 Noted Allergy Reaction MACROBID (NITROFURANTOIN MONOHYD/*07/23/2019 14 - Other: See Comments Comments: Nausea WELLBUTRIN (BUPROPION HCL) 01/27/2020 14 - Other: See Comments Comments: increase anxiety Date Reviewed: 09/29/2021 Reviewed by: Brianna Saeed Stopping Builder - Fully Assessed Reason for Visit: Refill [...] by ELI HAAS MA on 05/21/22 Normal [facility] Albumin Elph [Mass/Vol]on Albumin [Mass/Vol] 4.1 g/dL 2.9-4.4 [facility] Work Phone: Atypical perinuclear antineu trophil cytoplasmic antibodies measurementon 04-03-2022 Neutrophil cytoplasmic Ab.perinuclear.atypica l IF (S) [Titer] <1:20 titer Neg:<1:20 [facility] Work Phone: Comment on above: The atypical pANCA p attern has been observed in asignificant percentage of patients with ulcerative colitis,primary sclerosing cholangitis and autoimmune hepatitis. Basophil percentageon 2021 Basophil percentage < 0.2 AI 0.0-0.9 [facility] Work Phone: [phone] Erythrocyte sedimentation ra neno 04-03-2022 ESR (Bld) [Velocity] 10 mm/h 0-30 [facility] Work Phone: [phone] INR in Blood by Coagulation assayon 04-03-2022 INR Coag (Bld) [Relative time] 0.9 {INR} [facility] Work Phone: [phone] Interpretation of serum or p lasma protein pattern by immunofixation (narrative resulton 04-03-2022 Protein Fractions Immunofixation Pavel [Interp] See comment [facility] Work Phone: [phone] Comment on above: Not Observed Laboratory - Chemistry and C hemistry - challengeon 04-03-2022 Free T4 [Mass/Vol] 0.99 ng/dL 0.76-1.46 [facility] Work Phone: Laboratory - Coagulationon 0 04-03-2022 PT Coag (PPP) [Time] 12.3 s 11.7-14.9 [facility] Work Phone: No Panel Informationon 04-03 Addendum Document Comment . [facility] Work Phone: [phone] Comment on above: Protein electrophore sis scan will follow via computer,mail, or swim instructor delivery. Centromere B Antibody <0.2 AI 0.0-0.9 [facility] Work Phone: [phone] Endomysial IgA Antibody Negative Negative [facility] Work Phone: [phone] Free Triiodothyronine (T3) pg/dL 2.2 pg/mL 2.18-3.98 [facility] Work Phone: [phone] Immunoglobulin E 8 IU/mL 6-495 [facility] Work Phone: Comment on above: Performed at: - [facility] [address] [id number] Director: Kirk Foster PhD, Phone: [phone] at: - [facility] [address] [id number] Director: Clay Epps MD, Phone: [phone] POST ANESTHESIA NURSE Antibody 0.2 AI 0.0-0.9 [facility] Work Phone: [phone] Thyroid Stimulating Hormone (TSH) 3.08 uIU/mL 0.358-3.74 [facility] Work Phone: [phone] Serum DNA double strand anti body assay (units/volume)on 04-03-2022 DNA double strand Ab Qn (S) [IU]/mL 0-9 [facility] Work Phone: Comment on above: Negative <5 Equivoca l 5 - 9 Positive >9 Serum Lorie-1 antibody assay (u nits/volume)on 04-03-2022 Lorie-1 extractable nuclear Ab Qn (S) <0.2 AI 0.0-0.9 [facility] Work Phone: [phone] Serum Scl-70 extractable nuc lear antibody assay (units/volume)on 04-03-2022 SCL-70 extractable nuclear Ab Qn (S) 1.6 AI 0.0-0.9 [facility] Work Phone: [phone] Serum Cabrera extractable nucl ear antibody detectionon 04-03-2022 Cabrera extractable nuclear Ab Ql (S) <0.2 AI 0.0-0.9 [facility] Work Phone: [phone] Serum ckvht-9-pbavzaym measu rement by electrophoresison 04-03-2022 Alpha 1 globulin Elph [Mass/Vol] 0.2 g/dL 0.0-0.4 [facility] Work Phone: [phone] Alpha 1 globulin Elph [Mass/Vol] 0.7 g/dL 0.4-1.0 [facility] Work Phone: [phone] Serum classic neutrophil cyt oplasmic antibody assay (units/volume)on 04-03-2022 Neutrophil cytoplasmic Ab.classic Qn (S) <1:20 titer Neg:<1:20 [facility] Work Phone: [phone] Serum globulin measurement ( mass/volume)on 04-03-2022 Globulin (S) [Mass/Vol] 3.5 g/dL 2.2-3.9 [facility] Work Phone: [phone] Serum or plasma C reactive p rotein measurement (mass/volume)on 04-03-2022 CRP [Mass/Vol] mg/L 0.0-3.0 [facility] Work Phone: [phone] Comment on above: C-Reactive Protein ( CRP) provides useful information for thediagnosis, therapy and monitoring of inflammatory processesand associated diseases. For the evaluation of Relative Riskfor Cardiovascular Disease, a High Sensitivity CRP (HSCRP)should be ordered. Serum or plasma IgA measurem ent (mass/volume)on 04-03-2022 IgA [Mass/Vol] 239 mg/dL 87-352 [facility] Work Phone: [phone] Serum or plasma IgG measurem ent (mass/volume)on 04-03-2022 IgG [Mass/Vol] 1355 mg/dL [phone] [facility] Work Phone: [phone] Serum or plasma IgM measurem ent (mass/volume)on 04-03-2022 IgM [Mass/Vol] 124 mg/dL 26-217 [facility] Work Phone: [phone] Serum or plasma beta globuli n measurement by electrophoresis (mass/volume)on 04-03-2022 Beta globulin Elph [Mass/Vol] 1.1 g/dL 0.7-1.3 [facility] Work Phone: [phone] Serum or plasma ferritin makayla surement (mass/volume)on 04-03-2022 Ferritin [Mass/Vol] 10 ng/mL [phone] [facility] Work Phone: [phone] Serum or plasma gamma globul in measurement by electrophoresis (mass/volume)on 04-03-2022 Gamma globulin Elph [Mass/Vol] 1.5 g/dL 0.4-1.8 [facility] Work Phone: Serum or plasma immunoelectr ophoresis interpretation (nominal result)on 04-03-2022 Interpretation IEP [Interp] Comment . [facility] Work Phone: Comment on above: No monoclonality det ected. Serum perinuclear neutrophil cytoplasmic antibody titer by immunofluorescenceon 04-03-2022 Neutrophil cytoplasmic Ab.perinuclear IF (S) [Titer] <1:20 titer Neg:<1:20 [facility] Work Phone: Comment on above: The presence of posi tive fluorescence exhibiting P-ANCA orC-ANCA patterns alone is not specific for the diagnosis ofWegener's Granulomatosis (WG) or microscopic polyangiitis.Decisions about treatment should not be based solely onANCA IFA results. The International ANCA Group Consensusrecommends follow up testing of positive sera with both DC-3 and MPO-ANCA enzyme immunoassays. As many as 5% serumsamples are positive only by EIA. Ref. AM J Clin Mtxerw1677;111:507-513. Serum tissue transglutaminas e IgA antibody assay (units/volume)on 04-03-2022 tTG IgA Qn (S) <2 U/mL 0-3 [facility] Work Phone: Comment on above: Negative 0 - 3 Weak Positive 4 - 10 Positive >10 Tissue Transglutaminase (tTG) has been identified as the endomysial antigen. Studies have demonstr- ated that endomysial IgA antibodies have over 99% specificity for gluten sensitive enteropathy. Thin prep Papanicolaou smear with manual screeningon 04-03-2022 Thin prep Papanicolaou smear with manual screening 167 U/L 84-246 [facility] Work Phone: Thin prep Papanicolaou smear with manual screening 1.2 0.7-1.7 [facility] Work Phone: Total protein bloodon 2021 Protein [Mass/Vol] 7.6 g/dL 6.0-8.5 [facility] Work Phone: [phone] CNOVon 09-29-2021 CNOV Office Visit (FAMPWS ) -- PATY HOPKINS ([id number]) 1985 F Date Time Provider Department 09/29/21 [...] medication refill of her Cymbalta. Recently her PROMOTIONAL MARKETING ANALYST added Lexapro to the Cymbalta regimen. She [...] redness o (more content not included)... Normal [facility] -- PATY HOPKINS ([id number]) 1985 F Date Time Provider Department 09/05/21 AMANDA IZQUIERDO III [facility] During your visit today, we recorded the following information about you: Craig See Pss 09/05/2021 11:02 AM Signed Pt called in to cancel med refill appt for today w/Haroon Ugarte. I told her what the options were and she didn't like those, I searched other providers and still she declined all offers. Pt stated she will run out of [email or web address] soon, and is upset that we cannot help her. Her last OV in [facility] was 10/31/20. Pt still has not established [...] Fully Assessed Reason for Visit: Patient Question [0147] Prescriptions as of 09/05/2021 - DULoxetine (CYMBALTA) [...] Encounter Status:Closed by CRAIG SAUER on 09/05/21 [facility] CNOVon 08-25-2021 CNOV Office Visit (OBGYWM ) -- PATY HOPKINS ([id number]) 1985 F Date Time Provider Department 08/25/21 10:20 AM ESDRAS WOODS OBGIOVANAWEnrique During your visit today, we recorded the following information about you: Blood pressure Weight 112/68 66.2 kg Esdras Woods MD 08/25/2021 1:15 PM Signed DATE OF SERVICE: 08/25/2021 PROCEDURE: In-Office Ablation DIAGNOSIS: Menorrhagia PRE-EVALUATION: Ultrasound done on 05/18/21 EMB done on 08/04/21. Pathology: secretory endometrium INFORMED CONSENT Procedure: In-Office Ablation Service: PROMOTIONAL MARKETING ANALYST The risks, benefits and anticipated outcomes of [...] Out Discussion: Completed Physician: Esdras Woods MD Mixing And Molding Machine Operator: none We provide toradol: Yes Permit signed [...] to three months before your periods get coronary clinical specialist. Don't panic if your first few periods [...] bleeding (AUB) [N93.9] Order(s):HCG QUAL UR B/O [[id number]] Order #: [id number] [] keTORolac 60 mg injection (TORADOL)Disp: Rfl: [] NaCl 0.9% irrigation solutionDisp: (more content not included)... Normal [facility]20[facility] PATY HOPKINS ([id number]) 1985 F Date Time Provider Department 08/23/21 [...] Status:Closed by ANUM ARIZA RN on 08/23/21 [facility] 08-08-2021 CNPN Telephone (OBGYWM) -- PATY HOPKINS ([id number]) 1985 F Date Time Provider Department 08/08/21 [...] 08/08/2021 4:45 PM Signed Patient viewed on [employer]. Anum Ariza RN Allergies As of Date: [...] Status:Closed by ANUM ARIZA RN on 08/08/21 [facility] CNOVon 08-04-2021 CNOV Office Visit (OBGYWM ) -- PATY HOPKINS ([id number]) 1985 F Date Time Provider Department 08/04/21 [...] tablets vaginally (more content not included)... Normal [facility] HISTORY PHYSICALon 1 HISTORY PHYSICAL HNO ID: [id number] Author: Francesca Mcfadden MD Service: ? Author [...] history, medications and allergies Francesca Mcfadden MD [facility] SURGICAL PATHOLOGYon 021 SURGICAL PATHOLOGY Specimen originated from [facility] Specimen #: [id number] Submitting Physician: FRANCESCA GAYLE MD FINAL DIAGNOSIS Endometrium, biopsy: - Secretory endometrium. Joe Bruno M.D. (Electronic Signature) SPECIMEN SUBMITTED A: ENDOMETRIAL, BIOPSY CLINICAL DATA ABNORMAL UTERINE BLEEDING GROSS DESCRIPTION A. Received in formalin are multiple mackey-pink, soft segments of tissue aggregating to 2.7 x 2.1 x 0.2 cm. Totally submitted in one cassette. Gross examination performed at [facility], [address] [place] [address] J 08/05/2021 12:14:42 AM Date of Report: 08/07/2021 Date of Procedure: 08/04/2021 Date of Receipt: 08/04/2021 Submitted by: FRANCESCA GAYLE MD Location: [facility] Diagnostic interpretation performed at [facility], [address] [place] [address]. CLIA Number: [id number] Normal [facility] CNOVon 07-28-2021 CNOV Office Visit (OBGYWM ) -- PATY HOPKINS ([id number]) 1985 F Date Time Provider Department 07/28/21 [...] L5 SAB1 IAB0 Ectopic0 Multiple0 Live Births5 Gutter Mouth Cutter History LMP: 05/20/2021, Having periods Age at Menarche: Age at First : Age at Menopause: Gutter Mouth Cutter History Comments: Sexual Activity: Yes; Male Contraception: [...] which included preparing to see the patient, [id number]-ov-[id number] patient care, completing clinical documentation, obtaining and/or reviewing separately obtained history, performing a medically appropriate examination, counse (more content not included)... Normal [facility] Barbara 07-28-2021 CNPN Telephone (OBGYWM) -- PATY HOPKINS ([id number]) 1985 F Date Time Provider Department 07/28/21 [...] Status:Closed by YRIS CRAMER RN on 07/28/21 [facility] CNOVon 07-07-2021 CNOV Office Visit (OBGYWM ) -- PATY HOPKINS ([id number]) 1985 F Date Time Provider Department 07/07/21 [...] retained foreign bodies accounted for. Tonya Deluna APRN.JROGE PROCEDURE: Speculum placed in vagina, IUD string visualized and grasped with ring forceps. ASSESSMENT/PLAN: IUD removed without difficulty, intact, and patient tolerated procedure well. Contraception plans: none Pt is to see Dr Mcfadden to discuss ablation Tonya Deluna APRN.TOBACCO BUYER Referring Provider: SELF [200] Allergies As of [...] for IUD removal [Z30.432] Order(s):REMOVE INTRAUTERINE DEVICE [[id number]] Order #: [id number] Prescriptions as of 07/07/2021 - levonorgestrel (MIRENA) [...] Status:Closed by TONYA DELUNA on 07/07/21 Normal [facility] Lab Report: ,Urineo n 05-23-2017 HCG.beta subunit ( test) Ql (U) Negative Invalid Interpretation Code [facility] Office Visit: Tubal Ligation Consulton 04-16-2017 Documentation of current medications (procedure) Done Invalid Interpretation Code [facility] Fall risk assessment No Invalid Interpretation Code [facility] Protein mass conc Done Invalid Interpretation Code [facility] Tobacco smoking status NHIS Never Invalid Interpretation Code [facility] Tobacco smoking status MDIS Never smoker Invalid Interpretation Code [facility] Tobacco use HS Never smoker Invalid Interpretation Code [facility] Vital Signs Date Time Vital Sign Value Performing Clinician Shayy tellez 05-03-2022 11:00-0400 Body temperature 97.9 [degF] CURING ROOM SUPERVISOR-C Edith Anguloman CURING ROOM SUPERVISOR Work Phone: [facility] Work Phone: 05-03-2022 11:00-0400 Diastolic blood pressure 61 mm[Hg] CURING ROOM SUPERVISOR-C Edith Gisselle CURING ROOM SUPERVISOR Work Phone: [facility] Work Phone: 05-03-2022 11:00-0400 Heart rate 71 /min CURING ROOM SUPERVISOR-C Edith Gisselle CURING ROOM SUPERVISOR Work Phone: [facility] Work Phone: 05-03-2022 11:00-0400 Respiratory rate 16 /min CURING ROOM SUPERVISOR-C Edith Gisselle CURING ROOM SUPERVISOR Work Phone: [facility] Work Phone: 05-03-2022 11:00-0400 SaO2% (BldA) [Mass fraction] 100 % CURING ROOM SUPERVISOR-C Edith Anguloman CURING ROOM SUPERVISOR Work Phone: [facility] Work Phone: 05-03-2022 11:00-0400 Systolic blood pressure 101 mm[Hg] CURING ROOM SUPERVISOR-C Edith Anguloman CURING ROOM SUPERVISOR Work Phone: [facility] Work Phone: 05-03-2022 09:13-0400 Body height 170.18 cm CURING ROOM SUPERVISOR-C Edith Gisselle CURING ROOM SUPERVISOR Work Phone: [facility] Work Phone: 05-03-2022 09:13-0400 Body mass index (BMI) [Ratio] 22.3 kg/m2 CURING ROOM SUPERVISOR-C Edith Gisselle CURING ROOM SUPERVISOR Work Phone: [facility] Work Phone: 05-03-2022 09:13-0400 Body weight 64.6 kg CURING ROOM SUPERVISOR-C Edith Gisselle CURING ROOM SUPERVISOR Work Phone: [facility] Work Phone: 04-11-2022 07:00-0400 Body temperature 98 [degF] CURING ROOM SUPERVISOR-C Edith Anguloman CURING ROOM SUPERVISOR Work Phone: [facility] Work Phone: 04-11-2022 07:00-0400 Diastolic blood pressure 60 mm[Hg] CURING ROOM SUPERVISOR-C Edith Zunigautzman CURING ROOM SUPERVISOR Work Phone: [facility] Work Phone: 04-11-2022 07:00-0400 Heart rate 64 /min CURING ROOM SUPERVISOR-C Edith Zunigautzman CURING ROOM SUPERVISOR Work Phone: [facility] Work Phone: 04-11-2022 07:00-0400 Respiratory rate 14 /min CURING ROOM SUPERVISOR-C Edith Zunigautzman CURING ROOM SUPERVISOR Work Phone: [facility] Work Phone: 04-11-2022 07:00-0400 Systolic blood pressure 104 mm[Hg] CURING ROOM SUPERVISOR-C Edith Anguloman CURING ROOM SUPERVISOR Work Phone: [facility] Work Phone: 04-16-2017 15:26-0400 BMI (Body Mass Index) 22.77 kg/m2 Nancy Petersen MD [facility] 04-16-2017 15:0400 Body Temperature 97.8 [degF] Nancy Petersen MD [facility] 04-16-2017 15:26-0400 Body Temperature 97.81 [degF] Nancy Petersen MD [facility] 04-16-2017 15:26-0400 BP Diastolic 66 mm[Hg] Nancy Petersen MD [facility] 04-16-2017 15:26-0400 BP Systolic 109 mm[Hg] Nancy Petersen MD [facility] 04-16-2017 15:26-0400 Height 170.18 cm Nancy Petersen MD [facility] 04-16-2017 15:26-0400 Pulse (Heart Rate) 64 /min Nancy Petersen MD [facility] 04-16-2017 15: Respiratory Rate 16 /min Nancy Petersen MD [facility] 04-16-2017 15: Weight 65.95 kg Nancy Petersen MD [facility] Encounters Encounter Date Encounter Type Care [...] Encounter for other preprocedural examination Mary Avitia [facility] Start: 03-26-2024 End: 03-26-2024 ambulatory Veronika Ferullo Facility:[facility] Start: 03-13-2024 ambulatory Veronika Ferullo Facility: [facility] Start: 03-13-2024 End: 03-13-2024 ambulatory Veronika Ferullo Facility:[facility] Start: 03-06-2024 End: 03-06-2024 ambulatory Veronika Ferullo Facility:[facility] Start: 03-05-2024 End: 03-05-2024 ambulatory Veronika Ferullo Facility:[facility] Start: 02-26-2024 End: 02-26-2024 ambulatory Veronika Ferullo [facility] Start: 01-20-2024 End: 01-20-2024 ambulatory Veronika Ferullo [facility] Start: 01-20-2024 End: 01-20-2024 ambulatory Veronika Ferullo Facility:[facility] Start: 12-18-2023 End: 12-18-2023 ambulatory Veronika Ferullo Facility:[facility] Start: 11-27-2023 End: 11-27-2023 ambulatory Veronika Ferullo [place] [place] Start: 09-03-2022 Refill Haroon Ugarte ELECTRO OPTICAL ENGINEER.TOBACCO BUYER, DNP Work Phone: [facility] Comment on above: Refill Request Start: 06-01-2022 Telephone encounter Melissa Crespo denise ELECTRO OPTICAL ENGINEER.TOBACCO BUYER Work Phone: [facility] Comment on above: Appointment Start: 05-21-2022 Telephone encounter Tonya estrada ELECTRO OPTICAL ENGINEER.TOBACCO BUYER Work Phone: OB/Gynecology Comment on above: Refill Request Start: 05-03-2022 Non-patient / Non-visit CURING ROOM SUPERVISOR-C Igor Pitts CURING ROOM SUPERVISOR Work Phone: [facility] Start: 05-03-2022 End: 05-03-2022 Admission to same day surgery center CURING ROOM SUPERVISOR-C Edith Pitts CURING ROOM SUPERVISOR Work Phone: [facility]End[facility] Start: 05-03-2022 End: 05-03-2022 ambulatory CURING ROOM SUPERVISOR-C Edith Pitts CURING ROOM SUPERVISOR Work Phone: [facility] Work Phone: Start: 04-11-2022 End: 04-11-2022 Patient encounter procedure CURING ROOM SUPERVISOR-C Edith Pitts CURING ROOM SUPERVISOR Work Phone: [facility] Start: 04-03-2022 End: 04-03-2022 Patient encounter procedure CURING ROOM SUPERVISOR-C Edith Pitts CURING ROOM SUPERVISOR Work Phone: [facility] Start: 04-02-2022 End: 04-02-2022 Patient encounter procedure CURING ROOM SUPERVISOR-C Edith Pitts CURING ROOM SUPERVISOR Work Phone: [facility] Start: 02-18-2022 Refill Haroon Ugarte ELECTRO OPTICAL ENGINEER.TOBACCO BUYER, DNP Work Phone: [facility] Comment on above: Refill Request Start: 09-29-2021 End: 09-29-2021 ambulatory HAROON UGARTE Facility:[facility] Start: 09-07-2021 End: 09-07-2021 ambulatory HAROON UGARTE Facility:[facility] Start: 08-25-2021 End: 08-25-2021 ambulatory ESDRAS Deric WOODS [facility] Start: 08-04-2021 End: 08-04-2021 ambulatory FRANCESCA MCFADDEN [facility] Start: 07-28-2021 End: 07-28-2021 ambulatory FRANCESCA DILANHUMBLE CARNESNTOSH [facility] Start: 07-07-2021 End: 07-07-2021 ambulatory TONYA DELUNA [facility] Procedures Date Procedure Procedure Detail Performing Clinician Start: 05-03-2022 Esophagogastroduodenoscopy CURING ROOM SUPERVISOR-C Edith Pitts NP Work Phone: Plan of Treatment Date Care Activity Detail Author Start: 05-18-2026 HPV TESTING HPV TESTING [facility] Start: 05-18-2026 PAP TESTING PAP TESTING [facility] Start: 12-21-2025 Urine microalbumin profile DTAP,TDAP,TD (9 - Td or Tdap) [facility] Start: 09-29-2022 ANNUAL PCP TEAM CHRONIC DISEASE VISIT ANNUAL PCP TEAM CHRONIC DISEASE VISIT [facility] Start: 05-03-2022 Patient discharge [facility] Work Phone: Start: 04-19-2022 Influenza vaccination INFLUENZA (#1) [facility] Start: 01-05-2022 COVID-19 VACCINE (3 - Booster for Pfizer series) COVID-19 VACCINE (3 - Booster for Pfizer series) [facility] Start: 10-02-2021 COVID-19 VACCINE (3 - Booster for Pfizer series) COVID-19 VACCINE (3 - Booster for Pfizer series) [facility] Start: 05-23-2017 End: 05-23-2017 Appointment [facility] Work Phone: Start: 04-16-2017 End: 04-16-2017 Appointment Appointment [facility] Start: 2001 HEPATITIS C SCREENING HEPATITIS C SCREENING [facility] Elastase, pancreatic (el-1), fecal; quantitative [facility] Work Phone: Gastrointestinal pat hogens panel - Stool by VALE with probe detection [facility] Work Phone: Lactoferrin [Presenc e] in Stool by Immunoassay [facility] Work Phone: Measurement of occul t blood in stool specimen using immunoassay [facility] Work Phone: Ova and parasites identified in Unspecified specimen by Light microscopy [facility] Work Phone: Patient referral [facility] Work Phone: Protein measurement [facility] Work Phone: Radionuclide gastric emptying study [facility] Work Phone: [facility] Immunizations Immunization Date Immunization Notes Care Provider Fa richar 08-07-2021 Covid (Pfizer) CURING ROOM SUPERVISOR-C Edith Pitts CURING ROOM SUPERVISOR Work Phone: [facility] Work Phone: 07-17-2021 Covid (Pfizer) CURING ROOM SUPERVISOR-C Edith Pitts CURING ROOM SUPERVISOR Work Phone: [facility] Work Phone: 05-31-2021 influenza, seasonal, injectable CURING ROOM SUPERVISOR-C Edith Pitts CURING ROOM SUPERVISOR Work Phone: [facility] Work Phone: 05-31-2021 influenza, seasonal, injectable, preservative free Haroon Ugarte APRN.[facility] Work Phone: [facility] Work Phone: 12-22-2015 tetanus toxoid, redu cristiane diphtheria toxoid, and acellular pertussis vaccine, adsorbed Haroon Ugarte APRN.[facility] Work Phone: [facility] Work Phone: 08-05-2015 influenza, injectabl e, quadrivalent, contains preservative Haroon Ugarte APRN.[facility] Work Phone: [facility] 05-29-2013 influenza virus vaccine, unspecified formulation Haroon Ugarte APRN.[employer] [facility] Work Phone: [facility] 05-19-2013 Influenza virus vaccine CURING ROOM SUPERVISOR-C Edith Pitts CURING ROOM SUPERVISOR Work Phone: [facility] Work Phone: 05-19-2013 influenza, seasonal, injectable, preservative free Haroon Ugarte APRN.[facility] Work Phone: [facility] Work Phone: 05-19-2013 tetanus toxoid, redu cristiane diphtheria toxoid, and acellular pertussis vaccine, adsorbed CURING ROOM SUPERVISOR-C Edith Pitts CURING ROOM SUPERVISOR Work Phone: [facility] Work Phone: 05-08-2013 tetanus toxoid, redu cristiane diphtheria toxoid, and acellular pertussis vaccine, adsorbed Haroon Ugarte APRN.[facility] Work Phone: [facility] 09-10-2011 hepatitis B vaccine, adult dosage Haroon Ugarte APRN.[facility] Work Phone: [facility] 03-09-2011 hepatitis B vaccine, adult dosage Haroon Ugarte APRN.[facility] Work Phone: [facility] 04-17-2010 hepatitis B vaccine, adult dosage Haroon Ugarte APRN.[facility] Work Phone: [facility] 08-19-2006 tetanus toxoid, redu cristiane diphtheria toxoid, and acellular pertussis vaccine, adsorbed Haroon Ugarte APRN.[facility] Work Phone: [facility] 04-13-1996 measles, mumps and rubella virus vaccine Haroon Ugarte APRN.[facility] Work Phone: [facility] Work Phone: 03-28-1989 DTP-Haemophilus influenzae type b conjugate vaccine Haroon Ugarte APRN.[facility] Work Phone: [facility] Work Phone: 03-28-1989 haemophilus influenz ae type b vaccine, PRP-T conjugate Haroon Ugarte APRN.[facility] Work Phone: [facility] Work Phone: 03-28-1989 poliovirus vaccine, inactivated Haroon Ugarte APRN.[facility] Work Phone: [facility] Work Phone: 05-30-1988 haemophilus influenz ae type b vaccine, PRP-D conjugate Haroon Ugarte APRN.[facility] Work Phone: [facility] Work Phone: 05-30-1988 hepatitis B vaccine, pediatric or pediatric/adolescent dosage Haroon Ugarte APRN.[facility] Work Phone: [facility] Work Phone: 03-13-1985 DTP-Haemophilus influenzae type b conjugate vaccine Haroon Ugarte APRN.[facility] Work Phone: [facility] Work Phone: 03-13-1985 haemophilus influenz ae type b vaccine, PRP-T conjugate Haroon Ugarte APRN.[facility] Work Phone: [facility] Work Phone: 12-17-1984 measles, mumps and rubella virus vaccine Haroon Ugarte APRN.[facility] Work Phone: [facility] Work Phone: 03-24-1984 DTP-Haemophilus influenzae type b conjugate vaccine Haroon Ugarte APRN.[facility] Work Phone: [facility] Work Phone: 03-24-1984 haemophilus influenz ae type b vaccine, PRP-T conjugate Haroon Ugarte APRN.[facility] Work Phone: [facility] Work Phone: 03-24-1984 poliovirus vaccine, inactivated Haroon Ugarte APRN.[facility] Work Phone: [facility] Work Phone: 01-21-1984 DTP-Haemophilus influenzae type b conjugate vaccine Haroon Ugarte APRN.[facility] Work Phone: [facility] Work Phone: 01-21-1984 haemophilus influenz ae type b vaccine, PRP-T conjugate Haroon Marge KILLIAN.[facility] Work Phone: [facility] Work Phone: 01-21-1984 poliovirus vaccine, inactivated Haroon Blaz ELECTRO OPTICAL ENGINEER.[facility] Work Phone: [facility] Work Phone: 1985 DTP-Haemophilus influenzae type b conjugate vaccine Haroon Rodriguezarianne KILLIAN.[facility] Work Phone: [facility] Work Phone: 1985 haemophilus influenz ae type b vaccine, PRP-T conjugate Haroon Marge KILLIAN.[facility] Work Phone: [facility] Work Phone: 1985 poliovirus vaccine, inactivated Haroon Blaz ELECTRO OPTICAL ENGINEER.[facility] Work Phone: [facility] Work Phone: Payers Date Payer Category Payer Self-pay [id number] 2023 Unknown [id number] 2020 Unknown [employer] PPO OOS [id number] 2020-Present [phone] [address] [place] [address] PPO [id number] 2020 Unknown [employer] PPO OOS [id number] 2020-Present [phone] [address] [place] [address] PPO [id number] 2018 Unknown [id number] 2016 Unknown [facility] [id number] Private Health Insurance [employer] [id number] Unknown [facility] [id number] Unknown [id number] Unknown [id number]. 462 Unknown [id number] [id number]. 462 Unknown [id number] 2.16.840.1.445278.3.579.2. 462 Unknown [id number] 2.16.840.1.866260.3.579.2. 462 Unknown [id number] 2.16.840.1.001912.3.579.2. 462 Unknown [id number] 2.16.840.1.174753.3.579.2. 462 Unknown [id number] 2.16.840.1.573291.3.579.2. 462 Unknown [id number] 2.16.840.1.230353.3.579.2. 462 Unknown [id number] 2.16.840.1.233435.3.579.2. 462 Unknown [id number] 2.16.840.1.545970.3.579.2. 462 Unknown [id number] 2.16.840.1.919649.3.579.2. 462 Unknown [id number] 2.16.840.1.441623.3.579.2. 462 Unknown [id number] 2.16.840.1.147720.3.579.2. 462 Unknown [id number] 2.16.840.1.299343.3.579.2. 462 Unknown [id number] 2.16.840.1.693214.3.579.2. 462 Unknown [id number] 2.16.840.1.802777.3.579.2. 462 Unknown [id number] 2.16.840.1.122847.3.579.2. 462 Social History Date Type Detail Facility [facility]: [facility]02-[facility] Start: 09-29-2021 Alcohol intake Current non-dr lumber inspector of alcohol (finding) [facility] Start: 01-12-2020 History SDOH Alcohol Frequency 3 [facility] Start: 01-12-2020 History SDOH Alcohol Std Drinks 1 [facility] Start: 01-12-2020 History SDOH Social Connections Phone 4 [facility] Start: 01-12-2020 End: 09-03-2021 History SDOH Social Connections Get Together 2 [facility] Start: 01-12-2020 History SDOH Financial 5 [facility] Start: 01-11-2020 Education 15 [facility] Start: 1985 Sex Assigned At Female [facility] Start: 04-30-2022 [facility] ever smoked [facility] Work Phone: Start: 02-17-2018 None [facility] Work Phone: Start: 07-04-2020 With Family [facility] Work Phone: Start: 02-17-2018 Non-smoker [facility] Work Phone: Start: 11-02-2011 Tobacco use and exposure Smoke less tobacco non-user [facility] Start: 05-11-2022 End: 05-21-2022 Exposure to SARS-CoV-2 (event) Not sure [facility] Medical Equipment Procedure Code Equipment Code Equipment Origin al Text Equipment Identifier Dates STENT,URETERAL 6 FR PIG [id number] FDA Start: 02-17-2018 Goals Date Patient Goal Desired Activity /State Mental Status Date Assessment Result Facility 05-03-2022 Cognitive function Level Of Cons ciousness Awake;Alert;Appropriate [facility] Work Phone: 05-03-2022 Cognitive function Voice/Name [facility] Work Phone: Clinical Notes 08-05-2015 to 03-13-2024 Telephone Encounter - Michi Thayer LPN - 09/03/2022 9:31 AM ESTTelephone Encounter - Kelly Nolasco LPN - 06/04/2022 2:07 PM EDTTelephone Encounter - Kelly Nolasco LPN - 06/01/2022 2:02 PM EDT Note Date & Type Note Facility 03-13-2024 Note [facility] Medical Records Department [address] [place] [address] History Physical Exam 03/13/24 0709 MR#: [id number] Acct: [id number] Name: PATY HOPKINS Rep #: [id number] : 1985 38 From: Mary Avitia DO PCP: JASE Argueta Status:[facility] Location: [place] [address] History and Physical Date of Admission: 03/13/24 Intake Vital Signs 01/19/2411:50 02/25/2414:25 03/05/2415:01 03/05/2415:03 Height 5 ft 7 in 5 ft 7 in 5 ft 7 in 5 ft 7 in Weight: 141 lb 6 oz BMI 22.1 BP 116/74 107/69 Blood Pressure Location Rt brachial Position Sitting Pulse 80 Pulse Source Monitor Intake Visit Reasons: TRH BS possible LSO Pressure Sealer And Tester Required: No Is patient in pain?: No [...] 5 current occupational status: employed 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 She is a 38 year old (vaginal deliveries) who presents for surgical consult. She tried and failed an ablation procedure at [facility] 4 years ago. she is now [...] # Pregnancies Multiple (more content not included)... [facility] 09-03-2022 Miscellaneous Notes Patient phones requesting refills as follows: Requested Prescriptions Pending Prescriptions Disp Refills DULoxetine (CYMBALTA) 30 mg capsule [Pharmacy Med Name: DULOXETINE HCL DR 30 MG CAP] 90 capsule 3 Sig: TAKE 1 CAPSULE BY MOUTH ONCE DAILY *PT CANCELLED LAST 4 APPT'S TO ESTABLISH CARE WITH CURING ROOM SUPERVISOR. NO UPCOMING APPT. Pt needs to schedule appt to establish care in order to continue receiving medication refills. message to pt advising of the same. Please review and advise. Michi Thayer LPN documented in this encounter [facility] 06-04-2022 Miscellaneous Notes Appointment slot [...] Kelly Nolasco LPN documented in this encounter [facility] 05-21-2022 Miscellaneous Notes Pt notified, [...] medication refill of her Cymbalta. Recently her PROMOTIONAL MARKETING ANALYST added Lexapro to the Cymbalta regimen. She [...] Mary Perea RN documented in this encounter [facility] 02-20-2022 Miscellaneous Notes Last office visit: 09/29/21 F/u scheduled: none Eli Haas Ma documented in this encounter [facility] 09-29-2021 Note HNO ID: [id number] Author: Haroon Ugarte APRN.[facility] Service: ? [...] medication refill of her Cymbalta. Recently her PROMOTIONAL MARKETING ANALYST added Lexapro to the Cymbalta regimen. She [...] and gums normal, (more content not included)... [facility] 09-07-2021 Note HNO ID: [id number] Author: Haroon Ugarte APRN.TOBACCO BUYER, DNP Service: ? Author Type: Nurse Practitioner [...] agrees to the visit: Yes Patient Location: [facility] Paty Hopkins is a 35 year old female who is contacted today for a virtual visit This is an established patient of Dr. Izquierdo who retired last year. New patient to me. Reports: Presents for medication refill of her Cymbalta. Recently her PROMOTIONAL MARKETING ANALYST added Lexapro to the Cymbalta regimen. She [...] (146 lb) 08/04 (more content not included)... [facility] 08-25-2021 Note HNO ID: [id number] Author: Esdras Woods MD Service: ? Author Type: Physician Type: Progress Notes Filed: 08/25/2021 1:15 PM Note Text: DATE OF SERVICE: 08/25/2021 PROCEDURE: In-Office Ablation DIAGNOSIS: Menorrhagia PRE-EVALUATION: Ultrasound done on 05/18/21 EMB done on 08/04/21. Pathology: secretory endometrium INFORMED CONSENT Procedure: In-Office Ablation Service: PROMOTIONAL MARKETING ANALYST The risks, benefits and anticipated outcomes of [...] Out Discussion: Completed Physician: Esdras Woods MD Mixing And Molding Machine Operator: none We provide toradol: Yes Permit signed [...] Call sooner if any problems or questions. [facility] 08-04-2021 Note HNO ID: [id number] Author: Francesca Mcfadden MD Service: ? Author [...] OFFICE HYSTEROSCOPY, FRIDA ABLATION. Francesca Gayle MD [facility] 07-28-2021 Note HNO ID: [id number] Author: Francesca Mcfadden MD Service: ? Author [...] L5 SAB1 IAB0 Ectopic0 Multiple0 Live Births5 Gutter Mouth Cutter History LMP: 05/20/2021, Having periods Age at Menarche: Age at First : Age at Menopause: Gutter Mouth Cutter History Comments: Sexual Activity: Yes; Male Contraception: [...] which included preparing to see the patient, [id number] patient care, completing clinical documentation, obtaining and/or reviewing separately obtained history, performing a medically appropriate examination, counseling and educating the patient/family/caregiver and ordering medications, tests, or procedures Francesca Gayle MD [facility] 07-27-2021 Note Patient Outreach (NE TNAV) ---- ESPERANZAPATY ([id number]) 1985 F Date Time Provider Department 07/27/21 [...] Outcome/Action Unable to reach patient: Left message [employer] message sent Reason for Outreach Attribution: Provider [...] future healthcare decisions with a power of employee benefits attorney, living will, or advance directives? No. Please bring a copy to your next appointment or email to [email or web address] Referrals: N/A Message Sent to Practice: [...] constipation [K59.09] 10/31/2020 Encounter Status:Closed by [facility]IGATOR, SUSANNA Leos on 07/27/21 [facility] 07-27-2021 Note HNO ID: [id number] Author: Susanna [facility] Navigdebra Service: ? Author Type: ? Type: Progress Notes Filed: 07/27/2021 11:44 AM Note Text: POPULATION HEALTH NAVIGATION OUTREACH Action/FYI I left a voice message and a my chart message re: pcp No care everywhere Contact made with patient or family member? NO Pt identified by name and : NO Outreach Outcome/Action Unable to reach patient: Left message [employer] message sent Reason for Outreach Attribution: Provider [...] future healthcare decisions with a power of employee benefits attorney, living will, or advance directives? No. Please bring a copy to your next appointment or email to Referrals: N/A Message Sent to Practice: NO Navigation Signature: Susanna Rodríguez [facility] Health Navigator July 27, 2021 11:43 AM [facility] 07-07-2021 Note HNO ID: [id number] Author: Tonya Deluna APRN.CNP Service: ? Author [...] retained foreign bodies accounted for. Tonya Deluna APRN.TOBACCO BUYER PROCEDURE: Speculum placed in vagina, IUD string visualized and grasped with ring forceps. ASSESSMENT/PLAN: IUD removed without difficulty, intact, and patient tolerated procedure well. Contraception plans: none Pt is to see Dr Mcfadden to discuss ablation Tonya Deluna APRN.TOBACCO BUYER [facility] 08-05-2015 History of Past i llness Narrative [...] of labor that she was hospitalized in [place] for 4 days at 33 weeks with [...] of this encounter (statuses as of 02/20/2022) [facility]12-18-2015 History of Past illness Narrative* [...] of labor that she was hospitalized in [place] for 4 days at 33 weeks with [...] of this encounter (statuses as of 05/21/2022) [facility] History of Past illness Narrative* [...] Patient denies any bleeding since then. Gerda MLOINA RN History of labor 01/08/2013 014 Overview: 01/08/2013 Pt has a history of labor that she was hospitalized in [place] for 4 days at 33 weeks with [...] of this encounter (statuses as of 06/04/2022) [facility] History of Past illness Narrative* [...] of labor that she was hospitalized in [place] for 4 days at 33 weeks with [...] of this encounter (statuses as of 09/03/2022) [facility] Diagnosis Hypothyroidism, acquired Unspecified hypothyroidism documented in this encounter [facility] note* Diagnosis Onset Date Resolution Status Periorbital dermatitis acute Epigastric abdominal pain ch ronic Vaginal christian acute [facility] Work Phone: Evaluation note* Diagnosis Anxiety and depression- Primary Dysthymic disorder documented in this encounter [facility] note* Diagnosis Anxiety and depression Dysthymic disorder documented in this encounter [facility] Advance Directives No Advanced Directives Records FoundDocuments on File Type Date Recorded Patient Erection Shop Supervisor Expl anation Advance Directive(s) 08/31/2019 1:56 PM Advance Directive(s) 08/24/2019 1:15 PM Advance Directive Response Recorded Date/ Time Living Will No April 30, 2022 2:35pm Power of Control System Computer Scientist No April 2:35pm Chief Complaint and Reason [...] or prosecute any alcohol or drug abuse patient.[facility] the event this information is protected by the Federal Confidentiality of Alcohol and Drug Abuse Patient Records regulations: The Federal rules restrict any use of the information to criminally investigate or prosecute any alcohol or drug abuse patient.[facility] Center[facility] the event this information is protected by the Federal Confidentiality of Alcohol and Drug Abuse Patient Records regulations: The Federal rules restrict any use of the information to criminally investigate or prosecute any alcohol or drug abuse patient.[facility] Center[facility] the event this information is protected by the Federal Confidentiality of Alcohol and Drug Abuse Patient Records regulations: The Federal rules restrict any use of the information to criminally investigate or prosecute any alcohol or drug abuse patient.[facility] Reason for Visit (unrecogniz ed section and content) Reason Comments Refill Request Reason Comments Appointment Care Teams (unrecognized sec tion and content) Gis Mapping Technician Relationship Specialty Start Date End Date Haroon Ugarte APRN.TOBACCO BUYER, DNP [address] [place] [address] PCP - General Family Practice 09/29/21 INFORMATION SOURCE (unrecogn ized section and content) DATE CREATED AUTHOR 06/09/2022 [facility] DATE CREATED AUTHOR AUTHOR'S ORGANIZ ATION 10/12/2024 [facility] FOR RECORDS PERTAINING TO PATIENTS WHO ARE [...] BE BASED ON THE PRIMARY CLINICAL RECORDS. [facility]. provides no warranty or guarantee of the accuracy or completeness of information in this document.
[2025-02-06] MEDS: Lactulose 20 GM/30 ML UDC PO (01:54)
[2025-02-06] MEDS: proMETHazine 25 MG/ML Syringe 12.5 MG IM (02:26)
[2025-02-06] MEDS: Pantoprazole Sodium 20 MG Tablet PO ×2 (02:27→22:04)
[2025-02-06] MEDS: 0.9% Normal Saline (1000mL) 1,000 ML 150 ML IV ×2 (02:57→09:52)
[2025-02-06 03:07] LABS: Reflex Lactate? Y
[2025-02-06 03:08] LABS: Lactic Acid 1.1 mmol/L (0.0-2.0)
[2025-02-06] MEDS: Levothyroxine 25 MCG TABLET PO (06:12)
--- NOTE | 2025-02-06 09:32 | CASEMGMT ---
Assessment- SW met with patient. Introduced self and role at [facility]. Patient agreed to complete assessment with SW. SW also confirmed addresses and phone numbers for patient and her contacts. Living situation- Patient lives with her significant other (ex-, but back together) and their 4 children. Insurance- Self-Pay PCP: None Specialists: None Pharmacy: [facility] D[facility]:? None ADL's/IADL's: Independent in all ADL's and IADL's. Transportation- Patient drives Past SNF/rehab: None Past HH: None [facility]- brother Carlos A and parents. Patient also has 1 adult child. LW: None POA:? None Patient goal- Patient would like to return home when better. SW also discussed with patient her self pay status. 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 She does not know if she would qualify for Medicaid. SW provided patient with information on, [employer], [employer], [employer], list of prescription assistance programs, and Medicaid application. Patient stated no concerns with d/c medications. SW did update patient's emergency contact per patient's request. Plan: Home with no needs. CHIQUITA and RN/CM available should needs arise. Gaby Saba LOG HAULER ISAIAH
--- NOTE | 2025-02-06 09:46 | PN.HOSP_ITS ---
Objective Data Objective Data Vital Signs: Vital Signs Temp Pulse Resp BP Pulse Ox O2 Del Method 98.5 F 112 H 16 103/58 L 95 Room Air 02/06/25 04:00 02/06/25 04:00 02/06/25 04:00 02/06/25 04:00 02/06/25 08:21 02/06/25 08:21 Oxygen Delivery Method Room Air Weight: 150 lb Body Mass Index (BMI) 23.5 Intake & Output: Intake and Output for Last 24 Hours 02/04/25 02/05/25 02/06/25 23:59 23:59 23:59 Intake Total 3050 / 3050 Output Total 800 / 800 Balance 2250 / 2250 Lab / Micro Data 02/05/25 22:55 02/05/25 22:55 Labs: Laboratory Results - last 24 hr 02/05/25 22:50: PT 14.7, INR 1.1, APTT 35.8 02/05/25 22:55: WBC 5.3, RBC 4.28, Hgb 13.1, Hct 37.5, MCV 87.6, MCH 30.6, MCHC 34.9, RDW Std Deviation 37.9, RDW Coeff of Jamilah 11.9, Plt Count 126 L, MPV 10.1, Immature Gran % (Auto) 0.400, Neut % (Auto) 95.3 H, Lymph % (Auto) 2.9 L, Hickory % (Auto) 1.0, Eos % (Auto) 0.0, Baso % (Auto) 0.4, Absolute Neuts (auto) 5.0, A bsolute Lymphs (auto) 0.15 L, Nucleated RBC % 0, Differential Comment SCANNED, D -Dimer Quant (PE/DVT) 2.07 H*, Sodium 135, Potassium 3.5, Chloride 102, Carbon Dioxide 17.8 L, Anion Gap 15, BUN 16, Creatinine 0.89, Estim Creat Clear Calc 80.89, Est GFR (MDRD) Non-Af 83, BUN/Creatinine Ratio 18.0, Glucose 146 H, Calcium 9.2, Magnesium 1.9, Procalcitonin 13.20 H, Urine Color Yellow, Urine Clarity Clear, Urine pH 7.0, Ur Specific Morris 1.010, Urine Protein 30 H, Urine Glucose (UA) Normal, Urine Ketones Negative, Urine Occult Blood 25 H, Urine Nitrite Negative, Urine Bilirubin Negative, Urine Urobilinogen 1 H, Ur Leukocyte Esterase 25 H, Urine RBC 25-50 SEEN, Urine WBC 25-50 SEEN, Ur Squamous Epith Cells 50-100 SEEN, Urine Bacteria 3+, Urine Mucus 0 SEEN 02/05/25 23:04: Lactic Acid 2.7 H* 02/06/25 02:25: Lactic Acid 1.1, TSH 3.830 Radiography Diagnostic Testing: Radiology Impression Abdomen/Pelvis CT 02/05/25 22:53 IMPRESSION: 1. Bilateral nephrolithiasis without hydronephrosis. 2. Hepatomegaly with fatty infiltration. 3. Fecal retention in the colon consistent with constipation. 4. Umbilical hernia containing fat. Reading Location: [id number] Chest CTA 02/05/25 23:33 IMPRESSION: Normal CTA chest examination, without a demonstrated pulmonary embolism or arterial dissection. Reading Location: [place] [id number] Physical Exam Narrative Seen and examined Patient complain of nausea vomiting chills, muscle aches all over. She she had vomiting last night but tolerated food today in the morning. No fever. Documented. Complaint of left more than right renal angle pain. 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 Patient has no orientate symptoms including burning pain/dysuria since last Saturday about 1 week. Had UTI about 6 years ago when she had a pyelonephritis and kidney stone for which she had lithotripsy and ureteric stent for stone probably had right UVJ junction by Dr. Jose : physical exam General: Alert, Oriented x3, Cooperative HEENT: Atraumatic, PERRLA, EOMI, Normocephalic. Oral: No Gingival or Mucosal Lesions/ Ulcerations Neck: Supple, No JVD, Negative Carotid Bruits Chest wall/Lungs: Air entry equal in bilateral lung bases. No crepitation/rhonchi Cardiovascular: Regular rate and rhythm, Normal S1,S2, No M/G/R Abdomen: Bowel Sounds Present, Soft, Non Tender, Non-Distended : Dysuria present left > right renal angle tenderness. No suprapubic tenderness. Extremities: No edema, Capillary Refill Less than 3 Seconds Skin: No rashes, No breakdown Musculoskeletal: No Tenderness to Palpation of Joints or Extremities Neurological: Cranial nerves II-XII grossly intact, DTR 2+/4. No acute focal neurological deficit. Psych/Mental Status: Normal Affect, Appropriate. Assessment & Plan Assessment/Plan (1) Acute cystitis with hematuria: (2) Sepsis: QUALIFIERS: Sepsis acute organ dysfunction status: without acute organ dysfunction Sepsis type: sepsis due to unspecified organism Qualified Code(s): A41.9 - Sepsis, unspecified organism (3) Lactic acidosis: (4) Elevated procalcitonin: (5) Elevated d-dimer: (6) Constipation: QUALIFIERS: Constipation type: unspecified constipation type Q ualified Code(s): K59.00 - Constipation, unspecified PLAN: Plan 39-year-old female was admitted with increased urinary frequency urgency and dysuria for 5 days with recent diagnosis of UTI was treated with Bactrim DS but did not respond. Patient also having chills and shaking and pain all over with nausea, dizzy and felt like fainting 1. Acute cystitis with sepsis due to UTI possible pyelonephritis: Patient is being admitted in PCU. Patient is a lactic acidosis and elevated procalcitonin 11.2 with tachycardia, tachypnea suggestive of SIRS but no organ specific dysfunction or hypotension therefore suggestive of sepsis due to UTI during admission which has resolved due to UTI. Abdomen/pelvis shows bilateral nephrolithiasis, with punctate renal calculi largest measuring up to 1 mm without obstruction without hydronephrosis Nausea and vomiting has resolved. Patient tolerated diet. Renal ultrasound ordered. Continue IV ceftriaxone. Repeat lactic acid normal 2. Elevated d-dimer of 2.07 present on admission probably due to infection/sepsis: Modified Wells criteria low but CTPA was done which reported normal CT chest. PE ruled out. 4. GERD; with small hiatal hernia followed by Dr. barker of gastroenterology on omeprazole - Maintain PPI. 5. Depression with anxiety; on duloxetine and doxepin - Resume home regimen. 6. Hypothyroidism; on levothyroxine -TSH 3.8 and continue levothyroxine. OA; with chronic back pain - We will follow pain regimen and scales outlined in #1. 12. DVT prophylaxis - Enoxaparin 40 mg sq daily plus SCD's. Laboratory Results 02/05/25 22:50: PT 14.7, INR 1.1, APTT 35.8 02/05/25 22:55: WBC 5.3, RBC 4.28, Hgb 13.1, Hct 37.5, MCV 87.6, MCH 30.6, MCHC 34.9, RDW Std Deviation 37.9, RDW Coeff of Jamilah 11.9, Plt Count 126 L, MPV 10.1, Immature Gran % (Auto) 0.400, Neut % (Auto) 95.3 H, Lymph % (Auto) 2.9 L, Hickory % (Auto) 1.0, Eos % (Auto) 0.0, Baso % (Auto) 0.4, Absolute Neuts (auto) 5.0, A bsolute Lymphs (auto) 0.15 L, Nucleated RBC % 0, Differential Comment SCANNED, D -Dimer Quant (PE/DVT) 2.07 H*, Sodium 135, Potassium 3.5, Chloride 102, Carbon Dioxide 17.8 L, Anion Gap 15, BUN 16, Creatinine 0.89, Estim Creat Clear Calc 80.89, Est GFR (MDRD) Non-Af 83, BUN/Creatinine Ratio 18.0, Glucose 146 H, Calcium 9.2, Magnesium 1.9, Procalcitonin 13.20 H, Urine Color Yellow, Urine Clarity Clear, Urine pH 7.0, Ur Specific Morris 1.010, Urine Protein 30 H, Urine Glucose (UA) Normal, Urine Ketones Negative, Urine Occult Blood 25 H, Urine Nitrite Negative, Urine Bilirubin Negative, Urine Urobilinogen 1 H, Ur Leukocyte Esterase 25 H, Urine RBC 25-50 SEEN, Urine WBC 25-50 SEEN, Ur Squamous Epith Cells 50-100 SEEN, Urine Bacteria 3+, Urine Mucus 0 SEEN 02/05/25 23:04: Lactic Acid 2.7 H* 02/06/25 02:25: Lactic Acid 1.1, TSH 3.830 Charges/Coding Visit Charges Inpatient E&M: 59761 Subs Hosp L2
--- NOTE | 2025-02-06 09:50 | US_ITS ---
PROCEDURE: KIDNEY AND BLADDER 02/06/2025 REASON FOR EXAM: SUSPICION OF PYELONEPHRITIS Urinary tract infection. TECHNIQUE: KIDNEY AND BLADDER COMPARISON: CT abdomen pelvis exam yesterday FINDINGS: The right kidney measures 11.5 cm L by 6.1 cm AP x 4.6 cm T cortical thinning is present with a cortex thickness of 0.8 cm. Diffuse calculi appreciated. No hydronephrosis. Numerous cysts. No solid masses. Left kidney measures 11.6 cm by 5.2 cm AP by 6.2 cm T. cortex grossly within normal limits. Diffuse calculi. No hydronephrosis. DOPPLER: Color Doppler: Normal color flow doppler signal Urinary bladder contains 193 mL fluid. Wall thickness: 3 mm. Distal ureters not visualized. Right ureteral jets are visualized US/Kidney and Bladder IMPRESSION: No specific pathology of the kidneys and urinary bladder, except nephrolithiasi s Reading Location[facility]
[2025-02-06] MEDS: Acetaminophen 325 MG Tablet 650 MG PO ×2 (09:52→16:49)
[2025-02-06] MEDS: Polyethylene Glycol 3350 17 GM PACKET PO (09:53)
[2025-02-06] MEDS: Enoxaparin 40 MG/0.4 ML Syringe SC (09:54)
[2025-02-06] MEDS: Lactobacillis Acidophilus 1 CAP PO ×4 (09:54→22:04)
[2025-02-06] MEDS: DULoxetine Hcl 60 MG Capsule PO (16:49)
[2025-02-06] MEDS: Ibuprofen 200 MG Tablet PO (22:04)
[2025-02-07] MEDS: Levothyroxine 25 MCG TABLET PO (06:16)
[2025-02-07 06:20] VITALS: BP 89/62; PULSE 64; RESP 16; TEMP 36.7; O2SAT 98
[2025-02-07 09:30] VITALS: BP 108/66; PULSE 70; RESP 17; TEMP 36.1
[2025-02-07 09:31] VITALS: BP 108/66; PULSE 70; RESP 17; TEMP 36.1; O2SAT 99
[2025-02-07] MEDS: Ceftriaxone 1 GM/50 ML BAG IV (09:38)
[2025-02-07] MEDS: Lactobacillis Acidophilus 1 CAP PO (09:38)
[2025-02-07] MEDS: Polyethylene Glycol 3350 17 GM PACKET PO (09:38)
[2025-02-07] MEDS: Acetaminophen 325 MG Tablet 650 MG PO (09:39)
[2025-02-07] MEDS: 0.9% Saline Lock 10 ML Syringe IV (09:39)
--- NOTE | 2025-02-07 10:50 | DCINST_ITS ---
Discharge Instructions Diet Discharge Diet: No restrictions DC O2, CPAP, BIPAP needs Home O2 Discharge instructions: No Dressing / Incision Discharge Activity: Return to Normal Activity Weight Bearing Status: Weight bearing as tolerated Dressing / Incision Call your doctor if you observe: Fever of 101 or Higher, Coldness, Increased Pain, Numbness or Tingling, Change in Color, Inability to urinate, Inability to have a bowel movement, Shortness of breath, Dizziness, Fainting spells, Swelling in the ankles, Chest pain, Prolonged hiccupping, Increased palpitations (irregular heartbeat) and Calf discomfort Follow Up Care When: IN 2 WEEKS Test Results: Test results from this visit will be discussed in further detail at your follow- up appointment, if applicable. Discharge Plan Admission Admit Date/Time: 02/06/25 01:03 Attending Provider: Guru Thomas Primary Care Provider: Care Physician,No Primary Consulting Providers: Genaro Cleveland Discharge Orders/Prescriptions Prescriptions: New sulfamethoxazole-trimethoprim [Bactrim DS] 800-160 mg tablet 1 tab PO BID 7 Days Qty: 14 0RF Continued duloxetine 60 mg capsule,delayed release(DR/EC) 60 mg PO QHS Qty: 90 1RF omeprazole 20 mg capsule,delayed release(DR/EC) 20 mg PO QHS levothyroxine 25 mcg tablet 25 mcg PO DAILY Qty: 90 2RF doxepin 10 mg capsule 10 mg PO QHS Qty: 30 1RF Referrals / Follow Up: Blair Peace MD [Med Staff - Consulting] - Within 1 Month (For ultrasound finding of cortical thinning on the right kidney. History of nephrolithiasis) Care Physician,No Primary [Primary Care Provider] - Disposition Disposition (needs filled in before D/C Order can be placed): Home, Self Care
--- NOTE | 2025-02-07 11:53 | DS.PCM_ITS ---
Providers Date of Admission: 02/06/25 Date of Discharge: 02/07/25 Primary Care Physician: No Primary Care Phys Reason For Visit: UTI, POSSIBLE SEPSIS, LEFT FLANK PAIN AND Diagnosis Discharge Diagnosis (1) Acute cystitis with hematuria: Status: Acute Code(s): N30.01 - Acute cystitis with hematuria (2) Sepsis: Status: Acute Code(s): A41.9 - Sepsis, unspecified organism Qualifiers: Sepsis type: sepsis due to unspecified organism Sepsis acute organ dysfunction status: without acute organ dysfunction Qualified Code(s): A41.9 - Sepsis, unspecified organism (3) Lactic acidosis: Status: Acute Code(s): E87.20 - Acidosis, unspecified (4) Elevated procalcitonin: Status: Acute Code(s): R79.89 - Other specified abnormal findings of blood chemistry (5) Elevated d-dimer: Status: Acute Code(s): R79.89 - Other specified abnormal findings of blood chemistry (6) Constipation: Status: Acute Code(s): K59.00 - Constipation, unspecified Qualifiers: Constipation type: unspecified constipation type Qualified Code(s): K 59.00 - Constipation, unspecified Plan 39-year-old female was admitted with increased urinary frequency urgency and dysuria for 5 days with recent diagnosis of UTI was treated with Bactrim DS but did not respond. Patient also having chills and shaking and pain all over with nausea, dizzy and felt like fainting 1. Acute cystitis with sepsis due to UTI : Patient is being admitted in PCU. Patient is a lactic acidosis and elevated procalcitonin 11.2 with tachycardia, tachypnea suggestive of SIRS but no organ specific dysfunction or hypotension therefore suggestive of sepsis due to UTI during admission which has resolved due to UTI. Abdomen/pelvis shows bilateral nephrolithiasis, with punctate renal calculi largest measuring up to 1 mm without obstruction without hydronephrosis. Nausea and vomiting has resolved. Patient tolerated diet. Renal ultrasound ordered. Continue IV ceftriaxone. Repeat lactic acid normal 02/07: Patient had kidney and bladder ultrasound which reported no specific pathology of the kidneys and urinary bladder, except nephrolithiasis. Right kidney cortical thickness 0.8 cm which reported thinning. Diffuse calculi present. No hydronephrosis. No solid masses. Kidney sizes are normal. Urinary bladder contains 193 mL fluid. Wall thickness 3 mm. Therefore, pyelonephritis ruled out. Patient discharged on Bactrim DS for 1 week. Advised follow-up with drywall sprayer for right kidney thinning which may be from previous history of lithotripsy. 2. Elevated d-dimer of 2.07 present on admission probably due to infection/sepsis: Modified Wells criteria low but CTPA was done which reported normal CT chest. PE ruled out. 4. GERD; with small hiatal hernia followed by Dr. barker of gastroenterology on omeprazole - Maintain PPI. 5. Depression with anxiety; on duloxetine and doxepin - Resume home regimen. 6. Hypothyroidism; on levothyroxine -TSH 3.8 and continue levothyroxine. OA; with chronic back pain - We will follow pain regimen and scales outlined in #1. 12. DVT prophylaxis - Enoxaparin 40 mg sq daily plus SCD's. Discharge medication reconciliation done. Discharge follow-up instructions completed. Discharge process discussed with the patient and all questions were answered to patient's satisfaction. Follow with PCP in 1 to 2 weeks discharge plan discussed with the patient's father Total time spent, exact 35 minutes on discharge meds reconciliation, examination, coordination of care with nurses and ancillary staff, review of imaging and blood test and discussion with the patient on follow-up instructions. Medications at Discharge Home Medications omeprazole 20 mg capsule,delayed release 20 mg PO QHS acid reflux 08/30/23 levothyroxine 25 mcg tablet 25 mcg PO DAILY thyroid #90 tabs 12/31/23 duloxetine 60 mg capsule,delayed release 60 mg PO QHS #90 caps 10/07/24 doxepin 10 mg capsule 10 mg PO QHS #30 caps 11/03/24 sulfamethoxazole 800 mg-trimethoprim 160 mg tablet (Bactrim DS) 1 tab PO BID 7 days #14 tabs 02/07/25 Physical Exam Narrative Seen and examined Patient accompanied with her father in the room. Patient's symptoms of nausea and vomiting have resolved by the time she was admitted. No fever. She tolerated feed. Patient was admitted with symptoms including burning pain/dysuria since last Saturday about 1 week. Had UTI about 6 years ago when she had a pyelonephritis and kidney stone for which she had lithotripsy and ureteric stent for stone probably had right UVJ junction by Dr. Jose Physical exam General: Alert, Oriented x3, Cooperative HEENT: Atraumatic, PERRLA, EOMI, Normocephalic. Oral: No Gingival or Mucosal Lesions/ Ulcerations Neck: Supple, No JVD, Negative Carotid Bruits Chest wall/Lungs: Air entry equal in bilateral lung bases. No crepitation/rhonchi Cardiovascular: Regular rate and rhythm, Normal S1,S2, No M/G/R Abdomen: Bowel Sounds Present, Soft, Non Tender, Non-Distended : Dysuria present left > right renal angle tenderness better. No suprapubic tenderness. Extremities: No edema, Capillary Refill Less than 3 Seconds Skin: No rashes, No breakdown Musculoskeletal: No Tenderness to Palpation of Joints or Extremities Neurological: Cranial nerves II-XII grossly intact, DTR 2+/4. No acute focal neurological deficit. Psych/Mental Status: Normal Affect, Appropriate. Weight / BMI Weight Weight: 150 lb Body Mass Index (BMI) 23.5 ABG / Lab / Microbiology Data 02/05/25 22:55 02/05/25 22:55 Radiography Diagnostic Testing: Radiology Impression Renal Ultrasound 02/06/25 09:50 IMPRESSION: No specific pathology of the kidneys and urinary bladder, except nephrolithiasis Reading [facility] D/C Instructions Discharge Diet: No restrictions Weight Bearing Status: Weight bearing as tolerated Call your doctor if you observe: Fever of 101 or Higher, Coldness, Increased Pain, Numbness or Tingling, Change in Color, Inability to urinate, Inability to have a bowel movement, Shortness of breath, Dizziness, Fainting spells, Swelling in the ankles, Chest pain, Prolonged hiccupping, Increased palpitations (irregular heartbeat) and Calf discomfort DC O2, CPAP, BIPAP Needs Home O2 Discharge instructions: No When: IN 2 WEEKS Meaningful Use Info Meaningful Use Meaningful Use Diagnoses (Choose all that apply): None applicable Ischemic Stroke Statin Dosing Therapy Reference: STATIN DOSE THERAPY REFERENCE: * Patients > 75 years receive moderate or high dose statin therapy. * Patients 75 years or YOUNGER should receive HIGH intensity statin dose unless contraindicated. You will be required to document reason for non-treatment if statin daily dose does not meet guidelines. HIGH DOSE STATIN THERAPY DAILY Atorvastatin > than or = to 40 mg Rosuvastatin > than or = to 20 mg Amlodipine + Atorvastatin > than or = to 2.5/40 mg Ezetimibe + Simvastatin 10/80 mg Simvastatin 80mg Discharge Plan Admission Admit Date/Time: 02/06/25 01:03 Attending Provider: Guru Thomas Primary Care Provider: Care Physician,No Primary Consulting Providers: Genaro Cleveland Discharge Orders/Prescriptions Prescriptions: New sulfamethoxazole-trimethoprim [Bactrim DS] 800-160 mg tablet 1 tab PO BID 7 Days Qty: 14 0RF Continued duloxetine 60 mg capsule,delayed release(DR/EC) 60 mg PO QHS Qty: 90 1RF omeprazole 20 mg capsule,delayed release(DR/EC) 20 mg PO QHS levothyroxine 25 mcg tablet 25 mcg PO DAILY Qty: 90 2RF doxepin 10 mg capsule 10 mg PO QHS Qty: 30 1RF Referrals / Follow Up: Blair Peace MD [Med Staff - Consulting] - Within 1 Month (For ultrasound finding of cortical thinning on the right kidney. History of nephrolithiasis) Care Physician,No Primary [Primary Care Provider] - Disposition Disposition (needs filled in before D/C Order can be placed): Home, Self Care Charges/Coding Visit Charges Inpatient E&M: 52300 Disch Hosp >30min
== END 2025-02-07 12:33 | disposition home or self-care (01) | DRG 872 ==
LOC: ED 02-06 00:41 → PCU 02-06 01:11
PROVIDERS: Admitting Provider Internal Medicine; Emergency Provider Emergency Medicine; Referring Provider Emergency Medicine; Visit Provider Internal Medicine
DX: A41.9 Sepsis, unspecified organism (principal); N30.01 Acute cystitis with hematuria; E03.9 Hypothyroidism, unspecified; M34.9 Systemic sclerosis, unspecified; F32.A Depression, unspecified; M19.90 Unspecified osteoarthritis, unspecified site; K59.00 Constipation, unspecified; M54.9 Dorsalgia, unspecified; K21.9 Gastro-esophageal reflux disease without esophagitis; K44.9 Diaphragmatic hernia without obstruction or gangrene; F41.9 Anxiety disorder, unspecified; G89.29 Other chronic pain; R79.89 Other specified abnormal findings of blood chemistry; N20.0 Calculus of kidney; Z79.890 Hormone replacement therapy; Z79.899 Other long term (current) drug therapy; Z87.442 Personal history of urinary calculi
CPT/HCPCS: 71275; 74176; 76770; 80048; 81001; 83605; 83735; 84145; 84443; 85025; 85379; 85610; 85730; 87040; 87077; 87086; 87088; 87186; 94762; 99283; Q9967; A4216; J2405

== ENCOUNTER → 2025-02-23 | Outpatient (CLI) | payer SELFPAY | END | disposition home or self-care (01) | LOC: LABSPEC 15:48 | PROVIDERS: Visit Provider Physician Assistant | DX: N23 Unspecified renal colic (principal) | CPT/HCPCS: 87086; 87088 ==

== ENCOUNTER → 2025-04-20 | Outpatient (CLI) | payer BC, SELFPAY | END | disposition home or self-care (01) | LOC: LABSPEC 11:23 | PROVIDERS: Visit Provider Nurse Practitioner | DX: R30.0 Dysuria (principal) | CPT/HCPCS: 87086; 87088; 87186 ==

== ENCOUNTER → 2025-05-07 | Outpatient (CLI) | payer MEDICAID, SELFPAY ==
[2025-05-07 16:25] LABS: Color, Urine Yellow (Yellow); Glucose, Dipstick Normal (Normal); Ketone-Dipstick Negative (Negative); Leukocyte Esterase-Dipstick 100 /ul (Negative); Nitrite-Dipstick Negative (Negative); Occult Blood-Urine 10 /ul (Negative); Protein-Dipstick 15 mg/dl (Negative); Specific Gravity, Urine 1.020 (1.002-1.030); Urine Bilirubin Dipstick Negative (Negative)
[2025-05-07 17:39] LABS: Red Blood Cells-Urine 0-5 SEEN /hpf (0-5)
[2025-05-07 17:40] LABS: Mucous, Urine 1+ /hpf (<or=2+); Squamous Epithelial Cells - UA 0-5 SEEN /hpf (5-10)
== END | disposition home or self-care (01) ==
LOC: LABSPEC 15:41
PROVIDERS: Referring Provider Nurse Practitioner Family; Visit Provider Nurse Practitioner Family
DX: N39.0 Urinary tract infection, site not specified (principal)
CPT/HCPCS: 81001; 87086; 87088; 87186